=== PATIENT | female | born 1940 | race Caucasian/White ===

== ENCOUNTER → 2016-06-23 | Outpatient (CLI) | payer OTHER ==
[~2016-06-23] MED LIST: ADVIN25/60 INH; AGG PO; ASPI81TA28 PO; ATEN-173 PO; CHOL100010 PO; CMBIN INH; DILT240C74 PO; MULT-506 PO; POTA-327 PO; SIMV40TA2 PO; XNX25 PO
[2016-06-23 12:04] LABS: THYROID STIMULATING HORMONE 0.554 uIu/ml (0.300-4.500)
== END | disposition home or self-care (01) ==
LOC: C.LAB 10:05
PROVIDERS: ATTEND Internal Medicine Endocrinology, Diabetes & Metabolism
DX: E05.90 Thyrotoxicosis, unspecified without thyrotoxic crisis or storm (principal)

== ENCOUNTER → 2016-07-24 | Outpatient (CLI) | payer OTHER | END | disposition home or self-care (01) | LOC: C.LABBFT 15:47 | PROVIDERS: ATTEND Internal Medicine Endocrinology, Diabetes & Metabolism | DX: E05.90 Thyrotoxicosis, unspecified without thyrotoxic crisis or storm (principal) ==

== ENCOUNTER → 2016-08-27 | Outpatient (CLI) | payer OTHER ==
[2016-08-27 12:59] LABS: THYROID STIMULATING HORMONE 3.68 uIu/ml (0.300-4.500)
== END | disposition home or self-care (01) ==
LOC: C.LABBFT 10:58
PROVIDERS: ATTEND Internal Medicine Endocrinology, Diabetes & Metabolism
DX: E05.90 Thyrotoxicosis, unspecified without thyrotoxic crisis or storm (principal)

== ENCOUNTER → 2017-05-01 | Outpatient (CLI) | payer OTHER ==
--- NOTE | 2017-05-01 14:36 | DIAGNOSTIC IMAGING REPORT ---
L-SPINE MIN 4 VIEWS ROUTINE HISTORY: Pain M54.5 Low back [id number] COMPARISON: 02/08/2010 FINDINGS: There is no fracture. Significant degenerative disc change throughout. No evidence for compression deformity. No evidence for subluxation. Atherosclerotic and postoperative change to the thoracic and abdominal aorta. IMPRESSION: No fracture or subluxation within the lumbar spine. Considerable degenerative change. The above report was generated using voice recognition software. It may contain grammatical, syntax or spelling errors. Electronically signed by: Bret De Leon M.D. 05/01/2017 2:35 PM Dictated Date/Time: 05/01/2017 2:34 PM
--- NOTE | 2017-05-01 14:36 | DIAGNOSTIC IMAGING REPORT ---
CHEST 2 VIEWS ROUTINE HISTORY: 76 years-old Female J44.9 Chronic obstructive pulmonary [id number] COMPARISON: Chest radiograph 10/05/2015, chest CT 01/23/2016 TECHNIQUE: PA and lateral views of the chest FINDINGS: Cardiac silhouette is mildly enlarged, unchanged. Stent graft of the thoracic aortic aneurysm redemonstrated. No pneumothorax, pleural effusion, focal airspace consolidation or overt pulmonary edema. Upper lobe predominant emphysematous changes redemonstrated. Mild biapical pleural-parenchymal scarring. The bones are grossly intact. There are surgical clips of the upper abdomen. IMPRESSION: Emphysema without acute cardiopulmonary process. The above report was generated using voice recognition software. It may contain grammatical, syntax or spelling errors. Electronically signed by: Joseph Hanson M.D. 05/01/2017 2:34 PM Dictated Date/Time: 05/01/2017 2:33 PM
[2017-05-01 17:16] LABS: ALKALINE PHOSPHATASE 159 U/L (45-117); ALT/SGPT 15 U/L (12-78); AST/SGOT 10 U/L (15-37); BLOOD UREA NITROGEN 24 mg/dl (7-18); BUN/CREATININE RATIO 26.8 (10-20); CALCIUM 9.4 mg/dl (8.5-10.1); CARBON DIOXIDE 27 mmol/L (21-32); CHLORIDE 104 mmol/L (98-107); CREATININE 0.89 mg/dl (0.60-1.20); GLUCOSE 99 mg/dl (70-99); HDL CHOLESTEROL 67 mg/dl; POTASSIUM 3.6 mmol/L (3.5-5.1); SODIUM 138 mmol/L (136-145)
[2017-05-01 17:21] LABS: ALB/GLOB RATIO 0.7 (0.9-2); CHOLESTEROL 200 mg/dl (0-200); LDL CHOLESTEROL CALCULATED 106 mg/dl; THYROID STIMULATING HORMONE < 0.005 uIu/ml (0.300-4.500); TRIGLYCERIDES 135 mg/dl (0-150); VERY LOW DENSITY LIPOPROT CALC 27 mg/dl
[2017-05-02 06:53] LABS: ESTIMATED AVERAGE GLUCOSE 108 mg/dl; HA1C FLAG Normal (Normal)
== END | disposition home or self-care (01) ==
LOC: C.RADBC 13:56
PROVIDERS: ATTEND Physician Assistant Medical
DX: E05.90 Thyrotoxicosis, unspecified without thyrotoxic crisis or storm (principal); I10 Essential (primary) hypertension; E78.5 Hyperlipidemia, unspecified; R73.09 Other abnormal glucose; M54.5 Low back pain; J44.9 Chronic obstructive pulmonary disease, unspecified; R06.00 Dyspnea, unspecified

== ENCOUNTER → 2017-06-19 | Outpatient (CLI) | payer OTHER | END | disposition home or self-care (01) | LOC: C.LABBFT 09:21 | PROVIDERS: ATTEND Internal Medicine Endocrinology, Diabetes & Metabolism | DX: E88.09 Other disorders of plasma-protein metabolism, not elsewhere classified (principal); R74.8 Abnormal levels of other serum enzymes; E05.90 Thyrotoxicosis, unspecified without thyrotoxic crisis or storm ==

== ENCOUNTER 2017-08-26 18:19 | Inpatient (IN) | payer OTHER ==
[~2017-08-26] VITALS: Ht 167.6 cm; Wt 71.0 kg
[2017-08-26] MEDS ORDERED: SODIUM CHLORIDE 0.9% 500ML 500 ML IV STA (18:35)
[2017-08-26] MEDS: MoRPHine SULFATE 2 MG/ML CARP IV PRN ×2 (19:08→22:57)
--- NOTE | 2017-08-26 19:10 | DIAGNOSTIC IMAGING REPORT ---
L PELVIS/UNILATERAL HIP 2-3VIEWS CLINICAL HISTORY: Evaluate for fracture. COMPARISON: CT of the abdomen and pelvis January 07, 2014. FINDINGS: Note is made of acute intertrochanteric fracture of the left femur. Lesser trochanter is moderately displaced. There is mild angulation at the level the fracture. A previous right hip arthroplasty is noted. Sacroiliac joints and symphysis pubis appear intact. IMPRESSION: Acute intertrochanteric fracture of the left femur. Lesser trochanter displaced medially. Electronically signed by: Mehdi Price M.D. 08/26/2017 7:08 PM Dictated Date/Time: 08/26/2017 7:05 PM
--- NOTE | 2017-08-26 19:12 | DIAGNOSTIC IMAGING REPORT ---
CHEST ONE VIEW PORTABLE CLINICAL HISTORY: Hip fracture. COMPARISON STUDY: Chest radiograph May 01, [address] January 23, 2016. FINDINGS: Mild elevation of the left hemidiaphragm is unchanged. There is no pneumothorax or pleural effusion. Pulmonary vascularity is normal. A thoracic aortic stent graft is noted. The appearance of the thoracic aorta is unchanged by radiography. Cardiomediastinal silhouette is stable. IMPRESSION: 1. No acute cardiopulmonary findings. 2. Stable radiographic appearance of the thoracic aorta status post endovascular stent placement. Electronically signed by: Mehdi Price M.D. 08/26/2017 7:11 PM Dictated Date/Time: 08/26/2017 7:10 PM
[2017-08-26 19:52] LABS: HEMOGLOBIN 10.2 g/dL (12.0-16.0); MEAN CELL VOLUME 79.6 fL (80-100); MEAN CORPUSCULAR HEMOGLOBIN 27.1 pg (25-34); MEAN PLATELET VOLUME 8.4 fL (7.4-10.4); PLATELET COUNT 272 K/uL (130-400); RED CELL DISTRIBUTION WIDTH CV 14.2 % (11.5-14.5); RED CELL DISTRIBUTION WIDTH SD 41.1 fL (36.4-46.3); WHITE BLOOD COUNT 9.33 K/uL (4.8-10.8)
[2017-08-26 20:07] LABS: PTT PATIENT 25.4 SECONDS (21.0-31.0)
[2017-08-26 20:17] LABS: CALCIUM 8.8 mg/dl (8.5-10.1); CREATININE 0.93 mg/dl (0.60-1.20); POTASSIUM 3.7 mmol/L (3.5-5.1)
[2017-08-26 20:18] LABS: BASO % 0.1 %; BASO ABS # 0.01 K/uL (0-0.2); EOS % 0.1 %; EOS ABS # 0.01 K/uL (0-0.5); IG# 0.06 K/uL (0.00-0.02); LYMPH % 8.3 %; LYMPH ABS # 0.77 K/uL (1.2-3.4); MONO % 5.1 %; MONO ABS # 0.48 K/uL (0.11-0.59); NEUT % 85.8 %
--- NOTE | 2017-08-26 20:22 | DIAGNOSTIC IMAGING REPORT ---
CT OF THE HEAD WITHOUT CONTRAST CLINICAL HISTORY: Fall. COMPARISON STUDY: Head CT January 07, 2014. CT DOSE: 712.55 mGy.cm TECHNIQUE: Helical axial images of the head were obtained without IV contrast. Automated exposure control was utilized for the study. A dose lowering technique was utilized adhering to the principles of ALARA. FINDINGS: No acute intracranial hemorrhage, midline shift or mass effect is present. Ventricular system is normal. Basilar cisterns are patent. There are no extra axial collections. 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 White matter hypodensities suggest moderate small vessel disease. There is no calvarial fracture. IMPRESSION: 1. No acute intracranial findings. 2. No calvarial fracture. 3. 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 Electronically signed by: Mehdi Price M.D. 08/26/2017 8:20 PM Dictated Date/Time: 08/26/2017 8:18 PM
[2017-08-26] MEDS ORDERED: ALPR0.25 PO (20:35)
--- NOTE | 2017-08-26 20:35 | EMERGENCY ROOM VISIT NOTE ---
History Report prepared by Jen: Pranay Roque Under the Supervision of: Dr. Silverio Esparza M.D. First contact with patient: 18:21 Chief Complaint: FALL Stated Complaint: FALL, L HIP & LEG PAIN History of Present Illness The patient is a 76 year old female who presents to the Emergency Room by EMS with complaints of constant left hip pain s/p fall occurring 6.5 hours ago. She was given 6 mg of Morphine en route which improved her pain. The patient states that she was on the ground for several hours after the fall until her son came home. She describes her current pain as "sharp". Her pain is worsened with movement. The patient states that she tripped over a shoe and landed on her left side. She is unsure if she hit her head, but is sure she did not lose consciousness. She denies headache or neck pain. The patient denies numbness to her toes, vomiting, fevers, chest pain, SOB, or rib pain. She is on Aggrenox. Source of History: patient Onset: 6.5 hours ago Position: pelvis (left hip) Quality: sharp Timing: constant Modifying Factors (Worsening): movement Modifying Factors (Relieving): other (Morphine) Associated Symptoms: No LOC, No fevers, No headache, No neck pain, No chest pain, No SOB, No vomiting, No numbness (to toes) Note: Negative: rib pain. Review of Systems See HPI for pertinent positives & negatives. A total of 10 systems reviewed and were otherwise negative. Past Medical & Surgical Medical Problems: (1) ARF (acute renal failure) (2) COPD (chronic obstructive pulmonary disease) (3) HTN (hypertension) (4) Hyperlipidemia (5) Non-insulin dependent type 2 diabetes mellitus Surgical Problems: (1) H/O heart artery stent Family History Cancer Diabetes mellitus Heart disease Hypertension Lung disease Social History Smoking Status: Former Smoker Alcohol Use: none Drug Use: none Housing Status: lives with family Occupation Status: retired Current/Historical Medications Scheduled Alprazolam (Xanax *), 0.25 MG PO BID Aspirin (Aspirin Ec), 81 MG PO DAILY Aspirin-Dipyridamole 25MG/200MG (Aggrenox 200MG/25MG), 1 CAP PO BID Atenolol (Tenormin), 25 MG PO DAILY Cholecalciferol (Vitamin D), 2,000 INTER.UNIT PO DAILY Diltiazem Hcl Extended Release (Diltiazem Hcl Er), 240 MG PO DAILY Fluticasone Prop/Salmeterol (Advair Diskus 250/50 60 Dose), 1 PUFF INH BID Ipratropium/Albuterol (Combivent *), 2 PUFFS INH QID Multivitamin (Multivitamin), 1 TAB PO DAILY Potassium Ext Rel (Klor-Con), 20 MEQ PO BID Simvastatin (Zocor), 40 MG PO HS Allergies Coded Allergies: No Known Allergies (Verified , 01/10/03) Physical Exam Vital Signs Date Time Temp Pulse Resp B/P (MAP) Pulse Ox O2 Delivery O2 Flow Rate FiO2 08/26/17 19:09 71 20 169/89 97 Nasal Cannula 08/26/17 18:34 36.4 79 19 148/38 83 Room Air Physical Exam Constitutional: Vital signs reviewed. Eyes: Pupils are equal round reactive to light. Conjunctiva are noninjected. ENT: Pharynx is clear without erythema or exudate. Mucous membranes are dry. Neck supple without meningeal signs. No midline tenderness to the cervical spine. Respiratory: Clear to auscultation bilaterally. Breath sounds are equal bilaterally. Cardiovascular: Regular rate and rhythm. No rubs or gallops. GI: Soft, nondistended and nontender. Bowel sounds are present. Musculoskeletal: Normal distal pulses in the left foot. No tenderness to the left leg distal to the left hip. No pelvic instability. Integumentary: No cyanosis. Neurological: The patient is awake and alert. No focal deficits. Psychiatric: Normal affect. Medical Decision & Procedures ER Provider Diagnostic Interpretation: Radiology results as stated below per my review and the radiologist's interpretation: L PELVIS/UNILATERAL HIP 2-3VIEWS FINDINGS: Note is made of acute intertrochanteric fracture of the left femur. Lesser trochanter is moderately displaced. There is mild angulation at the level the fracture. A previous right hip arthroplasty is noted. Sacroiliac joints and symphysis pubis appear intact. IMPRESSION: Acute intertrochanteric fracture of the left femur. Lesser trochanter displaced medially. Electronically signed by: Mehdi Price M.D. 08/26/2017 7:08 PM CHEST ONE VIEW PORTABLE FINDINGS: Mild elevation of the left hemidiaphragm is unchanged. There is no pneumothorax or pleural effusion. Pulmonary vascularity is normal. A thoracic aortic stent graft is noted. The appearance of the thoracic aorta is unchanged by radiography. Cardiomediastinal silhouette is stable. IMPRESSION: 1. No acute cardiopulmonary findings. 2. Stable radiographic appearance of the thoracic aorta status post endovascular stent placement. Electronically signed by: Mehdi Price M.D. 08/26/2017 7:11 PM Laboratory Results 08/26/17 19:13 Red Blood Count 3.77, Mean Corpuscular Volume 79.6, Mean Corpuscular Hemoglobin 27.1, Mean Corpuscular Hemoglobin Concent 34.0, Mean Platelet Volume 8.4, Neutrophils (%) (Auto) 85.8, Lymphocytes (%) (Auto) 8.3, Monocytes (%) (Auto) 5.1, Eosinophils (%) (Auto) 0.1, Basophils (%) (Auto) 0.1, Neutrophils # (Auto) 8.00, Lymphocytes # (Auto) 0.77, Monocytes # (Auto) 0.48, Eosinophils # (Auto) 0.01, Basophils # (Auto) 0.01 08/26/17 19:13 Test 08/26/17 19:13 08/26/17 19:38 White Blood Count 9.33 K/uL (4.8-10.8) Red Blood Count 3.77 M/uL (4.2-5.4) Hemoglobin 10.2 g/dL (12.0-16.0) Hematocrit 30.0 % (37-47) Mean Corpuscular Volume 79.6 fL (80-100) Mean Corpuscular Hemoglobin 27.1 pg (25-34) Mean Corpuscular Hemoglobin Concent 34.0 g/dl (32-36) Platelet Count 272 K/uL (130-400) Mean Platelet Volume 8.4 fL (7.4-10.4) Neutrophils (%) (Auto) 85.8 % Lymphocytes (%) (Auto) 8.3 % Monocytes (%) (Auto) 5.1 % Eosinophils (%) (Auto) 0.1 % Basophils (%) (Auto) 0.1 % Neutrophils # (Auto) 8.00 K/uL (1.4-6.5) Lymphocytes # (Auto) 0.77 K/uL (1.2-3.4) Monocytes # (Auto) 0.48 K/uL (0.11-0.59) Eosinophils # (Auto) 0.01 K/uL (0-0.5) Basophils # (Auto) 0.01 K/uL (0-0.2) RDW Standard Deviation 41.1 fL (36.4-46.3) RDW Coefficient of Variation 14.2 % (11.5-14.5) Immature Granulocyte % (Auto) 0.6 % Immature Granulocyte # (Auto) 0.06 K/uL (0.00-0.02) Microcytosis PRESENT Prothrombin Time 10.8 SECONDS (9.0-12.0) Prothromb Time International Ratio 1.0 (0.9-1.1) Activated Partial Thromboplast Time 25.4 SECONDS (21.0-31.0) Partial Thromboplastin Ratio 1.0 Anion Gap 8.0 mmol/L (3-11) Est Creatinine Clear Calc Drug Dose 48.9 ml/min Estimated GFR () 69.7 Estimated GFR (Non- 60.1 BUN/Creatinine Ratio 25.5 (10-20) Calcium Level 8.8 mg/dl (8.5-10.1) Total Creatine Kinase 58 U/L (26-192) Urine Color YELLOW Urine Appearance CLEAR (CLEAR) Urine pH 5.5 (4.5-7.5) Urine Specific Stanton 1.011 (1.000-1.030) Urine Protein NEG (NEG) Urine Glucose (UA) 1+ (NEG) Urine Ketones NEG (NEG) Urine Occult Blood TRACE (NEG) Urine Nitrite NEG (NEG) Urine Bilirubin NEG (NEG) Urine Urobilinogen NEG (NEG) Urine Leukocyte Esterase NEG (NEG) Urine WBC (Auto) 0 /hpf (0-5) Urine RBC (Auto) 5-10 /hpf (0-4) Urine Hyaline Casts (Auto) 1-5 /lpf (0-5) Urine Epithelial Cells (Auto) 0-5 /lpf (0-5) Urine Bacteria (Auto) NEG (NEG) Laboratory results as reviewed by me. Medications Administered Medications (Trade) Dose Ordered Sig/Gena Route Start Time Stop Time Status Last Admin Dose Admin Morphine Sulfate (MoRPHine SULFATE INJ) 2 mg Q60M PRN IV 08/26/17 18:30 09/09/17 18:29 08/26/17 19:08 2 MG Sodium Chloride 500 ml @ 999 mls/hr Q31M STAT IV 08/26/17 18:35 08/26/17 19:05 DC 08/26/17 18:48 999 MLS/HR ECG Per My Interpretation Indication: other (fall) Rate (beats per minute): 73 Rhythm: normal sinus Findings: other (No ST elevations. No PVCs. ) ED Course 1821: The patient was evaluated in room B4B. A complete history and physical exam was performed. 1829: Ordered Morphine Sulfate 2 mg IV. 1834: Ordered Sodium Chloride 500 ml @ 999 mls/hr IV. 1934: Upon reevaluation, the patient is resting comfortably. I discussed tonight 's findings with her including her X-ray results. She verbalized agreement of the treatment plan. The patient will be evaluated for further management. Medical Decision This is a 76-year-old female presents with left hip pain after fall. Differential diagnosis includes contusion, hip fracture, pelvic fracture, acute head injury, rhabdomyolysis. I did perform a limited focused review of portions of the patient's old chart on the electronic medical record. The patient has had no recent pertinent visits to this hospital. I did evaluate the patient as noted above. Patient was given IV morphine for pain control here. I did order and personally review the patient's 12-lead EKG and chest/pelvic/hip x-ray as described above. She does have an intertrochanteric hip fracture. I did order and review the patient's blood work as noted in the electronic medical record. CPK is not elevated. I did order a CT of the head. I did review the images myself as well as the radiology report as described above. There is no evidence of intracranial hemorrhage. I did discuss case with Dr. Hadley and the renal case manager. I did discuss the test results with the patient and her family. Head Trauma GCS Score: 15 Medication Reconcilliation Current Medication List: was personally reviewed by me Blood Pressure Screening Patient's blood pressure: Elevated blood pressure Blood pressure disposition: Referred to PCP Consults Time Called: 1929 Consulting Physician: Dr. Cortés - [facility] Returned Call: 1944 Dr. Cortés was made aware of the patient's case. The patient will be evaluated for further management. Impression Primary Impression: Intertrochanteric fracture of left hip Additional Impressions: Anemia Fall Scribe Attestation The scribe's documentation has been prepared under my direct and personally reviewed by me in its entirety. I confirm that the note above accurately reflects all work, treatment, procedures, and medical decision making performed by me. Departure Information Dispostion Being Evaluated By Hospitalist Referrals No Doctor, Assigned (PCP) Patient Instructions [facility] Problem Qualifiers Primary Impression: Intertrochanteric fracture of left hip Encounter type: initial encounter Fracture type: closed Fracture alignment : nondisplaced Qualified Codes: S72.145A - Nondisplaced intertrochanteric fracture of left femur, initial encounter for closed fracture Additional Impressions: Anemia Anemia type: unspecified type Qualified Codes: D64.9 - Anemia, unspecified Fall Encounter type: initial encounter Qualified Codes: W19.XXXA - Unspecified fall, initial encounter
[2017-08-26] MEDS ORDERED: LOSA1TAB38 PO (20:37)
[2017-08-26] MEDS ORDERED: METH10TA6 PO (20:38)
[2017-08-26] MEDS ORDERED: TIOT1SPR INH (20:40)
[2017-08-26] MEDS ORDERED: IPRA1AER2 INH (20:41)
[2017-08-26] MEDS ORDERED: FURO-85 PO (20:44)
--- NOTE | 2017-08-26 21:11 | History and Physical ---
History & Physical Date & Time of Service: Aug 26, 2017 at 21:11 Chief Complaint: Fall, L Hip & Leg Pain Primary Care Physician: No Doctor, Assigned History of Present Illness Source: patient, family, hospital records The patient is 76-year-old female who presents to the emergency department after tripping over her grandson tissue and sustaining immediate left hip pain about 6-1/2 hours prior to arrival. Patient reports that she was on the ground for several hours until her son came home and found her. She is unable to bear weight, and describes the pain as sharp and severe. She does not think she had any other body parts, and has no other complaints. Past Medical/Surgical History Medical Problems: (1) Abnormal EKG (2) Acute kidney injury (3) Acute kidney injury (4) Acute renal failure (5) ARF (acute renal failure) (6) COPD (chronic obstructive pulmonary disease) (7) Dehydration (8) Dehydration (9) Fever (10) Fracture of humeral head, right, closed (11) Hip fracture (12) HTN (hypertension) (13) Hyperlipidemia (14) Hypoglycemia (15) Hypotension (16) Non-insulin dependent type 2 diabetes mellitus (17) Urinary tract infection Surgical Problems: (1) H/O heart artery stent Family History Cancer Diabetes mellitus Heart disease Hypertension Lung disease Social History Smoking Status: Former Smoker Drug Use: none Housing status: lives alone Occupational Status: retired Immunizations History of Influenza Vaccine: Yes Influenza Vaccine Date: Feb 10, 2011 History of Tetanus Vaccine?: No History of Pneumococcal: Unknown History of Hepatitis B Vaccine: No Allergies Coded Allergies: No Known Allergies (Verified , 01/10/03) Home Medications Scheduled Aspirin (Aspirin Ec), 81 MG PO DAILY Aspirin-Dipyridamole 25MG/200MG (Aggrenox 200MG/25MG), 1 CAP PO BID Cholecalciferol (Vitamin D), 2,000 INTER.UNIT PO DAILY Diltiazem Hcl Extended Release (Diltiazem Hcl Er), 240 MG PO DAILY Fluticasone Prop/Salmeterol (Advair Diskus 250/50 60 Dose), 1 PUFF INH BID Losartan Potassium (Cozaar), 100 MG PO DAILY Methimazole (Methimazole), 10 MG PO BID Multivitamin (Multivitamin), 1 TAB PO DAILY Potassium Ext Rel (Klor-Con), 20 MEQ PO BID Simvastatin (Zocor), 40 MG PO HS Tiotropium [place] (Spiriva Respimat), 2 PUFF INH DAILY Scheduled PRN Alprazolam (Xanax), 0.25 MG PO BID PRN for Anxiety Furosemide (Lasix), 20 MG PO DAILY PRN for UNDECIDED Ipratropium-Albuterol (Combivent Respimat), 1 PUFFS INH QID PRN for SOB/Wheezing Review of Systems The patient denies chest pain, palpitations, shortness of breath, dyspnea on exertion, cough, lower extremity swelling, sore throat, fevers, chills, sweats, weight change, fatigue, nausea, vomiting, diarrhea , constipation, abdominal pain, pelvic pain, blood in urine or stool, dysuria, urinary frequency or urgency, lightheadedness , dizziness, headache, memory loss, loss of consciousness, rash, abnormal bruising or bleeding, generalized weakness, numbness or tingling in arms, generalized arthralgias or myalgias, back or neck pain, or night sweats. The review of systems is otherwise negative other than for that already noted above, and at least 10 systems have been reviewed. Physical Exam Vital Signs Date Time Temp Pulse Resp B/P (MAP) Pulse Ox O2 Delivery O2 Flow Rate FiO2 08/26/17 19:09 71 20 169/89 97 Nasal Cannula 08/26/17 18:34 36.4 79 19 148/38 83 Room Air The patient is awake, alert and oriented 3, well developed and well nourished, normocephalic and atraumatic, lying in bed and in no acute distress. HEENT--PERRL, EOMI, mucous membranes and oropharynx dry. Neck--supple. No JVD. No bruits. Thyroid normal, trachea midline, no adenopathy. Heart--normal S1 and S2. No murmurs, rubs or gallops. Lungs--clear bilaterally, no respiratory distress, no accessory muscle use. Abdomen--normal bowel sounds and soft. Nontender. Nondistended, no hernias or masses, no organomegaly. Extremities--no cyanosis or clubbing. No edema. There are good distal pulses b/ l. Dermatologic--normal skin turgor, normal color, no abnormal lymph nodes, no rash. Neurologic--cranial nerves II through XII grossly intact. Rheumatologic--reproducible pain over left hip. Psychiatric--normal affect. Diagnostics Laboratory Results Results Past 24 Hours Test 08/26/17 19:13 08/26/17 19:38 Range/Units White Blood Count 9.33 4.8-10.8 K/uL Red Blood Count 3.77 4.2-5.4 M/uL Hemoglobin 10.2 12.0-16.0 g/dL Hematocrit 30.0 37-47 % Mean Corpuscular Volume 79.6 80-100 fL Mean Corpuscular Hemoglobin 27.1 25-34 pg Mean Corpuscular Hemoglobin Concent 34.0 32-36 g/dl Platelet Count 272 130-400 K/uL Mean Platelet Volume 8.4 7.4-10.4 fL Neutrophils (%) (Auto) 85.8 % Lymphocytes (%) (Auto) 8.3 % Monocytes (%) (Auto) 5.1 % Eosinophils (%) (Auto) 0.1 % Basophils (%) (Auto) 0.1 % Neutrophils # (Auto) 8.00 1.4-6.5 K/uL Lymphocytes # (Auto) 0.77 1.2-3.4 K/uL Monocytes # (Auto) 0.48 0.11-0.59 K/uL Eosinophils # (Auto) 0.01 0-0.5 K/uL Basophils # (Auto) 0.01 0-0.2 K/uL RDW Standard Deviation 41.1 36.4-46.3 fL RDW Coefficient of Variation 14.2 11.5-14.5 % Immature Granulocyte % (Auto) 0.6 % Immature Granulocyte # (Auto) 0.06 0.00-0.02 K/uL Microcytosis PRESENT Prothrombin Time 10.8 9.0-12.0 SECONDS Prothromb Time International Ratio 1.0 0.9-1.1 Activated Partial Thromboplast Time 25.4 21.0-31.0 SECONDS Partial Thromboplastin Ratio 1.0 Sodium Level 136 136-145 mmol/L Potassium Level 3.7 3.5-5.1 mmol/L Chloride Level 103 98-107 mmol/L Carbon Dioxide Level 25 21-32 mmol/L Anion Gap 8.0 3-11 mmol/L Blood Urea Nitrogen 24 7-18 mg/dl Creatinine 0.93 0.60-1.20 mg/dl Est Creatinine Clear Calc Drug Dose 48.9 ml/min Estimated GFR () 69.7 Estimated GFR (Non- 60.1 BUN/Creatinine Ratio 25.5 10-20 Random Glucose 143 70-99 mg/dl Calcium Level 8.8 8.5-10.1 mg/dl Total Creatine Kinase 58 26-192 U/L Urine Color YELLOW Urine Appearance CLEAR CLEAR Urine pH 5.5 4.5-7.5 Urine Specific [place] 1.011 1.000-1.030 Urine Protein NEG NEG Urine Glucose (UA) 1+ NEG Urine Ketones NEG NEG Urine Occult Blood TRACE NEG Urine Nitrite NEG NEG Urine Bilirubin NEG NEG Urine Urobilinogen NEG NEG Urine Leukocyte Esterase NEG NEG Urine WBC (Auto) 0 0-5 /hpf Urine RBC (Auto) 5-10 0-4 /hpf Urine Hyaline Casts (Auto) 1-5 0-5 /lpf Urine Epithelial Cells (Auto) 0-5 0-5 /lpf Urine Bacteria (Auto) NEG NEG Diagnostic Radiology Patient Name: PRICILLA NICOLAS Unit Number: [id number] Dictated: 08/26/171904 Transcribed: 08/26/171904 HARRIET Printed Date/Time: [~ rep prt dt]/[~ rep prt tm] [~ rep ct labl] - [~ rep ct ivnm] [facility] Radiology Department [place], [place] [id number] Dictated: 08/26/171904 Transcribed: 08/26/171904 HARRIET Printed Date/Time: [~ rep prt dt]/[~ rep prt tm] [~ rep ct labl] - [~ rep ct ivnm] [~ rep ct add3]] L PELVIS/UNILATERAL HIP 2-3VIEWS CLINICAL HISTORY: Evaluate for fracture. COMPARISON: CT of the abdomen and pelvis January 07, 2014. FINDINGS: Note is made of acute intertrochanteric fracture of the left femur. Lesser trochanter is moderately displaced. There is mild angulation at the level the fracture. A previous right hip arthroplasty is noted. Sacroiliac joints and symphysis pubis appear intact. IMPRESSION: Acute intertrochanteric fracture of the left femur. Lesser trochanter displaced medially. Electronically signed by: Mehdi Price M.D. 08/26/2017 7:08 PM Dictated Date/Time: 08/26/2017 7:05 PM The status of this report is Signed. Draft = Not yet reviewed or approved by Radiologist. Signed = Reviewed and approved by Radiologist. <AttendingPhy></AttendingPhy> <FamilyPhy>No Doctor, Assigned</FamilyPhy> < PrimaryPhy>No Doctor, Assigned</PrimaryPhy> <UnitNumber>[id number]</UnitNumber> <VisitNumber>[id number]</VisitNumber> <PatientName>PRICILLA NICOLAS</ PatientName> <DateOfBirth>1940</DateOfBirth> <Location>[facility]</Location> < ServiceDate>08/26/17</ServiceDate> <MNE>ESINDI</MNE> <OrderingPhy>Silverio Esparza MD</OrderingPhy> <OrderingPhyMNE>f rep ord dr bales</OrderingPhyMNE> < DictatingPhyMNE>f rep dict dr bales</DictatingPhyMNE> <CCListMNE>f rep ct ruslane</ CCListMNE> <AdmittingPhyMNE>f pt admit dr bales</AdmittingPhyMNE> <AttendingPhyMNE >f pt attend dr bales</AttendingPhyMNE> <ConsultingPhyMNE>f pt consult dr bales</ConsultingPhyMNE> <FamilyPhyMNE>f pt fam dr bales</FamilyPhyMNE> <OtherPhyMNE>f pt other dr bales</OtherPhyMNE> < PrimaryPhyMNE>f pt prim care dr bales</PrimaryPhyMNE> <ReferringPhyMNE>f pt referring dr bales</ReferringPhyMNE> CT OF THE HEAD WITHOUT CONTRAST CLINICAL HISTORY: Fall. COMPARISON STUDY: Head CT January 07, 2014. CT DOSE: 712.55 mGy.cm TECHNIQUE: Helical axial images of the head were obtained without IV contrast. Automated exposure control was utilized for the study. A dose lowering technique was utilized adhering to the principles of ALARA. FINDINGS: No acute intracranial hemorrhage, midline shift or mass effect is present. Ventricular system is normal. Basilar cisterns are patent. There are no extra axial collections. 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 White matter hypodensities suggest moderate small vessel disease. There is no calvarial fracture. IMPRESSION: 1. No acute intracranial findings. 2. No calvarial fracture. 3. 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 Electronically signed by: Mehdi Price M.D. 08/26/2017 8:20 PM Dictated Date/Time: 08/26/2017 8:18 PM The status of this report is Signed. Draft = Not yet reviewed or approved by Radiologist. Signed = Reviewed and approved by Radiologist. <AttendingPhy></AttendingPhy> <FamilyPhy>No Doctor, Assigned</FamilyPhy> < PrimaryPhy>No Doctor, Assigned</PrimaryPhy> <UnitNumber>[id number]</UnitNumber> <VisitNumber>[id number]</VisitNumber> <PatientName>PRICILLA NICOLAS Benson</ PatientName> <DateOfBirth>1940</DateOfBirth> <Location>C.ED[facility]</Location> < ServiceDate> [~ rep ct add3]] CHEST ONE VIEW PORTABLE CLINICAL HISTORY: Hip fracture. COMPARISON STUDY: Chest radiograph May 01, [address] January 23, 2016. FINDINGS: Mild elevation of the left hemidiaphragm is unchanged. There is no pneumothorax or pleural effusion. Pulmonary vascularity is normal. A thoracic aortic stent graft is noted. The appearance of the thoracic aorta is unchanged by radiography. Cardiomediastinal silhouette is stable. IMPRESSION: 1. No acute cardiopulmonary findings. 2. Stable radiographic appearance of the thoracic aorta status post endovascular stent placement. Electronically signed by: Mehdi Price M.D. 08/26/2017 7:11 PM Dictated Date/Time: 08/26/2017 7:10 PM The s EKG EKG shows normal sinus rhythm, nonspecific ST-T changes laterally. Impression Assessment and Plan Abnormal EKG/CAD/history of coronary artery stent/status post endovascular stent -- The patient will be admitted to telemetry for serial cardiac enzymes, serial EKG's, cardiac rhythm monitoring and a 2-D echocardiogram with Dopplers. Consult cardiology. Hold atenolol and diltiazem extended release. Lopressor 5 mg IV every 4 hours with hold parameters. Left hip fracture-- Tylenol for mild pain, morphine sulfate 2-4 mg IV every 2 hours as needed for moderate to severe pain. Consult Dr. Sorto, who fixed her right hip a few years ago. Hold aspirin and Aggrenox. Severe COPD/history of tobacco abuse-- Xopenex/Atrovent nebulizer every 6 hours while awake and every 2 hours as needed. Nasal cannula 2 L oxygen, titrate to keep pulse ox greater than or equal to 92%. Cerebrovascular disease-- CT reveals old left frontal and parietal infarcts, with moderate small vessel disease, no acute findings. Hold aspirin and Aggrenox Hyperlipidemia-- Simvastatin 40 mg p.o. at bedtime. Anxiety-- Hold Xanax p.o., and place on Lorazepam 0.5 mg IV every 6 hours as needed. Hyperthyroidism-- Continue methimazole 10 mg p.o. twice daily. Advanced Directives Existing Advance Directive: No Existing Living Will: No Existing Power of Rn Clinical Coordinator: No Resuscitation Status VTE Prophylaxis Will order VTE Prophylaxis: Yes
[2017-08-26] MEDS ORDERED: ACETAMINOPHEN 325 MG TAB PO PRN (21:15)
[2017-08-26] MEDS ORDERED: MoRPHine SULFATE 2 MG/ML CARP IV PRN (21:30)
[2017-08-26] MEDS ORDERED: MoRPHine SULFATE 4 MG/ML 1 ML CARP\\VIAL IV PRN (21:30)
[2017-08-26] MEDS ORDERED: LORAZEPAM 2 MG/ML 1 ML VIAL IV PRN (21:30)
[2017-08-26] MEDS ORDERED: ONDANSETRON 4MG OD TAB ONE (21:51)
[2017-08-26 22:05] LABS: ALBUMIN 3.8 gm/dl (3.4-5.0); TOTAL PROTEIN 7.7 gm/dl (6.4-8.2)
[2017-08-26] MEDS ORDERED: IPRATROPIUM BROMIDE NEB SOLN 0.02% 2.5 ML VIAL INH PRN (22:15)
[2017-08-26] MEDS ORDERED: LEVALBUTEROL 1.25MG/0.5ML NEB INH PRN (22:15)
[2017-08-26 22:45] VITALS: BP 180/93; PULSE 77; TEMP 36.4; O2SAT 97
[2017-08-26] MEDS: METOPROLOL TARTRATE 1 MG/ML VIAL IV. SCH (23:46)
[2017-08-26] MEDS: NSS + 20MEQ KCL 1000ML 1,000 ML IV SCH (23:46)
[2017-08-27] VITALS (11 sets, daily range): BP systolic 104–183; BP diastolic 61–94; PULSE 59–92; TEMP 36.4–36.7; O2SAT 90–100; Ht 167.6 cm; Wt 71.0 kg
[2017-08-27] MEDS: IPRATROPIUM BROMIDE NEB SOLN 0.02% 2.5 ML VIAL INH SCH ×4 (03:00→19:19)
[2017-08-27] MEDS ORDERED: LEVALBUTEROL/IPRATROPIUM NEB INH SCH (03:00)
[2017-08-27] MEDS: LEVALBUTEROL 1.25MG/0.5ML NEB INH SCH ×4 (03:00→19:19)
[2017-08-27] MEDS: METOPROLOL TARTRATE 1 MG/ML VIAL IV. SCH ×5 (03:55→20:57)
[2017-08-27 05:25] LABS: BASO % 0.5 %; BASO ABS # 0.03 K/uL (0-0.2); EOS % 0.5 %; EOS ABS # 0.03 K/uL (0-0.5); HEMATOCRIT 28.5 % (37-47); HEMOGLOBIN 9.2 g/dL (12.0-16.0); IG# 0.02 K/uL (0.00-0.02); LYMPH % 12.8 %; LYMPH ABS # 0.79 K/uL (1.2-3.4); MEAN CELL VOLUME 81.7 fL (80-100); MEAN CORPUSCULAR HEMOGLOBIN 26.4 pg (25-34); MEAN CORPUSCULAR HGB CONC 32.3 g/dl (32-36); MEAN PLATELET VOLUME 8.2 fL (7.4-10.4); MONO % 7.1 %; MONO ABS # 0.44 K/uL (0.11-0.59); NEUT % 78.8 %; NEUT ABS # 4.88 K/uL (1.4-6.5); PLATELET COUNT 239 K/uL (130-400); RED CELL DISTRIBUTION WIDTH CV 14.5 % (11.5-14.5); RED CELL DISTRIBUTION WIDTH SD 43.3 fL (36.4-46.3); WHITE BLOOD COUNT 6.19 K/uL (4.8-10.8)
[2017-08-27 05:34] LABS: INR 1.1 (0.9-1.1); PTT PATIENT 27.3 SECONDS (21.0-31.0)
[2017-08-27 05:41] LABS: BLOOD UREA NITROGEN 24 mg/dl (7-18); CALCIUM 8.6 mg/dl (8.5-10.1); CARBON DIOXIDE 24 mmol/L (21-32); CREATININE 1.05 mg/dl (0.60-1.20); GLUCOSE 126 mg/dl (70-99); POTASSIUM 4.2 mmol/L (3.5-5.1); SODIUM 138 mmol/L (136-145)
[2017-08-27 05:47] LABS: CHOLESTEROL 186 mg/dl (0-200); CKMB 1.8 ng/ml (0.5-3.6); LDL CHOLESTEROL CALCULATED 109 mg/dl
[2017-08-27 07:10] LABS: HEMOGLOBIN A1C 5.6 % (4.5-5.6)
--- NOTE | 2017-08-27 07:16 | DIAGNOSTIC IMAGING REPORT ---
LEFT FEMUR 2 VIEWS CLINICAL HISTORY: Fracture. FINDINGS: AP and crosstable lateral portable views of the left femur are correlated with left hip radiographs dated 08/26/2017. The skeletal structures are osteopenic. There is a minimally distracted intertrochanteric fracture of the left femur with medial distraction of the lesser trochanter. The distal femur is intact. The visualized left hemipelvis is maintained. Mild arthritic change and joint space narrowing are seen in the left hip. The left knee joint is grossly preserved. A right hip arthroplasty is partially imaged on the crosstable lateral view. Mild soft tissue edema is noted in the upper thigh. There is atherosclerotic calcification of the femoral artery. IMPRESSION: Unchanged appearance of an intertrochanteric left femoral fracture as compared to yesterday. Electronically signed by: John Romero M.D. 08/27/2017 7:15 AM Dictated Date/Time: 08/27/2017 7:13 AM
[2017-08-27] MEDS: METHIMAZOLE 5 MG TAB PO SCH ×2 (07:41→21:07)
[2017-08-27] MEDS: HEPARIN SOD 5000 UNIT/0.5 ML CARP SQ SCH ×2 (07:47→21:08)
--- NOTE | 2017-08-27 09:06 | CONSULTATION REPORT ---
DATE OF CONSULTATION: 08/27/2017 REASON FOR CONSULT: Left hip fracture. HISTORY OF PRESENT ILLNESS: The patient is a 76-year-old white female who states that while she was walking down her hallway she ended up stumbling over something and fell to the ground. She denies any dizziness, lightheadedness, shortness of breath, chest pain prior to or after the fall. She states she did not lose consciousness but possibly may have hit her head when she hit the floor. She had immediate pain in her left hip and groin and was unable to ambulate and was brought to [facility] ED. She was seen by the staff. X-rays were taken and it was found that she had an intertrochanteric fracture of the left hip. She was admitted by the medical service and we have been asked to see her for her hip fracture. PAST MEDICAL HISTORY: Acute kidney injury, acute renal failure, COPD, hypertension, hyperlipidemia, diabetes mellitus type 2, left-sided CVA with left MCA in 2013, history of falls, carotid disease. PAST SURGICAL HISTORY: She has had a right bipolar hemiarthroplasty in 2012, carotid endarterectomy in 2004, cholecystectomy, hysterectomy, history of cardiac stent placement. FAMILY HISTORY: Cancer, diabetes mellitus, heart disease, hypertension, lung disease. SOCIAL HISTORY: The patient is a former smoker, about 54-[id number] history of smoking at least. She is retired. No alcohol use. MEDICATIONS: Aspirin 81 mg p.o. daily, Aggrenox 1 cap p.o. b.i.d., vitamin D 2000 international units p.o. daily, diltiazem 240 mg p.o. daily, Advair Diskus 250/50 one puff inhaled b.i.d., losartan, potassium 100 mg p.o. daily, methimazole 10 mg p.o. b.i.d., multivitamin 1 tab p.o. daily, potassium extended release 20 mEq p.o. b.i.d., simvastatin 40 mg p.o. at bedtime, Spiriva 2 puffs inhaled daily, alprazolam 0.25 mg p.o. b.i.d. p.r.n., Lasix 20 mg p.o. daily p.r.n. and Combivent Respimat 1 puff inhaled q.i.d. p.r.n. ALLERGIES: NKDA. REVIEW OF SYSTEMS: As per admitting history and physical. PHYSICAL EXAMINATION: GENERAL: The patient is a well-developed, well-nourished white female who is alert and oriented x3 and in no acute distress, pleasant and cooperative. She states her pain is controlled quite well at this time and she has not been having any muscle spasms in the left lower extremity and around the hip. SKIN: Warm and dry. EXTREMITIES: Focusing on her left lower extremity, it is shortened and slightly externally rotated compared to the right. No attempts were made to move the left hip due to fracture. She is nontender at the left knee and has good range of motion at the left ankle and toes. Sensation is intact. Distal pulses are equal bilaterally. Right lower extremity is essentially within normal limits. She has a scar from her previous right hemiarthroplasty and is nontender at the hip, knee and ankle and range of motion is within normal limits. She denies pain in the upper extremities bilaterally at the shoulders, elbows and wrist and has good range of motion. She denies neck pain at this time. She does complain of some low back pain of which she states is a chronic issue and has not worsened since the fall. There is no gross motor or sensory deficits seen at this time other than due to hip fracture. ASSESSMENT: Left intertrochanteric hip fracture. PLAN: Currently cardiology has been consulted to see the patient and with her other comorbidities, we will await medical clearance from the hospitalist service as well as cardiology before taking this patient to the operating room. Discussed the case with the patient and with her daughter, of which they are in agreement to go ahead with surgery whenever cleared by cardiology and the hospital staff.
--- NOTE | 2017-08-27 09:43 | Family Medicine Progress Note ---
Progress Note Date of Service Aug 27, 2017. Subjective Pt evaluation today including: conversation w/ patient, physical exam, chart review, lab review, review of studies, review of inpatient medication list Pain: no pain at rest, 10/10 with movement PO Intake: npo Voiding: alvarez catheter in place Pain controlled if at rest. She denies Chest pain, sob, palpitation, calf pain, swelling, Constitutional: No fever, No chills, No weakness Respiratory: No cough, No wheezing, No shortness of breath Cardiovascular: No chest pain, No edema Abdomen: No pain, No nausea, No vomiting Female : No urinary frequency Neurologic: No numbness/tingling Skin: No rash, No itch Medications Current Inpatient Medications Medications (Trade) Dose Ordered Sig/Gena Route Start Time Stop Time Status Last Admin Dose Admin Heparin Sodium (Porcine) (Heparin Sq 5000 Unit/0.5ml) 5,000 unit Q12 SQ 08/27/17 09:00 09/26/17 08:59 08/27/17 21:08 5,000 UNIT Acetaminophen (Tylenol Tab) 650 mg Q4H PRN PO 08/26/17 21:15 09/25/17 21:14 Methimazole (Methimazole Tab) 10 mg BID PO 08/27/17 09:00 09/26/17 08:59 08/27/17 21:07 10 MG Ondansetron HCl (Zofran Odt) 8 mg Q6H PRN PO 08/26/17 21:30 09/25/17 21:29 Pantoprazole Sodium 40 mg/ Syringe 10 ml @ 5 mls/min DAILY@11 IV 08/27/17 11:00 08/30/17 11:01 08/27/17 11:48 5 MLS/MIN Metoprolol Tartrate (Lopressor Iv) 5 mg Q4 IV. 08/27/17 00:00 09/26/17 00:00 08/28/17 00:33 5 MG Lorazepam (Ativan Inj) 0.5 mg Q6H PRN IV 08/26/17 21:30 09/25/17 21:29 Ipratropium Ewing (Atrovent 0.02% 0.5MG/2.5ML Neb) 0.5 mg Q6R INH 08/27/17 03:00 5/3/18 02:59 08/28/17 01:50 0.5 MG Levalbuterol (Xopenex 1.25MG/ 0.5ML Neb) 1.25 mg Q6R INH 08/27/17 03:00 09/26/17 02:59 08/28/17 01:50 1.25 MG Ipratropium Ewing (Atrovent 0.02% 0.5MG/2.5ML Neb) 0.5 mg Q2H PRN INH 08/26/17 22:15 09/25/17 22:14 Levalbuterol (Xopenex 1.25MG/ 0.5ML Neb) 1.25 mg Q2H PRN INH 08/26/17 22:15 09/25/17 22:14 Sodium Chloride 1,000 ml @ 100 mls/hr Q10H IV 08/27/17 17:45 09/26/17 17:44 08/28/17 03:55 100 MLS/HR Cefazolin Sodium 1000 mg/Syringe 7.5 ml @ 3.75 mls/ min Q8H IV 08/28/17 00:00 08/28/17 08:01 08/28/17 00:32 3.75 MLS/MIN Ondansetron HCl (Zofran Inj) 4 mg Q6H PRN IV 08/27/17 17:15 09/26/17 17:14 Oxycodone HCl (Roxicodone Immediate Rel Tab) 5 mg Q4H PRN PO 08/27/17 17:15 09/10/17 17:14 08/27/17 21:07 5 MG Aspirin/Aluminum/ Magnesium/Ca Carb (Ascriptin Tab) 325 mg BID PO 08/27/17 21:00 09/26/17 20:59 Morphine Sulfate (MoRPHine SULFATE INJ) 4 mg Q4H PRN IV 08/27/17 17:15 09/10/17 17:14 Naloxone HCl (Narcan Inj) 0.4 mg Q1M PRN IV 08/27/17 17:15 09/26/17 17:14 Menthol (Nice Jenna) 1 jenna Q2H PRN PO 08/27/17 17:15 09/26/17 17:14 Senna/Docusate Sodium (Senokot S Tab) 2 tab HS PO 4/3/18 21:00 09/26/17 20:59 Objective Vital Signs Date Time Temp Pulse Resp B/P (MAP) Pulse Ox O2 Delivery O2 Flow Rate FiO2 08/28/17 04:00 Nasal Cannula 4.0 08/28/17 04:00 36.9 92 20 118/69 (85) 95 Nasal Cannula 3.0 08/28/17 01:51 78 18 99 Nasal Cannula 3.0 08/28/17 00:33 109 132/72 08/28/17 00:06 36.7 109 22 132/72 (92) 95 Nasal Cannula 4.0 08/28/17 00:00 Nasal Cannula 4.0 08/27/17 20:00 Nasal Cannula 4.0 08/27/17 19:42 86 107/75 (86) 90 Nasal Cannula 3.0 08/27/17 19:19 88 18 97 Mask 4.0 08/27/17 19:18 36.7 92 18 121/83 (96) 98 Oxymask 4.0 08/27/17 18:48 36.7 75 18 104/61 (75) 100 Oxymask 4.0 08/27/17 18:36 103 109/72 08/27/17 18:33 84 109/72 (84) 100 Oxymask 4.0 08/27/17 18:15 85 12 121/81 95 Oxymask 3 08/27/17 18:00 36.6 82 12 121/82 93 Oxymask 3 08/27/17 17:50 95 12 127/81 87 Nasal Cannula 4 08/27/17 17:40 102 21 148/111 98 Oxymask 5 08/27/17 17:30 95 12 143/94 100 Oxymask 6 08/27/17 17:21 36.7 112 21 156/106 100 Oxymask 10 08/27/17 15:01 Nasal Cannula 3.0 08/27/17 14:17 78 18 92 Nasal Cannula 1.5 08/27/17 11:48 74 176/72 08/27/17 11:36 Nasal Cannula 3.0 08/27/17 11:20 36.7 77 20 146/74 (98) 91 2.0 08/27/17 08:00 Nasal Cannula 3.0 08/27/17 07:40 72 172/83 08/27/17 07:22 36.6 67 20 176/92 (120) 96 Nasal Cannula 2.0 08/27/17 07:18 59 18 96 Nasal Cannula 3.0 Physical Exam General Appearance: WD/WN, no apparent distress Eyes: normal inspection, PERRL Neck: supple, trachea midline Respiratory/Chest: lungs clear, normal breath sounds, no respiratory distress Cardiovascular: regular rate, rhythm, no murmur Abdomen: normal bowel sounds, non tender, soft Extremities: no pedal edema, no calf tenderness, + pertinent finding (LEft HIp s/p fracture ) Neurologic/Psychiatric: alert, normal mood/affect, oriented x 3 Skin: normal color, warm/dry Laboratory Results Results Past 24 Hours Test 08/27/17 13:08 08/27/17 17:26 08/28/17 06:00 Range/Units Total Creatine Kinase 55 26-192 U/L Creatine Kinase MB 1.3 0.5-3.6 ng/ml Creatine Kinase MB Ratio 2.4 0-3.0 Troponin I < 0.015 0-0.045 ng/ml Bedside Glucose 129 70-90 mg/dl White Blood Count 6.77 4.8-10.8 K/uL Red Blood Count 2.79 4.2-5.4 M/uL Hemoglobin 7.6 12.0-16.0 g/dL Hematocrit 22.8 37-47 % Mean Corpuscular Volume 81.7 80-100 fL Mean Corpuscular Hemoglobin 27.2 25-34 pg Mean Corpuscular Hemoglobin Concent 33.3 32-36 g/dl Platelet Count 229 130-400 K/uL Mean Platelet Volume 8.5 7.4-10.4 fL Neutrophils (%) (Auto) 88.1 % Lymphocytes (%) (Auto) 4.3 % Monocytes (%) (Auto) 7.2 % Eosinophils (%) (Auto) 0.1 % Basophils (%) (Auto) 0.0 % Neutrophils # (Auto) 5.96 1.4-6.5 K/uL Lymphocytes # (Auto) 0.29 1.2-3.4 K/uL Monocytes # (Auto) 0.49 0.11-0.59 K/uL Eosinophils # (Auto) 0.01 0-0.5 K/uL Basophils # (Auto) 0.00 0-0.2 K/uL RDW Standard Deviation 43.9 36.4-46.3 fL RDW Coefficient of Variation 14.6 11.5-14.5 % Immature Granulocyte % (Auto) 0.3 % Immature Granulocyte # (Auto) 0.02 0.00-0.02 K/uL Prothrombin Time 10.7 9.0-12.0 SECONDS Prothromb Time International Ratio 1.0 0.9-1.1 Activated Partial Thromboplast Time 26.4 21.0-31.0 SECONDS Partial Thromboplastin Ratio 1.0 Assessment and Plan 77 yo F with H/o mechanical fall found to have acute intertrochanteric fracture of the Left femur Abnormal EKG/CAD/history of coronary artery stent/status post endovascular stent negative troponin Per cardiology., unlikely to be due to acute cardiac event cleared for orthopedic surgery Held atenolol and diltiazem extended release. Lopressor 5 mg IV every 4 hours with hold parameters. Intertrochanteric fx of Left femur Seen by Orthopedic Surgery (Dr. Sorto consulted) surgical repair pending cardiac clearance by cardiology Held aspirin and Aggrenox. Severe COPD/history of tobacco abuse-- c/w Xopenex/Atrovent nebulizer every 6 hours while awake and every 2 hours as needed. Cerebrovascular disease-- CT Head: old left frontal and parietal infarcts, with moderate small vessel disease, no acute findings. Held aspirin and Aggrenox Hyperlipidemia-- Simvastatin 40 mg p.o. at bedtime. Anxiety-- Hold Xanax p.o., and place on Lorazepam 0.5 mg IV every 6 hours as needed. Hyperthyroidism-- Continue methimazole 10 mg p.o. twice daily. Resident Physician Supervision Note: I interviewed and examined the patient. Discussed with Dr. Mukherjee and agree with findings and plan as documented in the note. Any exceptions or clarifications are listed here: None Documented By: Félix Sabillon sleeping comfortably appreciate strategy consultant input vitals noted nad breathing unlabored no pallor or icterus hip fx - for OR. medically acceptable risk, certainly w hip fx benefits far outweigh risks in terms of her lnog term recovery. outpt osteoporosis w/u. anemia - anticipate acute blood loss related to hip fx, but thus far hemodynamically stable dvt proph - heparin SQ Continued [facility] stay due to: multiple IV medications needed Discharge planning: rehab hospital Resident Tracking Resident Involvement: Resident Care Provided Care Provided: Adult Hospital Medicine
--- NOTE | 2017-08-27 10:37 | Cardiology Consultation ---
Cardiology Consultation Date of Consultation: Aug 27, 2017. Requesting Physician: Dr. Cortés Attending Physician: Dr. Samuels Reason for Consultation: Abnormal ECG Pt evaluation today including: conversation w/ patient, conversation w/ family , physical exam, chart review, lab review, review of studies, review of inpatient medication list, conversation w/ attending History of Present Illness Mrs. Fish is a 76 year old female with a medical history significant for hypertension, dyslipidemia, COPD, depression/anxiety, history of CVA, history of thoracic aortic aneurysm s/p endovascular repair with stent, carotid artery stenosis s/p left CEA (2004), GERD and tobacco use. She was admitted to [facility] on 08/26/17 after a fall at home. She reports she tripped over a shoe and fell. She was home alone and laid on the floor for about 3 hours until her grandson came home. Her family was unable to get her up and called 911. She was found to have an acute fracture of her left femur. She denies having any prior cardiac history. She was found to have an abnormal ECG upon admission demonstrating ST abnormality and U waves. Her cardiac enzymes have been normal. She denies experiencing any chest pain yesterday or since admission. She has experienced intermittent chest discomfort for at least the past several months. She reports her chest discomfort can occur at rest or with exertion but is often associated with feeling short of breath. She describes the pain as a "pressure." It typically occurs 1-2 days per week and lasts a few minutes at most before resolving spontaneously. She has chronic exertional dyspnea which she attributes to her COPD. Her activity level is limited but she cooks, does laundry and light housework at home. She denies orthopnea, PND or peripheral edema. She also notices that her heart feels like it is racing when she is short of breath. She denies any history of arrhythmia. She denies lightheadedness, presyncope or syncope. She uses supplemental oxygen at night. She denies symptoms of TIA or CVA. No urinary or gastrointestinal symptoms. No abnormal bleeding including melena or hematochezia. The remainder of her review of systems is unremarkable. Family History Cancer Diabetes mellitus Heart disease Hypertension Lung disease Social History Smoking Status: Current Some Day Smoker History of Alcohol Use: No History of tobacco use, currently smokes occasional cigarette. Previously smoked 2 packs per day. No alcohol use. . Lives with her son and his family. Allergies Coded Allergies: No Known Allergies (Verified , 01/10/03) Medications Current Inpatient Medications Medications (Trade) Dose Ordered Sig/Gena Route Start Time Stop Time Status Last Admin Dose Admin Heparin Sodium (Porcine) (Heparin Sq 5000 Unit/0.5ml) 5,000 unit Q12 SQ 08/27/17 09:00 09/26/17 08:59 08/27/17 07:47 5,000 UNIT Potassium Chloride/Sodium Chloride 1,000 ml @ 80 mls/hr [id number] IV 08/26/17 23:15 09/25/17 23:14 08/26/17 23:46 80 MLS/HR Acetaminophen (Tylenol Tab) 650 mg Q4H PRN PO 08/26/17 21:15 09/25/17 21:14 Methimazole (Methimazole Tab) 10 mg BID PO 08/27/17 09:00 09/26/17 08:59 08/27/17 07:41 10 MG Ondansetron HCl (Zofran Odt) 8 mg Q6H PRN PO 08/26/17 21:30 09/25/17 21:29 Morphine Sulfate (MoRPHine SULFATE INJ) 2 mg Q2H PRN IV 08/26/17 21:30 09/09/17 21:29 Morphine Sulfate (MoRPHine SULFATE INJ) 4 mg Q2H PRN IV 08/26/17 21:30 09/09/17 21:29 Pantoprazole Sodium 40 mg/ Syringe 10 ml @ 5 mls/min DAILY@11 IV 08/27/17 11:00 08/30/17 11:01 Metoprolol Tartrate (Lopressor Iv) 5 mg Q4 IV. 08/27/17 00:00 09/26/17 00:00 08/27/17 07:40 5 MG Lorazepam (Ativan Inj) 0.5 mg Q6H PRN IV 08/26/17 21:30 09/25/17 21:29 Ipratropium Avinger (Atrovent 0.02% 0.5MG/2.5ML Neb) 0.5 mg Q6R INH 08/27/17 03:00 09/26/17 02:59 08/27/17 07:17 0.5 MG Levalbuterol (Xopenex 1.25MG/ 0.5ML Neb) 1.25 mg Q6R INH 08/27/17 03:00 09/26/17 02:59 08/27/17 07:17 1.25 MG Ipratropium Avinger (Atrovent 0.02% 0.5MG/2.5ML Neb) 0.5 mg Q2H PRN INH 08/26/17 22:15 09/25/17 22:14 Levalbuterol (Xopenex 1.25MG/ 0.5ML Neb) 1.25 mg Q2H PRN INH 08/26/17 22:15 09/25/17 22:14 Physical Exam Vital Signs Past 12 Hours Date Time Temp Pulse Resp B/P (MAP) Pulse Ox O2 Delivery O2 Flow Rate FiO2 08/27/17 08:00 Nasal Cannula 3.0 08/27/17 07:40 72 172/83 08/27/17 07:22 36.6 67 20 176/92 (120) 96 Nasal Cannula 2.0 08/27/17 07:18 59 18 96 Nasal Cannula 3.0 08/27/17 04:34 Nasal Cannula 3.0 08/27/17 04:14 36.5 63 21 182/93 (122) 93 Nasal Cannula 3.0 08/27/17 03:55 57 08/27/17 00:52 36.4 78 16 183/94 Nasal Cannula 3.0 08/26/17 23:46 77 180/93 08/26/17 22:45 36.4 77 16 180/93 (122) 97 Nasal Cannula 08/26/17 22:45 97 Nasal Cannula 3.0 08/26/17 22:20 36.4 71 20 169/89 97 General: No acute distress. Alert and oriented. O2 via nasal cannula. HEENT: Head is normal. PERRLA. EOMI. Sclera anicteric. Ears, nose and throat unremarkable. Poor dentition. Mucous membranes moist. Neck: Supple without JVD, carotid bruit or thyromegaly. Lungs: Decreased breath sounds throughout but clear to auscultation bilaterally without rales, rhonchi or wheezes. Cardiac: Regular rate and rhythm. S1-S2 normal. No appreciable murmur, gallop or rub. Abdomen: Soft and nontender. Bowel sounds normal. No mass or organomegaly. No abdominal bruit. Extremities: Without cyanosis, clubbing or peripheral edema. Peripheral pulses intact Skin: No rash or abnormal lesions. Normal turgor. Neurologic: No lateralizing changes or focal deficits. Psychiatric: Affect appropriate. Data Laboratory Results: Last 24 Hours Test 08/26/17 19:13 08/26/17 19:38 08/27/17 05:15 White Blood Count 9.33 K/uL 6.19 K/uL Red Blood Count 3.77 M/uL 3.49 M/uL Hemoglobin 10.2 g/dL 9.2 g/dL Hematocrit 30.0 % 28.5 % Mean Corpuscular Volume 79.6 fL 81.7 fL Mean Corpuscular Hemoglobin 27.1 pg 26.4 pg Mean Corpuscular Hemoglobin Concent 34.0 g/dl 32.3 g/dl Platelet Count 272 K/uL 239 K/uL Mean Platelet Volume 8.4 fL 8.2 fL Neutrophils (%) (Auto) 85.8 % 78.8 % Lymphocytes (%) (Auto) 8.3 % 12.8 % Monocytes (%) (Auto) 5.1 % 7.1 % Eosinophils (%) (Auto) 0.1 % 0.5 % Basophils (%) (Auto) 0.1 % 0.5 % Neutrophils # (Auto) 8.00 K/uL 4.88 K/uL Lymphocytes # (Auto) 0.77 K/uL 0.79 K/uL Monocytes # (Auto) 0.48 K/uL 0.44 K/uL Eosinophils # (Auto) 0.01 K/uL 0.03 K/uL Basophils # (Auto) 0.01 K/uL 0.03 K/uL RDW Standard Deviation 41.1 fL 43.3 fL RDW Coefficient of Variation 14.2 % 14.5 % Immature Granulocyte % (Auto) 0.6 % 0.3 % Immature Granulocyte # (Auto) 0.06 K/uL 0.02 K/uL Microcytosis PRESENT Prothrombin Time 10.8 SECONDS 11.1 SECONDS Prothromb Time International Ratio 1.0 1.1 Activated Partial Thromboplast Time 25.4 SECONDS 27.3 SECONDS Partial Thromboplastin Ratio 1.0 1.1 Sodium Level 136 mmol/L 138 mmol/L Potassium Level 3.7 mmol/L 4.2 mmol/L Chloride Level 103 mmol/L 106 mmol/L Carbon Dioxide Level 25 mmol/L 24 mmol/L Anion Gap 8.0 mmol/L 8.0 mmol/L Blood Urea Nitrogen 24 mg/dl 24 mg/dl Creatinine 0.93 mg/dl 1.05 mg/dl Est Creatinine Clear Calc Drug Dose 48.9 ml/min 43.3 ml/min Estimated GFR () 69.7 60.2 Estimated GFR (Non- 60.1 51.9 BUN/Creatinine Ratio 25.5 22.8 Random Glucose 143 mg/dl 126 mg/dl Estimated Average Glucose 114 mg/dl Hemoglobin A1c 5.6 % Calcium Level 8.8 mg/dl 8.6 mg/dl Magnesium Level 2.0 mg/dl 2.1 mg/dl Total Bilirubin 0.6 mg/dl Direct Bilirubin 0.1 mg/dl Aspartate Amino Transf (AST/SGOT) 20 U/L Alanine Aminotransferase (ALT/SGPT) 20 U/L Alkaline Phosphatase 143 U/L Total Creatine Kinase 58 U/L 46 U/L Total Protein 7.7 gm/dl Albumin 3.8 gm/dl Urine Color YELLOW Urine Appearance CLEAR Urine pH 5.5 Urine Specific [place] 1.011 Urine Protein NEG Urine Glucose (UA) 1+ Urine Ketones NEG Urine Occult Blood TRACE Urine Nitrite NEG Urine Bilirubin NEG Urine Urobilinogen NEG Urine Leukocyte Esterase NEG Urine WBC (Auto) 0 /hpf Urine RBC (Auto) 5-10 /hpf Urine Hyaline Casts (Auto) 1-5 /lpf Urine Epithelial Cells (Auto) 0-5 /lpf Urine Bacteria (Auto) NEG Creatine Kinase MB 1.8 ng/ml Creatine Kinase MB Ratio 3.9 Troponin I < 0.015 ng/ml Triglycerides Level 67 mg/dl Cholesterol Level 186 mg/dl HDL Cholesterol 64 mg/dl LDL Cholesterol, Calculated 109 mg/dl VLDL Cholesterol, Calculated 13 mg/dl Cholesterol/HDL Ratio 2.9 Imaging: Chest xray without acute process. Hip xray with acute left hip fracture. Head CT with evidence of old infarct. ECG 08/27/17 sinus rhythm at [address] elevation and U waves anterior leads. Similar to prior ECGs Telemetry reviewed: Sinus rhythm this morning. Episodes of atrial fibrillation with ventricular rates up to 150s overnight. Echocardiogram preliminary results: LVH. Hyperdynamic LV systolic function. Diastolic dysfunction. No wall motion abnormalities. No significant valvular disease. Assessment & Plan Patient was discussed with Dr. Samuels. 1. Preoperative cardiac evaluation: Patient was admitted on 08/26/17 after a fall resulting in an acute left hip fracture. Her electrocardiogram demonstrates baseline ST segment elevation and U waves which is unchanged from prior ECGs dating back to 2007. Her cardiac enzymes are negative and echocardiogram demonstrates normal LV function without wall motion abnormalities. Therefore there does not appear to be any acute cardiac event. Her intermittent chest discomfort is atypical in nature. Given the above information she is felt to an acceptable risk to proceed with surgery without any further cardiac testing/intervention. Recommend restarting her diltiazem prior to surgery. 2. New onset paroxysmal atrial fibrillation: Patient has no prior history of atrial fibrillation. Review of her telemetry demonstrates paroxysms of atrial fibrillation with rapid ventricular response. She does have a history of prior CVA and is on Aggrenox and aspirin which are being held given her upcoming surgery and anemia. Her CHADS-VASc score is elevated and she will likely need to be initiated on shelter anticoagulation for stroke risk reduction. We will hold off on this for now since she will require surgery to fix her hip fracture and is currently anemic. This can be addressed by Dr. Manzano further at her upcoming appointment. Recommend restarting her diltiazem for rate control. 3. Hypertension: As above recommend restarting diltiazem. Thank you for the consultation.
[2017-08-27] MEDS: PANTOprazole INJ 40 MG in SYRINGE 0 ML IV SCH (11:48)
[2017-08-27] MEDS: NSS + 20MEQ KCL 1000ML 1,000 ML IV SCH (11:53)
[2017-08-27 13:54] LABS: CKMB 1.3 ng/ml (0.5-3.6)
--- NOTE | 2017-08-27 14:11 | ECHOCARDIOGRAM REPORT ---
*NOTICE TO RECEIVING CONSTITUTION PARTY AGENCY This information is strictly Confidential and protected under [place] law. [place] law prohibits you from making any further disclosure of this information unless further disclosure is expressly permitted by the written consent of the person to whom it pertains or is authorized by law. A general authorization for the release of medical or other information is not sufficient for this purpose. Hospital accepts no responsibility if the information is made available to any other person, INCLUDING THE PATIENT. Interpretation Summary * Name: PRICILLA NICOLAS Study Date: 08/27/2017 08:49 AM BP: 182/93 mmHg * Patient Location: C.2T\S\S239\S\2 HR: 63 * : 1940 (M/d/yyyy) Gender: Female Height: 66 in * Age: 76 yrs Ethnicity: [place] Weight: 144 lb * Ordering Physician: Jaren Cortés * Referring Physician: Albert Chaparro * Performed By: Kylie White RCS * * Reason For Study: Abnormal EKG, Left Hip Fx * BSA: 1.7 m2 * -- Conclusions -- * The left ventricle is hyperdynamic. * No regional wall motion abnormalities noted. * Ejection Fraction = >70 %. * There is moderate concentric left ventricular hypertrophy. * Grade I diastolic dysfunction, (abnormal relaxation pattern). * No obvious valvular pathology. Procedure Details * A complete two-dimensional transthoracic echocardiogram was performed (2D, M-mode, Doppler and color flow Doppler). * There were technical limitations due to patient'spoor positioning * Patient Supine for imaging Left Ventricle * The left ventricular cavity is small. * There is moderate concentric left ventricular hypertrophy. * Ejection Fraction = >70 %. * The left ventricle is hyperdynamic. * No regional wall motion abnormalities noted. Right Ventricle * The right ventricle is not well visualized. * The right ventricular systolic function is normal as assessed by tricuspid annular plane systolic excursion (TAPSE) (normal >1.5 cm). Atria * Borderline left atrial enlargement. * Right atrium not well visualized. * There is no evidence of atrial septal defect, but resolution does not allow assessment for a patent foramen ovale. Mitral Valve * The mitral valve is grossly normal. * There is mild to moderate mitral annular calcification. * There is no mitral valve stenosis. * Significant mitral regurgitation is absent. Tricuspid Valve * The tricuspid valve is not well visualized, but is grossly normal. * There is no tricuspid stenosis. * Significant tricuspid regurgitation is absent. Aortic Valve * The aortic valve is trileaflet. * The aortic valve opens well. * No hemodynamically significant valvular aortic stenosis. * No aortic regurgitation is present. Pulmonic Valve * The pulmonary valve is not well seen, but the Doppler examination is normal without significant regurgitation or stenosis. Great Vessels * The aortic root is normal size. * The pulmonary is not well visualized. Pericardium/Pleural * There is no pericardial effusion. Great Vessels * Normal inferior vena cava size and collapsability with sniff indicates a normal right atrial pressure of 3 mmHg Left Ventricular Diastolic Function * Grade I diastolic dysfunction, (abnormal relaxation pattern). MMode 2D Measurements and Calculations IVSd 1.0 cm IVSs 1.2 cm LVIDd 4.3 cm LVIDs 2.6 cm LVPWd 1.0 cm LVPWs 1.3 cm IVS/LVPW 1.0 FS 38.4 % EDV(Teich) 82.6 ml ESV(Teich) 25.6 ml EF(Teich) 69.0 % EDV(cubed) 79.0 ml ESV(cubed) 18.5 ml EF(cubed) 76.6 % % IVS thick 13.0 % % LVPW thick 26.6 % LV mass(C)d 146.9 grams LV mass(C)dI 84.4 grams/m\S\2 LV mass(C)s 95.4 grams LV mass(C)sI 54.8 grams/m\S\2 SV(Teich) 57.0 ml SI(Teich) 32.8 ml/m\S\2 SV(cubed) 60.5 ml SI(cubed) 34.8 ml/m\S\2 Ao root diam 3.1 cm Ao root area 7.4 cm\S\2 ACS 1.4 cm LA dimension 3.3 cm asc Aorta Diam 3.2 cm LA/Ao 1.1 EDV(MOD-sp4) 92.4 ml ESV(MOD-sp4) 25.3 ml EF(MOD-sp4) 72.6 % EDV(MOD-sp2) 85.4 ml ESV(MOD-sp2) 25.2 ml EF(MOD-sp2) 70.5 % SV(MOD-sp4) 67.1 ml SI(MOD-sp4) 38.6 ml/m\S\2 SV(MOD-sp2) 60.2 ml SI(MOD-sp2) 34.6 ml/m\S\2 Doppler Measurements and Calculations MV E max piotr 103.6 cm/sec MV A max piotr 176.5 cm/sec MV E/A 0.59 MV P1/2t max piotr 110.4 cm/sec MV P1/2t 88.1 msec MVA(P1/2t) 2.5 cm\S\2 MV dec slope 367.0 cm/sec\S\2 MV dec time 0.31 sec Ao V2 max 144.7 cm/sec Ao max PG 8.4 mmHg Ao max PG (full) 3.8 mmHg LV V1 max PG 4.6 mmHg LV V1 max 107.4 cm/sec PA V2 max 87.7 cm/sec PA max PG 3.1 mmHg PI max piotr 192.6 cm/sec PI max PG 14.8 mmHg PI dec slope 171.4 cm/sec\S\2 PI P1/2t 329.2 msec TR max piotr 251.1 cm/sec
[2017-08-27] MEDS ORDERED: MIDAZOLAM HCL 1 MG/ML 2ML VIAL ONE (14:31)
[2017-08-27] MEDS ORDERED: BUPIVACAINE/EPINEPHRINE 0.5% MPF 1:200,000 30 ML VIAL ONE (14:55)
[2017-08-27] MEDS ORDERED: FENTANYL CITRATE INJ 50 MCG/1 ML 2 ML VIAL ONE ×2 (15:02→16:41)
[2017-08-27] MEDS ORDERED: LIDOCAINE HCL 2% 2 ML VIAL (20MG/ML) ONE (15:02)
[2017-08-27] MEDS ORDERED: PROPOFOL IV EMULSION 10 MG/ML 20 ML VIAL IV ONE (15:02)
[2017-08-27] MEDS ORDERED: ROCURONIUM BROMIDE 10 MG/ML 5 ML VIAL IV ONE (15:20)
[2017-08-27] MEDS ORDERED: ONDANSETRON INJ 2 MG/ML 2 ML VIAL ONE (15:21)
[2017-08-27] MEDS ORDERED: PHENYLEPHRINE 100MCG/ML 5ML SYR ONE (15:21)
[2017-08-27] MEDS ORDERED: NEOSTIGMINE METHYLSULFATE 5 MG/5 ML SYR ONE (15:21)
[2017-08-27] MEDS ORDERED: DEXAMETHASONE SOD INJ 4 MG/ML VIAL ONE (15:21)
[2017-08-27] MEDS ORDERED: GLYCOPYRROLATE INJ 0.2 MG/ML VIAL ONE (15:21)
[2017-08-27] MEDS ORDERED: HYDROmorphone INJ 1 MG/ML SYR IV PRN (15:30)
[2017-08-27] MEDS ORDERED: ATROPINE SULFATE 0.1 MG/ML 5ML SYR IV PRN (15:30)
[2017-08-27] MEDS ORDERED: PHENYLEPHRINE 100MCG/ML 5ML SYR IV PRN (15:30)
[2017-08-27] MEDS ORDERED: EpHEDrine SULFATE INJ 50 MG/ML AMP IV PRN (15:30)
[2017-08-27] MEDS ORDERED: LABETALOL HCL IV 5 MG/ML 20ML IV PRN (15:30)
[2017-08-27] MEDS ORDERED: ONDANSETRON INJ 2 MG/ML 2 ML VIAL IV PRN ×2 (15:30→17:15)
[2017-08-27] MEDS ORDERED: FENTANYL CITRATE INJ 50 MCG/1 ML 2 ML VIAL IV PRN (15:30)
[2017-08-27] MEDS ORDERED: CEFAZOLIN SOD 2000MG/15 ML IV PUSH IV ONE (15:31)
--- NOTE | 2017-08-27 15:35 | Orthopedic Progress Note ---
Orthopedic Progress Note Date of Service Aug 27, 2017. Subjective Additional Notes: Patient seen in preoperative holding area, comfortable, pain controlled at this time, no acute issues. Objective Alert and oriented 3, no apparent distress. Left lower extremity: Neurovascular sensory intact, positive EHL/FHL/TA/GS. Sensory intact light touch grossly, +2 dorsalis pedis pulse, compartments soft nontender, skin intact. Date Time Temp Pulse Resp B/P (MAP) Pulse Ox O2 Delivery O2 Flow Rate FiO2 08/27/17 15:01 Nasal Cannula 3.0 08/27/17 14:17 78 18 92 Nasal Cannula 1.5 08/27/17 11:48 74 176/72 08/27/17 11:36 Nasal Cannula 3.0 08/27/17 11:20 36.7 77 20 146/74 (98) 91 2.0 08/27/17 08:00 Nasal Cannula 3.0 08/27/17 07:40 72 172/83 08/27/17 07:22 36.6 67 20 176/92 (120) 96 Nasal Cannula 2.0 08/27/17 07:18 59 18 96 Nasal Cannula 3.0 08/27/17 04:34 Nasal Cannula 3.0 08/27/17 04:14 36.5 63 21 182/93 (122) 93 Nasal Cannula 3.0 08/27/17 03:55 57 08/27/17 00:52 36.4 78 16 183/94 Nasal Cannula 3.0 08/26/17 23:46 77 180/93 08/26/17 22:45 36.4 77 16 180/93 (122) 97 Nasal Cannula 08/26/17 22:45 97 Nasal Cannula 3.0 08/26/17 22:20 36.4 71 20 169/89 97 08/26/17 19:09 71 20 169/89 97 Nasal Cannula 08/26/17 18:34 36.4 79 19 148/38 83 Room Air Laboratory Results 24 Hours: Test 08/26/17 19:13 08/27/17 05:15 White Blood Count 9.33 K/uL 6.19 K/uL Red Blood Count 3.77 M/uL 3.49 M/uL Hemoglobin 10.2 g/dL 9.2 g/dL Hematocrit 30.0 % 28.5 % Mean Corpuscular Volume 79.6 fL 81.7 fL Mean Corpuscular Hemoglobin 27.1 pg 26.4 pg Mean Corpuscular Hemoglobin Concent 34.0 g/dl 32.3 g/dl Platelet Count 272 K/uL 239 K/uL Mean Platelet Volume 8.4 fL 8.2 fL Neutrophils (%) (Auto) 85.8 % 78.8 % Lymphocytes (%) (Auto) 8.3 % 12.8 % Monocytes (%) (Auto) 5.1 % 7.1 % Eosinophils (%) (Auto) 0.1 % 0.5 % Basophils (%) (Auto) 0.1 % 0.5 % Neutrophils # (Auto) 8.00 K/uL 4.88 K/uL Lymphocytes # (Auto) 0.77 K/uL 0.79 K/uL Monocytes # (Auto) 0.48 K/uL 0.44 K/uL Eosinophils # (Auto) 0.01 K/uL 0.03 K/uL Basophils # (Auto) 0.01 K/uL 0.03 K/uL Prothromb Time International Ratio 1.0 1.1 Prothrombin Time 10.8 SECONDS 11.1 SECONDS Assessment & Plan Assessment: Left intertrochanteric hip fracture Plan: 76yo Female with left intertrochanteric hip fracture sustained after a fall. The patient was medically stabilized on 08/27/2017. I indicated the patient for left hip cephalo-medullary nail. The patient was informed of the risks and benefits of surgery, which included but not limited to infection, bleeding, blood clots, damage to nerves, vessels, bone and soft tissue, dislocation, leg length discrepancy, malunion, nonunion, need for additional surgery and . The patient chose to move forward with surgical intervention and informed consent was obtained.
[2017-08-27] MEDS ORDERED: EpHEDrine SULFATE INJ 50 MG/ML AMP ONE (16:02)
[2017-08-27] MEDS ORDERED: EpHEDrine SULFATE 50MG/5ML SYR ONE (16:15)
[2017-08-27] MEDS ORDERED: ESMOLOL HCL 10 MG/ML 10 ML VIAL ONE (16:16)
[2017-08-27] MEDS ORDERED: LARYING-O-JET KIT (LTA) ONE (16:40)
--- NOTE | 2017-08-27 17:08 | DIAGNOSTIC IMAGING REPORT ---
L HIP OR FILMS CLINICAL HISTORY: LT TROCH NAIL COMPARISON STUDY: Left femur radiographs August 27, 2017. FLUOROSCOPY TIME: 1 minute and 12 seconds. FINDINGS: 4 fluoroscopic images demonstrate near anatomic alignment of the intertrochanteric fracture of the left femur status post placement of trochanteric. Hardware is intact. There are no unexpected radiopaque foreign bodies. Distal screw is noted. IMPRESSION: Expected findings following internal fixation of the intertrochanteric fracture of the left femur with trochanteric nail. Electronically signed by: Mehdi Price M.D. 08/27/2017 5:06 PM Dictated Date/Time: 08/27/2017 5:06 PM
--- NOTE | 2017-08-27 17:11 | [facility] Post Operative Brief Note ---
Immediate Operative Summary Operative Date Aug 27, 2017. 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
[2017-08-27] MEDS ORDERED: NALOXONE HCL 0.4 MG/1 ML VIAL/CARP IV PRN (17:15)
[2017-08-27] MEDS ORDERED: MoRPHine SULFATE 4 MG/ML 1 ML CARP\\VIAL IV PRN (17:15)
[2017-08-27] MEDS ORDERED: COUGH DROP (SUGAR FREE) LOZ 24 LOZ/1 BOX PO PRN (17:15)
--- NOTE | 2017-08-27 17:55 | DIAGNOSTIC IMAGING REPORT ---
L HIP UNILATERAL 2 VIEWS CLINICAL HISTORY: s/p left hip cephalomedullary nail COMPARISON STUDY: Left femur 08/27/2017. FINDINGS: Patient is status post internal fixation of a left intertrochanteric hip fracture with a proximal intramedullary femoral kenna and interlocking femoral neck pin. The hardware is intact. The alignment is near-anatomic. Skin jose are in place. No dislocation. IMPRESSION: Status post internal fixation of a left intertrochanteric hip fracture. The alignment is near-anatomic. Electronically signed by: David Monroy M.D. 08/27/2017 5:54 PM Dictated Date/Time: 08/27/2017 5:53 PM
--- NOTE | 2017-08-27 18:04 | Anesthesiology Progress Note ---
Anesthesia Post Op Note Date & Time Aug 27, 2017 at 18:03 Vital Signs Pain Intensity: 0 Vital Signs Past 12 Hours Date Time Temp Pulse Resp B/P (MAP) Pulse Ox O2 Delivery O2 Flow Rate FiO2 08/27/17 17:30 95 12 143/94 100 Oxymask 6 08/27/17 17:21 36.7 112 21 156/106 100 Oxymask 10 08/27/17 15:01 Nasal Cannula 3.0 08/27/17 14:17 78 18 92 Nasal Cannula 1.5 08/27/17 11:48 74 176/72 08/27/17 11:36 Nasal Cannula 3.0 08/27/17 11:20 36.7 77 20 146/74 (98) 91 2.0 08/27/17 08:00 Nasal Cannula 3.0 08/27/17 07:40 72 172/83 08/27/17 07:22 36.6 67 20 176/92 (120) 96 Nasal Cannula 2.0 08/27/17 07:18 59 18 96 Nasal Cannula 3.0 Notes Mental Status: alert / awake / arousable, participated in evaluation Pt Amnestic to Procedure: Yes Nausea / Vomiting: adequately controlled Pain: adequately controlled Airway Patency, RR, SpO2: stable & adequate BP & HR: stable & adequate Hydration State: stable & adequate Anesthetic Complications: no major complications apparent Doing well, no complaints. Still requiring 3L O2 via oxymask. Normally on 2L of O2 at home. Will keep pt on supplemental O2 and continuous pulse ox on the floor.
[2017-08-27] MEDS: SODIUM CHLORIDE 0.9% 1000ML 1,000 ML IV SCH (18:36)
--- NOTE | 2017-08-27 19:12 | Orthopedic Progress Note ---
Orthopedic Progress Note Date of Service Aug 27, 2017. Subjective Reports: feeling well, pain controlled w PO medications, Denies: complaints, chest pain, SOB, nausea / vomiting, light headedness, calf pain Additional Notes: Patient seen in PACU, comfortable, pain well controlled, no acute issues. Objective NAD, AOx3 LLE NVSI +EHL/FHL/TA/GS SILT grossly, CR< 2 seconds, +2 DP pulse, compartments soft NT, dressing CDI Date Time Temp Pulse Resp B/P (MAP) Pulse Ox O2 Delivery O2 Flow Rate FiO2 08/27/17 18:36 103 109/72 08/27/17 18:15 85 12 121/81 95 Oxymask 3 08/27/17 18:00 36.6 82 12 121/82 93 Oxymask 3 08/27/17 17:50 95 12 127/81 87 Nasal Cannula 4 08/27/17 17:40 102 21 148/111 98 Oxymask 5 08/27/17 17:30 95 12 143/94 100 Oxymask 6 08/27/17 17:21 36.7 112 21 156/106 100 Oxymask 10 08/27/17 15:01 Nasal Cannula 3.0 08/27/17 14:17 78 18 92 Nasal Cannula 1.5 08/27/17 11:48 74 176/72 08/27/17 11:36 Nasal Cannula 3.0 08/27/17 11:20 36.7 77 20 146/74 (98) 91 2.0 08/27/17 08:00 Nasal Cannula 3.0 08/27/17 07:40 72 172/83 08/27/17 07:22 36.6 67 20 176/92 (120) 96 Nasal Cannula 2.0 08/27/17 07:18 59 18 96 Nasal Cannula 3.0 08/27/17 04:34 Nasal Cannula 3.0 08/27/17 04:14 36.5 63 21 182/93 (122) 93 Nasal Cannula 3.0 08/27/17 03:55 57 08/27/17 00:52 36.4 78 16 183/94 Nasal Cannula 3.0 08/26/17 23:46 77 180/93 08/26/17 22:45 36.4 77 16 180/93 (122) 97 Nasal Cannula 08/26/17 22:45 97 Nasal Cannula 3.0 08/26/17 22:20 36.4 71 20 169/89 97 Laboratory Results 24 Hours: Test 08/26/17 19:13 08/27/17 05:15 White Blood Count 9.33 K/uL 6.19 K/uL Red Blood Count 3.77 M/uL 3.49 M/uL Hemoglobin 10.2 g/dL 9.2 g/dL Hematocrit 30.0 % 28.5 % Mean Corpuscular Volume 79.6 fL 81.7 fL Mean Corpuscular Hemoglobin 27.1 pg 26.4 pg Mean Corpuscular Hemoglobin Concent 34.0 g/dl 32.3 g/dl Platelet Count 272 K/uL 239 K/uL Mean Platelet Volume 8.4 fL 8.2 fL Neutrophils (%) (Auto) 85.8 % 78.8 % Lymphocytes (%) (Auto) 8.3 % 12.8 % Monocytes (%) (Auto) 5.1 % 7.1 % Eosinophils (%) (Auto) 0.1 % 0.5 % Basophils (%) (Auto) 0.1 % 0.5 % Neutrophils # (Auto) 8.00 K/uL 4.88 K/uL Lymphocytes # (Auto) 0.77 K/uL 0.79 K/uL Monocytes # (Auto) 0.48 K/uL 0.44 K/uL Eosinophils # (Auto) 0.01 K/uL 0.03 K/uL Basophils # (Auto) 0.01 K/uL 0.03 K/uL Prothromb Time International Ratio 1.0 1.1 Prothrombin Time 10.8 SECONDS 11.1 SECONDS Assessment & Plan Assessment: Left intertrochanteric hip fracture Plan: -Ancef x 24 -DVT ppx - EC ASA BID -PWB LLE -PT/OT with assistance -PO XR: Well aligned, well fixed cephalomedullary nail, anatomic reduction of fracture, without evidence of new fracture or dislocation -am labs
[2017-08-27] MEDS: DOCUSATE SODIUM/SENNA 50/8.6MG TAB PO SCH (20:57)
[2017-08-27] MEDS: ASPIRIN/ALUM/MAGNES/CAL CARB 325 MG TAB PO SCH (21:00)
[2017-08-27] MEDS: OXYCODONE HCL IR 5 MG TAB (IMMEDIATE RELEASE) PO PRN (21:07)
[2017-08-28] VITALS (13 sets, daily range): BP systolic 118–173; BP diastolic 69–83; PULSE 76–109; TEMP 36.3–37.2; O2SAT 87–99
[2017-08-28] MEDS: CEFAZOLIN IV 1,000 MG in SYRINGE 0 ML IV SCH ×2 (00:32→08:17)
[2017-08-28] MEDS: METOPROLOL TARTRATE 1 MG/ML VIAL IV. SCH ×7 (00:33→23:40)
[2017-08-28] MEDS: IPRATROPIUM BROMIDE NEB SOLN 0.02% 2.5 ML VIAL INH SCH ×4 (01:50→19:50)
[2017-08-28] MEDS: LEVALBUTEROL 1.25MG/0.5ML NEB INH SCH ×4 (01:50→19:50)
[2017-08-28] MEDS: SODIUM CHLORIDE 0.9% 1000ML 1,000 ML IV SCH ×3 (03:55→23:39)
[2017-08-28 06:46] LABS: EOS % 0.1 %; EOS ABS # 0.01 K/uL (0-0.5); HEMATOCRIT 22.8 % (37-47); HEMOGLOBIN 7.6 g/dL (12.0-16.0); IG# 0.02 K/uL (0.00-0.02); LYMPH % 4.3 %; LYMPH ABS # 0.29 K/uL (1.2-3.4); MEAN CELL VOLUME 81.7 fL (80-100); MEAN CORPUSCULAR HEMOGLOBIN 27.2 pg (25-34); MEAN CORPUSCULAR HGB CONC 33.3 g/dl (32-36); MEAN PLATELET VOLUME 8.5 fL (7.4-10.4); MONO % 7.2 %; MONO ABS # 0.49 K/uL (0.11-0.59); NEUT % 88.1 %; NEUT ABS # 5.96 K/uL (1.4-6.5); PLATELET COUNT 229 K/uL (130-400); RED CELL DISTRIBUTION WIDTH CV 14.6 % (11.5-14.5); RED CELL DISTRIBUTION WIDTH SD 43.9 fL (36.4-46.3); WHITE BLOOD COUNT 6.77 K/uL (4.8-10.8)
[2017-08-28 06:55] LABS: PTT PATIENT 26.4 SECONDS (21.0-31.0)
[2017-08-28 07:23] LABS: CALCIUM 8.4 mg/dl (8.5-10.1); CREATININE 1.02 mg/dl (0.60-1.20)
[2017-08-28] MEDS: ONDANSETRON 8MG OD TAB PO PRN (08:11)
[2017-08-28] MEDS: ASPIRIN/ALUM/MAGNES/CAL CARB 325 MG TAB PO SCH ×2 (08:12→20:15)
[2017-08-28] MEDS: METHIMAZOLE 5 MG TAB PO SCH ×2 (08:13→20:16)
[2017-08-28] MEDS: HEPARIN SOD 5000 UNIT/0.5 ML CARP SQ SCH ×3 (08:14→20:17)
[2017-08-28] MEDS: OXYCODONE HCL IR 5 MG TAB (IMMEDIATE RELEASE) PO PRN ×2 (09:42→20:19)
--- NOTE | 2017-08-28 10:24 | Clinical Documentation Query ---
CLINICAL DOCUMENTATION QUERY Patient is s/p left hip cephalomedullary nailing. Hgb initially 10.2 and trended down to 7.6. In your clinical opinion is this patient being managed for: (x ) Expected acute blood-loss anemia s/p surgical intervention ( ) Not Agree ( ) Other explanation of clinical findings (Please Explain) ( ) Unable to determine (Please Define) ( ) Need to Discuss The medical record reflects the following clinical findings, treatment, and risk factors. Clinical Indicators: As above Treatment: Type/cross 2 units PRBCs, serial CBCs Risk Factors: Age, surgical intervention, anemia Please clarify and document your clinical opinion in the progress notes and discharge summary. Terms such as "probable", "suspected", "likely", "questionable", "possible", or "still to be ruled out" are acceptable. IF IN AGREEMENT, YOU MUST DOCUMENT ABOVE DIAGNOSTIC STATEMENT IN DAILY PROGRESS NOTES AND DISCHARGE SUMMARY. This document is not part of the patient's record. Thank You, Dora Meyer RN [phone]
--- NOTE | 2017-08-28 10:37 | Anesthesiology Progress Note ---
Anesthesia Post Op Note Date & Time Aug 28, 2017 at 10:36 Vital Signs Vital Signs Past 12 Hours Date Time Temp Pulse Resp B/P (MAP) Pulse Ox O2 Delivery O2 Flow Rate FiO2 08/28/17 08:12 107 153/83 08/28/17 07:36 37.2 107 20 153/83 (106) 87 Nasal Cannula 2.0 08/28/17 07:05 83 16 95 Nasal Cannula 3.0 08/28/17 04:00 Nasal Cannula 4.0 08/28/17 04:00 36.9 92 20 118/69 (85) 95 Nasal Cannula 3.0 08/28/17 01:51 78 18 99 Nasal Cannula 3.0 08/28/17 00:33 109 132/72 08/28/17 00:06 36.7 109 22 132/72 (92) 95 Nasal Cannula 4.0 08/28/17 00:00 Nasal Cannula 4.0 Notes Mental Status: alert / awake / arousable, participated in evaluation Pt Amnestic to Procedure: Yes Nausea / Vomiting: adequately controlled Pain: adequately controlled Airway Patency, RR, SpO2: stable & adequate BP & HR: stable & adequate Hydration State: stable & adequate Anesthetic Complications: no major complications apparent
--- NOTE | 2017-08-28 10:59 | Orthopedic Progress Note ---
Orthopedic Progress Note Date of Service Aug 28, 2017. Subjective Post OP Day: 1 Reports: feeling well, Denies: chest pain, SOB, nausea / vomiting, light headedness, calf pain Additional Notes: Pain is main issue. Objective calves soft nontender, N/V intact, capillary refill less than 2 sec., dressing C /D/I, A&O x3, toes mobile Date Time Temp Pulse Resp B/P (MAP) Pulse Ox O2 Delivery O2 Flow Rate FiO2 08/28/17 08:12 107 153/83 08/28/17 07:36 37.2 107 20 153/83 (106) 87 Nasal Cannula 2.0 08/28/17 07:05 83 16 95 Nasal Cannula 3.0 08/28/17 04:00 Nasal Cannula 4.0 08/28/17 04:00 36.9 92 20 118/69 (85) 95 Nasal Cannula 3.0 08/28/17 01:51 78 18 99 Nasal Cannula 3.0 08/28/17 00:33 109 132/72 08/28/17 00:06 36.7 109 22 132/72 (92) 95 Nasal Cannula 4.0 08/28/17 00:00 Nasal Cannula 4.0 08/27/17 20:00 Nasal Cannula 4.0 08/27/17 19:42 86 107/75 (86) 90 Nasal Cannula 3.0 08/27/17 19:19 88 18 97 Mask 4.0 08/27/17 19:18 36.7 92 18 121/83 (96) 98 Oxymask 4.0 08/27/17 18:48 36.7 75 18 104/61 (75) 100 Oxymask 4.0 08/27/17 18:36 103 109/72 08/27/17 18:33 84 109/72 (84) 100 Oxymask 4.0 08/27/17 18:15 85 12 121/81 95 Oxymask 3 08/27/17 18:00 36.6 82 12 121/82 93 Oxymask 3 08/27/17 17:50 95 12 127/81 87 Nasal Cannula 4 08/27/17 17:40 102 21 148/111 98 Oxymask 5 08/27/17 17:30 95 12 143/94 100 Oxymask 6 08/27/17 17:21 36.7 112 21 156/106 100 Oxymask 10 08/27/17 15:01 Nasal Cannula 3.0 08/27/17 14:17 78 18 92 Nasal Cannula 1.5 08/27/17 11:48 74 176/72 08/27/17 11:36 Nasal Cannula 3.0 08/27/17 11:20 36.7 77 20 146/74 (98) 91 2.0 Laboratory Results 24 Hours: Test 08/28/17 06:00 White Blood Count 6.77 K/uL Red Blood Count 2.79 M/uL Hemoglobin 7.6 g/dL Hematocrit 22.8 % Mean Corpuscular Volume 81.7 fL Mean Corpuscular Hemoglobin 27.2 pg Mean Corpuscular Hemoglobin Concent 33.3 g/dl Platelet Count 229 K/uL Mean Platelet Volume 8.5 fL Neutrophils (%) (Auto) 88.1 % Lymphocytes (%) (Auto) 4.3 % Monocytes (%) (Auto) 7.2 % Eosinophils (%) (Auto) 0.1 % Basophils (%) (Auto) 0.0 % Neutrophils # (Auto) 5.96 K/uL Lymphocytes # (Auto) 0.29 K/uL Monocytes # (Auto) 0.49 K/uL Eosinophils # (Auto) 0.01 K/uL Basophils # (Auto) 0.00 K/uL Prothromb Time International Ratio 1.0 Prothrombin Time 10.7 SECONDS Assessment & Plan Assessment: POD 1, Left Hip ORIF troch nail Acute blood loss anemia, Hgb 7.6 Plan: -DVT ppx - EC ASA BID -PWB LLE -PT/OT with assistance -PO XR: Well aligned, well fixed cephalomedullary nail, anatomic reduction of fracture, without evidence of new fracture or dislocation -Hgb 7.6 As per primary service, likely transfuse today.
[2017-08-28] MEDS: PANTOprazole INJ 40 MG in SYRINGE 0 ML IV SCH (12:07)
--- NOTE | 2017-08-28 13:20 | Family Medicine Progress Note ---
Progress Note Date of Service Aug 28, 2017. Subjective Pt evaluation today including: conversation w/ patient, physical exam, chart review, lab review, review of studies, review of inpatient medication list Pain: pain at incision PO Intake: adequate Voiding: alvarez catheter in place Patient is s/p repair of Left Hip fracture. tolerated procedure, stable, reports pain at incision but tolerable. She denies Chest pain, sob, palpitation Constitutional: No fever, No chills, No weakness Respiratory: No cough, No shortness of breath Cardiovascular: No chest pain, No edema, No palpitations Abdomen: No pain, No nausea Musculoskeletal: + problem reported (s/p Left hip fx repair) Female : No dysuria, No urinary frequency Skin: No rash, No itch Medications Current Inpatient Medications Medications (Trade) Dose Ordered Sig/Gena Route Start Time Stop Time Status Last Admin Dose Admin Heparin Sodium (Porcine) (Heparin Sq 5000 Unit/0.5ml) 5,000 unit Q12 SQ 08/27/17 09:00 09/26/17 08:59 08/27/17 21:08 5,000 UNIT Acetaminophen (Tylenol Tab) 650 mg Q4H PRN PO 08/26/17 21:15 09/25/17 21:14 Methimazole (Methimazole Tab) 10 mg BID PO 08/27/17 09:00 09/26/17 08:59 08/28/17 08:13 10 MG Ondansetron HCl (Zofran Odt) 8 mg Q6H PRN PO 08/26/17 21:30 09/25/17 21:29 08/28/17 08:11 8 MG Pantoprazole Sodium 40 mg/ Syringe 10 ml @ 5 mls/min DAILY@11 IV 08/27/17 11:00 08/30/17 11:01 08/28/17 12:07 5 MLS/MIN Metoprolol Tartrate (Lopressor Iv) 5 mg Q4 IV. 08/27/17 00:00 09/26/17 00:00 08/28/17 12:07 5 MG Lorazepam (Ativan Inj) 0.5 mg Q6H PRN IV 08/26/17 21:30 09/25/17 21:29 Ipratropium [place] (Atrovent 0.02% 0.5MG/2.5ML Neb) 0.5 mg Q6R INH 08/27/17 03:00 09/26/17 02:59 08/28/17 07:05 0.5 MG Levalbuterol (Xopenex 1.25MG/ 0.5ML Neb) 1.25 mg Q6R INH 08/27/17 03:00 09/26/17 02:59 08/28/17 07:05 1.25 MG Ipratropium [place] (Atrovent 0.02% 0.5MG/2.5ML Neb) 0.5 mg Q2H PRN INH 08/26/17 22:15 09/25/17 22:14 Levalbuterol (Xopenex 1.25MG/ 0.5ML Neb) 1.25 mg Q2H PRN INH 08/26/17 22:15 09/25/17 22:14 Sodium Chloride 1,000 ml @ 100 mls/hr Q10H IV 08/27/17 17:45 09/26/17 17:44 08/28/17 03:55 100 MLS/HR Ondansetron HCl (Zofran Inj) 4 mg Q6H PRN IV 08/27/17 17:15 09/26/17 17:14 Oxycodone HCl (Roxicodone Immediate Rel Tab) 5 mg Q4H PRN PO 08/27/17 17:15 09/10/17 17:14 08/28/17 09:42 5 MG Aspirin/Aluminum/ Magnesium/Ca Carb (Ascriptin Tab) 325 mg BID PO 08/27/17 21:00 09/26/17 20:59 08/28/17 08:12 325 MG Morphine Sulfate (MoRPHine SULFATE INJ) 4 mg Q4H PRN IV 08/27/17 17:15 09/10/17 17:14 Naloxone HCl (Narcan Inj) 0.4 mg Q1M PRN IV 08/27/17 17:15 09/26/17 17:14 Menthol (Nice Jenna) 1 jenna Q2H PRN PO 08/27/17 17:15 09/26/17 17:14 Senna/Docusate Sodium (Senokot S Tab) 2 tab HS PO 08/27/17 21:00 09/26/17 20:59 Objective Vital Signs Date Time Temp Pulse Resp B/P (MAP) Pulse Ox O2 Delivery O2 Flow Rate FiO2 08/28/17 12:07 107 153/83 08/28/17 12:00 Nasal Cannula 3.0 08/28/17 11:34 93 08/28/17 10:56 36.8 93 20 156/78 (104) 94 Nasal Cannula 3.0 08/28/17 08:12 107 153/83 08/28/17 08:00 Nasal Cannula 3.0 08/28/17 07:36 37.2 107 20 153/83 (106) 87 Nasal Cannula 2.0 08/28/17 07:05 83 16 95 Nasal Cannula 3.0 08/28/17 04:00 Nasal Cannula 4.0 08/28/17 04:00 36.9 92 20 118/69 (85) 95 Nasal Cannula 3.0 08/28/17 01:51 78 18 99 Nasal Cannula 3.0 08/28/17 00:33 109 132/72 08/28/17 00:06 36.7 109 22 132/72 (92) 95 Nasal Cannula 4.0 08/28/17 00:00 Nasal Cannula 4.0 08/27/17 20:00 Nasal Cannula 4.0 08/27/17 19:42 86 107/75 (86) 90 Nasal Cannula 3.0 08/27/17 19:19 88 18 97 Mask 4.0 08/27/17 19:18 36.7 92 18 121/83 (96) 98 Oxymask 4.0 08/27/17 18:48 36.7 75 18 104/61 (75) 100 Oxymask 4.0 08/27/17 18:36 103 109/72 08/27/17 18:33 84 109/72 (84) 100 Oxymask 4.0 08/27/17 18:15 85 12 121/81 95 Oxymask 3 08/27/17 18:00 36.6 82 12 121/82 93 Oxymask 3 08/27/17 17:50 95 12 127/81 87 Nasal Cannula 4 08/27/17 17:40 102 21 148/111 98 Oxymask 5 08/27/17 17:30 95 12 143/94 100 Oxymask 6 08/27/17 17:21 36.7 112 21 156/106 100 Oxymask 10 08/27/17 15:01 Nasal Cannula 3.0 08/27/17 14:17 78 18 92 Nasal Cannula 1.5 Physical Exam General Appearance: WD/WN, no apparent distress Eyes: PERRL, EOMI Neck: supple, trachea midline Respiratory/Chest: lungs clear, normal breath sounds, no respiratory distress, no accessory muscle use Cardiovascular: regular rate, rhythm, no edema, no murmur Abdomen: normal bowel sounds, non tender, soft Extremities: no pedal edema, no calf tenderness, + pertinent finding (Left Femur fx , s/p repair ) Neurologic/Psychiatric: alert, normal mood/affect, oriented x 3 Skin: warm/dry, no rash Laboratory Results Results Past 24 Hours Test 08/27/17 13:08 08/27/17 17:26 08/28/17 06:00 Range/Units Total Creatine Kinase 55 26-192 U/L Creatine Kinase MB 1.3 0.5-3.6 ng/ml Creatine Kinase MB Ratio 2.4 0-3.0 Troponin I < 0.015 0-0.045 ng/ml Bedside Glucose 129 70-90 mg/dl White Blood Count 6.77 4.8-10.8 K/uL Red Blood Count 2.79 4.2-5.4 M/uL Hemoglobin 7.6 12.0-16.0 g/dL Hematocrit 22.8 37-47 % Mean Corpuscular Volume 81.7 80-100 fL Mean Corpuscular Hemoglobin 27.2 25-34 pg Mean Corpuscular Hemoglobin Concent 33.3 32-36 g/dl Platelet Count 229 130-400 K/uL Mean Platelet Volume 8.5 7.4-10.4 fL Neutrophils (%) (Auto) 88.1 % Lymphocytes (%) (Auto) 4.3 % Monocytes (%) (Auto) 7.2 % Eosinophils (%) (Auto) 0.1 % Basophils (%) (Auto) 0.0 % Neutrophils # (Auto) 5.96 1.4-6.5 K/uL Lymphocytes # (Auto) 0.29 1.2-3.4 K/uL Monocytes # (Auto) 0.49 0.11-0.59 K/uL Eosinophils # (Auto) 0.01 0-0.5 K/uL Basophils # (Auto) 0.00 0-0.2 K/uL RDW Standard Deviation 43.9 36.4-46.3 fL RDW Coefficient of Variation 14.6 11.5-14.5 % Immature Granulocyte % (Auto) 0.3 % Immature Granulocyte # (Auto) 0.02 0.00-0.02 K/uL Large Platelets 1+ Prothrombin Time 10.7 9.0-12.0 SECONDS Prothromb Time International Ratio 1.0 0.9-1.1 Activated Partial Thromboplast Time 26.4 21.0-31.0 SECONDS Partial Thromboplastin Ratio 1.0 Sodium Level 139 136-145 mmol/L Potassium Level 4.0 3.5-5.1 mmol/L Chloride Level 108 98-107 mmol/L Carbon Dioxide Level 23 21-32 mmol/L Anion Gap 8.0 3-11 mmol/L Blood Urea Nitrogen 20 7-18 mg/dl Creatinine 1.02 0.60-1.20 mg/dl Est Creatinine Clear Calc Drug Dose 44.6 ml/min Estimated GFR () 62.3 Estimated GFR (Non- 53.8 BUN/Creatinine Ratio 19.5 10-20 Random Glucose 140 70-99 mg/dl Calcium Level 8.4 8.5-10.1 mg/dl Magnesium Level 2.1 1.8-2.4 mg/dl Assessment and Plan 77 yo F with H/o mechanical fall found to have acute intertrochanteric fracture of the Left femur Anemia: likely secondary to Post-operative blood loss - expected in context of hip fracture and necessary surgical intervention Hb 7.6 2 units on hold Consider transfusion for Hb < 7 or if symptomatic Intertrochanteric fx of Left femur Seen by Orthopedic Surgery (Dr. Sorto consulted) surgical repair pending cardiac clearance by cardiology aspirin, held Aggrenox. Abnormal EKG/CAD/history of coronary artery stent/status post endovascular stent negative troponin Per cardiology., unlikely to be due to acute cardiac event cleared for orthopedic surgery Held atenolol and diltiazem extended release. Lopressor 5 mg IV every 4 hours with hold parameters. Severe COPD/history of tobacco abuse-- c/w Xopenex/Atrovent nebulizer every 6 hours while awake and every 2 hours as needed. Cerebrovascular disease-- CT Head: old left frontal and parietal infarcts, with moderate small vessel disease, no acute findings. ASA , held Aggrenox Hyperlipidemia-- Simvastatin 40 mg p.o. at bedtime. Anxiety-- Hold Xanax p.o., and place on Lorazepam 0.5 mg IV every 6 hours as needed. Hyperthyroidism-- Continue methimazole 10 mg p.o. twice daily. Resident Physician Supervision Note: I interviewed and examined the patient. Discussed with Dr. Mukherjee and agree with findings and plan as documented in the note. Any exceptions or clarifications are listed here: None Documented By: Félix Sabillon sleeping comfortably appreciate banking consultant input vitals noted nad breathing unlabored no pallor or icterus hip fx - stable s/p OR - PT/OT. outpt osteoporosis w/u. anemia - acute blood loss as expected for hip fx PAF - now sinus (and therefore rate controlled) - will need anticoagulation - if Hgb stable tomorrow will be safe to initiate then dvt proph - heparin SQ for now see above stable for med/surg Continued [facility] stay due to: multiple IV medications needed Discharge planning: rehab hospital Resident Tracking Resident Involvement: Resident Care Provided Care Provided: Adult Hospital Medicine
--- NOTE | 2017-08-28 14:19 | CARDIOLOGY PROGRESS NOTE ---
DATE: 08/28/2017 SUBJECTIVE: Mrs. Fish is resting comfortably in the bedside chair without complaints of chest pain or dyspnea. Postoperative pain adequately controlled. OBJECTIVE: VITAL SIGNS: Blood pressure is 153/83 with a regular pulse of 90-100. Respiratory rate is 18 and the patient is afebrile at 36.8 degrees Celsius. Saturations 93% on 3 liters nasal cannula. NECK: Supple with full carotid upstrokes. No obvious bruits. Jugular venous pressure is flat at 90 degrees. No thyromegaly. CARDIOVASCULAR: Reveals a regular rhythm with normal S1, S2. No S3, S4, or murmurs are noted. LUNGS: Note decreased breath sounds at the bases but no rales, rhonchi, or wheeze. ABDOMEN: Soft without bruits. EXTREMITIES: Reveal intact radial artery pulses bilaterally. Dressings across the left hip are intact. LABORATORY AND IMAGING DATA: CBC notes hemoglobin of 7.6, hematocrit 22.8, white count 6.7, and platelet count of 229,000. Electrolytes note a sodium of 139, potassium 4.0, chloride 108, bicarb 23, BUN 20, creatinine 1.02, and glucose 140. LDL cholesterol is 109 with an HDL of 64. school lunch monitor notes occasional paroxysms of atrial fibrillation. IMPRESSION AND PLAN: 1. Open reduction external fixation of left femur fracture -- per orthopedics. 2. Paroxysmal atrial fibrillation -- several episodes overnight have been self limited. Would restart her usual dose of diltiazem when able. 3. Abnormal echocardiogram -- U wave present. Has been seen on prior tracings. 4. Hypertension -- with mild left ventricular hypertrophy. 5. Hypercholesterolemia. 6. History of cerebrovascular accident. 7. Status post repair of a thoracic aortic aneurysm. [facility]
[2017-08-28] MEDS: DOCUSATE SODIUM/SENNA 50/8.6MG TAB PO SCH (20:16)
[2017-08-29] VITALS (25 sets, daily range): BP systolic 110–212; BP diastolic 71–120; PULSE 72–109; TEMP 31.1–37.2; O2SAT 0–96
[2017-08-29] MEDS: LEVALBUTEROL 1.25MG/0.5ML NEB INH SCH ×4 (02:05→18:46)
[2017-08-29] MEDS: IPRATROPIUM BROMIDE NEB SOLN 0.02% 2.5 ML VIAL INH SCH ×4 (02:05→18:46)
[2017-08-29] MEDS: METOPROLOL TARTRATE 1 MG/ML VIAL IV. SCH ×5 (04:26→20:24)
[2017-08-29 07:32] LABS: HEMATOCRIT 20.4 % (37-47); HEMOGLOBIN 6.7 g/dL (12.0-16.0); MEAN CELL VOLUME 82.6 fL (80-100); MEAN CORPUSCULAR HEMOGLOBIN 27.1 pg (25-34); MEAN CORPUSCULAR HGB CONC 32.8 g/dl (32-36); MEAN PLATELET VOLUME 8.4 fL (7.4-10.4); PLATELET COUNT 198 K/uL (130-400); RED CELL DISTRIBUTION WIDTH CV 14.9 % (11.5-14.5); WHITE BLOOD COUNT 5.25 K/uL (4.8-10.8)
[2017-08-29 07:33] LABS: BASO % 0.4 %; BASO ABS # 0.02 K/uL (0-0.2); EOS % 3.6 %; EOS ABS # 0.19 K/uL (0-0.5); IG# 0.03 K/uL (0.00-0.02); LYMPH % 13.5 %; LYMPH ABS # 0.71 K/uL (1.2-3.4); MONO % 8.2 %; MONO ABS # 0.43 K/uL (0.11-0.59); NEUT % 73.7 %; NEUT ABS # 3.87 K/uL (1.4-6.5)
[2017-08-29 07:39] LABS: CALCIUM 8.1 mg/dl (8.5-10.1); CREATININE 1.06 mg/dl (0.60-1.20); POTASSIUM 4.1 mmol/L (3.5-5.1)
[2017-08-29] MEDS: HEPARIN SOD 5000 UNIT/0.5 ML CARP SQ SCH ×2 (07:58→20:32)
[2017-08-29] MEDS: ASPIRIN/ALUM/MAGNES/CAL CARB 325 MG TAB PO SCH ×2 (08:02→20:34)
[2017-08-29] MEDS: METHIMAZOLE 5 MG TAB PO SCH ×2 (08:03→20:34)
--- NOTE | 2017-08-29 08:03 | Orthopedic Progress Note ---
Orthopedic Progress Note Date of Service Aug 29, 2017. Subjective Additional Notes: Patient seen laying in bed, eating breakfast, no acute issues overnight, denies pain currently, denies CP/SOB/N/V. Objective NAD, AOx3 LLE NVSI +EHL/FHL/TA/GS SILT grossly, CR< 2 seconds, compartments soft NT, dressing cdi Date Time Temp Pulse Resp B/P (MAP) Pulse Ox O2 Delivery O2 Flow Rate FiO2 08/29/17 04:26 92 166/95 08/29/17 04:06 36.7 92 22 166/95 (118) 94 Nasal Cannula 3.0 08/29/17 04:00 Nasal Cannula 3.0 08/29/17 02:05 72 16 94 Nasal Cannula 3.0 08/29/17 00:20 36.9 75 20 147/80 (102) 95 Nasal Cannula 3.0 08/29/17 00:00 Nasal Cannula 3.0 08/28/17 23:40 90 150/81 08/28/17 20:20 36.6 90 19 150/81 (104) 95 Nasal Cannula 3.0 08/28/17 20:17 90 150/81 08/28/17 20:00 96 Nasal Cannula 3.0 08/28/17 19:50 84 18 96 Nasal Cannula 3.0 08/28/17 16:11 83 173/76 08/28/17 16:00 95 Nasal Cannula 3.0 08/28/17 16:00 Nasal Cannula 3.0 08/28/17 15:42 36.3 87 20 173/76 (108) 95 Nasal Cannula 3.0 08/28/17 14:34 76 16 96 Nasal Cannula 3.0 08/28/17 12:07 107 153/83 08/28/17 12:00 Nasal Cannula 3.0 08/28/17 11:34 93 08/28/17 10:56 36.8 93 20 156/78 (104) 94 Nasal Cannula 3.0 08/28/17 08:12 107 153/83 08/28/17 08:00 Nasal Cannula 3.0 Laboratory Results 24 Hours: Test 08/29/17 06:23 White Blood Count 5.25 K/uL Red Blood Count 2.47 M/uL Hemoglobin 6.7 g/dL Hematocrit 20.4 % Mean Corpuscular Volume 82.6 fL Mean Corpuscular Hemoglobin 27.1 pg Mean Corpuscular Hemoglobin Concent 32.8 g/dl Platelet Count 198 K/uL Mean Platelet Volume 8.4 fL Neutrophils (%) (Auto) 73.7 % Lymphocytes (%) (Auto) 13.5 % Monocytes (%) (Auto) 8.2 % Eosinophils (%) (Auto) 3.6 % Basophils (%) (Auto) 0.4 % Neutrophils # (Auto) 3.87 K/uL Lymphocytes # (Auto) 0.71 K/uL Monocytes # (Auto) 0.43 K/uL Eosinophils # (Auto) 0.19 K/uL Basophils # (Auto) 0.02 K/uL Prothromb Time International Ratio 1.0 Prothrombin Time 10.6 SECONDS Assessment & Plan Assessment: POD 2, Left Hip ORIF troch nail Plan: -DVT ppx - EC ASA BID -PWB LLE -PT/OT with assistance -PO XR: Well aligned, well fixed cephalomedullary nail, anatomic reduction of fracture, without evidence of new fracture or dislocation -Hgb 6.7, 2U PRBC ordered by primary team
[2017-08-29] MEDS: OXYCODONE HCL IR 5 MG TAB (IMMEDIATE RELEASE) PO PRN ×3 (08:36→21:16)
[2017-08-29] MEDS: SODIUM CHLORIDE 0.9% 1000ML 1,000 ML IV SCH (08:37)
--- NOTE | 2017-08-29 10:08 | CARDIOLOGY PROGRESS NOTE ---
DATE: 08/29/2017 SUBJECTIVE: Mrs. Fish is resting comfortably in bedside chair without complaints of chest pain, dyspnea, or palpitations. Postoperative pain adequately controlled. OBJECTIVE: VITAL SIGNS: Blood pressure 160/70 with a regular pulse of 100. Respiratory rate is 22. The patient is afebrile at 37.2 degree Celsius. Saturations 94% on 3 liters nasal cannula. NECK: Supple with full carotid upstrokes. There are no carotid bruits. Jugular venous pressure is flat at 90 degrees. There is no thyromegaly. CARDIOVASCULAR: Reveals a regular rhythm with normal S1, S2. No S3, S4, or murmurs are noted. LUNGS: Clear without rales, rhonchi or wheeze. ABDOMEN: Soft, nontender without bruits. EXTREMITIES: Reveal intact radial artery pulses bilaterally. Dressings intact across the left hip. LABORATORY DATA: CBC notes hemoglobin of 6.7, hematocrit 20.4, white count 5.2, platelet count 198,000. Electrolytes note a sodium of 141, potassium 4.1, chloride 111, bicarbonate 24, BUN 22, creatinine 1.06, glucose 89. Telemetry notes occasional paroxysms of atrial fibrillation. IMPRESSION AND PLAN: 1. Open reduction internal fixation of left femur -- per orthopedics. 2. Paroxysmal atrial fibrillation -- several episodes noted overnight. Would restart long acting diltiazem at 240 mg daily. No need to keep patient in telemetry. 3. Abnormal EKG --- U waves present. Noted previously. 4. Hypertension -- with mild left ventricular hypertrophy. 5. Hypercholesterolemia. 6. History of cerebrovascular accident. 7. Status post repair of thoracic aortic aneurysm. 8. Disposition -- stable for transfer to orthopedic floor.
[2017-08-29] MEDS: PANTOprazole INJ 40 MG in SYRINGE 0 ML IV SCH (11:06)
--- NOTE | 2017-08-29 12:06 | Family Medicine Progress Note ---
Progress Note Date of Service Aug 29, 2017. Subjective Pt evaluation today including: conversation w/ patient, physical exam, chart review, lab review, review of studies, review of inpatient medication list Pain: pain at surgical site Voiding: no voiding problems Patient reports some pain at surgical site. She denies Chest pain, SOB , palpitation, calf tenderness, fevers, chills Additional Comments: Constitutional: No fever, No chills, No weakness Respiratory: No cough, No shortness of breath Cardiovascular: No chest pain, No edema, No palpitations Abdomen: No pain, No nausea Musculoskeletal: pain at surgical site, + problem reported (s/p Left hip fx repair) Female : No dysuria, No urinary frequency Skin: No rash, No itch Medications Current Inpatient Medications Medications (Trade) Dose Ordered Sig/Gena Route Start Time Stop Time Status Last Admin Dose Admin Heparin Sodium (Porcine) (Heparin Sq 5000 Unit/0.5ml) 5,000 unit Q12 SQ 08/27/17 09:00 09/26/17 08:59 08/27/17 21:08 5,000 UNIT Acetaminophen (Tylenol Tab) 650 mg Q4H PRN PO 08/26/17 21:15 09/25/17 21:14 Methimazole (Methimazole Tab) 10 mg BID PO 08/27/17 09:00 09/26/17 08:59 08/29/17 08:03 10 MG Ondansetron HCl (Zofran Odt) 8 mg Q6H PRN PO 08/26/17 21:30 09/25/17 21:29 08/28/17 08:11 8 MG Pantoprazole Sodium 40 mg/ Syringe 10 ml @ 5 mls/min DAILY@11 IV 08/27/17 11:00 08/30/17 11:01 08/29/17 11:06 5 MLS/MIN Metoprolol Tartrate (Lopressor Iv) 5 mg Q4 IV. 08/27/17 00:00 09/26/17 00:00 08/29/17 11:52 5 MG Lorazepam (Ativan Inj) 0.5 mg Q6H PRN IV 08/26/17 21:30 09/25/17 21:29 Ipratropium [place] (Atrovent 0.02% 0.5MG/2.5ML Neb) 0.5 mg Q6R INH 08/27/17 03:00 09/26/17 02:59 08/29/17 14:10 0.5 MG Levalbuterol (Xopenex 1.25MG/ 0.5ML Neb) 1.25 mg Q6R INH 08/27/17 03:00 09/26/17 02:59 08/29/17 14:10 1.25 MG Ipratropium [place] (Atrovent 0.02% 0.5MG/2.5ML Neb) 0.5 mg Q2H PRN INH 08/26/17 22:15 09/25/17 22:14 Levalbuterol (Xopenex 1.25MG/ 0.5ML Neb) 1.25 mg Q2H PRN INH 08/26/17 22:15 09/25/17 22:14 Ondansetron HCl (Zofran Inj) 4 mg Q6H PRN IV 08/27/17 17:15 09/26/17 17:14 Oxycodone HCl (Roxicodone Immediate Rel Tab) 5 mg Q4H PRN PO 08/27/17 17:15 09/10/17 17:14 08/29/17 08:36 5 MG Aspirin/Aluminum/ Magnesium/Ca Carb (Ascriptin Tab) 325 mg BID PO 08/27/17 21:00 09/26/17 20:59 08/29/17 08:02 325 MG Morphine Sulfate (MoRPHine SULFATE INJ) 4 mg Q4H PRN IV 08/27/17 17:15 09/10/17 17:14 Naloxone HCl (Narcan Inj) 0.4 mg Q1M PRN IV 08/27/17 17:15 09/26/17 17:14 Menthol (Nice Jnena) 1 jenna Q2H PRN PO 08/27/17 17:15 09/26/17 17:14 Senna/Docusate Sodium (Senokot S Tab) 2 tab HS PO 08/27/17 21:00 09/26/17 20:59 08/28/17 20:16 2 TAB Objective Vital Signs Date Time Temp Pulse Resp B/P (MAP) Pulse Ox O2 Delivery O2 Flow Rate FiO2 08/30/17 03:50 87 145/90 08/30/17 01:45 86 16 96 Nasal Cannula 3.0 08/29/17 23:24 37.2 80 20 110/76 (87) 94 Nasal Cannula 4.0 08/29/17 21:02 Nasal Cannula 3.0 08/29/17 20:24 96 141/102 08/29/17 18:47 85 18 92 Nasal Cannula 3.0 08/29/17 18:43 36.7 87 18 110/71 92 3.0 08/29/17 17:52 147/98 (114) 08/29/17 17:52 147/98 08/29/17 17:50 199/102 08/29/17 17:45 36.8 86 20 165/120 90 3.0 08/29/17 16:45 36.8 84 144/95 92 3.0 08/29/17 16:21 90 137/87 08/29/17 16:15 36.5 88 18 137/87 92 3.0 08/29/17 15:45 36.8 93 18 122/81 93 3.0 08/29/17 15:30 36.9 88 18 113/78 91 3.0 08/29/17 14:58 31.1 92 18 123/85 94 2.0 08/29/17 14:45 Nasal Cannula Humidified Oxygen 08/29/17 14:38 36.8 96 18 176/96 (122) 93 Nasal Cannula 3.0 Humidified Oxygen 08/29/17 14:11 84 16 94 Nasal Cannula 3.0 08/29/17 13:18 36.7 85 20 94 3.0 08/29/17 12:58 85 20 174/95 94 3.0 08/29/17 12:00 Nasal Cannula 3.0 08/29/17 11:52 100 190/103 08/29/17 11:49 100 20 190/103 96 3.0 08/29/17 11:34 36.7 109 20 212/109 (143) 0 Room Air 08/29/17 10:49 37.1 85 20 175/82 94 3.0 08/29/17 10:15 37.0 95 20 159/79 93 3.0 08/29/17 09:58 36.6 87 20 172/93 95 3.0 08/29/17 08:02 100 161/71 08/29/17 08:01 37.2 100 22 161/71 (101) 94 Nasal Cannula 3.0 08/29/17 08:00 Nasal Cannula 3.0 08/29/17 07:40 37.2 101 20 149/74 (99) 95 Nasal Cannula 3.5 08/29/17 07:14 78 16 94 Nasal Cannula 3.0 Physical Exam Notes: General Appearance: WD/WN, no apparent distress Eyes: PERRL, EOMI Neck: supple, trachea midline Respiratory/Chest: lungs clear, normal breath sounds, no respiratory distress, no accessory muscle use Cardiovascular: regular rate, rhythm, no edema, no murmur Abdomen: normal bowel sounds, non tender, soft Extremities: no pedal edema, no calf tenderness, + pertinent finding (Left Femur fx , s/p repair ) Neurologic/Psychiatric: alert, normal mood/affect, oriented x 3 Skin: warm/dry, no rash Laboratory Results Results Past 24 Hours Test 08/29/17 06:23 08/30/17 05:15 Range/Units White Blood Count 5.25 4.8-10.8 K/uL Red Blood Count 2.47 4.2-5.4 M/uL Hemoglobin 6.7 12.0-16.0 g/dL Hematocrit 20.4 37-47 % Mean Corpuscular Volume 82.6 80-100 fL Mean Corpuscular Hemoglobin 27.1 25-34 pg Mean Corpuscular Hemoglobin Concent 32.8 32-36 g/dl Platelet Count 198 130-400 K/uL Mean Platelet Volume 8.4 7.4-10.4 fL Neutrophils (%) (Auto) 73.7 % Lymphocytes (%) (Auto) 13.5 % Monocytes (%) (Auto) 8.2 % Eosinophils (%) (Auto) 3.6 % Basophils (%) (Auto) 0.4 % Neutrophils # (Auto) 3.87 1.4-6.5 K/uL Lymphocytes # (Auto) 0.71 1.2-3.4 K/uL Monocytes # (Auto) 0.43 0.11-0.59 K/uL Eosinophils # (Auto) 0.19 0-0.5 K/uL Basophils # (Auto) 0.02 0-0.2 K/uL RDW Standard Deviation 45.0 36.4-46.3 fL RDW Coefficient of Variation 14.9 11.5-14.5 % Immature Granulocyte % (Auto) 0.6 % Immature Granulocyte # (Auto) 0.03 0.00-0.02 K/uL Red Blood Cell Morphology Unremarkable Prothrombin Time 10.6 9.0-12.0 SECONDS Prothromb Time International Ratio 1.0 0.9-1.1 Activated Partial Thromboplast Time 25.0 21.0-31.0 SECONDS Partial Thromboplastin Ratio 1.0 Sodium Level 141 136-145 mmol/L Potassium Level 4.1 3.5-5.1 mmol/L Chloride Level 111 98-107 mmol/L Carbon Dioxide Level 24 21-32 mmol/L Anion Gap 6.0 3-11 mmol/L Blood Urea Nitrogen 22 7-18 mg/dl Creatinine 1.06 0.60-1.20 mg/dl Est Creatinine Clear Calc Drug Dose 42.2 ml/min Estimated GFR () 59.1 Estimated GFR (Non- 51.0 BUN/Creatinine Ratio 21.0 10-20 Random Glucose 89 70-99 mg/dl Calcium Level 8.1 8.5-10.1 mg/dl Magnesium Level 2.0 1.8-2.4 mg/dl Assessment and Plan Anemia: likely secondary to Post-operative blood loss - expected in context of hip fracture and necessary surgical intervention Hb 7.6-->6.7, reports fatigue , VSS Transfuse 2 u prbc's F/u cbc in AM transfusion for Hb < 7 or if symptomatic Intertrochanteric fx of Left femur s/p repair POD2 aspirin, held Aggrenox. Abnormal EKG/CAD/history of coronary artery stent/status post endovascular stent negative troponin Per cardiology., unlikely to be due to acute cardiac event atenolol and diltiazem extended release remain held c/w Lopressor 5 mg IV every 4 hours with hold parameters. Severe COPD/history of tobacco abuse-- c/w Xopenex/Atrovent nebulizer every 6 hours while awake and every 2 hours as needed. Cerebrovascular disease-- CT Head: old left frontal and parietal infarcts, with moderate small vessel disease, no acute findings. ASA , held Aggrenox Hyperlipidemia-- c/w Simvastatin 40 mg p.o. at bedtime. Anxiety-- xanax remains held Lorazepam 0.5 mg IV every 6 hours as needed. Hyperthyroidism-- Continue methimazole 10 mg p.o. twice daily. Resident Physician Supervision Note: I interviewed and examined the patient. Discussed with Dr. Mukherjee and agree with findings and plan as documented in the note. Any exceptions or clarifications are listed here: None Documented By: Félix Silvaur feeling good overall does have hip pain when getting up was fatigued earlier w anemia vitals noted nad breathing unlabored no pallor or icterus hip fx - stable s/p OR - PT/OT. outpt osteoporosis w/u. anemia - acute blood loss as expected for hip fx but w Hgb <7 and fatigue transfusion warranted PAF - now sinus (and therefore rate controlled) - will need anticoagulation - but safer to wait until Hgb has stabilized dvt proph - heparin SQ for now see above stable for med/surg hopefully rehab tomorrow Continued [facility] stay due to: multiple IV medications needed Discharge planning: rehab hospital Resident Tracking Resident Involvement: Resident Care Provided Care Provided: Adult Hospital Medicine
--- NOTE | 2017-08-29 18:12 | [facility] Operative Report ---
Operative Report Operative Date Aug 27, 2017. Pre-Operative Diagnosis left intertrochanteric hip fracture Post-Operative Diagnosis left intertrochanteric hip fracture Procedure(s) Performed left hip Cephalomedullary Nail Surgeon Dr. Surjit Turner [employer] Sawyer Surgeon(s) none Estimated Blood Loss 35ml Findings see dictated op note Fluids 900 Specimens none per surgeon Drains None Anesthesia Type General Complication(s) none Disposition Recovery Room / PACU Indications The patient is a 77 yo female with displaced left intertrochanteric hip fracture sustained after a fall from standing height. The patient was medically stabilized on 08/27/17. I indicated the patient for left hip cephalomedullary nail. The patient was informed of the risks and benefits of surgery, which include but not limited to infection, bleeding, blood clots, damage to nerves, vessels, bone and soft tissue, dislocation, leg length discrepancy, malunion, nonunion, failure of the implants, need for additional surgery and . The patient chose to proceed with surgical intervention and informed consent was obtained. Description of Procedure Following induction of adequate general anesthesia, the patient was placed on the fracture table. The right leg was placed in the well leg guaman and the left leg in the traction leg guaman. All bony prominences were protected. Utilizing c-arm fluoroscopy closed reduction of the fracture was performed. Once satisfied with fracture reduction on c-arm fluoroscopy the left hip was prepped and draped in the usual sterile manner. A time out was performed and site verified. The incision was made from the tip of the greater trochanter proximally. Subcutaneous tissue was sharply dissected to the tip of the greater trochanter, electrocautery used for hemostasis. Under fluoroscopic guidance the drill tipped guidewire was inserted at the tip of the greater trochanter and advanced into the medullary canal. Utilizing the intramedullary drill the guidewire was overdrilled with tissue protector attached. A 11 mm short Synthes nail was inserted and impacted into position and confirmed by c- arm fluoroscopy. Next the aiming arm was attached to the insertion handle. Incision was made and carried down through subcutaneous tissues to bone. The blade guide sleeve was inserted and secured down to bone. The guide wire was passed across the fracture site to the tip of the femoral head, position was confirmed in the AP and lateral planes utilizing c-arm fluoroscopy. The guide pin was measured and the 11.0mm drill bit passed over the guide pin to open laterally followed by a 6.0mm/10.0mm cannulated reamer to a depth of 100mm. Next the helical blade was inserted and locked proximally. Traction was released and interfragmentary compression applied. Distally a stab incision was made in the skin and carried down to bone. The triple trocar assembly was inserted into the aiming guide to bone. Utilizing a 4.0mm drill, both cortices were drilled. The nail was locked distally using a single 4.9mm x 36 mm locking bolt. The aiming guide was removed at this time and final radiographs were obtained utilizing c-arm fluoroscopy to confirm overall position and fracture reduction. Incisions were irrigated with copious amounts of sterile saline solution. Subcutaneous tissue were injected utilizing .5% marcaine with epi. Deep closure was performed using #1 Vicryl followed by 2-0 Vicryl for subcutaneous tissues and jose in the skin. Sterile dressing, Xeroform gauze, 4x4s and tegaderm were applied. The patient tolerated the procedure well and was transported to the PACU in stable condition. I attest to the content of the Intraoperative Record and any orders documented therein. Any exceptions are noted below.
[2017-08-29] MEDS: DOCUSATE SODIUM/SENNA 50/8.6MG TAB PO SCH (20:33)
[2017-08-30] MEDS: LEVALBUTEROL 1.25MG/0.5ML NEB INH SCH ×2 (01:42→07:10)
[2017-08-30] MEDS: IPRATROPIUM BROMIDE NEB SOLN 0.02% 2.5 ML VIAL INH SCH ×2 (01:42→07:10)
[2017-08-30 01:45] VITALS: PULSE 86; O2SAT 96
[2017-08-30] MEDS: METOPROLOL TARTRATE 1 MG/ML VIAL IV. SCH ×2 (03:50)
[2017-08-30 05:55] LABS: BASO % 0.5 %; BASO ABS # 0.03 K/uL (0-0.2); EOS % 3.8 %; EOS ABS # 0.24 K/uL (0-0.5); HEMATOCRIT 26.5 % (37-47); HEMOGLOBIN 8.9 g/dL (12.0-16.0); IG# 0.03 K/uL (0.00-0.02); LYMPH % 14.6 %; LYMPH ABS # 0.92 K/uL (1.2-3.4); MEAN CELL VOLUME 83.1 fL (80-100); MEAN CORPUSCULAR HEMOGLOBIN 27.9 pg (25-34); MEAN CORPUSCULAR HGB CONC 33.6 g/dl (32-36); MEAN PLATELET VOLUME 8.3 fL (7.4-10.4); MONO ABS # 0.57 K/uL (0.11-0.59); NEUT % 71.6 %; NEUT ABS # 4.53 K/uL (1.4-6.5); PLATELET COUNT 206 K/uL (130-400); RED CELL DISTRIBUTION WIDTH SD 45.6 fL (36.4-46.3); WHITE BLOOD COUNT 6.32 K/uL (4.8-10.8)
[2017-08-30 06:13] LABS: CALCIUM 8.7 mg/dl (8.5-10.1); CREATININE 0.93 mg/dl (0.60-1.20); POTASSIUM 3.9 mmol/L (3.5-5.1)
[2017-08-30 07:11] VITALS: PULSE 86; O2SAT 96
[2017-08-30 07:27] VITALS: BP 135/97; PULSE 90; TEMP 37.5; O2SAT 93
[2017-08-30] MEDS: HEPARIN SOD 5000 UNIT/0.5 ML CARP SQ SCH (09:00)
[2017-08-30] MEDS: ASPIRIN/ALUM/MAGNES/CAL CARB 325 MG TAB PO SCH (09:09)
[2017-08-30] MEDS: METHIMAZOLE 5 MG TAB PO SCH (09:10)
[2017-08-30] MEDS ORDERED: METOPROLOL TARTRATE 1 MG/ML VIAL IV. SCH (10:00)
[2017-08-30] MEDS: ONDANSETRON 8MG OD TAB PO PRN (10:19)
[2017-08-30] MEDS: PANTOprazole INJ 40 MG in SYRINGE 0 ML IV SCH (11:00)
--- NOTE | 2017-08-30 11:38 | Orthopedic Progress Note ---
Orthopedic Progress Note Date of Service Aug 30, 2017. Subjective Post OP Day: 3 Reports: feeling well, SOB (Some SOB with moving around and getting out of bed but patient feels that is her baseline.), pain controlled w PO medications, Denies: complaints, chest pain, nausea / vomiting, light headedness, calf pain Objective calves soft nontender, N/V intact, capillary refill less than 2 sec., dressing C /D/I, A&O x3, toes mobile Date Time Temp Pulse Resp B/P (MAP) Pulse Ox O2 Delivery O2 Flow Rate FiO2 08/30/17 07:27 37.5 90 17 135/97 (110) 93 Nasal Cannula 2.0 08/30/17 07:11 86 16 96 Nasal Cannula 2.0 08/30/17 03:50 87 145/90 08/30/17 01:45 86 16 96 Nasal Cannula 3.0 08/29/17 23:24 37.2 80 20 110/76 (87) 94 Nasal Cannula 4.0 08/29/17 21:02 Nasal Cannula 3.0 08/29/17 20:24 96 141/102 08/29/17 18:47 85 18 92 Nasal Cannula 3.0 08/29/17 18:43 36.7 87 18 110/71 92 3.0 08/29/17 17:52 147/98 (114) 08/29/17 17:52 147/98 08/29/17 17:50 199/102 08/29/17 17:45 36.8 86 20 165/120 90 3.0 08/29/17 16:45 36.8 84 144/95 92 3.0 08/29/17 16:21 90 137/87 08/29/17 16:15 36.5 88 18 137/87 92 3.0 08/29/17 15:45 36.8 93 18 122/81 93 3.0 08/29/17 15:30 36.9 88 18 113/78 91 3.0 08/29/17 14:58 31.1 92 18 123/85 94 2.0 08/29/17 14:45 Nasal Cannula Humidified Oxygen 08/29/17 14:38 36.8 96 18 176/96 (122) 93 Nasal Cannula 3.0 Humidified Oxygen 08/29/17 14:11 84 16 94 Nasal Cannula 3.0 08/29/17 13:18 36.7 85 20 94 3.0 08/29/17 12:58 85 20 174/95 94 3.0 08/29/17 12:00 Nasal Cannula 3.0 08/29/17 11:52 100 190/103 08/29/17 11:49 100 20 190/103 96 3.0 Laboratory Results 24 Hours: Test 08/30/17 05:29 White Blood Count 6.32 K/uL Red Blood Count 3.19 M/uL Hemoglobin 8.9 g/dL Hematocrit 26.5 % Mean Corpuscular Volume 83.1 fL Mean Corpuscular Hemoglobin 27.9 pg Mean Corpuscular Hemoglobin Concent 33.6 g/dl Platelet Count 206 K/uL Mean Platelet Volume 8.3 fL Neutrophils (%) (Auto) 71.6 % Lymphocytes (%) (Auto) 14.6 % Monocytes (%) (Auto) 9.0 % Eosinophils (%) (Auto) 3.8 % Basophils (%) (Auto) 0.5 % Neutrophils # (Auto) 4.53 K/uL Lymphocytes # (Auto) 0.92 K/uL Monocytes # (Auto) 0.57 K/uL Eosinophils # (Auto) 0.24 K/uL Basophils # (Auto) 0.03 K/uL Assessment & Plan Assessment: POD 3, Left Hip ORIF troch nail Plan: -DVT ppx - EC ASA BID -PWB LLE -PT/OT with assistance -PO XR: Well aligned, well fixed cephalomedullary nail, anatomic reduction of fracture, without evidence of new fracture or dislocation -Ortho to sign off at this time. Plan for D/C to [facility] when a bed is available. Inhouse Planning DVT Prophylaxis: ASA (81 mg BID) Discharge Planning Discharge Planning: rehab hospital DVT Prophylaxis: TEDs, ASA
--- NOTE | 2017-08-30 11:41 | Consultant Recommendations ---
[employer] Equipment Repairer Recommendations Date of Service Aug 30, 2017. [employer] Equipment Repairer Recommendations U DISCHARGE INSTRUCTIONS: HIP FRACTURE SELF CARE INSTRUCTIONS: A. You are to ambulate with a walker or crutches for approximately 6 weeks. B. You are PARTIAL WEIGHT BEARING on your operative lower extremity for at least 6 weeks. C. Wear low heeled shoes with non-slip soles D. Be sure that your floors are free of things that could trip you throw rugs, electrical cords, and small objects. Avoid wet and waxed floors, especially with crutches/walker/cane. E. Try to walk several times a day with rest periods between. F. You may shower 48 hours after surgery and get the incision area wet, but DO NOT soak or submerge incision area in water. (No baths, swimming pools, hot tubs ) G. You may have a large, band-aid like dressing over your incision (Aquacel). This will remain on your incision for 7 days, and then can be removed. You CAN shower with this on. If incision is leaking through the dressing, please call the office . H. Do NOT apply soap or any ointment/lotions directly over incision. I. You may use ice as needed to operative site. SPECIAL CARE INSTRUCTIONS: VERY IMPORTANT TO READ AND REVIEW A. You may be at risk for phlebitis or blood clots. a. Wear surgical stockings (FANY hose) for 4 weeks after surgery to improve circulation and reduce swelling. b. Take ASPIRIN 81 mg twice daily for 4 weeks or as directed. This is your blood thinner. c. If you are on Coumadin- you will have daily/weekly blood work to monitor your levels. This will be done by either your family physician/ documentation engineer (if you are on Coumadin chronically) versus your orthopedic surgeon. Expect a phone call the day of or the day after your blood work is drawn to adjust your dose accordingly. B. There are a few signs you need to watch for after you are home. Call [facility] [place] at [phone] if you experience any of the following: a. If you have a temperature of 101 degrees or higher. b. Sudden increase in pain in your hip not relieved by rest or pain medication. c. Any fluid or drainage from the incision; redness of the incision. d. Shortness of breath or chest pain. B. Please call [facility] at [phone] if you have any questions or concerns about your operation or recovery. C. Call your physician if: a. Temperature is greater than 101 degrees (F). b. Pain is not relieved by prescribed pain medications. c. Increase drainage or redness from incision. d. Unanswered questions or concerns. D. Pain Medication: a. You will be prescribed pain medication upon discharge that should last till your first post-operative appointment. b. If you experience nausea and/or skin rash, discontinue this medication and contact our office for an alternative medication. c. Caution- narcotic pain medication can cause constipation. FOLLOW UP VISIT: Please call [facility] at [phone] to schedule a follow up appointment with Dr. Turner for 10-14 days from the date of your surgery date.
[2017-08-30] MEDS: OXYCODONE HCL IR 5 MG TAB (IMMEDIATE RELEASE) PO PRN (13:15)
--- NOTE | 2017-08-30 13:16 | CARDIOLOGY PROGRESS NOTE ---
DATE: 08/30/2017 SUBJECTIVE: Mrs. Fish is resting comfortably in bed without complaints of chest pain, dyspnea, or palpitations. OBJECTIVE: VITAL SIGNS: Blood pressure 135/97 with a regular pulse of 90. Respiratory rate is 17. The patient is afebrile at 37.5 degrees Celsius. Saturation is 93% on 2 liters nasal cannula. NECK: Supple with full carotid upstrokes. There are no carotid bruits. Jugular venous pressure is flat at 90 degrees. There is no thyromegaly. CARDIOVASCULAR: Reveals a regular rhythm. Normal S1 and S2. No S3, S4, or murmurs are noted. LUNGS: Clear without rales, rhonchi, or wheeze. ABDOMEN: Soft and nontender without bruits. EXTREMITIES: Reveal intact radial artery pulse bilaterally. Dressings intact across the left hip. LABORATORY DATA: CBC notes a hemoglobin of 8.9, hematocrit 26.5, white count 6.3, and platelet count 206,000. Electrolytes note a sodium of 130, potassium 3.9, chloride 106, bicarbonate 27, BUN 24, creatinine 0.93, and glucose 95. IMPRESSION AND PLAN: 1. Status post open reduction and internal fixation of left hip -- per orthopedics. 2. Paroxysmal atrial fibrillation -- was started on low dose metoprolol tartrate. However, has been stable as an outpatient on diltiazem 240 mg daily. 3. Abnormal EKG -- with U waves present. Stable compared to prior tracings. 4. Hypertension -- with mild left ventricular hypertrophy. Was also on losartan as an outpatient. 5. Hypercholesterolemia. 6. History of cerebrovascular accident. 7. Status post repair of thoracic aortic aneurysm. 8. Disposition -- stable for hospital discharge. I will be happy to see the patient in followup.
[2017-08-30] MEDS ORDERED: LPR25 PO (14:02)
--- NOTE | 2017-08-30 14:11 | Discharge Instructions ---
Discharge Instructions Date of Service Aug 30, 2017. Admission Reason for Admission: Abnormal Ekg Discharge Discharge Diagnosis / Problem: Left hip fracture s/p repair, Blood loss anemia , PAF Discharge Goals Goal(s): Decrease discomfort, Improve function, Increase independence, Improve disease control, Learn about illness, Diagnostic testing, Therapeutic intervention, Screening, Prevent Disease Progression Activity Recommendations Activity Level: Assistance Required Therapies: Physical Therapy, Occupational Therapy Lifting Limitations: gradually increase as tolerated Exercise/Sports Limitations: gradually increase as tolerated . Additional Information Patient informed of condition: Yes Advance Directives: No DNR: No Level of Care: Acute Rehab Communicable Disease: No Prognosis: Stable Hopkins Catheter: No Instructions / Follow-Up Instructions / Follow-Up Patient was admitted for left hip fracture, underwent repair that went well. She did have some post operative blood loss anemia and received 2 units of pRBC' s- Please recheck in 3-4 days. Patient also developed new onset P.Afib- has been switched from diltiazem to Metoprolol 25 mg BID (may titrate as needed for rate control) Start Anticoagulation if hgb remains stable (8.9 on discharge)- Pradaxa or eliquis. Continue Aggrenox Follow up with cardiology, PCP Current Hospital Diet Patient's current hospital diet: AHA Diet (Heart Healthy) Discharge Diet Recommended Diet: AHA Diet (Heart Healthy) Procedures Procedures Performed: left hip Cephalomedullary Nail Pending Studies Studies pending at discharge: no Laboratory Results Hemoglobin A1c Test 08/26/17 19:13 Range/Units Estimated Average Glucose 114 mg/dl Hemoglobin A1c 5.6 4.5-5.6 % Lipid Panel Test 08/27/17 05:15 Range/Units Triglycerides Level 67 0-150 mg/dl Cholesterol Level 186 0-200 mg/dl HDL Cholesterol 64 mg/dl Cholesterol/HDL Ratio 2.9 LDL Cholesterol, Calculated 109 mg/dl Medical Emergencies . Who to Call and When: Medical Emergencies: If at any time you feel your situation is an emergency, please call 911 immediately. . Non-Emergent Contact Non-Emergency issues call your: Primary Care Provider, [employer] [facility] . . "Provider Documentation" section prepared by Cheryl De La Cruz. . Order Booker Recommendations Order Booker Recommendations: [facility] DISCHARGE INSTRUCTIONS: HIP FRACTURE SELF CARE INSTRUCTIONS: A. You are to ambulate with a walker or crutches for approximately 6 weeks. B. You are PARTIAL WEIGHT BEARING on your operative lower extremity for at least 6 weeks. C. Wear low heeled shoes with non-slip soles D. Be sure that your floors are free of things that could trip you throw rugs, electrical cords, and small objects. Avoid wet and waxed floors, especially with crutches/walker/cane. E. Try to walk several times a day with rest periods between. F. You may shower 48 hours after surgery and get the incision area wet, but DO NOT soak or submerge incision area in water. (No baths, swimming pools, hot tubs ) G. You may have a large, band-aid like dressing over your incision (Aquacel). This will remain on your incision for 7 days, and then can be removed. You CAN shower with this on. If incision is leaking through the dressing, please call the office . H. Do NOT apply soap or any ointment/lotions directly over incision. I. You may use ice as needed to operative site. SPECIAL CARE INSTRUCTIONS: VERY IMPORTANT TO READ AND REVIEW A. You may be at risk for phlebitis or blood clots. a. Wear surgical stockings (FANY hose) for 4 weeks after surgery to improve circulation and reduce swelling. b. Take ASPIRIN 81 mg twice daily for 4 weeks or as directed. This is your blood thinner. c. If you are on Coumadin- you will have daily/weekly blood work to monitor your levels. This will be done by either your family physician/ phlebotomist prn (if you are on Coumadin chronically) versus your orthopedic surgeon. Expect a phone call the day of or the day after your blood work is drawn to adjust your dose accordingly. B. There are a few signs you need to watch for after you are home. Call [facility] at [phone] if you experience any of the following: a. If you have a temperature of 101 degrees or higher. b. Sudden increase in pain in your hip not relieved by rest or pain medication. c. Any fluid or drainage from the incision; redness of the incision. d. Shortness of breath or chest pain. B. Please call [facility] at [phone] if you have any questions or concerns about your operation or recovery. C. Call your physician if: a. Temperature is greater than 101 degrees (F). b. Pain is not relieved by prescribed pain medications. c. Increase drainage or redness from incision. d. Unanswered questions or concerns. D. Pain Medication: a. You will be prescribed pain medication upon discharge that should last till your first post-operative appointment. b. If you experience nausea and/or skin rash, discontinue this medication and contact our office for an alternative medication. c. Caution- narcotic pain medication can cause constipation. FOLLOW UP VISIT: Please call [facility] at [phone] to schedule a follow up appointment with Dr. Turner for 10-14 days from the date of your surgery date. Core Measure Problem Core Measures: None
[2017-08-30 15:08] VITALS: BP 136/88; PULSE 90; TEMP 36.6; O2SAT 93
[2017-08-30 15:24] VITALS: BP 136/88; PULSE 90; TEMP 36.6; O2SAT 93
--- NOTE | 2017-08-30 15:49 | Discharge Summary ---
Discharge Summary Date of Service Aug 30, 2017. Discharge Summary Admission Date: Aug 26, 2017 at 21:09 Discharge Date: Aug 30, 2017 Discharge Disposition: Rehab Principal Diagnosis: Left hip fracture Problems/Secondary Diagnoses: Acute blood loss anemia Abnormal EKG Paroxysmal AFIB Severe COPD Cerebrovascular disease Hyperlipidemia Anxiety Hyperthyroidism Immunizations: Have You Had Influenza Vaccine: Yes Influenza Vaccine Date: Feb 10, 2011 History of Tetanus Vaccine?: No History of Pneumococcal: Unknown History of Hepatitis B Vaccine: No Procedures: L PELVIS/UNILATERAL HIP 2-3VIEWS CLINICAL HISTORY: Evaluate for fracture. COMPARISON: CT of the abdomen and pelvis January 07, 2014. FINDINGS: Note is made of acute intertrochanteric fracture of the left femur. Lesser trochanter is moderately displaced. There is mild angulation at the level the fracture. A previous right hip arthroplasty is noted. Sacroiliac joints and symphysis pubis appear intact. IMPRESSION: Acute intertrochanteric fracture of the left femur. Lesser trochanter displaced medially. CT OF THE HEAD WITHOUT CONTRAST CLINICAL HISTORY: Fall. COMPARISON STUDY: Head CT January 07, 2014. CT DOSE: 712.55 mGy.cm TECHNIQUE: Helical axial images of the head were obtained without IV contrast. Automated exposure control was utilized for the study. A dose lowering technique was utilized adhering to the principles of ALARA. FINDINGS: No acute intracranial hemorrhage, midline shift or mass effect is present. Ventricular system is normal. Basilar cisterns are patent. There are no extra axial collections. 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 White matter hypodensities suggest moderate small vessel disease. There is no calvarial fracture. IMPRESSION: 1. No acute intracranial findings. 2. No calvarial fracture. 3. 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 \ L HIP OR FILMS CLINICAL HISTORY: LT TROCH NAIL COMPARISON STUDY: Left femur radiographs August 27, 2017. FLUOROSCOPY TIME: 1 minute and 12 seconds. FINDINGS: 4 fluoroscopic images demonstrate near anatomic alignment of the intertrochanteric fracture of the left femur status post placement of trochanteric. Hardware is intact. There are no unexpected radiopaque foreign bodies. Distal screw is noted. IMPRESSION: Expected findings following internal fixation of the intertrochanteric fracture of the left femur with trochanteric nail. Consultations: Cardiology Orthopedic surgery Medication Reconciliation New Medications: Metoprolol Tartrate (Lopressor) 25 Mg Tab 25 MG PO BID for 30 Days, #60 TAB Continued Medications: Alprazolam (Xanax) 0.25 Mg Tab 0.25 MG PO BID PRN for Anxiety, TAB Aspirin (Aspirin Ec) 81 Mg Tab 81 MG PO DAILY Aspirin-Dipyridamole 25MG/200MG (Aggrenox 200MG/25MG) 1 Cap Cap 1 CAP PO BID, CAP Cholecalciferol (Vitamin D) 1,000 Inter.unit Tab 2000 INTER.UNIT PO DAILY, TAB Fluticasone Prop/Salmeterol (Advair Diskus 250/50 60 Dose) 1 Ea Aerp 1 PUFF INH BID, INHALER Furosemide (Lasix) 20 Mg Tab 20 MG PO DAILY PRN for UNDECIDED, TAB Ipratropium-Albuterol (Combivent Respimat) 1 Aer Aer 1 PUFFS INH QID PRN for SOB/Wheezing, INH Losartan Potassium (Cozaar) 100 Mg Tab 100 MG PO DAILY, TAB Methimazole (Methimazole) 10 Mg Tab 10 MG PO BID Multivitamin (Multivitamin) Tab 1 TAB PO DAILY, 0 Refills Potassium Ext Rel (Klor-Con) 10 Meq Tabcr 20 MEQ PO BID Simvastatin (Zocor) 40 Mg Tab 40 MG PO HS Tiotropium [place] (Spiriva Respimat) 2.5 Mcg/Act Spr 2 PUFF INH DAILY, INHALER Discontinued Medications: Diltiazem Hcl Extended Release (Diltiazem Hcl Er) 240 Mg Cap 240 MG PO DAILY Discharge Exam This is a 76 y/o F who presented to the ED after tripping over her grandson's toy. She had a resultant left hip fracture and was admitted and underwent repair. On admission she was noted to have abnormal EKG. Cardiology was consulted and while there were no signs of acute ischemia, she did have new onset paroxysmal afib. This was managed with metoprolol in the interim. Postoperatively, she did have acute blood loss anemia where her hgb dropped to 6.7 with worsening fatigue and shortness of breath. She was transfused 2 units after which he hgb remained stable. She is a candidate for anticoagulation given her Chads-Vasc score. However, given her anemia, we recommend recheck of H/H while at rehab and then starting Pradaxa or other NOAC if stable. She is to continue Aggrenox. She was started on Metoprolol 25 mg BID for Rate control. (she was previously on diltiazem and atenolol for HTN; both of which were DC'd). The metoprolol may be titrated up for rate control. All other acute and chronic conditions were managed as appropriate Review of Systems: Constitutional: No fever, No chills Eyes: No worsening of vision ENT: No hearing loss, No unusual epistaxis Respiratory: + shortness of breath (baseline), + dyspnea on exertion, No cough, No sputum, No wheezing, No dyspnea at rest Cardiovascular: No chest pain Abdomen: No pain, No nausea, No vomiting, No diarrhea Musculoskeletal: + joint pain, + muscle pain, No calf pain Genitourinary - Female: No dysuria, No urinary frequency Physical Exam: General Appearance: no apparent distress Eyes: PERRL, EOMI ENT: hearing grossly normal Neck: supple Respiratory/Chest: lungs clear, normal breath sounds, no respiratory distress, no accessory muscle use Abdomen / GI: normal bowel sounds, non tender, soft Extremities: normal inspection, no calf tenderness, + pertinent finding ( left hip fx s/p repair, minimal tenderness) Neurologic/Psychiatric: alert, oriented x 3, + motor weakness Hospital Course Resident Physician Supervision Note: I interviewed and examined the patient. Discussed with Dr. Mukherjee and agree with findings and plan as documented in the note. Any exceptions or clarifications are listed here: None Documented By: Félix Sabillon feeling good overall does have hip pain when getting up was fatigued earlier w anemia vitals noted nad breathing unlabored no pallor or icterus hip fx - stable s/p OR - PT/OT. outpt osteoporosis w/u. anemia - acute blood loss as expected for hip fx but w Hgb <7 and fatigue transfusion warranted - was given 2 units and improved PAF - now sinus (and therefore rate controlled) - will need anticoagulation - see above, pradaxa once it's clear Hgb staying stable (follow CBC) dvt proph - heparin SQ utilized while here stable for rehab Total Time Spent: Greater than 30 minutes This includes examination of the patient, discharge planning, medication reconciliation, and communication with other providers. Discharge Instructions Please refer to the electronic Patient Visit Report (Discharge Instructions) for additional information. [facility]
[2017-08-30] MEDS ORDERED: METOPROLOL TARTRATE 25 MG TAB PO SCH (21:00)
== END 2017-08-30 16:10 | DRG 481 ==
LOC: EDBD 18:19 → C.EDB 18:20 → C.2T 21:09 → ENRESERV 21:22 → C.2T 08-27 12:32 → ENRESERV 08-29 11:34 → C.MSN 08-29 14:33
PROVIDERS: ADMIT Hospitalist; ATTEND Family Medicine
PROC: 0QS704Z Reposition Left Upper Femur with Internal Fixation Device, Open Approach (ICD-10-PCS; principal; 2017-08-27 08:30)
DX: S72.145A Nondisplaced intertrochanteric fracture of left femur, initial encounter for closed fracture (principal); D62 Acute posthemorrhagic anemia; J44.9 Chronic obstructive pulmonary disease, unspecified; I10 Essential (primary) hypertension; E78.5 Hyperlipidemia, unspecified; E11.9 Type 2 diabetes mellitus without complications; R94.31 Abnormal electrocardiogram [ECG] [EKG]; I48.0 Paroxysmal atrial fibrillation; I67.9 Cerebrovascular disease, unspecified; F41.9 Anxiety disorder, unspecified; E05.90 Thyrotoxicosis, unspecified without thyrotoxic crisis or storm; W19.XXXA Unspecified fall, initial encounter; Z90.49 Acquired absence of other specified parts of digestive tract; Z90.710 Acquired absence of both cervix and uterus; Z91.81 History of falling; Z86.73 Personal history of transient ischemic attack (TIA), and cerebral infarction without residual deficits; Z87.440 Personal history of urinary (tract) infections; Z87.891 Personal history of nicotine dependence; Z79.82 Long term (current) use of aspirin; Z83.3 Family history of diabetes mellitus; Z82.49 Family history of ischemic heart disease and other diseases of the circulatory system; Z80.9 Family history of malignant neoplasm, unspecified

== ENCOUNTER → 2017-10-07 | Outpatient (CLI) | payer OTHER ==
[~2017-10-07] MED LIST changes: +ALPR0.25 PO; -ATEN-173 PO; -CMBIN INH; -DILT240C74 PO; +FURO-85 PO; +IPRA1AER2 INH; +LOSA1TAB38 PO; +LPR25 PO; +METH10TA6 PO; +TIOT1SPR INH; -XNX25 PO
== END | disposition home or self-care (01) ==
LOC: C.LAB1850 11:54
PROVIDERS: ATTEND Internal Medicine Endocrinology, Diabetes & Metabolism
DX: E05.90 Thyrotoxicosis, unspecified without thyrotoxic crisis or storm (principal)

== ENCOUNTER → 2017-12-20 | Outpatient (CLI) | payer OTHER ==
--- NOTE | 2017-12-20 11:00 | DIAGNOSTIC IMAGING REPORT ---
SOFT TISS HEAD/NECK-THYROID HISTORY: Thyroid enlargement nodules COMPARISON: 11/16/2015 FINDINGS: Right lobe: Maximum dimension 4.3 cm. Multiple complex nodules the largest of which measures 1.6 cm. This is considered essentially unchanged from the prior study. Minimal scattered faint calcifications are unaltered. Left lobe: Maximum dimension 3.9 cm. Diffuse heterogeneity throughout. Several scattered calcifications. No significant nodularity. Complex nodules within the left thyroid are no longer present. Isthmus: No nodules. IMPRESSION: 1. Multinodular right thyroid unchanged from the prior exam. 2. Diffusely heterogeneous internal architecture left thyroid lobe with no significant nodularity currently. This is considered improved from the prior study. The above report was generated using voice recognition software. It may contain grammatical, syntax or spelling errors. Electronically signed by: Bret De Leon M.D. 12/20/2017 10:59 AM Dictated Date/Time: 12/20/2017 10:56 AM
[2017-12-20 11:23] LABS: ALBUMIN 3.6 gm/dl (3.4-5.0); CALCIUM 9.5 mg/dl (8.5-10.1)
== END | disposition home or self-care (01) ==
LOC: C.ULTR 09:11
PROVIDERS: ATTEND Internal Medicine Endocrinology, Diabetes & Metabolism
DX: E04.2 Nontoxic multinodular goiter (principal)

== ENCOUNTER → 2017-12-26 | Outpatient (CLI) | payer OTHER ==
[2017-12-26 12:36] LABS: ALBUMIN 3.7 gm/dl (3.4-5.0); CALCIUM 9.6 mg/dl (8.5-10.1); CREATININE 0.91 mg/dl (0.60-1.20)
== END | disposition home or self-care (01) ==
LOC: C.LABBFT 10:11
PROVIDERS: ATTEND Internal Medicine Endocrinology, Diabetes & Metabolism
DX: Z87.81 Personal history of (healed) traumatic fracture (principal)

== ENCOUNTER 2021-04-27 09:27 | Inpatient (IN) ==
--- NOTE | 2021-04-27 09:34 | Emergency Department Note ---
Impression & Plan Acute hypoxemic respiratory failure due to COVID-19, COPD (chronic obstructive pulmonary disease), Tachycardia, Hyponatremia ED Provider Note NAME: PRICILLA NICOLAS AGE: 80 SEX: F : 1940 ARRIVES VIA: Ambulance INFORMANT: patient, ED PROVIDER(S): Celso Paez MD Chief Complaint: Shortness of breath, cough, chills HPI: Patient does present with the above Complaints via EMS. The patient does have a history of COPD former smoker quit in August and unvaccinated for COVID-19 and recently tested positive for COVID-19 with a home test yesterday. Patient does state that the whole family has similar symptoms. The patient did receive IV fluids and DuoNeb in route patient had mild improvement in symptoms. Patient denies any fevers but has had chills. The patient has had cough. Patient denies any lower extremity swelling abdominal pain chest pain or nausea vomiting. The patient did take her morning medications and has a known history of A. fib. The patient does wear 2 L of oxygen at all time but did present on 4 L nasal cannula via EMS. ROS: See HPI for pertinent positives and negatives. A total of 10 systems were reviewed and otherwise negative. Past medical history: See below Surgical history: See below Social history: See below Physical Exam: GENERAL: Moderately ill in appearance, moderate distress, wearing a mask nasal cannula in place. EYE EXAM: Normal conjunctiva. PERRL, no anisocoria and EOM's grossly intact w/o pain. NECK: Supple, no nuchal rigidity, no adenopathy, non-tender. No signs of meningismus. LUNGS: Crackles and wheezes throughout. Tachypnea noted. HEART: Tachycardic irregularly irregular no MRG. ABDOMEN: Abdomen soft, non-tender, normo-active bowel sounds, no masses, no rebound or guarding. BACK: No CVA TTP. SKIN: No rashes and no bruising. UPPER EXTREMITIES: Upper extremities are grossly normal. LOWER EXTREMITIES: Grossly normal, no edema. Negative Homans' sign bilaterally. NEURO EXAM: A&O x3, cranial nerves II-XII grossly intact, normal speech, moves all 4 extremities on command w/o issue. Differential diagnoses: Reactive airway disease, pneumonia, pneumothorax, COPD, CHF, infections, cardiac ischemia, pulmonary embolism, musculoskeletal, gastrointestinal, as well as other pathologies. Course: Patient was seen and evaluated the bedside. Full history physical exam was performed. EKG interpreted by me SVT versus A. fib with rapid rates, rate of 178, normal QRS, normal axis, normal axis. Depressions in the lateral leads. Imaging Studies: See Below Cardiac monitoring: An order was placed for continuous cardiac monitoring. The monitor shows a rate of 142 with irregularly irregular rhythm. MDM: She was seen due to concern for respiratory difficulties likely recent Covid illness given that she tested positive at home. I did empirically asked the patient about her CODE STATUS and breathing the patient stated that she was DNR/DNI. The patient did have blood work completed. I did give the patient some Xopenex as I was concerned about the patient's heart rate as she was fairly tachycardic. The patient was given IV fluids that she has noted no prior history of CHF. Patient does not have signs or stigmata of volume overload in her lower extremities. The patient does have some crackles and wheezes present and was noted to be significantly tachypneic. The patient was placed on BiPAP. Patient does have leukopenia and anemia. The patient's platelet count is unremarkable. Kidney function unremarkable. The patient's troponin is detectable but not elevated. The patient BNP was not elevated. Patient's Covid positive flu and RSV negative. Chest x-ray showing emphysema. Patient was reassessed several times. Patient did have a significant improvement in her tachycardia and respiratory status. I did consider the possibility of PE but the patient improved quite well with the BiPAP and IV fluids along with some diltiazem. I did choose the diltiazem as I did not want to choose a beta-harsh given the concern for her lungs wanting improved bronchodilatation the diltiazem was given in an effort to help with cardiac output as the patient may have diastolic dysfunction given the significantly higher heart rate. His EKG was showing possible SVT but the patient's diltiazem did seem to improve this believe the patient does have an A. fib. Especially in light of the patient's rate improving with IV fluids and diltiazem. Patient's ST depressions certainly may be demand related given the patient's tachycardia and infectious symptoms. The patient does not have any evidence of right axis deviation or T wave inversion/depressions. Believe RH strain to be less liklely The patient has no signs or stigmata of DVT in her lower extremities. She had no calf pain no lower extremity edema and no asymmetry. I did perform a POC bedside ultrasound which showed no obvious RV dilatation or septal bowing. Patient is also anticoagulated on apixaban therapy. The patient had been adamant that she had taken her morning medications prior to arrival. She also states that she is compliant. I had spoken with the on-call hospitalist Dr. Morris and the patient was admitted to the medicine service. I was called to the room as the patient seemed to be in respiratory distress and worsening tachycardia. The patient was fairly anxious. I was concerned about her respiratory status. The patient's respiratory status was tried to be optimized by adjusting the BiPAP settings diltiazem. The patient was given a small out of Ativan to help with her anxiety. I had asked the patient several times including at the time that she was in respiratory distress about placing a breathing tube and putting her on a ventilator. The patient was fairly adamant about her DNI status. I did speak with the patient's daughter who wanted the patient to be intubated but I stated that we were going to respect her wishes as the patient is adamant about not receiving a breathing tube. I discussed with the patient at the bedside that a breathing tube likely would be required in order to avoid dying. The patient un derstood this and still did not want to be intubated. Family did come and see the patient in a further discussion with the family the patient was willing to be intubated. The patient was intubated with no complications and the patient was satting well. Patient did receive sedation and had a an episode of hypotension which improved with IV fluids and decreasing sedation diltiazem. I did speak with the on-call lead java j2ee developer Dr. Pinzon and the patient was to be admitted to the intensive care unit. I did update the hospitalist service about the patient's current intubation status. Post intubation chest x-ray shows good placement and no pneumothorax. I did call the patient's daughter Ms. Isidro and did update her on the patient's status that patient was still critical and guarded and that the patient would be admitted to the medicine and intensive care unit. Patient understood patient had no further questions. The patient is still DNR. Critical Care: I have personally spent 210 minutes of critical care time in direct management of this patient. This includes bedside care, interpretation of diagnostic studies, and testing, discussion with consultants, patient, and family members, and other require inpatient management activities. This 210 minutes is in excess of all separately billable procedures. Past Med/Surg History Medical History (Updated 04/27/21 @ 19:36 by Celso Paez MD) AF (paroxysmal atrial fibrillation) Anxiety Carotid artery stenosis Chronic low back pain COPD (chronic obstructive pulmonary disease) GERD without esophagitis Hip fracture (04/27/13) History of transient cerebral ischemia HTN (hypertension) Hyperlipidemia Hyperthyroidism Impaired fasting glucose Iron deficiency anemia Left ventricular hypertrophy Multiple thyroid nodules Osteoporosis Vitamin D deficiency Surgical History H/O carotid endarterectomy left H/O thoracic aortic aneurysm repair History of appendectomy History of hysterectomy History of laparoscopic cholecystectomy History of repair of hip fracture Family History Sister Cancer Asthma Ovarian cancer Mother Cardiac disorder Myocardial infarction Father Cardiac disorder Lung cancer Myocardial infarction Denies family history of Prostate cancer Breast cancer Colorectal cancer Social History Smoking Status: Former smoker Tobacco Type: Cigarettes Age Started Using Tobacco: 17; packs per day: 0.5; Second Hand Exposure: Yes; Hx Alcohol Use: No Hx Substance Use: No Preferred Language: Latvian Visual Impairment: No Limitations Hearing Ability: Hard of Hearing marital status: / Current Living Situation: Family Current Living Situation Comment: lives with her daughter current occupational status: retired 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 100 mcg-umeclid 1 inh INH QAM 12/03/20 04/27/21 62.5 mcg-vilant 25 mcg inhalat.powder (Trelegy Ellipta) Previous Rx's Medication Instructions Recorded albuterol sulfate 2.5 mg/0.5 mL 5 mg INHALATION Q6H PRN #60 ea 06/03/20 solution for nebulization simvastatin 40 mg tablet 40 mg PO HS #90 tab 06/13/20 apixaban 5 mg tablet 5 mg PO BID #180 tab 09/15/20 albuterol sulfate 90 mcg/actuation 2 puff INH Q6H PRN #18 gm 12/13/20 aerosol inhaler lorazepam 0.5 mg tablet 0.5 mg PO BID PRN #60 tab 12/13/20 losartan 100 mg tablet 100 mg PO DAILY #90 tab 03/06/21 metoprolol tartrate 25 mg tablet 25 mg PO BID #180 tab 03/06/21 omeprazole 20 mg capsule,delayed 20 mg PO DAILY #90 cap 03/06/21 release ipratropium 0.5 mg-albuterol 3 mg 3 ml INHALATION Q6H PRN #90 ml 03/13/21 (2.5 mg base)/3 mL nebulization soln ipratropium bromide 0.02 % 2.5 ml INHALATION QID PRN #75 ml 03/23/21 solution for inhalation prednisone 20 mg tablet See Rx Instructions PO QAM #18 tab 03/28/21 potassium chloride 20 mEq 20 meq PO BID #180 tab 03/30/21 tablet,extended release tramadol 50 mg tablet 50 mg PO TID PRN #90 tab 03/31/21 doxycycline hyclate 100 mg tablet 100 mg PO BID #20 tab 04/14/21 Results & Data (ED) Vital Signs Vital Signs - 24 hr 04/27/21 09:30 04/27/21 09:58 04/27/21 10:00 Temperature 37.2 C Temperature Source Oral Pulse Rate 158 H 149 H Pulse Rate [Right Apical] 149 H Respiratory Rate 33 H 40 H 40 H Respiratory Effort / Characteristics Short of Breath Spontaneous Spontaneous Respiratory Depth Shallow Respiratory Pattern Tachypnea Blood Pressure 148/78 H Blood Pressure [Right Arm] Blood Pressure Mean 101 Blood Pressure Mean [Right Arm] Pulse Oximetry 100 99 99 Oxygen Delivery Method BiPAP BiPAP Oxygen Flow Rate 3 Fraction of Inspired Oxygen 35 35 35 SaO2/FiO2 Ratio 285 Sepsis Recent Fever Within 48 Hours Yes Sepsis New/Unexplained Change in Mental Status N/A Sepsis Action Taken by Nursing Physician Notified 04/27/21 11:30 Temperature Temperature Source Pulse Rate Pulse Rate [Right Apical] 156 H Respiratory Rate 26 H Respiratory Effort / Characteristics Short of Breath Respiratory Depth Respiratory Pattern Blood Pressure Blood Pressure [Right Arm] 166/85 H Blood Pressure Mean Blood Pressure Mean [Right Arm] 112 Pulse Oximetry 99 Oxygen Delivery Method BiPAP Oxygen Flow Rate Fraction of Inspired Oxygen 35 SaO2/FiO2 Ratio 282 Sepsis Recent Fever Within 48 Hours Sepsis New/Unexplained Change in Mental Status Sepsis Action Taken by Prison Medications Current Medication List: was personally reviewed by me Laboratory Data Attestation: I reviewed the patient's lab results. Result diagrams: 04/27/21 09:45 04/27/21 09:45 Lab Results 04/27/21 04/27/21 04/27/21 Range/Units 09:45 09:45 09:45 WBC 3.60 L (4.8-10.8) K/uL RBC 4.09 L (4.2-5.4) M/uL Hgb 9.8 L (12.0-16.0) g/dL Hct 31.8 L (37-47) % MCV 77.8 L (80-100) fL MCH 24.0 L (25-34) pg MCHC 30.8 L (32-36) g/dL RDW Std Deviation 43.6 (36.4-46.3) fL RDW Coeff of Lawson 15.4 H (11.5-14.5) % Plt Count 242 (130-400) K/uL MPV 8.9 (7.4-10.4) fL Immature Gran % (Auto) 0.3 % Neut % (Auto) 73.1 % Lymph % (Auto) 18.3 % [place] % (Auto) 8.3 % Eos % (Auto) 0.0 % Baso % (Auto) 0.0 % Neut # (Auto) 2.63 (1.4-6.5) K/uL Lymph # (Auto) 0.66 L (1.2-3.4) K/uL [place] # (Auto) 0.30 (0.11-0.59) K/uL Eos # (Auto) 0.00 (0-0.5) K/uL Baso # (Auto) 0.00 (0-0.2) K/uL Immature Gran # (Auto) 0.01 (0.00-0.02) K/uL Sodium 134 L (136-145) mmol/L Potassium 3.7 (3.5-5.1) mmol/L Chloride 104 (98-107) mmol/L Carbon Dioxide 21 (21-32) mmol/L Anion Gap 9.0 (3-11) BUN 18 (7-18) mg/dl Creatinine 1.10 (0.6-1.2) mg/dl Est Cr Clr Drug Dosing Not Reportable Est GFR ( Amer) 55.3 ml/min Est GFR (Non-Af Amer) 47.7 ml/min BUN/Creatinine Ratio 16.5 (10-20) Glucose 146 H (70-99) mg/dl Calcium 8.5 (8.5-10.1) mg/dl Total Bilirubin 0.3 (0.2-1) mg/dl AST 20 (15-37) U/L ALT 15 (12-78) U/L Alkaline Phosphatase 108 (45-117) U/L Troponin I 0.033 (0-0.045) ng/ml C-Reactive Protein 2.20 H (0-0.29) mg/dl NT-Pro-B Natriuret Pep 1124 (0-1800) pg/ml Total Protein 6.8 (6.4-8.2) gm/dl Albumin 2.6 L (3.4-5.0) gm/dl Globulin 4.2 H (2.5-4.0) gm/dl Albumin/Globulin Ratio 0.6 L (0.9-2) SARS-CoV-2 (PCR) (Negative) Influenza Type A (PCR) (Neg) Influenza Type B (PCR) (Neg) RSV (RT-PCR) (Neg) 04/27/21 Range/Units 09:55 WBC (4.8-10.8) K/uL RBC (4.2-5.4) M/uL Hgb (12.0-16.0) g/dL Hct (37-47) % MCV (80-100) fL MCH (25-34) pg MCHC (32-36) g/dL RDW Std Deviation (36.4-46.3) fL RDW Coeff of Lawson (11.5-14.5) % Plt Count (130-400) K/uL MPV (7.4-10.4) fL Immature Gran % (Auto) % Neut % (Auto) % Lymph % (Auto) % [place] % (Auto) % Eos % (Auto) % Baso % (Auto) % Neut # (Auto) (1.4-6.5) K/uL Lymph # (Auto) (1.2-3.4) K/uL [place] # (Auto) (0.11-0.59) K/uL Eos # (Auto) (0-0.5) K/uL Baso # (Auto) (0-0.2) K/uL Immature Gran # (Auto) (0.00-0.02) K/uL Sodium (136-145) mmol/L Potassium (3.5-5.1) mmol/L Chloride (98-107) mmol/L Carbon Dioxide (21-32) mmol/L Anion Gap (3-11) BUN (7-18) mg/dl Creatinine (0.6-1.2) mg/dl Est Cr Clr Drug Dosing Est GFR ( Amer) ml/min Est GFR (Non-Af Amer) ml/min BUN/Creatinine Ratio (10-20) Glucose (70-99) mg/dl Calcium (8.5-10.1) mg/dl Total Bilirubin (0.2-1) mg/dl AST (15-37) U/L ALT (12-78) U/L Alkaline Phosphatase (45-117) U/L Troponin I (0-0.045) ng/ml C-Reactive Protein (0-0.29) mg/dl NT-Pro-B Natriuret Pep (0-1800) pg/ml Total Protein (6.4-8.2) gm/dl Albumin (3.4-5.0) gm/dl Globulin (2.5-4.0) gm/dl Albumin/Globulin Ratio (0.9-2) SARS-CoV-2 (PCR) POSITIVE A* (Negative) Influenza Type A (PCR) Negative (Neg) Influenza Type B (PCR) Negative (Neg) RSV (RT-PCR) Negative (Neg) Administered Medications Diltiazem HCl 125 mg/ Dextrose 125 mls @ 0 mls/hr IV .Q0M [facility]; Protocol Stop: 05/27/21 10:14 Last Titration: 04/27/21 18:34 Dose: 0 mg/hr, 0 mls/hr Documented by: [id number] Cosigned by: [id number] Titration: 04/27/21 15:44 Dose: 10 mg/hr, 10 mls/hr Documented by: [id number] Cosigned by: [id number] Titration: 04/27/21 12:54 Dose: 5 mg/hr, 5 mls/hr Documented by: [id number] Cosigned by: [id number] Titration: 04/27/21 12:12 Dose: 15 mg/hr, 15 mls/hr Documented by: [id number] Cosigned by: [id number] Titration: 04/27/21 11:02 Dose: 10 mg/hr, 10 mls/hr Documented by: [id number] Cosigned by: [id number] Admin: 04/27/21 10:40 Dose: 5 mg/hr, 5 mls/hr Documented by: [id number] Cosigned by: [id number] Midazolam HCl (Versed) 125 mg in 250 mls @ 2 mls/hr IV .Q96H [facility]; Protocol Stop: 05/01/21 18:24 Last Admin: 04/27/21 18:55 Dose: 1 mg/hr, 2 mls/hr Documented by: [id number] Cosigned by: [id number] Fentanyl Citrate (Fentanyl Drip) 1,250 mcg in 250 mls @ 5 mls/hr IV .Q50H [facility]; Protocol Stop: 05/11/21 18:29 Last Admin: 04/27/21 18:55 Dose: 25 mcg/hr, 5 mls/hr Documented by: [id number] Cosigned by: [id number] Sodium Chloride (Nss 1000ml) 1,000 mls @ 999 mls/hr IV .Q1H1M [facility] Stop: 04/27/21 20:00 Last Admin: 04/27/21 18:35 Dose: 999 mls/hr Documented by: [id number] Sodium Chloride (Sodium Chloride 0.9% 10ml Flush) 30 ml IV Q24H [facility] Stop: 05/01/21 14:16 Last Admin: 04/27/21 15:17 Dose: 30 ml Documented by: [id number] Discontinued Medications Dexamethasone Sodium Phosphate (DexamethasonePf 10 Mg/Ml Vial) 6 mg IV NOW ONE Stop: 04/27/21 09:39 Last Admin: 04/27/21 10:11 Dose: 6 mg Documented by: [id number] Diltiazem HCl (Diltiazem Hcl 5 Mg/Ml 5 Ml Vial) 5 mg IV TODAY@1024 ONE Stop: 04/27/21 10:25 Last Admin: 04/27/21 10:40 Dose: Not Given Documented by: [id number] Etomidate (Etomidate 2 Mg/Ml 20 Ml Vial) 20 mg IV NOW ONE Stop: 04/27/21 17:17 Last Admin: 04/27/21 18:22 Dose: 20 mg Documented by: [id number] Fentanyl Citrate (Fentanyl Citrate 100 Mcg/2 Ml Vial) 50 mcg IV NOW STA Stop: 04/27/21 18:28 Last Admin: 04/27/21 18:41 Dose: 50 mcg Documented by: [id number] Sodium Chloride (Nss 1000ml) 1,000 mls @ 999 mls/hr IV .Q1H1M [facility] Stop: 04/27/21 10:45 Last Infusion: 04/27/21 11:02 Dose: 0 mls/hr Documented by: [id number] Admin: 04/27/21 10:12 Dose: 999 mls/hr Documented by: [id number] Sodium Chloride (Nss) 500 mls @ 999 mls/hr IV .Q31M [facility]A Stop: 04/27/21 10:08 Last Infusion: 04/27/21 11:02 Dose: 0 mls/hr Documented by: [id number] Admin: 04/27/21 10:12 Dose: 999 mls/hr Documented by: [id number] Magnesium Sulfate/Dextrose (Magnesium Sulfate / D5w) 1 gm in 100 mls @ 100 mls/hr IV Q1H [facility] Stop: 04/27/21 11:44 Last Infusion: 04/27/21 12:12 Dose: 0 mls/hr Documented by: [id number] Admin: 04/27/21 11:16 Dose: 100 mls/hr Documented by: [id number] Infusion: 04/27/21 11:02 Dose: 0 mls/hr Documented by: [id number] Admin: 04/27/21 10:11 Dose: 100 mls/hr Documented by: [id number] Sodium Chloride (Nss 1000ml) 1,000 mls @ 500 mls/hr IV .Q2H [facility] Stop: 04/27/21 14:09 Last Infusion: 04/27/21 17:34 Dose: 0 mls/hr Documented by: [id number] Admin: 04/27/21 12:40 Dose: 500 mls/hr Documented by: [id number] Remdesivir 200 mg/ Sodium (Chloride) 250 mls @ 125 mls/hr IV ONE ST[facility]; Protocol Stop: 04/27/21 16:01 Last Infusion: 04/27/21 17:34 Dose: 0 mls/hr Documented by: [id number] Admin: 04/27/21 15:17 Dose: 125 mls/hr Documented by: [id number] Lorazepam (Ativan) 0.5 mg in 1 mls @ 1 mls/min IV NOW STA Stop: 04/27/21 17:23 Last Admin: 04/27/21 17:28 Dose: 1 mls/min Documented by: [id number] Levalbuterol HCl (Levalbuterol Hcl 1.25 Mg/3 Ml Neb) 6 mg NEB NOW STA Stop: 04/27/21 09:39 Last Admin: 04/27/21 09:57 Dose: 6 mg Documented by: [id number] Levalbuterol HCl (Levalbuterol Hcl 1.25 Mg/3 Ml Neb) 3 mg NEB NOW STA Stop: 04/27/21 16:25 Last Admin: 04/27/21 16:39 Dose: 3 mg Documented by: [id number] Metoprolol Tartrate (Metoprolol Tartrate 1 Mg/Ml Vial) Confirm Administered Dose 5 mg IV .STK-MED ONE Stop: 04/27/21 10:07 Last Admin: 04/27/21 10:12 Dose: Not Given Documented by: [id number] Midazolam HCl (Midazolam Hcl 1 Mg/Ml 2ml Vial) 2 mg IV NOW STA Stop: 04/27/21 18:28 Last Admin: 04/27/21 18:55 Dose: Not Given Documented by: [id number] Miscellaneous (Rapid Sequence Induction Bag) Confirm Administered Dose 1 ea .ROUTE .STK-MED ONE Stop: 04/27/21 17:19 Last Admin: 04/27/21 18:25 Dose: Not Given Documented by: [id number] Miscellaneous (Rapid Sequence Induction Bag) Confirm Administered Dose 1 ea .ROUTE .STK-MED ONE Stop: 04/27/21 18:00 Last Admin: 04/27/21 18:20 Dose: 1 ea Documented by: [id number] Rocuronium [place] (Rocuronium [place] 10 Mg/Ml 5 Ml Vial) 75 mg IV NOW STA Stop: 04/27/21 17:17 Last Admin: 04/27/21 18:22 Dose: 75 mg Documented by: [id number] Cosigned by: [id number] Imaging Data Radiologist's Impression: Chest X-Ray 04/27/21 09:38 SINGLE VIEW CHEST CLINICAL HISTORY: Dyspnea. FINDINGS: An AP, portable, upright chest radiograph is compared to study dated 12/03/2020 and correlated with chest CT dated 01/23/2016. The examination is degraded by portable technique and patient rotation. A thoracic aortic aneurysm status post stent graft repair is again noted and similar to previous. The cardiomediastinal silhouette is unremarkable. Emphysema and chronic interstitial thickening are unchanged. There is mild bibasilar scarring/atelectasis. No airspace consolidation or large pleural effusion is identified. No pneumothorax is seen. The skeletal structures are osteopenic. The bony thorax is grossly intact. IMPRESSION: 1. Emphysema with no acute cardiopulmonary abnormality. 2. A thoracic aortic aneurysm status post stent graft repair appears similar to previous. ACT 112: Negative or not required by law. Electronically signed by: John Romero M.D. 04/27/2021 10:07 AM Discharge Plan Visit Data Chief Complaint: Illness Stated Complaint: SOB, COVID + Discharge Problem: Acute hypoxemic respiratory failure due to COVID-19, COPD (chronic obstructive pulmonary disease), Tachycardia, Hyponatremia
[2021-04-27] MEDS ORDERED: LEVALBUTEROL HCL 1.25 MG/3 ML NEB NEB STA ×2 (09:38→16:24)
[2021-04-27] MEDS ORDERED: SODIUM CHLORIDE 0.9% 500 ML IV STA (09:38)
[2021-04-27] MEDS ORDERED: dexAMETHasone**PF** 10 MG/ML VIAL IV ONE (09:38)
[2021-04-27] MEDS ORDERED: SODIUM CHLORIDE 0.9% 1000ML 1,000 ML IV SCH ×3 (09:45→19:00)
[2021-04-27 10:05] LABS: Hematocrit (blood only) 31.8 % (37-47); Hemoglobin 9.8 g/dL (12.0-16.0); Immature Granulocytes # (auto) 0.01 K/uL (0.00-0.02); Immature Granulocytes % (auto) 0.3 %; Lymphocytes # (auto) 0.66 K/uL (1.2-3.4); Lymphocytes % (auto) 18.3 %; Mean Corpuscular Hgb Conc 30.8 g/dL (32-36); Mean Corpuscular Volume 77.8 fL (80-100); Mean Platelet Volume 8.9 fL (7.4-10.4); Monocytes % (auto) 8.3 %; Neutrophils # (auto) 2.63 K/uL (1.4-6.5); Neutrophils % (auto) 73.1 %; Platelet Count 242 K/uL (130-400); RDW Coefficient of Variation 15.4 % (11.5-14.5); RDW Standard Deviation 43.6 fL (36.4-46.3); Red Blood Count 4.09 M/uL (4.2-5.4)
[2021-04-27] MEDS ORDERED: METOPROLOL TARTRATE 1 MG/ML VIAL IV ONE (10:06)
--- NOTE | 2021-04-27 10:08 | XRay Report ---
SINGLE VIEW CHEST CLINICAL HISTORY: Dyspnea. FINDINGS: An AP, portable, upright chest radiograph is compared to study dated 12/03/2020 and correlat ed with chest CT dated 01/23/2016. The examination is degraded by portable technique and patient rotat ion. A thoracic aortic aneurysm status post stent graft repair is again noted and similar to previou s. The cardiomediastinal silhouette is unremarkable. Emphysema and chronic interstitial thickening ar e unchanged. There is mild bibasilar scarring/atelectasis. No airspace consolidation or large pleural effusion is identified. No pneumothorax is seen. The skeletal structures are osteopenic. The bony th orax is grossly intact. IMPRESSION: 1. Emphysema with no acute cardiopulmonary abnormality. 2. A thoracic aortic aneurysm status post stent graft repair appears similar to previous. ACT 112: Negative or not required by law. Electronically signed by: John Romero M.D. 04/27/2021 10:07 AM
[2021-04-27] MEDS: MAGNESIUM SULFATE / D5W 1 GM/100 ML BAG IV SCH ×2 (10:11→11:16)
[2021-04-27] MEDS ORDERED: dilTIAZem HCL 125 MG in DEXTROSE 5% 100 ML IV SCH (10:15)
[2021-04-27 10:23] LABS: Alanine Aminotransferase 15 U/L (12-78); Albumin Level 2.6 gm/dl (3.4-5.0); Aspartate Aminotransferase 20 U/L (15-37); BUN Creatinine Ratio 16.5 (10-20); Blood Urea Nitrogen 18 mg/dl (7-18); Calcium 8.5 mg/dl (8.5-10.1); Carbon Dioxide 21 mmol/L (21-32); Chloride 104 mmol/L (98-107); Est GFR (African American) 55.3 ml/min; Est GFR (Non-African American) 47.7 ml/min; Glucose 146 mg/dl (70-99); Potassium 3.7 mmol/L (3.5-5.1); Sodium 134 mmol/L (136-145)
[2021-04-27] MEDS ORDERED: dilTIAZem HCl 5 MG/ML 5 ML VIAL IV ONE (10:24)
[2021-04-27 10:28] LABS: Albumin Globulin Ratio 0.6 (0.9-2); Alkaline Phosphatase 108 U/L (45-117); Bilirubin,Total 0.3 mg/dl (0.2-1); Globulin 4.2 gm/dl (2.5-4.0); NT Pro B Type Natriuretic Pept 1124 pg/ml (0-1800); Total Protein 6.8 gm/dl (6.4-8.2); Troponin I 0.033 ng/ml (0-0.045)
[2021-04-27 13:13] LABS: Influenza A virus by PCR Negative (Neg); Influenza B virus by PCR Negative (Neg); RSV by PCR Negative (Neg)
[2021-04-27 13:22] LABS: SARS CoV2 RNA(COVID-19) InHosp POSITIVE (Negative)
--- NOTE | 2021-04-27 13:59 | History & Physical Report ---
Date of Service April 27, 2021 Assessment & Plan (1) Acute hypoxemic respiratory failure due to COVID-19: Plan: Unvaccinated COVID 19 patient. Patient will be admitted. Poor prognosis. Patient reports she does not want to be intubated. This was discussed thoroughly with the patient, exlaining that giving how sick she is, she may succumb to this illness if she is not on a ventilator. She reports that she did not want to be on it. She reports she did not want to have CPR. Will place on DEXA, REMDESEVIR (2) COPD (chronic obstructive pulmonary disease): Plan: COPD exacerbation as staed above (3) Hyperlipidemia: Plan: HOLD HOME MEDS SHE IS ON BIPAP (4) HTN (hypertension): Plan: HOLD MEDS (5) Anxiety: Plan: HOLD MEDS History of Present Illness Chief Complaint: SOB Primary Care Provider: Grace Price MD 71-year-old female with history of COPD, and is a recent quiter of tobacco (August of this year) comes with shortness of breath and general malaise for the past 3 days. Patient was on 2 L nasal cannula but yesterday was noted be hypoxic at home. Patient had a positive test. Patient appears to have a sick contact at home. Her daughter was sick 2 days before , this was followed by her son in law this weekend and now the patient. The patient is unvaccinated. The patient did take her morning medications and has a known history of A. fib. Though she wears 2 L of oxygen at all time but did present on 4 L nasal cannula via EMS. Allergies Allergy/AdvReac Type Severity Reaction Status Date / Time No Known Allergies Allergy Unknown Verified 12/03/20 13:15 Home Medications Medication Instructions Recorded Confirmed Type albuterol sulfate 2.5 mg/0.5 mL 5 mg INHALATION Q6H PRN #60 ea 06/03/20 04/27/21 Rx solution for nebulization simvastatin 40 mg tablet 40 mg PO HS #90 tab 06/13/20 04/27/21 Rx apixaban 5 mg tablet 5 mg PO BID #180 tab 09/15/20 04/27/21 Rx diltiazem HCl 240 mg capsule,24 240 mg PO QAM 12/03/20 04/27/21 History hr,extended release fluticasone fur. 100 mcg-umeclid 1 inh INH QAM 12/03/20 04/27/21 History 62.5 mcg-vilant 25 mcg inhalat.powder (Trelegy Ellipta) albuterol sulfate 90 mcg/actuation 2 puff INH Q6H PRN #18 gm 12/13/20 04/27/21 Rx aerosol inhaler lorazepam 0.5 mg tablet 0.5 mg PO BID PRN #60 tab 12/13/20 04/27/21 Rx losartan 100 mg tablet 100 mg PO DAILY #90 tab 03/06/21 04/27/21 Rx metoprolol tartrate 25 mg tablet 25 mg PO BID #180 tab 03/06/21 04/27/21 Rx omeprazole 20 mg capsule,delayed 20 mg PO DAILY #90 cap 03/06/21 04/27/21 Rx release ipratropium 0.5 mg-albuterol 3 mg 3 ml INHALATION Q6H PRN #90 ml 03/13/21 04/27/21 Rx (2.5 mg base)/3 mL nebulization soln ipratropium bromide 0.02 % 2.5 ml INHALATION QID PRN #75 ml 03/23/21 04/27/21 Rx solution for inhalation prednisone 20 mg tablet See Rx Instructions PO QAM #18 tab 03/28/21 04/27/21 Rx potassium chloride 20 mEq 20 meq PO BID #180 tab 03/30/21 04/27/21 Rx tablet,extended release tramadol 50 mg tablet 50 mg PO TID PRN #90 tab 03/31/21 04/27/21 Rx doxycycline hyclate 100 mg tablet 100 mg PO BID #20 tab 04/14/21 04/27/21 Rx Past Med/Surg History Medical History AF (paroxysmal atrial fibrillation) Anxiety Carotid artery stenosis Chronic low back pain COPD (chronic obstructive pulmonary disease) GERD without esophagitis Hip fracture (04/27/13) History of transient cerebral ischemia HTN (hypertension) Hyperlipidemia Hyperthyroidism Impaired fasting glucose Iron deficiency anemia Left ventricular hypertrophy Multiple thyroid nodules Osteoporosis Vitamin D deficiency Surgical History H/O carotid endarterectomy left H/O thoracic aortic aneurysm repair History of appendectomy History of hysterectomy History of laparoscopic cholecystectomy History of repair of hip fracture Family History Sister Cancer Asthma Ovarian cancer Mother Cardiac disorder Myocardial infarction Father Cardiac disorder Lung cancer Myocardial infarction Denies family history of Prostate cancer Breast cancer Colorectal cancer Social History Smoking Status: Former smoker Tobacco Type: Cigarettes Age Started Using Tobacco: 17; packs per day: 0.5; Second Hand Exposure: Yes; Hx Alcohol Use: No Hx Substance Use: No Preferred Language: Estonian Visual Impairment: No Limitations Hearing Ability: Hard of Hearing marital status: / Current Living Situation: Family Current Living Situation Comment: lives with her daughter current occupational status: retired 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 Feels Safe at Home: Yes Childhood Exposure to Second-Hand Smoke: Yes Dental Care, Regularly: No Physical Activity Frequency: Does not Exercise Seatbelt Use: always Sunscreen Use: No Review of Systems Constitutional: + fever, + sweats and + malaise Eyes: no diplopia Ear, Nose, Mouth, Throat: no ear pain and no ear trauma Respiratory: + cough and + dyspnea Cardiovascular: no chest pain and no chest pain with activity Gastrointestinal: no abdominal pain, no bloating and no early satiety Genitourinary: no dysuria Musculoskeletal: no back pain and no radicular pain Integumentary: no acne and no rash Neurologic: no gait abnormality and no falls Psychiatric: no behavioral changes and no hopelessness Endocrine: no fatigue and no polydipsia Allergy / Immunological: no GI upset with certain foods and no lip swelling Physical Exam Constitutional: + acute distress Eyes: PERRL, conjunctivae normal, anicteric sclerae ENMT: external ear and nose normal, oropharynx normal Neck: trachea midline, no thyromegaly Respiratory: + uses accessory muscles Auscultation: + rhonchi Cardiovascular: Rate/Rhythm: + tachycardic Heart Sounds: normal S1 and normal S2 Gastrointestinal (Abdomen): normal bowel sounds, soft, nontender, no hepatosplenomegaly Musculoskeletal: no cyanosis or clubbing, extremities motor strength 5/5 Skin: no rashes, warm and dry Neurologic: PERRL, EOMI, accommodation nl, no face palsy, no dysarthria Psychiatric: A+Ox3, euthymic affect Lymphatic: no cervical or axillary lymphadenopathy Results & Data Results & Data ([facility]) Vital Signs (Past 12 Hours) Vital Signs Temp Pulse Pulse Resp BP BP Pulse Ox 04/27/21 13:11 111 H 23 100/52 L 100 04/27/21 12:54 105 H 24 95/47 L 98 04/27/21 11:30 156 H 26 H 166/85 H 99 04/27/21 10:00 149 H 40 H 99 04/27/21 09:58 149 H 40 H 99 04/27/21 09:30 37.2 C 158 H 33 H 148/78 H 100 Critical Care Time Critical Care Time: Yes Total Critical Care Time: 35 PG Care Time/CCT Total # of Minutes Spent Total Time Spent with Patient: Total time spent is greater than 50% in coordination of care (as documented) at patient's floor/unit and/or counseling patient: Critical Care Time: Yes Total Critical Care Time: 35 Coding Level of Care Code 64693 Initial Inpt Care Lvl 3 Diagnoses Acute hypoxemic respiratory failure due to COVID-19 U07.1; J96.01 COPD (chronic obstructive pulmonary disease) J44.1 COPD type: COPD with acute exacerbation Hyperlipidemia E78.5 HTN (hypertension) I10 Anxiety F41.9 Additional Codes Critical Care Time - Critical Care Time: Yes ([id number]) (1) COPD (chronic obstructive pulmonary disease) COPD type: COPD with acute exacerbation Qualified Code(s): J44.1 - Chronic obstructive pulmonary disease with (acute) exacerbation
[2021-04-27] MEDS ORDERED: REMDESIVIR 200 MG in SODIUM CHLORIDE 0.9% 210 ML IV STA (14:02)
--- NOTE | 2021-04-27 14:29 | Electrocardiogram Report ---
Test Reason : Blood Pressure : / mmHG Vent. Rate : 178 BPM Atrial Rate : 178 BPM P-R Int : 000 ms QRS Dur : 066 ms QT Int : 262 ms P-R-T Axes : 000 053 027 degrees QTc Int : [address] depression, consider subendocardial injury Abnormal ECG When compared with ECG of 03-DEC-2020 11:22, Premature atrial complexes are no longer Present Vent. rate has increased BY [address] no longer elevated in Inferior leads ST now depressed in Anterolateral leads Confirmed by Derick Manzano ([id number]) on 04/27/2021 2:28:59 PM Referred By: REFERRED SELF Confirmed By:Navid Manzano
[2021-04-27] MEDS: SODIUM CHLORIDE 0.9% 10ML FLUSH IV SCH (15:17)
[2021-04-27] MEDS ORDERED: ETOMIDATE 2 MG/ML 20 ML VIAL IV ONE ×2 (15:35→17:16)
[2021-04-27] MEDS ORDERED: fentaNYL citrate 100 MCG/2 ML VIAL IV ONE (15:35)
[2021-04-27] MEDS ORDERED: ROCURONIUM BROMIDE 10 MG/ML 5 ML VIAL IV ONE (15:35)
[2021-04-27] MEDS ORDERED: ROCURONIUM BROMIDE 10 MG/ML 5 ML VIAL IV STA (17:16)
[2021-04-27] MEDS ORDERED: RAPID SEQUENCE INDUCTION BAG ONE ×2 (17:18→17:59)
[2021-04-27] MEDS ORDERED: LORazepam 0.5 MG/1 ML VIAL IV STA (17:22)
[2021-04-27] MEDS ORDERED: MIDAZOLAM HCL 125 MG/250 ML BAG IV STA (18:25)
[2021-04-27] MEDS ORDERED: STAT IV Infusion **Titration per Protocol STA ×2 (18:25→22:43)
[2021-04-27] MEDS ORDERED: fentaNYL citrate 100 MCG/2 ML VIAL IV STA (18:27)
[2021-04-27] MEDS ORDERED: MIDAZOLAM HCL 1 MG/ML 2ML VIAL IV STA (18:27)
[2021-04-27] MEDS: fentaNYL DRIP 1,250 MCG/250 ML BAG IV SCH (18:55)
--- NOTE | 2021-04-27 19:05 | XRay Report ---
XR chest 1V portable CLINICAL HISTORY: post intubation COMPARISON STUDY: Chest radiograph April 27, 2021 at 9:[address] January 23, 2016. FINDINGS: Tip of endotracheal tube is 1.8 cm above the hernan. Thoracic aortic stent is in place. Car diomegaly is again noted. Bibasilar opacities have developed. There are possible small bilateral pleu ral effusions. There is no pneumothorax. There is no radiographic evidence for pulmonary edema. IMPRESSION: 1. Tip of endotracheal tube 1.8 cm above the hernan. 2. Interval improvement of bibasilar opacities with possible small bilateral pleural effusions. 3. No pneumothorax. ACT 112: Negative or not required by law. Electronically signed by: Mehdi Price M.D. 04/27/2021 7:04 PM
[2021-04-27] MEDS ORDERED: ADENOSINE IV SOLN 3 MG/ML 2 ML VIAL IV STA (19:47)
[2021-04-27] MEDS ORDERED: METOPROLOL TARTRATE 1 MG/ML VIAL IV STA (19:54)
[2021-04-27] MEDS ORDERED: AMIODARONE / D5W 360 MG/200 ML BAG IV ONE (20:03)
--- NOTE | 2021-04-27 20:04 | Critical Care Consultation ---
Date of Consultation April 27, 2021 Assessment & Plan (1) Acute and chronic respiratory failure with hypoxia: Reason Critically Ill: 80-year-old female with history of proximal A. fib and COPD (on 2 L baseline) required intubation for acute on chronic hypoxic respiratory failure. Patient is positive for COVID-19 and was in A. fib RVR prior to decompensating. She is currently in the emergency department and awaiting transfer to ICU room which has been delayed due to high census. Neuro - Sedation: Fentanyl, Versed Cardiac - A. fib RVRpatient on Coumadin for known history of proximal A. fib -Patient with heart rate in 170s was unresponsive to IV adenosine -She was unable to tolerate diltiazem drip but did convert to sinus rhythm following 5 mg IV metoprolol. Amiodarone drip was initially ordered but held following conversion to sinus rhythm -Continue with scheduled IV metoprolol -We will transition to low-dose heparin as patient is currently intubated -Continuous monitor on telemetry HTNhold home dose antihypertensives for now, continue IV metoprolol scheduled every 6 hours Respiratory - Acute on chronic hypoxic respiratory failurelikely mixed etiology as patient has COVID-19 pneumonia, but likely represents cardiac component due to A. fib RVR -See treatment A. fib RVR above -We will reevaluate need for diuresis -History of COPD and on 2 L nasal cannula at baseline. Continue nebs as needed. -CTA chest negative for PE. Did show pulmonary emphysema. Bibasilar consolidation. Trace bilateral pleural effusions. -See treatment COVID-19 below -Continuous monitoring on pulse ox and end-tidal CO2 -Follow-up a.m. CXR and ABG, wean vent as tolerated GI - N.p.o. IV famotidine RENAL/LYTES - Creatinine within normal limits and no electrolyte abnormalities Monitor routine BMPs - Foleystrict I's and O's ENDO - ICU hyperglycemic protocol HEME - H&H stable, monitor routine CBC ID - No leukocytosis or fevers, pro Fermin pending. We will hold on antibiotics for now Positive COVID-19, patient is unvaccinated, continue IV dexamethasone and r emdesivir LINES/IV ACCESS - Peripheral IVs, ET tube, Hopkins, OG tube DVT PROPHYLAXIS - SCDs, heparin drip I have personally spent 50 minutes of critical care time in the direct management of this patient. This is a life/limb threatening event. This includes time spent evaluating patient, direct bedside care, chart review, placing orders, interpretation of diagnostic studies, discussion with consultants, patient, and family members, as well as other required patient management activities. This time is exclusive of all separately billable procedures, and teaching time and separate from and in addition to any other critical care service time. Thank you for allowing us to participate in the care of this patient. Please refer to my attending physician's documentation for any further recommendations. (2) COPD (chronic obstructive pulmonary disease): (3) Atrial fibrillation with RVR: (4) GERD without esophagitis: (5) Iron deficiency anemia: (6) Hyperlipidemia: (7) HTN (hypertension): (8) AF (paroxysmal atrial fibrillation): (9) Pneumonia due to COVID-19 virus: History of Present Illness Attending Physician: Kevin Morris History of Present Illness Patient is a 80-year-old female with past medical history of proximal A. fib (on apixaban), COPD (on 2 L nasal cannula), HTN, HLD, GERD, tobacco abuse (quit August of this year) presents to the emergency department with complaints of shortness of breath and generalized weakness ongoing for the past 3 days. Patient tested positive for COVID-19 at home yesterday, she is unvaccinated. She initially presented to the emergency department on 4 L nasal cannula via EMS. She did have a heart rate of 178 with EKG with SVT versus A. fib RVR. She was unresponsive to Diltiazem and metoprolol initially. Patient became increasingly hypoxic and required intubation in the emergency department. ICU was consulted following intubation and patient was evaluated in the ER. Heart rate was in the 170s when the patient was evaluated. She was given 6 mg adenosine but reentered tachycardia, which did appear irregular and suspect A. fib RVR. Patient was given 5 mg IV metoprolol and heart rate was reduced in the 130s. Amiodarone drip was ordered but patient converted to sinus rhythm prior to initiating. She did go for CTA chest which was negative for PE, did show bibasilar consolidation and trace bilateral pleural effusions. Patient was started on IV dexamethasone and remdesivir. Patient remains hypoxic on ventilator but is hemodynamically stable at this time. She currently remains in ER is hold over as there are no ICU Covid beds available. We will continue management with ICU care. Allergies Allergy/AdvReac Type Severity Reaction Status Date / Time No Known Allergies Allergy Unknown Verified 12/03/20 13:15 Home Medications Medication Instructions Recorded Confirmed Type albuterol sulfate 2.5 mg/0.5 mL 5 mg INHALATION Q6H PRN #60 ea 06/03/20 04/27/21 Rx solution for nebulization simvastatin 40 mg tablet 40 mg PO HS #90 tab 06/13/20 04/27/21 Rx apixaban 5 mg tablet 5 mg PO BID #180 tab 09/15/20 04/27/21 Rx diltiazem HCl 240 mg capsule,24 240 mg PO QAM 12/03/20 04/27/21 History hr,extended release fluticasone fur. 100 mcg-umeclid 1 inh INH QAM 12/03/20 04/27/21 History 62.5 mcg-vilant 25 mcg inhalat.powder (Trelegy Ellipta) albuterol sulfate 90 mcg/actuation 2 puff INH Q6H PRN #18 gm 12/13/20 04/27/21 Rx aerosol inhaler lorazepam 0.5 mg tablet 0.5 mg PO BID PRN #60 tab 12/13/20 04/27/21 Rx losartan 100 mg tablet 100 mg PO DAILY #90 tab 03/06/21 04/27/21 Rx metoprolol tartrate 25 mg tablet 25 mg PO BID #180 tab 03/06/21 04/27/21 Rx omeprazole 20 mg capsule,delayed 20 mg PO DAILY #90 cap 03/06/21 04/27/21 Rx release ipratropium 0.5 mg-albuterol 3 mg 3 ml INHALATION Q6H PRN #90 ml 03/13/21 04/27/21 Rx (2.5 mg base)/3 mL nebulization soln ipratropium bromide 0.02 % 2.5 ml INHALATION QID PRN #75 ml 03/23/21 04/27/21 Rx solution for inhalation prednisone 20 mg tablet See Rx Instructions PO QAM #18 tab 03/28/21 04/27/21 Rx potassium chloride 20 mEq 20 meq PO BID #180 tab 03/30/21 04/27/21 Rx tablet,extended release tramadol 50 mg tablet 50 mg PO TID PRN #90 tab 03/31/21 04/27/21 Rx doxycycline hyclate 100 mg tablet 100 mg PO BID #20 tab 04/14/21 04/27/21 Rx Patient History Medical History (Updated 04/27/21 @ 23:02 by JACKLYN Rodriguez) AF (paroxysmal atrial fibrillation) Anxiety Carotid artery stenosis Chronic low back pain COPD (chronic obstructive pulmonary disease) GERD without esophagitis Hip fracture (04/27/13) History of transient cerebral ischemia HTN (hypertension) Hyperlipidemia Hyperthyroidism Impaired fasting glucose Iron deficiency anemia Left ventricular hypertrophy Multiple thyroid nodules Osteoporosis Vitamin D deficiency Surgical History H/O carotid endarterectomy left H/O thoracic aortic aneurysm repair History of appendectomy History of hysterectomy History of laparoscopic cholecystectomy History of repair of hip fracture Family History Sister Cancer Asthma Ovarian cancer Mother Cardiac disorder Myocardial infarction Father Cardiac disorder Lung cancer Myocardial infarction Denies family history of Prostate cancer Breast cancer Colorectal cancer Social History Smoking Status: Former smoker Tobacco Type: Cigarettes Age Started Using Tobacco: 17; packs per day: 0.5; Second Hand Exposure: Yes; Hx Alcohol Use: No Hx Substance Use: No Preferred Language: Nigerien Visual Impairment: No Limitations Hearing Ability: Hard of Hearing marital status: / Current Living Situation: Family Current Living Situation Comment: lives with her daughter 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 occupational status: 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 Symmetrical chest wall movement. Cardiovascular: Vessels: no JVD Extremities: normal capillary refill; no edema Irregular tachycardia on monitor, Gastrointestinal (Abdomen): normal bowel sounds, soft, nontender, no hepatosplenomegaly Musculoskeletal: Unable to assess due to sedation Skin: no rashes, warm and dry Neurologic: Unable to assess due to sedation Psychiatric: Unable to assess due to sedation Genitourinary: Indwelling Hopkins catheter Results & Data Results & Data ([facility]) Vital Signs (Past 12 Hours) Vital Signs Temp Pulse Pulse Resp BP BP BP 04/27/21 20:00 37.2 C 164 H 23 139/111 H 04/27/21 19:58 37.2 C 157 H 22 04/27/21 19:56 37.1 C 163 H 22 131/90 04/27/21 19:50 37.1 C 167 H 23 134/112 H 04/27/21 19:40 37.0 C 173 H 23 150/113 H 04/27/21 19:30 37.0 C 188 H 22 167/97 H 04/27/21 19:25 37.1 C 163 H 22 04/27/21 19:20 37.1 C 175 H 22 133/81 04/27/21 19:15 37.2 C 171 H 23 149/102 H 04/27/21 19:10 37.3 C 174 H 22 134/87 04/27/21 19:05 37.3 C 173 H 22 142/89 H 04/27/21 19:00 37.3 C 177 H 22 140/105 H 04/27/21 18:55 166 H 23 149/78 H 04/27/21 18:50 154 H 23 128/80 04/27/21 18:46 170 H 22 80/66 L 04/27/21 18:42 108/60 04/27/21 18:40 161 H 23 132/86 04/27/21 18:38 170 H 12 67/47 L 04/27/21 18:35 168 H 22 67/47 L 04/27/21 18:33 166 H 31 H 87/64 L 83/62 L 04/27/21 18:30 151 H 20 04/27/21 18:25 166 H 15 104/85 04/27/21 18:23 153 H 22 04/27/21 18:18 154 H 44 H 137/54 L 04/27/21 17:00 189 H 40 H 201/146 H 04/27/21 16:41 132 H 40 H 04/27/21 16:40 110 H 40 H 04/27/21 16:00 103 H 24 122/66 04/27/21 15:30 99 H 26 H 114/61 04/27/21 15:00 106 H 21 96/52 L 04/27/21 14:23 120 H 26 H 04/27/21 14:02 107 H 22 123/65 04/27/21 13:11 111 H 23 100/52 L 04/27/21 12:54 105 H 24 95/47 L 04/27/21 11:30 156 H 26 H 166/85 H 04/27/21 10:00 149 H 40 H 04/27/21 09:58 149 H 40 H 04/27/21 09:30 37.2 C 158 H 33 H 148/78 H Pulse Ox 04/27/21 20:00 91 04/27/21 19:58 91 04/27/21 19:56 89 L 04/27/21 19:50 96 04/27/21 19:40 97 04/27/21 19:30 96 04/27/21 19:25 98 04/27/21 19:20 98 04/27/21 19:15 98 04/27/21 19:10 98 04/27/21 19:05 98 04/27/21 19:00 98 04/27/21 18:55 97 04/27/21 18:50 98 04/27/21 18:46 99 04/27/21 18:42 04/27/21 18:40 95 04/27/21 18:38 91 04/27/21 18:35 92 04/27/21 18:33 98 04/27/21 18:30 98 04/27/21 18:25 100 04/27/21 18:23 97 04/27/21 18:18 99 04/27/21 17:00 88 L 04/27/21 16:41 96 04/27/21 16:40 96 04/27/21 16:00 99 04/27/21 15:30 95 04/27/21 15:00 98 04/27/21 14:23 96 04/27/21 14:02 94 04/27/21 13:11 100 04/27/21 12:54 98 04/27/21 11:30 99 04/27/21 10:00 99 04/27/21 09:58 99 04/27/21 09:30 100 Coding Level of Care Code Critical Care 1st 30-74 mins Diagnoses Acute and chronic respiratory failure with hypoxia J96.21 COPD (chronic obstructive pulmonary disease) J44.1 COPD type: COPD with acute exacerbation Atrial fibrillation with RVR I48.91 GERD without esophagitis K21.9 Iron deficiency anemia D50.9 Hyperlipidemia E78.5 HTN (hypertension) I10 AF (paroxysmal atrial fibrillation) I48.0 Pneumonia due to COVID-19 virus U07.1; J12.82 (1) COPD (chronic obstructive pulmonary disease) COPD type: COPD with acute exacerbation Qualified Code(s): J44.1 - Chronic obstructive pulmonary disease with (acute) exacerbation
[2021-04-27 20:10] LABS: Base Excess ABG -11.1 mEq/L (-9-1.8); HCO3 ABG 18 mmol/L (19-24); PCO2 ABG 59 mmHg (35-46); PO2 ABG 111 mmHg (80-95)
[2021-04-27] MEDS ORDERED: AMIODARONE / D5W 150 MG/100 ML BAG IV STA (20:11)
[2021-04-27 20:13] LABS: Allen Test POS (Pos)
[2021-04-27] MEDS ORDERED: 0.2 MICRON FILTER SET 1 EA IV ONE (20:15)
[2021-04-27 20:17] LABS: pH ABG 7.11 (7.35-7.45)
[2021-04-27] MEDS: MIDAZOLAM BOLUS FROM BAG IV PRN ×3 (20:39→22:40)
[2021-04-27] MEDS ORDERED: OPTIRAY 320 125ml IV ONE (20:47)
[2021-04-27] MEDS ORDERED: APIXABAN 5 MG TABLET PO SCH (21:00)
[2021-04-27 21:58] LABS: Appearance Urine Clear (Clear); Bacteria Urine Automated Negative (Negative); Bilirubin Urine Negative (Negative); Blood Urine Negative (Negative); Color Urine Yellow; Glucose Urine UA 2+ (Negative); Ketones Urine Negative (Negative); Leukocyte Esterase Urine Negative (Negative); Nitrite Urine Negative (Negative); Protein Urine 1+ (Negative); RBC Urine Automated 0-4 /hpf (0-4); Specific Gravity Urine 1.011 (1.000-1.030); Urobilinogen Urine Negative (Negative)
[2021-04-27 22:16] LABS: Calcium 6.7 mg/dl (8.5-10.1); Creatinine Clr Calc Pharmacy 42.6 ml/min; Est GFR (African American) 65.2 ml/min; Est GFR (Non-African American) 56.2 ml/min; Potassium 3.9 mmol/L (3.5-5.1)
[2021-04-27 22:30] LABS: Beta-Hydroxybutyrate 10.35 mg/dl (0.2-2.81)
[2021-04-27] MEDS ORDERED: INSULIN PROTOCOL GOAL RANGE ONE (22:43)
[2021-04-27] MEDS ORDERED: PHARMACY GLYCEMIC MGMT CONSULT PRN (22:46)
[2021-04-27] MEDS ORDERED: GLUCOSE 40% GEL 15 GM TUBE PO PRN (23:00)
[2021-04-27] MEDS ORDERED: INSULIN REGULAR 250 UNITS in SODIUM CHLORIDE 0.9% 247.5 ML IV SCH (23:00)
[2021-04-27] MEDS ORDERED: GLUCAGON FOR INJ 1 MG VIAL IM PRN (23:00)
[2021-04-27] MEDS ORDERED: GLUCOSE 10 TABS/TUBE PO PRN (23:00)
[2021-04-27] MEDS ORDERED: CARBOHYDRATES FOR HYPOGLYCEMIA PO PRN (23:00)
[2021-04-27] MEDS ORDERED: DEXTROSE 50% 50 ML SYRINGE IV PRN (23:00)
[2021-04-27] MEDS ORDERED: NovoLIN-R BOLUS FROM BAG IV ONE (23:00)
[2021-04-27] MEDS ORDERED: ALBUT/IPRATROP 3MG/0.5MG NEB 3 ML VIAL NEB PRN (23:23)
[2021-04-27] MEDS ORDERED: Heparin IV Adult Wt-Based Low-Dose *NO* Bolus Protocol IV STA (23:24)
[2021-04-27] MEDS ORDERED: HEPARIN 25000 UNIT/500 ML D5W IV ONE (23:25)
[2021-04-27] MEDS ORDERED: HEPARIN SODIUM/DEXTROSE 25,000 UNITS/500 ML BAG IV SCH (23:30)
[2021-04-27] MEDS: METOPROLOL TARTRATE 1 MG/ML VIAL IV SCH (23:55)
[2021-04-28] MEDS ORDERED: ICU PROTOCOL FOR HYPERGLYCEMIA PRN (00:17)
[2021-04-28] MEDS ORDERED: NOREPINEPHRINE/D5W 8 MG/508 ML IV ONE (00:36)
[2021-04-28] MEDS ORDERED: STAT IV Infusion **Titration per Protocol STA (00:41)
[2021-04-28] MEDS ORDERED: PHENYLEPHRINE HCL 20 MG in DEXTROSE 5% 500 ML IV SCH (00:45)
[2021-04-28 01:13] LABS: Partial Thromboplastin Ratio 1.3; Partial Thromboplastin Time 33.8 Seconds (21.0-31.0); Prothrombin Time 10.5 Seconds (9.0-12.0)
[2021-04-28 01:20] LABS: BUN Creatinine Ratio 12.8 (10-20); Calcium 7.2 mg/dl (8.5-10.1); Creatinine Clr Calc Pharmacy 35.9 ml/min; Est GFR (Non-African American) 45.7 ml/min; Potassium 3.9 mmol/L (3.5-5.1)
[2021-04-28 01:21] LABS: Beta-Hydroxybutyrate 5.18 mg/dl (0.2-2.81)
--- NOTE | 2021-04-28 01:55 | Procedure Note ---
Procedure Note Date of Service April 28, 2021 Note INTERNAL JUGULAR CENTRAL LINE PROCEDURE NOTE: Procedure: Internal Jugular Central Line Placement Attending: Dr. Edmond Provider: JACKLYN Jane Indication: Central Drug Administration, Poor Venous Access, Multiple Lab Draws Necessary, etc. Anesthesia: Lidocaine 1% Line placed emergently in the setting of acute hypoxic respiratory failure and hypotension requiring vasopressor support. A time-out was completed verifying correct patient, procedure, site, positioning, and implants(s) or special equipment if applicable. Patients left neck was cleansed and draped in the typical sterile fashion using Chloraprep. The Internal Jugular Vein and Carotid Artery were identified using ultrasound. The superficial tissue was anesthetized using 3 mL of 1% lidocaine without epinephrine under direct visualization with the ultrasound. After adequate anesthetization was achieved, the Internal Jugular vein was cannulated under direct ultrasound guidance using an introducer needle on a syringe. Good venous blood return was maintained prior to removal of syringe from introducer needle. Using Seldinger Technique, a guide wire was advanced through the introducer needle without resistance. The introducer needle was removed and ultrasound images were obtained of the guide wire within the Internal Jugular Vein and saved to the patients medical record. A small incision was made in penetrating fashion at the guide wire insertion site utilizing an 11 blade scalpel. The dilator was advanced to the vessel without resistance. The dilator was exchanged for the triple lumen catheter which was advanced into the vessel without resista nce. The guide wire was removed intact from the catheter without issue. Claves were placed on each catheter tip with confirmation of good blood flow from each lumen. Each port was easily flushed with sterile saline. The catheter was placed at 18 [address] in place. BioPatch was applied to the catheter and a sterile Tegaderm dressing was applied over the catheter with careful attention to sterility. Patient tolerated procedure well. No immediate complications were met. Post procedure x-ray was completed, placement was appropriate and no pneumothorax was noted. Images obtained are saved for permanent record Procedural Ultrasound Guidance: Procedure Date: 04/28/2021 Indication: Central venous catheter insertion Attending: Dr. Edmond Provider: JACKLYN Jane Artery AND Vein visualized: Yes Compressible Vein: Yes Guidewire or Short Catheter seen in vein prior to dilation: Yes Line confirmed in Vein with ultrasound: Yes Images obtained are saved for permanent record. Coding CPT Codes Tubes, Drains, and Vasc Access - Tubes, Drains, and Vasc Access: [id number] Place catheter in vein superior or inferior vena cava ([id number]) Tubes, Drains, and Vasc Access - Tubes, Drains, and Vasc Access: [id number] Ultrasound Guidance For Vascular ([id number]) [facility] [place] (Charges) Tubes, Drains, and Vasc Access Procedure 1: Tubes, Drains, and Vasc Access: [id number] Place catheter in vein superior or inferior vena cava Procedure 2: Tubes, Drains, and Vasc Access: [id number] Ultrasound Guidance For Vascular
--- NOTE | 2021-04-28 01:56 | Procedure Note ---
Procedure Note Date of Service April 28, 2021 Note ARTERIAL LINE PROCEDURE NOTE: Procedure: Arterial Line Placement Attending: Dr. Edmond Provider: JACKLYN Jane Indication: Monitoring on Pressors Anesthesia: Lidocaine 1% Line placed emergently in the setting of hypotension requiring vasopressor support. A time-out was completed verifying correct patient, procedure, site, positioning, and implant(s) or special equipment if applicable. Allens test was performed to ensure adequate perfusion. Patients right wrist was prepped and draped in the usual sterile fashion. Ultrasound guidance was used to aid needle placement. A 20g Arrow arterial line was introduced into the right radial artery. Catheter was threaded, and the needle was removed with appropriate blood return. Good waveform was observed. The patient tolerated the procedure well. Confirmation of placement with ultrasound. Blood Loss: Minimal Complications: None Procedural Ultrasound Guidance: Procedure Date: 05/25/2021 Indication: Arterial line insertion Attending: Dr. Edmond Provider: JACKLYN Jane Artery Identified: YES Line confirmed in Artery with ultrasound: Yes Complications: NONE Patient tolerated procedure: WELL Coding CPT Codes Tubes, Drains, and Vasc Access - Tubes, Drains, and Vasc Access: [id number] Place Catheter In Artery ([id number]) Tubes, Drains, and Vasc Access - Tubes, Drains, and Vasc Access: [id number] Ultrasou nd Guidance For Vascular ([id number]) [facility] Procedure Codes (Charges) Tubes, Drains, and Vasc Access Procedure 3: Tubes, Drains, and Vasc Access: [id number] Place Catheter In Artery Procedure 4: Tubes, Drains, and Vasc Access: [id number] Ultrasound Guidance For Vascular
[2021-04-28] MEDS: PHENYLEPHRINE HCL 20 MG in SODIUM CHLORIDE 0.9% 500 ML IV SCH ×4 (02:49→15:09)
[2021-04-28 04:21] LABS: iSTAT Art Bld Gas pCO2 Correct 31 mmHg (35-46); iSTAT Art Bld Gas pH Corrected 7.319 (7.35-7.45); iSTAT Arterial Blood Gas HCO3 16 meg/L (19-24); iSTAT Arterial Blood Gas pCO2 31 mmHg (35-46); iSTAT Arterial Blood Gas pH 7.32 (7.35-7.45); iSTAT Arterial Blood Gas pO2 65 mmHg (80-95); iSTAT Arterial Blood Gas pO2 C 66; iSTAT Carbon Dioxide 17 mmol/L (24-31); iSTAT FiO2 50 %; iSTAT Hematocrit 26 % (37-47); iSTAT Hemoglobin 8.8 g/dl (12.0-16.0); iSTAT Potassium 3.1 mmol/L (3.3-5.0); iSTAT Site Art Line; iSTAT Sodium 140 mmol/L (135-144)
[2021-04-28] MEDS: AMIODARONE / D5W 360 MG/200 ML BAG IV SCH ×2 (05:41→07:55)
[2021-04-28] MEDS: METOPROLOL TARTRATE 1 MG/ML VIAL IV SCH ×3 (05:50→15:03)
--- NOTE | 2021-04-28 06:56 | CT Scan Report ---
CT angio chest PE protocol CLINICAL HISTORY: Positive Covid. Patient intubated. Evaluate for pulmonary embolus COMPARISON STUDY: Portable chest from 04/27/[address] chest from 01/23/2016 CT DOSE: 579.07 mGycm TECHNIQUE: CT Angio of the chest was performed.followed by image post processing with coronal, and s agittal MIP reformats. Contrast Volume: Optiray 320, 115 ml FINDINGS: Vasculature: Compared to previous examination, there is a stent graft present from the aortic arch th rough the descending thoracic aorta for a markedly ectatic and dilated aorta. There is no evidence fo r dissection or leakage. There is homogeneous perfusion of the pulmonary vasculature bilaterally. No intraluminal filling def ects or evidence for pulmonary embolus is seen. Airway: The airway is clear. No endobronchial lesion is identified. Endotracheal tube is in place. Lungs: Moderate centrilobular emphysematous changes are present particularly involving the upper lobe s bilaterally. There is a confluent alveolar opacity with air bronchograms present involving the righ t lower lobe with the differential being atelectasis/collapse versus early pneumonia. There is also l eft lower lobe atelectasis. Pleura: There is no evidence for pleural effusion. There is no evidence for pneumothorax. Mediastinum: There is no evidence for pathologic adenopathy. The heart is enlarged. There is extensiv e coronary artery calcification present. There is no evidence for pericardial effusion. Upper abdomen:The adrenal glands are normal bilaterally. There is a small to moderate size hiatal her kathya. Osseous structures: There is no acute osseous pathology. Impression: 1. No CTA evidence for pulmonary embolus. 2. 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 No dissection or leakage. 2. Moderate centrilobular emphysematous changes. 4. Confluent alveolar opacity with air bronchograms the right lung base representing either pneumonic infiltrate versus atelectasis/collapse. 5. There is also left basilar atelectasis. 6. Additional nonacute findings are delineated above. ACT 112: Negative or not required by law. Electronically signed by: Randal Chiu M.D. 04/28/2021 6:55 AM
[2021-04-28 07:24] LABS: Basophils # (auto) 0.01 K/uL (0-0.2); Basophils % (auto) 0.1 %; Hematocrit (blood only) 30.1 % (37-47); Hemoglobin 9.5 g/dL (12.0-16.0); Immature Granulocytes # (auto) 0.06 K/uL (0.00-0.02); Immature Granulocytes % (auto) 0.4 %; Lymphocytes % (auto) 5.8 %; Mean Corpuscular Hemoglobin 24.2 pg (25-34); Mean Corpuscular Hgb Conc 31.6 g/dL (32-36); Mean Corpuscular Volume 76.6 fL (80-100); Monocytes # (auto) 0.82 K/uL (0.11-0.59); Monocytes % (auto) 5.9 %; Neutrophils # (auto) 12.15 K/uL (1.4-6.5); Neutrophils % (auto) 87.8 %; Platelet Count 349 K/uL (130-400); RDW Coefficient of Variation 15.8 % (11.5-14.5); RDW Standard Deviation 44.5 fL (36.4-46.3); Red Blood Count 3.93 M/uL (4.2-5.4); White Blood Count 13.84 K/uL (4.8-10.8)
[2021-04-28] MEDS: fentaNYL DRIP 1,250 MCG/250 ML BAG IV SCH (07:39)
--- NOTE | 2021-04-28 07:40 | XRay Report ---
XR chest 1V portable HISTORY: Central line placement COMPARISON: Chest 04/27/2021. FINDINGS: The tip the endotracheal tube terminates 4.3 cm from the hernan. Left jugular central venou s catheter terminates at the distal left brachiocephalic vein. A thoracic aortic arch stent is unchan ged in position. Questionable left apical lucency is likely due to the overlapping ribs. There are maddox zy bibasilar airspace opacities/effusions which have slightly improved. The lungs appear hyperexpande d with apical predominant emphysematous changes. There is scoliosis within the thoracolumbar spine. N o evidence for pulmonary edema. IMPRESSION: 1. The left jugular central venous catheter terminates at the distal left brachiocephalic vein. 2. Questionable left apical lucency is likely due to the overlapping ribs. No definite pneumothorax. 3. Hazy bibasilar airspace opacities/effusions have slightly improved. ACT 112: Negative or not required by law. Electronically signed by: David Monroy M.D. 04/28/2021 7:39 AM
[2021-04-28] MEDS: FLUTICASONE FUROATE 100MCG 14 PUFFS/INHALER INH SCH (07:41)
[2021-04-28] MEDS: UMECLIDINIUM/VILANTEROL 62.5/25MCG 7 PUFFS/INHALER INH SCH (07:41)
[2021-04-28 07:46] LABS: Alanine Aminotransferase 16 U/L (12-78); Albumin Level 2.2 gm/dl (3.4-5.0); Aspartate Aminotransferase 21 U/L (15-37); BUN Creatinine Ratio 19.4 (10-20); Bilirubin Direct < 0.1 mg/dl (0-0.2); Blood Urea Nitrogen 18 mg/dl (7-18); Calcium 7.7 mg/dl (8.5-10.1); Carbon Dioxide 19 mmol/L (21-32); Chloride 112 mmol/L (98-107); Creatinine Clr Calc Pharmacy 44.5 ml/min; Est GFR (African American) 68.6 ml/min; Est GFR (Non-African American) 59.2 ml/min; Glucose 99 mg/dl (70-99); Magnesium 2.1 mg/dl (1.8-2.4); Potassium 3.5 mmol/L (3.5-5.1); Sodium 138 mmol/L (136-145)
[2021-04-28 07:49] LABS: Alkaline Phosphatase 92 U/L (45-117); Bilirubin,Total 0.2 mg/dl (0.2-1); Phosphorus 2.5 mg/dl (2.5-4.9); Total Protein 5.8 gm/dl (6.4-8.2)
[2021-04-28] MEDS ORDERED: NON-FORMULARY MEDICATION (Fluticasone-Umeclidin-Vilanter [Trelegy Ellipta] 100-62.5-25 mcg INH SCH (09:00)
[2021-04-28] MEDS ORDERED: FAMOTIDINE 20 MG in SYRINGE 3 ML IV SCH (09:00)
[2021-04-28] MEDS: dexAMETHasone 6 MG in SYRINGE 0 ML IV SCH (10:06)
[2021-04-28 10:10] LABS: Partial Thromboplastin Ratio 2.6
--- NOTE | 2021-04-28 10:31 | Electrocardiogram Report ---
Test Reason : Blood Pressure : / mmHG Vent. Rate : 091 BPM Atrial Rate : 091 BPM P-R Int : 136 ms QRS Dur : 080 ms QT Int : 396 ms P-R-T Axes : 065 040 055 degrees QTc Int : 487 ms Normal sinus rhythm with sinus arrhythmia Possible Left atrial enlargement Borderline ECG When compared with ECG of 27-APR-2021 10:01, Vent. rate has decreased BY [address] no longer depressed in Anterolateral leads Confirmed by Derick Manzano ([id number]) on 04/28/2021 10:30:28 AM Referred By: REFERRED SELF Confirmed By:Navid Manzano
[2021-04-28 11:00] LABS: Partial Thromboplastin Time 67.9 Seconds (21.0-31.0)
[2021-04-28] MEDS ORDERED: ACETAMINOPHEN SUSP 325 MG/10.15 ML UDC ONE (11:02)
[2021-04-28] MEDS: REMDESIVIR 100 MG in SODIUM CHLORIDE 0.9% 230 ML IV SCH (12:09)
[2021-04-28] MEDS: SODIUM CHLORIDE 0.9% 10ML FLUSH IV SCH (13:12)
--- NOTE | 2021-04-28 13:27 | Pharmacy Report ---
Pharmacy Glycemic Short Note 2 - Date of Service April 28, 2021 - Glycemic Short BSG Results (Last 24 hours): 04/27/21 04/27/21 04/28/21 21:32 23:06 00:41 Glucose 327 H* 259 H POC Glucose 320 H* POC Glucose (other) 04/28/21 04/28/21 04/28/21 03:10 04:13 06:05 Glucose POC Glucose POC Glucose (other) 195 H 145 H 107 H 04/28/21 04/28/21 04/28/21 06:26 08:29 10:13 Glucose 99 POC Glucose 100 H POC Glucose (other) 84 04/28/21 04/28/21 11:26 13:10 Glucose POC Glucose 170 H 147 H POC Glucose (other) OUTPATIENT ANTIDIABETIC REGIMEN: * n/a * A1c = ? ASSESSMENT: * Patient admitted to ICU for resp failure secondary to COVID19 viral pna, COPD exac, a fib RVR * Patient is currently intubated, sedated, requiring pressor support (phenyl ephrine @0.5mcg/kg/min) and receiving IV steroid therapy. She is also receiving multiple IV medications mixed in D5W. * She was severely hyperglycemic yesterday and was started on IV insulin infusion per protocol. BSGs have trended down nicely and are in goal at this time with relatively low infusion rate. Will order A1c to determine if pt has underlying insulin resistance or if hyperglycemia is purely stress induced. Will continue with IV insulin infusion for now given uncertain SQ absorption while on pressors and critically ill. PLAN FOR INPATIENT GLYCEMIC CONTROL: * Check A1c * Continue IV insulin infusion, goal range 110-180, adjust per rate adjustment calculator * Bolus insulin * Nutrition/Prandial insulin per rate adjustment calculator carb ratio calculation PLAN FOR DISCHARGE: * to be determined
[2021-04-28 14:57] LABS: Estimated Average Glucose 143 mg/dl; Hemoglobin A1C 6.6 % (4.5-5.6)
[2021-04-28] MEDS ORDERED: POTASSIUM CHLORIDE 20 MEQ/15 ML UDC PO STA (15:08)
[2021-04-28] MEDS ORDERED: AMIODARONE 200 MG TAB PO STA (15:26)
--- NOTE | 2021-04-28 15:44 | Cardiology Consultation ---
Date of Consultation April 28, 2021 Assessment & Plan (1) Atrial fibrillation with RVR: (2) Acute and chronic respiratory failure with hypoxia: (3) Peripheral vascular disease: 1. Atrial fibrillation: She has a history of paroxysmal atrial fibrillation. She presented with atrial fibrillation and high ventricular rates. How this contributed to her respiratory failure is unclear. Despite atrial fibrillation, tachypnea and hypoxia her BNP was actually quite low. I think this speaks against pulmonary edema as a contributor to her decompensation. She spontaneously converted to sinus rhythm. I think maintaining sinus rhythm has benefits to her during her acute illness. I think we should be aggressive with respect to maintaining sinus rhythm. She did receive an amiodarone infusion. I think we can transition her to oral amiodarone when she is extubated. Metoprolol and diltiazem were currently being held. While her hemodynamics have improved, I think these medicines can be withheld while we monitor her blood pressure and heart rate, especially with institution of amiodarone. As an outpatient she takes apixaban. This can be restarted when she is able to take pills again. 2. SVT: She did have a 5 minutes episode of an SVT this afternoon. This was not atrial fibrillation. It did not seem to cause hemodynamic embarrassment. Possibly related to her lung disease and acute illness. Hopefully amiodarone will prevent additional episodes of tachyarrhythmia. 3. Elevated troponin: She is a very mild elevation in her biomarkers. Undoubtedly related to her acute presentation and an element of hypoxia. She likely has underlying coronary disease given her history of peripheral vascular disease. Care at this point is supportive. Not an acute coronary syndrome. 4. Peripheral vascular disease: This is a coronary artery disease equivalent. When she is stable in taking oral medications apixaban and simvastatin can be reinstituted. History of Present Illness Reason for Consultation: Atrial fibrillation Requesting Physician: Mayito Attending Physician: Kevin Morris History of Present Illness The patient is a 80-year-old woman with a history of paroxysmal atrial fibrillation and peripheral vascular disease to include carotid artery disease status post left CEA and an endovascular repair for thoracic aortic aneurysm. She presents to the hospital with symptoms of worsening dyspnea. She had a home test that was positive for COVID-19. In the emergency room she was found to be hypoxic, tachypneic and tachycardic. Her rhythm on presentation was atrial fibrillation with rapid ventricular response. The patient was initially treated with diltiazem and metoprolol. However, her clinical condition deteriorated and she eventually required intubation and mechanical ventilation. She was hypotensive and pressor support was required transiently. The patient did convert to a normal sinus rhythm. Over the course of the evening her respiratory status has improved to the point where there is going to be a trial of extubation. At the time of this interview the patient was still intubated. She could not answer questions. Allergies Allergy/AdvReac Type Severity Reaction Status Date / Time No Known Allergies Allergy Unknown Verified 12/03/20 13:15 Home Medications Medication Instructions Recorded Confirmed Type albuterol sulfate 2.5 mg/0.5 mL 5 mg INHALATION Q6H PRN #60 ea 06/03/20 04/27/21 Rx solution for nebulization simvastatin 40 mg tablet 40 mg PO HS #90 tab 06/13/20 04/27/21 Rx apixaban 5 mg tablet 5 mg PO BID #180 tab 09/15/20 04/27/21 Rx diltiazem HCl 240 mg capsule,24 240 mg PO QAM 12/03/20 04/27/21 History hr,extended release fluticasone fur. 100 mcg-umeclid 1 inh INH QAM 12/03/20 04/27/21 History 62.5 mcg-vilant 25 mcg inhalat.powder (Trelegy Ellipta) albuterol sulfate 90 mcg/actuation 2 puff INH Q6H PRN #18 gm 12/13/20 04/27/21 Rx aerosol inhaler lorazepam 0.5 mg tablet 0.5 mg PO BID PRN #60 tab 12/13/20 04/27/21 Rx losartan 100 mg tablet 100 mg PO DAILY #90 tab 03/06/21 04/27/21 Rx metoprolol tartrate 25 mg tablet 25 mg PO BID #180 tab 03/06/21 04/27/21 Rx omeprazole 20 mg capsule,delayed 20 mg PO DAILY #90 cap 03/06/21 04/27/21 Rx release ipratropium 0.5 mg-albuterol 3 mg 3 ml INHALATION Q6H PRN #90 ml 03/13/21 04/27/21 Rx (2.5 mg base)/3 mL nebulization soln ipratropium bromide 0.02 % 2.5 ml INHALATION QID PRN #75 ml 03/23/21 04/27/21 Rx solution for inhalation prednisone 20 mg tablet See Rx Instructions PO QAM #18 tab 03/28/21 04/27/21 Rx potassium chloride 20 mEq 20 meq PO BID #180 tab 03/30/21 04/27/21 Rx tablet,extended release tramadol 50 mg tablet 50 mg PO TID PRN #90 tab 03/31/21 04/27/21 Rx doxycycline hyclate 100 mg tablet 100 mg PO BID #20 tab 04/14/21 04/27/21 Rx Patient History Medical History (Updated 04/28/21 @ 15:48 by Deuce Manzano MD) AF (paroxysmal atrial fibrillation) Anxiety Carotid artery stenosis Chronic low back pain COPD (chronic obstructive pulmonary disease) GERD without esophagitis Hip fracture (04/27/13) History of transient cerebral ischemia HTN (hypertension) Hyperlipidemia Hyperthyroidism Impaired fasting glucose Iron deficiency anemia Left ventricular hypertrophy Multiple thyroid nodules Osteoporosis Vitamin D deficiency Surgical History H/O carotid endarterectomy left H/O thoracic aortic aneurysm repair History of appendectomy History of hysterectomy History of laparoscopic cholecystectomy History of repair of hip fracture Family History Sister Cancer Asthma Ovarian cancer Mother Cardiac disorder Myocardial infarction Father Cardiac disorder Lung cancer Myocardial infarction Denies family history of Prostate cancer Breast cancer Colorectal cancer Social History Smoking Status: Former smoker Tobacco Type: Cigarettes Age Started Using Tobacco: 17; packs per day: 0.5; Second Hand Exposure: Yes; Hx Alcohol Use: No Hx Substance Use: No Preferred Language: Surinamese Communication Ability: Unable Visual Impairment: No Limitations Hearing Ability: Hard of Hearing [employer]en[employer] Required: No Beliefs That Will Affect Care: None marital status: / Current Living Situation: Alone Current Living Situation Comment: lives with her daughter current occupational status: retired 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 Still intubated. HEENT: Sclerae are anicteric. Pupils are equal and reactive to light and accommodation. Extraocular movements were intact. Neuro: Normal eye movements. Lungs: Distant breath sounds. Fine crackles in the bases bilaterally. No wheezing. Cardiac: The rhythm was regular, heart sounds were distant. S1 and S2 were normal. There are no murmurs on examination. The PMI was not markedly displaced on palpation. Abdomen: The abdomen was soft and nontender. Extremities: There is no evidence cyanosis or clubbing. There was no evidence of significant peripheral edema bilaterally. Skin: There are no rashes noted on examination today. Results & Data ([facility]) Vital Signs (Past 12 Hours) Vital Signs Temp Pulse Resp BP Pulse Ox 04/28/21 15:03 130 H 114/48 L 04/28/21 15:00 37.0 C 123 H 28 H 95 04/28/21 14:53 70 28 H 97 04/28/21 14:00 37.1 C 60 28 H 98 04/28/21 13:00 37.5 C 58 L 28 H 150/80 H 99 04/28/21 12:00 37.9 C H 68 28 H 97 04/28/21 11:24 75 130/60 04/28/21 11:00 37.9 C H 72 28 H 97 04/28/21 10:19 72 28 H 98 04/28/21 10:00 37.9 C H 72 28 H 130/78 98 04/28/21 09:00 37.8 C H 73 28 H 118/73 98 04/28/21 08:00 37.6 C H 75 28 H 96 04/28/21 07:22 28 H 04/28/21 07:00 37.5 C 73 28 H 94 04/28/21 05:50 76 116/50 L 04/28/21 05:47 76 28 H 96 04/28/21 04:30 75 28 H 95 04/28/21 04:20 75 28 H 95 04/28/21 04:10 37.2 C 75 28 H 95 04/28/21 04:00 76 28 H 94 04/28/21 03:50 74 28 H 94 04/28/21 03:40 74 28 H 94 Laboratory Results Abnormal Lab Results 04/27/21 04/27/21 04/27/21 09:45 19:55 21:16 WBC RBC Hgb POC Hgb Hct POC Hct MCV MCH MCHC RDW Std Deviation RDW Coeff of Lawson Plt Count MPV Immature Gran % (Auto) Neut % (Auto) Lymph % (Auto) [place] % (Auto) Eos % (Auto) Baso % (Auto) Neut # (Auto) Lymph # (Auto) [place] # (Auto) Eos # (Auto) Baso # (Auto) Immature Gran # (Auto) PT INR APTT PTT Ratio Sample Site POC pH POC pCO2 POC pO2 POC HCO3 POC Total CO2 POC Base Excess ABG pH 7.11 L* ABG pH (Temp Correct) ABG pCO2 59 H ABG pCO2 (Temp Corrct ABG pO2 111 H POC ABG pO2 at Pt Temp ABG HCO3 18 L POC ABG O2 Sat ABG O2 Saturation 97.0 H ABG Base Excess -11.1 L David Test POS Barometric Pressure 724.7 Oxygen Given 95% FiO2 O2 Delivery Device POC O2 Rate POC FiO2 Tidal Volume PEEP POC Sodium Sodium POC Potassium Potassium Chloride Carbon Dioxide Anion Gap BUN Creatinine Est Cr Clr Drug Dosing Est GFR ( Amer) Est GFR (Non-Af Amer) BUN/Creatinine Ratio Glucose POC Glucose POC Glucose (other) Estimat Average Glucose Hemoglobin A1c Lactate Calcium Phosphorus Magnesium Total Bilirubin Direct Bilirubin AST ALT Alkaline Phosphatase Troponin I Total Protein Albumin Beta-Hydroxybutyric Acd Procalcitonin < 0.05 Urine Color Yellow Urine Appearance Clear Urine pH 5.0 Ur Specific [place] 1.011 Urine Protein 1+ H Urine Glucose (UA) 2+ H Urine Ketones Negative Urine Blood Negative Urine Nitrite Negative Urine Bilirubin Negative Urine Urobilinogen Negative Ur Leukocyte Esterase Negative Urine WBC (Auto) 1-5 Urine RBC (Auto) 0-4 U Hyaline Cast (Auto) 1-5 U Epithel Cells (Auto) 10-20 H Urine Bacteria (Auto) Negative Nasal Screen MRSA (PCR) 04/27/21 04/27/21 04/27/21 21:32 21:32 23:06 WBC RBC Hgb POC Hgb Hct POC Hct MCV MCH MCHC RDW Std Deviation RDW Coeff of Lawson Plt Count MPV Immature Gran % (Auto) Neut % (Auto) Lymph % (Auto) [place] % (Auto) Eos % (Auto) Baso % (Auto) Neut # (Auto) Lymph # (Auto) [place] # (Auto) Eos # (Auto) Baso # (Auto) Immature Gran # (Auto) PT INR APTT PTT Ratio Sample Site POC pH POC pCO2 POC pO2 POC HCO3 POC Total CO2 POC Base Excess ABG pH ABG pH (Temp Correct) ABG pCO2 ABG pCO2 (Temp Corrct ABG pO2 POC ABG pO2 at Pt Temp ABG HCO3 POC ABG O2 Sat ABG O2 Saturation ABG Base Excess David Test Barometric Pressure Oxygen Given O2 Delivery Device POC O2 Rate POC FiO2 Tidal Volume PEEP POC Sodium Sodium 137 POC Potassium Potassium 3.9 Chloride 109 H Carbon Dioxide 17 L Anion Gap 11.0 BUN 13 Creatinine 0.96 Est Cr Clr Drug Dosing 42.6 Est GFR ( Amer) 65.2 Est GFR (Non-Af Amer) 56.2 BUN/Creatinine Ratio 14.0 Glucose 327 H* POC Glucose 320 H* POC Glucose (other) Estimat Average Glucose Hemoglobin A1c Lactate 1.5 Calcium 6.7 L D Phosphorus Magnesium Total Bilirubin Direct Bilirubin AST ALT Alkaline Phosphatase Troponin I Total Protein Albumin Beta-Hydroxybutyric Acd 10.35 H Procalcitonin Urine Color Urine Appearance Urine pH Ur Specific [place] Urine Protein Urine Glucose (UA) Urine Ketones Urine Blood Urine Nitrite Urine Bilirubin Urine Urobilinogen Ur Leukocyte Esterase Urine WBC (Auto) Urine RBC (Auto) U Hyaline Cast (Auto) U Epithel Cells (Auto) Urine Bacteria (Auto) Nasal Screen MRSA (PCR) 04/28/21 04/28/21 04/28/21 00:41 00:41 03:10 WBC RBC Hgb POC Hgb Hct POC Hct MCV MCH MCHC RDW Std Deviation RDW Coeff of Lawson Plt Count MPV Immature Gran % (Auto) Neut % (Auto) Lymph % (Auto) [place] % (Auto) Eos % (Auto) Baso % (Auto) Neut # (Auto) Lymph # (Auto) [place] # (Auto) Eos # (Auto) Baso # (Auto) Immature Gran # (Auto) PT 10.5 INR 1.0 APTT 33.8 H PTT Ratio 1.3 Sample Site POC pH POC pCO2 POC pO2 POC HCO3 POC Total CO2 POC Base Excess ABG pH ABG pH (Temp Correct) ABG pCO2 ABG pCO2 (Temp Corrct ABG pO2 POC ABG pO2 at Pt Temp ABG HCO3 POC ABG O2 Sat ABG O2 Saturation ABG Base Excess David Test Barometric Pressure Oxygen Given O2 Delivery Device POC O2 Rate POC FiO2 Tidal Volume PEEP POC Sodium Sodium 138 POC Potassium Potassium 3.9 Chloride 110 H Carbon Dioxide 21 Anion Gap 7.0 BUN 15 Creatinine 1.14 Est Cr Clr Drug Dosing 35.9 Est GFR ( Amer) 53.0 Est GFR (Non-Af Amer) 45.7 BUN/Creatinine Ratio 12.8 Glucose 259 H POC Glucose POC Glucose (other) 195 H Estimat Average Glucose Hemoglobin A1c Lactate Calcium 7.2 L Phosphorus Magnesium Total Bilirubin Direct Bilirubin AST ALT Alkaline Phosphatase Troponin I Total Protein Albumin Beta-Hydroxybutyric Acd 5.18 H Procalcitonin Urine Color Urine Appearance Urine pH Ur Specific [place] Urine Protein Urine Glucose (UA) Urine Ketones Urine Blood Urine Nitrite Urine Bilirubin Urine Urobilinogen Ur Leukocyte Esterase Urine WBC (Auto) Urine RBC (Auto) U Hyaline Cast (Auto) U Epithel Cells (Auto) Urine Bacteria (Auto) Nasal Screen MRSA (PCR) 04/28/21 04/28/21 04/28/21 04:07 04:13 06:05 WBC RBC Hgb POC Hgb 8.8 L Hct POC Hct 26 L MCV MCH MCHC RDW Std Deviation RDW Coeff of Lawson Plt Count MPV Immature Gran % (Auto) Neut % (Auto) Lymph % (Auto) [place] % (Auto) Eos % (Auto) Baso % (Auto) Neut # (Auto) Lymph # (Auto) [place] # (Auto) Eos # (Auto) Baso # (Auto) Immature Gran # (Auto) PT INR APTT PTT Ratio Sample Site Art Line POC pH 7.32 L POC pCO2 31 L POC pO2 65 L POC HCO3 16 L POC Total CO2 17 L POC Base Excess -10.0 L ABG pH ABG pH (Temp Correct) 7.319 L ABG pCO2 ABG pCO2 (Temp Corrct 31 L ABG pO2 POC ABG pO2 at Pt Temp 66 ABG HCO3 POC ABG O2 Sat 91.0 ABG O2 Saturation ABG Base Excess David Test NA Barometric Pressure Oxygen Given O2 Delivery Device Ventilator POC O2 Rate 28 POC FiO2 50 Tidal Volume 320 PEEP 10 POC Sodium 140 Sodium POC Potassium 3.1 L Potassium Chloride Carbon Dioxide Anion Gap BUN Creatinine Est Cr Clr Drug Dosing Est GFR ( Amer) Est GFR (Non-Af Amer) BUN/Creatinine Ratio Glucose POC Glucose POC Glucose (other) 145 H 107 H Estimat Average Glucose Hemoglobin A1c Lactate Calcium Phosphorus Magnesium Total Bilirubin Direct Bilirubin AST ALT Alkaline Phosphatase Troponin I Total Protein Albumin Beta-Hydroxybutyric Acd Procalcitonin Urine Color Urine Appearance Urine pH Ur Specific [place] Urine Protein Urine Glucose (UA) Urine Ketones Urine Blood Urine Nitrite Urine Bilirubin Urine Urobilinogen Ur Leukocyte Esterase Urine WBC (Auto) Urine RBC (Auto) U Hyaline Cast (Auto) U Epithel Cells (Auto) Urine Bacteria (Auto) Nasal Screen MRSA (PCR) 04/28/21 04/28/21 04/28/21 06:26 06:26 08:29 WBC 13.84 H D RBC 3.93 L Hgb 9.5 L POC Hgb Hct 30.1 L POC Hct MCV 76.6 L MCH 24.2 L MCHC 31.6 L RDW Std Deviation 44.5 RDW Coeff of Lawson 15.8 H Plt Count 349 MPV 9.0 Immature Gran % (Auto) 0.4 Neut % (Auto) 87.8 Lymph % (Auto) 5.8 [place] % (Auto) 5.9 Eos % (Auto) 0.0 Baso % (Auto) 0.1 Neut # (Auto) 12.15 H Lymph # (Auto) 0.80 L [place] # (Auto) 0.82 H Eos # (Auto) 0.00 Baso # (Auto) 0.01 Immature Gran # (Auto) 0.06 H PT INR APTT PTT Ratio Sample Site POC pH POC pCO2 POC pO2 POC HCO3 POC Total CO2 POC Base Excess ABG pH ABG pH (Temp Correct) ABG pCO2 ABG pCO2 (Temp Corrct ABG pO2 POC ABG pO2 at Pt Temp ABG HCO3 POC ABG O2 Sat ABG O2 Saturation ABG Base Excess David Test Barometric Pressure Oxygen Given O2 Delivery Device POC O2 Rate POC FiO2 Tidal Volume PEEP POC Sodium Sodium 138 POC Potassium Potassium 3.5 Chloride 112 H Carbon Dioxide 19 L Anion Gap 7.0 BUN 18 Creatinine 0.92 Est Cr Clr Drug Dosing 44.5 Est GFR ( Amer) 68.6 Est GFR (Non-Af Amer) 59.2 BUN/Creatinine Ratio 19.4 Glucose 99 POC Glucose 100 H POC Glucose (other) Estimat Average Glucose Hemoglobin A1c Lactate Calcium 7.7 L Phosphorus 2.5 Magnesium 2.1 Total Bilirubin 0.2 Direct Bilirubin < 0.1 AST 21 ALT 16 Alkaline Phosphatase 92 Troponin I Total Protein 5.8 L Albumin 2.2 L Beta-Hydroxybutyric Acd Procalcitonin Urine Color Urine Appearance Urine pH Ur Specific [place] Urine Protein Urine Glucose (UA) Urine Ketones Urine Blood Urine Nitrite Urine Bilirubin Urine Urobilinogen Ur Leukocyte Esterase Urine WBC (Auto) Urine RBC (Auto) U Hyaline Cast (Auto) U Epithel Cells (Auto) Urine Bacteria (Auto) Nasal Screen MRSA (PCR) 04/28/21 04/28/21 04/28/21 09:01 10:13 10:44 WBC RBC Hgb POC Hgb Hct POC Hct MCV MCH MCHC RDW Std Deviation RDW Coeff of Lawson Plt Count MPV Immature Gran % (Auto) Neut % (Auto) Lymph % (Auto) [place] % (Auto) Eos % (Auto) Baso % (Auto) Neut # (Auto) Lymph # (Auto) [place] # (Auto) Eos # (Auto) Baso # (Auto) Immature Gran # (Auto) PT INR APTT 67.9 H* PTT Ratio 2.6 Sample Site POC pH POC pCO2 POC pO2 POC HCO3 POC Total CO2 POC Base Excess ABG pH ABG pH (Temp Correct) ABG pCO2 ABG pCO2 (Temp Corrct ABG pO2 POC ABG pO2 at Pt Temp ABG HCO3 POC ABG O2 Sat ABG O2 Saturation ABG Base Excess David Test Barometric Pressure Oxygen Given O2 Delivery Device POC O2 Rate POC FiO2 Tidal Volume PEEP POC Sodium Sodium POC Potassium Potassium Chloride Carbon Dioxide Anion Gap BUN Creatinine Est Cr Clr Drug Dosing Est GFR ( Amer) Est GFR (Non-Af Amer) BUN/Creatinine Ratio Glucose POC Glucose POC Glucose (other) 84 86 Estimat Average Glucose Hemoglobin A1c Lactate Calcium Phosphorus Magnesium Total Bilirubin Direct Bilirubin AST ALT Alkaline Phosphatase Troponin I Total Protein Albumin Beta-Hydroxybutyric Acd Procalcitonin Urine Color Urine Appearance Urine pH Ur Specific [place] Urine Protein Urine Glucose (UA) Urine Ketones Urine Blood Urine Nitrite Urine Bilirubin Urine Urobilinogen Ur Leukocyte Esterase Urine WBC (Auto) Urine RBC (Auto) U Hyaline Cast (Auto) U Epithel Cells (Auto) Urine Bacteria (Auto) Nasal Screen MRSA (PCR) 04/28/21 04/28/21 04/28/21 11:00 11:26 13:10 WBC RBC Hgb POC Hgb Hct POC Hct MCV MCH MCHC RDW Std Deviation RDW Coeff of Lawson Plt Count MPV Immature Gran % (Auto) Neut % (Auto) Lymph % (Auto) [place] % (Auto) Eos % (Auto) Baso % (Auto) Neut # (Auto) Lymph # (Auto) [place] # (Auto) Eos # (Auto) Baso # (Auto) Immature Gran # (Auto) PT INR APTT PTT Ratio Sample Site POC pH POC pCO2 POC pO2 POC HCO3 POC Total CO2 POC Base Excess ABG pH ABG pH (Temp Correct) ABG pCO2 ABG pCO2 (Temp Corrct ABG pO2 POC ABG pO2 at Pt Temp ABG HCO3 POC ABG O2 Sat ABG O2 Saturation ABG Base Excess David Test Barometric Pressure Oxygen Given O2 Delivery Device POC O2 Rate POC FiO2 Tidal Volume PEEP POC Sodium Sodium POC Potassium Potassium Chloride Carbon Dioxide Anion Gap BUN Creatinine Est Cr Clr Drug Dosing Est GFR ( Amer) Est GFR (Non-Af Amer) BUN/Creatinine Ratio Glucose POC Glucose 170 H 147 H POC Glucose (other) Estimat Average Glucose Hemoglobin A1c Lactate Calcium Phosphorus Magnesium Total Bilirubin Direct Bilirubin AST ALT Alkaline Phosphatase Troponin I Total Protein Albumin Beta-Hydroxybutyric Acd Procalcitonin Urine Color Urine Appearance Urine pH Ur Specific [place] Urine Protein Urine Glucose (UA) Urine Ketones Urine Blood Urine Nitrite Urine Bilirubin Urine Urobilinogen Ur Leukocyte Esterase Urine WBC (Auto) Urine RBC (Auto) U Hyaline Cast (Auto) U Epithel Cells (Auto) Urine Bacteria (Auto) Nasal Screen MRSA (PCR) Negative 04/28/21 04/28/21 04/28/21 14:34 14:37 14:47 WBC RBC Hgb POC Hgb Hct POC Hct MCV MCH MCHC RDW Std Deviation RDW Coeff of Lawson Plt Count MPV Immature Gran % (Auto) Neut % (Auto) Lymph % (Auto) [place] % (Auto) Eos % (Auto) Baso % (Auto) Neut # (Auto) Lymph # (Auto) [place] # (Auto) Eos # (Auto) Baso # (Auto) Immature Gran # (Auto) PT INR APTT PTT Ratio Sample Site POC pH POC pCO2 POC pO2 POC HCO3 POC Total CO2 POC Base Excess ABG pH ABG pH (Temp Correct) ABG pCO2 ABG pCO2 (Temp Corrct ABG pO2 POC ABG pO2 at Pt Temp ABG HCO3 POC ABG O2 Sat ABG O2 Saturation ABG Base Excess David Test Barometric Pressure Oxygen Given O2 Delivery Device POC O2 Rate POC FiO2 Tidal Volume PEEP POC Sodium Sodium POC Potassium Potassium Chloride Carbon Dioxide Anion Gap BUN Creatinine Est Cr Clr Drug Dosing Est GFR ( Amer) Est GFR (Non-Af Amer) BUN/Creatinine Ratio Glucose POC Glucose POC Glucose (other) 135 H Estimat Average Glucose 143 Hemoglobin A1c 6.6 H Lactate Calcium Phosphorus Magnesium Total Bilirubin Direct Bilirubin AST ALT Alkaline Phosphatase Troponin I 0.074 H* Total Protein Albumin Beta-Hydroxybutyric Acd Procalcitonin Urine Color Urine Appearance Urine pH Ur Specific [place] Urine Protein Urine Glucose (UA) Urine Ketones Urine Blood Urine Nitrite Urine Bilirubin Urine Urobilinogen Ur Leukocyte Esterase Urine WBC (Auto) Urine RBC (Auto) U Hyaline Cast (Auto) U Epithel Cells (Auto) Urine Bacteria (Auto) Nasal Screen MRSA (PCR) Diagnostic Findings Admission revealed chronic emphysematous changes with evidence of an old aortic stent graft. CTA did not demonstrate any pulmonary embolus. Stable aortic graft. Moderate emphysematous changes. Some air bronchograms at the right lung base consistent with pneumonia versus atelectasis. Echocardiogram performed 08/27/2017: Normal LV systolic function with ejection fraction greater than 70%. Moderate LVH. Stage I diastolic dysfunction. No significant valvular heart disease. PG Care Time/CCT Total # of Minutes Spent Total Time Spent with Patient: Total time spent is greater than 50% in coordination of care (as documented) at patient's floor/unit and/or counseling patient: Coding Level of Care Code 43194 Initial Inpt Care Lvl 3 Diagnoses Atrial fibrillation with RVR I48.91 Acute and chronic respiratory failure with hypoxia J96.21 Peripheral vascular disease I73.9
--- NOTE | 2021-04-28 16:05 | Critical Care Progress Note ---
Date of Service April 28, 2021 Assessment & Plan (1) Pneumonia due to COVID-19 virus: (2) Atrial fibrillation with RVR: (3) Peripheral vascular disease: (4) COPD (chronic obstructive pulmonary disease): Plan: Acute and chronic respiratory failure with hypoxia: Reason Critically Ill: 80-year-old female with history of proximal A. fib and COPD (on 2 L baseline) required intubation for acute on chronic hypoxic respiratory failure. Patient is positive for COVID-19 and was in A. fib RVR prior to decompensating. Neuro - Responding appropriately off sedation. Cardiac - A. fib RVRcardiology consult placed. Will use as needed metoprolol if hemodynamics allow. We will continue p.o. amiodarone as per cardiology recommendations. In thickness that her decompensation was related to cardiac etiology and less COVID-19. Respiratory - COVID-19 viral pneumonia may be playing a role. She also has bibasilar atelectasis. Congestive heart failure playing a significant role as well. Reasonable to continue with Decadron. We will plan to extubate today. Flutter valve for pulm toilet. Continue ICS inhaler given likely COPD GI - Speech consult RENAL/LYTES - Replace potassium. - Foleystrict I's and O's ENDO - ICU hyperglycemic protocol HEME - H&H stable, monitor routine CBC ID - Found to have COVID-19 viral pneumonia. Continue remdesivir and Decadron. No signs of superinfection at this time. LINES/IV ACCESS - Peripheral IVs, ET tube, Hopkins, OG tube DVT PROPHYLAXIS - SCDs, heparin drip Possible downgrade from ICU status later today. CRITICAL CARE TIME - I have personally spent 49 minutes of critical care time in the direct manage ment of this patient. This is a life/limb threatening event. This includes time spent evaluating patient, direct bedside care, chart review, placing orders, interpretation of diagnostic studies, discussion with consultants, patient, and family members, as well as other required patient management activities. This time is exclusive of all separately billable procedures, and teaching time and separate from and in addition to any other critical care service time. Admission and Anticipated Discharge Date Admission Date: April 27, 2021 Subjective Spontaneous breathing trial performed this afternoon when sedation was stopped. Patient was responding very well to commands and is doing quite well on spontaneous breathing trial. We will aim to extubate her. She did have an episode of atrial fibrillation with rapid ventricular response when sedation is weaned which reverted to normal sinus rhythm after 5 mg of IV metoprolol. Review of Systems Review of Systems: Unobtainable due to endotracheal tube Physical Exam Physical Exam: She is alert and responded appropriately to commands. Still intubated. HEENT: Sclerae are anicteric. Pupils are equal and reactive to light and accommodation. Extraocular movements were intact. Endotracheal tube in place. Neuro: Normal eye movements. Lungs: Distant breath sounds. Fine crackles in the bases bilaterally. No wheezing. Cardiac: Regular rate, rhythm.. S1 and S2 were normal. There are no murmurs on examination. Abdomen: The abdomen was soft and nontender. Extremities: There is no evidence cyanosis or clubbing. There was no evidence of significant peripheral edema bilaterally. Skin: There are no rashes noted Neuro: No obvious focal deficits. Results & Data Results & Data ([facility]) Vital Signs (Past 12 Hours) Vital Signs Temp Pulse Resp BP Pulse Ox 04/28/21 15:03 130 H 114/48 L 04/28/21 15:00 37.0 C 123 H 28 H 95 04/28/21 14:53 70 28 H 97 04/28/21 14:00 37.1 C 60 28 H 98 04/28/21 13:00 37.5 C 58 L 28 H 150/80 H 99 04/28/21 12:00 37.9 C H 68 28 H 97 04/28/21 11:24 75 130/60 04/28/21 11:00 37.9 C H 72 28 H 97 04/28/21 10:19 72 28 H 98 04/28/21 10:00 37.9 C H 72 28 H 130/78 98 04/28/21 09:00 37.8 C H 73 28 H 118/73 98 04/28/21 08:00 37.6 C H 75 28 H 96 04/28/21 07:22 28 H 04/28/21 07:00 37.5 C 73 28 H 94 04/28/21 05:50 76 116/50 L 04/28/21 05:47 76 28 H 96 04/28/21 04:30 75 28 H 95 04/28/21 04:20 75 28 H 95 04/28/21 04:10 37.2 C 75 28 H 95 04/28/21 04:00 76 28 H 94 Coding Level of Care Code Critical Care 1st 30-74 mins Diagnoses Pneumonia due to COVID-19 virus U07.1; J12.82 Atrial fibrillation with RVR I48.91 Peripheral vascular disease I73.9 COPD (chronic obstructive pulmonary disease) J44.9 Time Spent (min) 49
[2021-04-28 18:23] LABS: Partial Thromboplastin Ratio 3.4
--- NOTE | 2021-04-28 18:35 | Hospitalist Progress Note ---
Date of Service April 28, 2021 Assessment & Plan (1) Acute hypoxemic respiratory failure due to COVID-19: Plan: Unvaccinated COVID 19 patient. Pt was intubated after decompensating due to afib RVR 04/27/21, subsequently extubated, did convert from afib with amiodarone gtt icu team asks to downgrade in evening of 04/28/21 as stable after extubation 2 L nc She reports she did not want to have CPR. Will place on DEXA, resume REMDESEVIR since extubation (2) Atrial fibrillation with RVR: Plan: Patient given amiodarone drip cardiology request transition oral medication post extubation. This was transitioned to 40 twice daily in the evening of 04/28/2021 were also continuing her metoprolol and anticoagulation (3) COPD (chronic obstructive pulmonary disease): Plan: COPD exacerbation as stated above (4) Hyperlipidemia: Plan: Able to resume home medications as patient is now on 2 L nasal cannula (5) HTN (hypertension): Plan: Post extubation blood pressure has been low but stable we will continue beta- harsh and watch blood pressures a day unfolds (6) Anxiety: Plan: Patient restarting her anxiety medications as she is now off sedation for ventilation Admission and Anticipated Discharge Date Admission Date: April 27, 2021 Subjective Spontaneous breathing trial performed this afternoon when sedation was stopped. Patient was responding very well to commands and is doing quite well on spo ntaneous breathing trial. We will aim to extubate her. She did have an episode of atrial fibrillation with rapid ventricular response when sedation is weaned which reverted to normal sinus rhythm after 5 mg of IV metoprolol. Review of Systems Review of Systems: Unobtainable due to cognitive status and Unobtainable due to endotracheal tube Physical Exam Physical Exam: The patient appeared sedate and ventilated, post extubation is with raspy voice and still some respiratory distress Vital signs as documented. Head exam is normocephalic atraumatic Neck is without JVD, no stridor Lungs are coarse bilatreally Cardiac exam, Rhythm is regular..converted from afib Abdominal exam reveals normal bowel sounds, soft Extremities are nonedematous and both pedal pulses are present Results & Data Results & Data ([facility]) Vital Signs (Past 12 Hours) Vital Signs Temp Pulse Resp BP Pulse Ox 04/28/21 18:00 98.2 F 76 19 97 04/28/21 17:00 98.1 F 77 26 H 94 04/28/21 16:00 98.2 F 68 14 106/60 96 04/28/21 15:03 130 H 114/48 L 04/28/21 15:00 98.6 F 123 H 28 H 94 04/28/21 14:53 70 28 H 97 04/28/21 14:00 98.8 F 60 28 H 98 04/28/21 13:00 99.5 F 58 L 28 H 150/80 H 99 04/28/21 12:00 100.2 F H 68 28 H 97 04/28/21 11:24 75 130/60 04/28/21 11:00 100.2 F H 72 28 H 97 04/28/21 10:19 72 28 H 98 04/28/21 10:00 100.2 F H 72 28 H 130/78 98 04/28/21 09:00 100.0 F H 73 28 H 118/73 98 04/28/21 08:00 99.7 F H 75 28 H 96 04/28/21 07:22 28 H 04/28/21 07:00 99.5 F 73 28 H 94 PG Care Time/CCT Total # of Minutes Spent Total Time Spent with Patient: Total time spent is greater than 50% in coordination of care (as documented) at patient's floor/unit and/or counseling patient: Coding Level of Care Code 88274 Subseq Hosp Care Lvl 3 Diagnoses Acute hypoxemic respiratory failure due to COVID-19 U07.1; J96.01 COPD (chronic obstructive pulmonary disease) J44.1 COPD type: COPD with acute exacerbation Hyperlipidemia E78.5 HTN (hypertension) I10 Anxiety F41.9 Atrial fibrillation with RVR I48.91 (1) COPD (chronic obstructive pulmonary disease) COPD type: COPD with acute exacerbation Qualified Code(s): J44.1 - Chronic obstructive pulmonary disease with (acute) exacerbation
[2021-04-28 18:47] LABS: Partial Thromboplastin Time 90.4 Seconds (21.0-31.0)
[2021-04-28] MEDS: SIMVASTATIN 40 MG TAB PO SCH (20:24)
[2021-04-28] MEDS: METOPROLOL TARTRATE 25 MG TAB PO SCH (20:24)
[2021-04-28] MEDS: APIXABAN 5 MG TABLET PO SCH (20:24)
[2021-04-28] MEDS ORDERED: INSULIN ASPART 100 UNITS/ML 3 ML PEN SC SCH (23:00)
[2021-04-28] MEDS ORDERED: GLUCOSE 10 TABS/TUBE PO PRN (23:24)
[2021-04-29 07:30] LABS: Hematocrit (blood only) 26.7 % (37-47); Hemoglobin 8.4 g/dL (12.0-16.0); Immature Granulocytes # (auto) 0.02 K/uL (0.00-0.02); Immature Granulocytes % (auto) 0.3 %; Lymphocytes # (auto) 0.46 K/uL (1.2-3.4); Lymphocytes % (auto) 6.5 %; Mean Corpuscular Hemoglobin 24.1 pg (25-34); Mean Corpuscular Hgb Conc 31.5 g/dL (32-36); Mean Corpuscular Volume 76.5 fL (80-100); Mean Platelet Volume 9.3 fL (7.4-10.4); Monocytes # (auto) 0.31 K/uL (0.11-0.59); Monocytes % (auto) 4.4 %; Neutrophils # (auto) 6.31 K/uL (1.4-6.5); Neutrophils % (auto) 88.8 %; Platelet Count 199 K/uL (130-400); RDW Coefficient of Variation 16.1 % (11.5-14.5); RDW Standard Deviation 45.5 fL (36.4-46.3); Red Blood Count 3.49 M/uL (4.2-5.4)
[2021-04-29 07:42] LABS: Partial Thromboplastin Ratio 1.3; Partial Thromboplastin Time 35.1 Seconds (21.0-31.0)
[2021-04-29] MEDS: APIXABAN 5 MG TABLET PO SCH ×2 (07:56→20:38)
[2021-04-29] MEDS: PANTOprazole 40 MG TAB PO SCH (07:57)
[2021-04-29] MEDS: AMIODARONE 200 MG TAB PO SCH ×2 (07:57→17:52)
[2021-04-29] MEDS: METOPROLOL TARTRATE 25 MG TAB PO SCH ×2 (07:57→20:39)
[2021-04-29] MEDS: UMECLIDINIUM/VILANTEROL 62.5/25MCG 7 PUFFS/INHALER INH SCH (07:58)
[2021-04-29] MEDS: FLUTICASONE FUROATE 100MCG 14 PUFFS/INHALER INH SCH (07:58)
[2021-04-29 08:02] LABS: Alanine Aminotransferase 14 (12-78); Aspartate Aminotransferase 20 U/L (15-37); BUN Creatinine Ratio 30.3 (10-20); Blood Urea Nitrogen 25 mg/dl (7-18); Calcium 7.9 mg/dl (8.5-10.1); Carbon Dioxide 21 mmol/L (21-32); Chloride 115 mmol/L (98-107); Est GFR (African American) 78.9 ml/min; Est GFR (Non-African American) 68.1 ml/min; Glucose 133 mg/dl (70-99); Potassium 4.1 mmol/L (3.5-5.1); Sodium 144 mmol/L (136-145)
[2021-04-29 08:18] LABS: Phosphorus 3.1 mg/dl (2.5-4.9); Thyroid Stimulating Hormone < 0.005 uIu/ml (0.300-4.500)
[2021-04-29] MEDS: INSULIN ASPART 100 UNITS/ML 3 ML PEN SC SCH ×4 (08:51→20:41)
[2021-04-29] MEDS: dexAMETHasone 6 MG in SYRINGE 0 ML IV SCH (08:52)
--- NOTE | 2021-04-29 10:43 | Hospitalist Progress Note ---
Date of Service April 29, 2021 Assessment & Plan (1) Acute hypoxemic respiratory failure due to COVID-19: Plan: Unvaccinated COVID 19 patient. Pt was intubated after decompensating due to afib RVR 04/27/21, subsequently extubated, did convert to NSR with amiodarone gtt, remains in NSR stable on 2L NC, she says she wears this at home at night no distress, talking in complete sentences continue dexamethasone, Remdesivir try to wean to room air at rest during the day (2) Atrial fibrillation with RVR: Plan: converted to NSR on amiodarone drip and currently in NSR had SVT yesterday for 5 minutes, continue on monitor continue Amiodarone 400mg BID and then 200mg BID continue full anticoagulation continue metoprolol BID (3) COPD (chronic obstructive pulmonary disease): Plan: COPD, no wheezing on examination at this time as stated above (4) Hyperlipidemia: Plan: Able to resume home medications as patient is now on 2 L nasal cannula (5) HTN (hypertension): Plan: BP stable (6) Anxiety: Plan: Patient restarting her anxiety medications as she is now off sedation for ventilation Admission and Anticipated Discharge Date Admission Date: April 27, 2021 Subjective patient says she is doing well, she wishes she could eat and she wants the left IJ out cause it is bothering her no chest pain, no dyspnea, + cough but not productive no fever/chills, no nausea we discussed earlier events I spoke with Dr. Samuels, continue Amiodarone focus on getting patient stronger Review of Systems Review of Systems: All systems reviewed & are unremarkable except as noted in Subjective Respiratory: + cough; no dyspnea and no dyspnea on exertion Cardiovascular: no chest pain, no palpitations and no edema Physical Exam Physical Exam: General: well developed, well nourished, elderly female, no distress Neck: supple, trachea midline, normal thyroid Lungs: clear to auscultation bilaterally, normal respiratory effort, no accessory muscle use, no distress Heart: regular S1 and S2, no murmur, peripheral pulses normal, capillary refill normal, no edema Abdomen: soft, NT, ND, + BS, no hepatomegaly, normal to percussion Extremities: normal in appearance, no cyanosis, no petechiae, strength is diminished bilaterally Neuro: awake, cooperative, moves all extremities, no focal motor deficits, CN II-XII intact, sensation in extremities intact, normal speech Skin: warm, dry, no rash, normal turgor Psych: Awake, alert oriented x 3, euthymic affect Results & Data Results & Data ([facility]) Vital Signs (Past 12 Hours) Vital Signs Temp Pulse Pulse Resp BP Pulse Ox 04/29/21 07:00 36.7 C 90 30 H 130/75 94 04/29/21 04:14 36.3 C L 84 22 112/78 96 04/29/21 00:00 85 04/28/21 23:46 36.6 C 85 27 H 104/51 L 95 Laboratory Results Laboratory Results - last 24 hr 04/28/21 04/28/21 04/28/21 09:01 10:44 11:00 WBC RBC Hgb Hct MCV MCH MCHC RDW Std Deviation RDW Coeff of Lawson Plt Count MPV Immature Gran % (Auto) Neut % (Auto) Lymph % (Auto) Reynolds % (Auto) Eos % (Auto) Baso % (Auto) Neut # (Auto) Lymph # (Auto) Reynolds # (Auto) Eos # (Auto) Baso # (Auto) Immature Gran # (Auto) APTT 67.9 H* PTT Ratio 2.6 Sodium Potassium Chloride Carbon Dioxide Anion Gap BUN Creatinine Est Cr Clr Drug Dosing Est GFR ( Amer) Est GFR (Non-Af Amer) BUN/Creatinine Ratio Glucose POC Glucose POC Glucose (other) 86 Estimat Average Glucose Hemoglobin A1c Calcium Phosphorus Magnesium AST ALT Troponin I TSH Nasal Screen MRSA (PCR) Negative 04/28/21 04/28/21 04/28/21 11:26 13:10 14:34 WBC RBC Hgb Hct MCV MCH MCHC RDW Std Deviation RDW Coeff of Lawson Plt Count MPV Immature Gran % (Auto) Neut % (Auto) Lymph % (Auto) Reynolds % (Auto) Eos % (Auto) Baso % (Auto) Neut # (Auto) Lymph # (Auto) Reynolds # (Auto) Eos # (Auto) Baso # (Auto) Immature Gran # (Auto) APTT PTT Ratio Sodium Potassium Chloride Carbon Dioxide Anion Gap BUN Creatinine Est Cr Clr Drug Dosing Est GFR ( Amer) Est GFR (Non-Af Amer) BUN/Creatinine Ratio Glucose POC Glucose 170 H 147 H POC Glucose (other) Estimat Average Glucose 143 Hemoglobin A1c 6.6 H Calcium Phosphorus Magnesium AST ALT Troponin I TSH Nasal Screen MRSA (PCR) 04/28/21 04/28/21 04/28/21 14:37 14:47 16:08 WBC RBC Hgb Hct MCV MCH MCHC RDW Std Deviation RDW Coeff of Lawson Plt Count MPV Immature Gran % (Auto) Neut % (Auto) Lymph % (Auto) Reynolds % (Auto) Eos % (Auto) Baso % (Auto) Neut # (Auto) Lymph # (Auto) Reynolds # (Auto) Eos # (Auto) Baso # (Auto) Immature Gran # (Auto) APTT PTT Ratio Sodium Potassium Chloride Carbon Dioxide Anion Gap BUN Creatinine Est Cr Clr Drug Dosing Est GFR ( Amer) Est GFR (Non-Af Amer) BUN/Creatinine Ratio Glucose POC Glucose 133 H POC Glucose (other) 135 H Estimat Average Glucose Hemoglobin A1c Calcium Phosphorus Magnesium AST ALT Troponin I 0.074 H* TSH Nasal Screen MRSA (PCR) 04/28/21 04/28/21 04/28/21 17:11 17:38 18:21 WBC RBC Hgb Hct MCV MCH MCHC RDW Std Deviation RDW Coeff of Lawson Plt Count MPV Immature Gran % (Auto) Neut % (Auto) Lymph % (Auto) Reynolds % (Auto) Eos % (Auto) Baso % (Auto) Neut # (Auto) Lymph # (Auto) Reynolds # (Auto) Eos # (Auto) Baso # (Auto) Immature Gran # (Auto) APTT 90.4 H* PTT Ratio 3.4 Sodium Potassium Chloride Carbon Dioxide Anion Gap BUN Creatinine Est Cr Clr Drug Dosing Est GFR ( Amer) Est GFR (Non-Af Amer) BUN/Creatinine Ratio Glucose POC Glucose 135 H 136 H POC Glucose (other) Estimat Average Glucose Hemoglobin A1c Calcium Phosphorus Magnesium AST ALT Troponin I TSH Nasal Screen MRSA (PCR) 04/28/21 04/29/21 04/29/21 20:50 06:47 06:47 WBC 7.10 RBC 3.49 L Hgb 8.4 L Hct 26.7 L MCV 76.5 L MCH 24.1 L MCHC 31.5 L RDW Std Deviation 45.5 RDW Coeff of Lawson 16.1 H Plt Count 199 MPV 9.3 Immature Gran % (Auto) 0.3 Neut % (Auto) 88.8 Lymph % (Auto) 6.5 Reynolds % (Auto) 4.4 Eos % (Auto) 0.0 Baso % (Auto) 0.0 Neut # (Auto) 6.31 Lymph # (Auto) 0.46 L Reynolds # (Auto) 0.31 Eos # (Auto) 0.00 Baso # (Auto) 0.00 Immature Gran # (Auto) 0.02 APTT PTT Ratio Sodium 144 Potassium 4.1 D Chloride 115 H Carbon Dioxide 21 Anion Gap 8.0 BUN 25 H Creatinine 0.82 Est Cr Clr Drug Dosing 52.0 Est GFR ( Amer) 78.9 Est GFR (Non-Af Amer) 68.1 BUN/Creatinine Ratio 30.3 H Glucose 133 H POC Glucose 137 H POC Glucose (other) Estimat Average Glucose Hemoglobin A1c Calcium 7.9 L Phosphorus 3.1 Magnesium 2.0 AST 20 ALT 14 Troponin I TSH < 0.005 L Nasal Screen MRSA (PCR) 04/29/21 04/29/21 06:53 07:38 WBC RBC Hgb Hct MCV MCH MCHC RDW Std Deviation RDW Coeff of Lawson Plt Count MPV Immature Gran % (Auto) Neut % (Auto) Lymph % (Auto) Reynolds % (Auto) Eos % (Auto) Baso % (Auto) Neut # (Auto) Lymph # (Auto) Reynolds # (Auto) Eos # (Auto) Baso # (Auto) Immature Gran # (Auto) APTT 35.1 H PTT Ratio 1.3 Sodium Potassium Chloride Carbon Dioxide Anion Gap BUN Creatinine Est Cr Clr Drug Dosing Est GFR ( Amer) Est GFR (Non-Af Amer) BUN/Creatinine Ratio Glucose POC Glucose 129 H POC Glucose (other) Estimat Average Glucose Hemoglobin A1c Calcium Phosphorus Magnesium AST ALT Troponin I TSH Nasal Screen MRSA (PCR) Medications Administered Current Inpatient Medications Acetaminophen (Acetaminophen Susp 325 Mg/10.15 Ml Udc) 650 mg PO Q6H PRN PRN Reason: Pain or Fever Stop: 05/28/21 11:21 Albuterol (Albut/Ipratrop 3mg/0.5mg Neb 3 Ml Vial) 3 ml NEB Q4R PRN PRN Reason: Shortness Of Breath Or Wheezing Stop: 05/28/21 02:59 Amiodarone HCl (Amiodarone 200 Mg Tab) 400 mg PO BIDM [facility] Stop: 05/29/21 08:59 Last Admin: 12/04/21 07:57 Dose: 400 mg Documented by: Apixaban (Apixaban 5 Mg Tablet) 5 mg PO BID [facility] Stop: 05/28/21 20:59 Last Admin: 04/29/21 07:56 Dose: 5 mg Documented by: Dextrose (Dextrose 50% 50 Ml Syringe) 25 - 50 ml IV UD PRN; Protocol PRN Reason: Hypoglycemia Protocol Stop: 05/27/21 22:59 Last Admin: 04/28/21 10:55 Dose: 25 ml Documented by: Fluticasone Furoate (Fluticasone Furoate 100mcg 14 Puffs/Inhaler) 1 puffs INH DAILY [facility] Stop: 05/28/21 08:59 Last Admin: 04/29/21 07:58 Dose: 1 puffs Documented by: Glucagon (Glucagon For Inj 1 Mg Vial) 1 mg IM UD PRN; Protocol PRN Reason: Hypoglycemia Protocol Stop: 05/27/21 22:59 Glucose (Glucose 40% Gel 15 Gm Tube) 15 - 30 gm PO UD PRN; Protocol PRN Reason: Hypoglycemia Protocol Stop: 05/27/21 22:59 Glucose (Glucose 10 Tabs/Tube) 4 - 8 tabs PO UD PRN; Protocol PRN Reason: Hypoglycemia Protocol Stop: 05/27/21 22:59 Remdesivir 100 mg/ Sodium (Chloride) 250 mls @ 250 mls/hr IV Q24H [facility]; Protocol Stop: 05/01/21 12:59 Last Infusion: 04/28/21 13:11 Dose: Infused Documented by: Dexamethasone 6 mg/ Syringe 1.5 mls @ 1 mls/min IV Q24H [facility] Stop: 05/28/21 09:59 Last Admin: 04/29/21 08:52 Dose: 1 mls/min Documented by: Insulin Aspart (Insulin Aspart 100 Units/Ml 3 Ml Pen) 0 units SC ACHS [facility] Stop: 05/29/21 07:29 Last Admin: 04/29/21 08:51 Dose: Not Given Documented by: Lorazepam (Lorazepam 0.5 Mg Tab) 0.5 mg PO BID PRN PRN Reason: anxiety Stop: 05/28/21 18:40 Metoprolol Tartrate (Metoprolol Tartrate 25 Mg Tab) 12.5 mg PO BID [facility] Stop: 05/28/21 20:59 Last Admin: 04/29/21 07:57 Dose: 12.5 mg Documented by: Metoprolol Tartrate (Metoprolol Tartrate 1 Mg/Ml Vial) 5 mg IV Q4 PRN PRN Reason: sbp> 185, dbp >95, HR >120 Stop: 05/28/21 18:40 Miscellaneous (Carbohydrates For Hypoglycemia ) 15 - 30 gm PO PRN PRN PRN Reason: Hypoglycemia Treatment Stop: 05/27/21 22:59 Pantoprazole Sodium (Pantoprazole 40 Mg Tab) 40 mg PO DAILY [facility] Stop: 05/29/21 08:59 Last Admin: 04/29/21 07:57 Dose: 40 mg Documented by: Simvastatin (Simvastatin 40 Mg Tab) 40 mg PO HS [facility] Stop: 05/28/21 20:59 Last Admin: 04/28/21 20:24 Dose: 40 mg Documented by: Sodium Chloride (Sodium Chloride 0.9% 10ml Flush) 30 ml IV Q24H [facility] Stop: 05/01/21 14:16 Last Admin: 04/28/21 13:12 Dose: 30 ml Documented by: Umeclidinium/Vilanterol (Umeclidinium/Vilanterol 62.5/25mcg 7 Puffs/Inhaler) 1 puffs INH DAILY [facility] Stop: 05/28/21 08:59 Last Admin: 04/29/21 07:58 Dose: 1 puffs Documented by: PG Care Time/CCT Total # of Minutes Spent Total Time Spent with Patient: Total time spent is greater than 50% in coordination of care (as documented) at patient's floor/unit and/or counseling patient: Coding Level of Care Code 36858 Subseq Hosp Care Lvl 2 Diagnoses Acute hypoxemic respiratory failure due to COVID-19 U07.1; J96.01 Atrial fibrillation with RVR I48.91 COPD (chronic obstructive pulmonary disease) J44.1 COPD type: COPD with acute exacerbation Hyperlipidemia E78.5 HTN (hypertension) I10 Anxiety F41.9 (1) COPD (chronic obstructive pulmonary disease) COPD type: COPD with acute exacerbation Qualified Code(s): J44.1 - Chronic obstructive pulmonary disease with (acute) exacerbation
[2021-04-29] MEDS: REMDESIVIR 100 MG in SODIUM CHLORIDE 0.9% 230 ML IV SCH (12:24)
[2021-04-29] MEDS: SODIUM CHLORIDE 0.9% 10ML FLUSH IV SCH (14:28)
[2021-04-29] MEDS: SIMVASTATIN 40 MG TAB PO SCH (20:39)
[2021-04-30] MEDS: METOPROLOL TARTRATE 25 MG TAB PO SCH ×2 (07:25→19:29)
[2021-04-30] MEDS: AMIODARONE 200 MG TAB PO SCH ×2 (07:25→17:50)
[2021-04-30] MEDS: METOPROLOL TARTRATE 1 MG/ML VIAL IV PRN (07:31)
[2021-04-30] MEDS ORDERED: dilTIAZem HCl 5 MG/ML 5 ML VIAL IV STA (07:37)
[2021-04-30] MEDS ORDERED: dilTIAZem HCl 5 MG/ML 5 ML VIAL IV ONE (07:38)
[2021-04-30 08:55] LABS: Hemoglobin 10.6 g/dL (12.0-16.0); Mean Corpuscular Hemoglobin 24.3 pg (25-34); Mean Corpuscular Hgb Conc 32.1 g/dL (32-36); Mean Corpuscular Volume 75.7 fL (80-100); Mean Platelet Volume 9.6 fL (7.4-10.4); Platelet Count 324 K/uL (130-400); RDW Coefficient of Variation 15.9 % (11.5-14.5); RDW Standard Deviation 44.4 fL (36.4-46.3); Red Blood Count 4.36 M/uL (4.2-5.4); White Blood Count 11.42 K/uL (4.8-10.8)
[2021-04-30] MEDS: APIXABAN 5 MG TABLET PO SCH ×2 (08:56→19:28)
[2021-04-30] MEDS: PANTOprazole 40 MG TAB PO SCH (08:56)
[2021-04-30] MEDS: FLUTICASONE FUROATE 100MCG 14 PUFFS/INHALER INH SCH (08:57)
[2021-04-30] MEDS: UMECLIDINIUM/VILANTEROL 62.5/25MCG 7 PUFFS/INHALER INH SCH (08:57)
[2021-04-30] MEDS: INSULIN ASPART 100 UNITS/ML 3 ML PEN SC SCH ×4 (08:57→20:14)
[2021-04-30] MEDS: dexAMETHasone 6 MG in SYRINGE 0 ML IV SCH (08:58)
[2021-04-30 09:06] LABS: BUN Creatinine Ratio 38.2 (10-20); Calcium 8.9 mg/dl (8.5-10.1); Creatinine Clr Calc Pharmacy 51.3 ml/min; Est GFR (African American) 78.9 ml/min; Est GFR (Non-African American) 68.1 ml/min; Phosphorus 2.7 mg/dl (2.5-4.9); Potassium 3.8 mmol/L (3.5-5.1)
[2021-04-30 09:28] LABS: Anisocytosis Present; Echinocytes 1+; Immature Granulocytes # (auto) 0.05 K/uL (0.00-0.02); Immature Granulocytes % (auto) 0.4 %; Lymphocytes % (auto) 5.3 %; Monocytes # (auto) 0.65 K/uL (0.11-0.59); Monocytes % (auto) 5.7 %; Neutrophils # (auto) 10.12 K/uL (1.4-6.5); Neutrophils % (auto) 88.6 %; Ovalocytes 1+
--- NOTE | 2021-04-30 11:20 | Hospitalist Progress Note ---
Date of Service April 30, 2021 Assessment & Plan (1) Acute hypoxemic respiratory failure due to COVID-19: Plan: Unvaccinated COVID 19 patient. Pt was intubated after decompensating due to afib RVR 04/27/21, subsequently extubated, did convert to NSR with amiodarone gtt, remains in NSR stable on 2L NC again today, she says she wears this at home at night no distress, talking in complete sentences sitting upright in a chair, breathing a little fast but no distress continue dexamethasone 6mg IV daily x 10 days continue Remdesivir x 5 days, last day would be 05/01 try to wean to room air at rest during the day (2) Atrial fibrillation with RVR: Plan: converted to NSR on amiodarone drip shortly after admission this morning she had afib and then aflutter for 30 minutes, rates up to 150 in itially responded to Lopressor 5mg IV and then diltiazem 10mg IV push back in NSR continue Amiodarone 400mg BID and then 200mg BID once okay with cardiology continue full anticoagulation continue metoprolol BID (3) COPD (chronic obstructive pulmonary disease): Plan: COPD, no wheezing on examination at this time as stated above (4) Hyperlipidemia: Plan: Able to resume home medications as patient is now on 2 L nasal cannula (5) HTN (hypertension): Plan: BP stable (6) Anxiety: Plan: Patient restarting her anxiety medications as she is now off sedation for ventilation Admission and Anticipated Discharge Date Admission Date: April 27, 2021 Subjective patient went into afib and aflutter with RVR this morning broke with Diltiazem 10mg IV push breathing well on low flow nasal canula discussed plan with Dr. Samuels no fever, minimal cough, no dyspnea Review of Systems Review of Systems: All systems reviewed & are unremarkable except as noted in Subjective Physical Exam Physical Exam: General: well developed, well nourished, elderly female, no distress Neck: supple, trachea midline, normal thyroid Lungs: clear to auscultation bilaterally, normal respiratory effort, no accessory muscle use, no distress Heart: regular S1 and S2, no murmur, peripheral pulses normal, capillary refill normal, no edema Abdomen: soft, NT, ND, + BS, no hepatomegaly, normal to percussion Extremities: normal in appearance, no cyanosis, no petechiae, strength is diminished bilaterally Neuro: awake, cooperative, moves all extremities, no focal motor deficits, CN II-XII intact, sensation in extremities intact, normal speech Skin: warm, dry, no rash, normal turgor Psych: Awake, alert oriented x 3, euthymic affect Results & Data Results & Data ([facility]) Vital Signs (Past 12 Hours) Vital Signs Temp Pulse Pulse Resp BP BP Pulse Ox 04/30/21 07:31 141 H 154/132 H 04/30/21 06:08 87 132/91 04/30/21 04:07 36.6 C 85 19 165/116 H 94 04/30/21 03:03 148/89 H 04/30/21 02:16 80 19 143/102 H 94 04/30/21 01:15 77 19 167/113 H 94 04/30/21 00:01 88 20 140/100 93 04/29/21 23:33 81 04/29/21 23:25 36.7 C 87 19 147/104 H 93 Laboratory Results Laboratory Results - last 24 hr 04/29/21 04/29/21 04/29/21 11:26 17:16 20:30 WBC RBC Hgb Hct MCV MCH MCHC RDW Std Deviation RDW Coeff of Lawson Plt Count MPV Immature Gran % (Auto) Neut % (Auto) Lymph % (Auto) Thomas % (Auto) Eos % (Auto) Baso % (Auto) Neut # (Auto) Lymph # (Auto) Thomas # (Auto) Eos # (Auto) Baso # (Auto) Immature Gran # (Auto) Anisocytosis Ovalocytes Echinocytes Sodium Potassium Chloride Carbon Dioxide Anion Gap BUN Creatinine Est Cr Clr Drug Dosing Est GFR ( Amer) Est GFR (Non-Af Amer) BUN/Creatinine Ratio Glucose POC Glucose 140 H 175 H 218 H Calcium Phosphorus Magnesium AST ALT 04/30/21 04/30/21 04/30/21 07:29 07:45 07:45 WBC 11.42 H RBC 4.36 Hgb 10.6 L Hct 33.0 L MCV 75.7 L MCH 24.3 L MCHC 32.1 RDW Std Deviation 44.4 RDW Coeff of Lawson 15.9 H Plt Count 324 D MPV 9.6 Immature Gran % (Auto) 0.4 Neut % (Auto) 88.6 Lymph % (Auto) 5.3 Thomas % (Auto) 5.7 Eos % (Auto) 0.0 Baso % (Auto) 0.0 Neut # (Auto) 10.12 H Lymph # (Auto) 0.60 L Thomas # (Auto) 0.65 H Eos # (Auto) 0.00 Baso # (Auto) 0.00 Immature Gran # (Auto) 0.05 H Anisocytosis Present Ovalocytes 1+ Echinocytes 1+ Sodium 139 Potassium 3.8 Chloride 105 Carbon Dioxide 24 Anion Gap 10.0 BUN 31 H Creatinine 0.82 Est Cr Clr Drug Dosing 51.3 Est GFR ( Amer) 78.9 Est GFR (Non-Af Amer) 68.1 BUN/Creatinine Ratio 38.2 H Glucose 133 H POC Glucose 134 H Calcium 8.9 Phosphorus 2.7 Magnesium 2.0 AST 34 ALT 23 Medications Administered Current Inpatient Medications Acetaminophen (Acetaminophen Susp 325 Mg/10.15 Ml Udc) 650 mg PO Q6H PRN PRN Reason: Pain or Fever Stop: 05/28/21 11:21 Albuterol (Albut/Ipratrop 3mg/0.5mg Neb 3 Ml Vial) 3 ml NEB Q4R PRN PRN Reason: Shortness Of Breath Or Wheezing Stop: 05/28/21 02:59 Amiodarone HCl (Amiodarone 200 Mg Tab) 400 mg PO BIDM [facility] Stop: 05/29/21 08:59 Last Admin: 04/30/21 07:25 Dose: 400 mg Documented by: Apixaban (Apixaban 5 Mg Tablet) 5 mg PO BID [facility] Stop: 05/28/21 20:59 Last Admin: 04/30/21 08:56 Dose: 5 mg Documented by: Dextrose (Dextrose 50% 50 Ml Syringe) 25 - 50 ml IV UD PRN; Protocol PRN Reason: Hypoglycemia Protocol Stop: 05/27/21 22:59 Last Admin: 04/28/21 10:55 Dose: 25 ml Documented by: Fluticasone Furoate (Fluticasone Furoate 100mcg 14 Puffs/Inhaler) 1 puffs INH DAILY [facility] Stop: 05/28/21 08:59 Last Admin: 04/30/21 08:57 Dose: 1 puffs Documented by: Glucagon (Glucagon For Inj 1 Mg Vial) 1 mg IM UD PRN; Protocol PRN Reason: Hypoglycemia Protocol Stop: 05/27/21 22:59 Glucose (Glucose 40% Gel 15 Gm Tube) 15 - 30 gm PO UD PRN; Protocol PRN Reason: Hypoglycemia Protocol Stop: 05/27/21 22:59 Glucose (Glucose 10 Tabs/Tube) 4 - 8 tabs PO UD PRN; Protocol PRN Reason: Hypoglycemia Protocol Stop: 05/27/21 22:59 Remdesivir 100 mg/ Sodium (Chloride) 250 mls @ 250 mls/hr IV Q24H [facility]; Protocol Stop: 05/01/21 12:59 Last Infusion: 04/29/21 14:24 Dose: Infused Documented by: Dexamethasone 6 mg/ Syringe 1.5 mls @ 1 mls/min IV Q24H [facility] Stop: 05/28/21 09:59 Last Admin: 04/30/21 08:58 Dose: 1 mls/min Documented by: Insulin Aspart (Insulin Aspart 100 Units/Ml 3 Ml Pen) 0 units SC ACHS [facility] Stop: 05/29/21 07:29 Last Admin: 04/30/21 08:57 Dose: Not Given Documented by: Lorazepam (Lorazepam 0.5 Mg Tab) 0.5 mg PO BID PRN PRN Reason: anxiety Stop: 05/28/21 18:40 Metoprolol Tartrate (Metoprolol Tartrate 25 Mg Tab) 12.5 mg PO BID [facility] Stop: 05/28/21 20:59 Last Admin: 04/30/21 07:25 Dose: 12.5 mg Documented by: Metoprolol Tartrate (Metoprolol Tartrate 1 Mg/Ml Vial) 5 mg IV Q4 PRN PRN Reason: sbp> 185, dbp >95, HR >120 Stop: 05/28/21 18:40 Last Admin: 04/30/21 07:31 Dose: 5 mg Documented by: Miscellaneous (Carbohydrates For Hypoglycemia ) 15 - 30 gm PO PRN PRN PRN Reason: Hypoglycemia Treatment Stop: 05/27/21 22:59 Pantoprazole Sodium (Pantoprazole 40 Mg Tab) 40 mg PO DAILY [facility] Stop: 05/29/21 08:59 Last Admin: 04/30/21 08:56 Dose: 40 mg Documented by: Simvastatin (Simvastatin 40 Mg Tab) 40 mg PO HS [facility] Stop: 05/28/21 20:59 Last Admin: 04/29/21 20:39 Dose: 40 mg Documented by: Sodium Chloride (Sodium Chloride 0.9% 10ml Flush) 30 ml IV Q24H [facility] Stop: 05/01/21 14:16 Last Admin: 04/29/21 14:28 Dose: 30 ml Documented by: Umeclidinium/Vilanterol (Umeclidinium/Vilanterol 62.5/25mcg 7 Puffs/Inhaler) 1 puffs INH DAILY [facility] Stop: 05/28/21 08:59 Last Admin: 04/30/21 08:57 Dose: 1 puffs Documented by: PG Care Time/CCT Total # of Minutes Spent Total Time Spent with Patient: Total time spent is greater than 50% in coordination of care (as documented) at patient's floor/unit and/or counseling patient: Coding Level of Care Code 04618 Subseq Hosp Care Lvl 2 Diagnoses Acute hypoxemic respiratory failure due to COVID-19 U07.1; J96.01 Atrial fibrillation with RVR I48.91 COPD (chronic obstructive pulmonary disease) J44.1 COPD type: COPD with acute exacerbation Hyperlipidemia E78.5 HTN (hypertension) I10 Anxiety F41.9 (1) COPD (chronic obstructive pulmonary disease) COPD type: COPD with acute exacerbation Qualified Code(s): J44.1 - Chronic obstructive pulmonary disease with (acute) exacerbation
[2021-04-30] MEDS: ACETAMINOPHEN SUSP 325 MG/10.15 ML UDC PO PRN (12:32)
[2021-04-30] MEDS: REMDESIVIR 100 MG in SODIUM CHLORIDE 0.9% 230 ML IV SCH (12:32)
[2021-04-30] MEDS: SODIUM CHLORIDE 0.9% 10ML FLUSH IV SCH (14:00)
[2021-04-30] MEDS: SIMVASTATIN 40 MG TAB PO SCH (19:28)
[2021-05-01] MEDS: METOPROLOL TARTRATE 1 MG/ML VIAL IV PRN (04:13)
[2021-05-01 07:00] LABS: Creatinine Clr Calc Pharmacy 42.1 ml/min; Est GFR (African American) 64.4 ml/min; Est GFR (Non-African American) 55.5 ml/min
[2021-05-01] MEDS: APIXABAN 5 MG TABLET PO SCH ×2 (08:42→20:35)
[2021-05-01] MEDS: dexAMETHasone 6 MG in SYRINGE 0 ML IV SCH (08:42)
[2021-05-01] MEDS: METOPROLOL TARTRATE 25 MG TAB PO SCH ×2 (08:42→20:35)
[2021-05-01] MEDS: AMIODARONE 200 MG TAB PO SCH ×2 (08:42→17:05)
[2021-05-01] MEDS: FLUTICASONE FUROATE 100MCG 14 PUFFS/INHALER INH SCH (08:43)
[2021-05-01] MEDS: UMECLIDINIUM/VILANTEROL 62.5/25MCG 7 PUFFS/INHALER INH SCH (08:43)
[2021-05-01] MEDS: PANTOprazole 40 MG TAB PO SCH (08:43)
[2021-05-01] MEDS: INSULIN ASPART 100 UNITS/ML 3 ML PEN SC SCH ×4 (09:04→20:39)
[2021-05-01] MEDS ORDERED: METOPROLOL TARTRATE 25 MG TAB PO STA (10:54)
--- NOTE | 2021-05-01 11:02 | Hospitalist Progress Note ---
Date of Service May 01, 2021 Assessment & Plan (1) Acute hypoxemic respiratory failure due to COVID-19: Plan: Unvaccinated COVID 19 patient. Pt was intubated after decompensating due to afib RVR 04/27/21, subsequently extubated, did convert to NSR with amiodarone gtt, remains in NSR stable on 2L NC for three days, she says she wears this at home at night no distress, talking in complete sentences sitting upright in a chair, breathing a little fast but no distress continue dexamethasone 6mg IV daily x 10 days, day 5 today continue Remdesivir x 5 days, last day would be 05/01 (today) try to wean to room air at rest during the day move to [facility], 2 W covid unit (2) Atrial fibrillation with RVR: Plan: converted to NSR on amiodarone drip shortly after admission 04/30 in morning she had afib and then aflutter for 30 minutes, rates up to 150 initially responded to Lopressor 5mg IV and then diltiazem 10mg IV push back in NSR today with sinus tachycardia, 100's, will increase to metoprolol 25mg BID she takes cardizem 240mg daily prior to admission, consider resuming at lower dose if HR stays high continue Amiodarone 400mg BID and then 200mg BID once okay with cardiology continue full anticoagulation (3) COPD (chronic obstructive pulmonary disease): Plan: COPD, no wheezing on examination at this time as stated above (4) Hyperlipidemia: Plan: Able to resume home medications as patient is now on 2 L nasal cannula (5) HTN (hypertension): Plan: BP stable (6) Anxiety: Plan: Patient restarting her anxiety medications as she is now off sedation for ventilation Plan: move to 2W COVID unit PT/OT Admission and Anticipated Discharge Date Admission Date: April 27, 2021 Subjective patient doing well, has a wet cough, not short of breath no chest pain or palpitations on monitor she is in sinus tachycardia, will increase her metoprolol to 25mg BID, give 12.5mg additional today eating okay move to [facility] today Review of Systems Review of Systems: All systems reviewed & are unremarkable except as noted in Subjective Physical Exam Physical Exam: General: well developed, well nourished, elderly female, no distress Neck: supple, trachea midline, normal thyroid Lungs: clear to auscultation bilaterally, normal respiratory effort, no accessory muscle use, no distress Heart: tachycardic S1 and S2, no murmur, peripheral pulses normal, capillary ref ill normal, no edema Abdomen: soft, NT, ND, + BS, no hepatomegaly, normal to percussion Extremities: normal in appearance, no cyanosis, no petechiae, strength is diminished bilaterally Neuro: awake, cooperative, moves all extremities, no focal motor deficits, CN II-XII intact, sensation in extremities intact, normal speech Skin: warm, dry, no rash, normal turgor Psych: Awake, alert oriented x 3, euthymic affect Results & Data Results & Data ([facility]) Vital Signs (Past 12 Hours) Vital Signs Temp Pulse Pulse Resp BP BP BP 05/01/21 07:50 36.5 C 106 H 23 127/83 05/01/21 04:13 99 H 165/107 H 05/01/21 04:11 37.1 C 99 H 24 165/107 H 05/01/21 00:00 99 H 04/30/21 23:44 36.6 C 86 24 150/92 H Pulse Ox 05/01/21 07:50 92 05/01/21 04:13 05/01/21 04:11 93 05/01/21 00:00 04/30/21 23:44 92 Laboratory Results Laboratory Results - last 24 hr 04/30/21 04/30/21 04/30/21 11:33 16:48 20:13 Creatinine Est Cr Clr Drug Dosing Est GFR ( Amer) Est GFR (Non-Af Amer) POC Glucose 188 H 211 H 204 H AST ALT 05/01/21 05/01/21 05:46 07:48 Creatinine 0.97 Est Cr Clr Drug Dosing 42.1 Est GFR ( Amer) 64.4 Est GFR (Non-Af Amer) 55.5 POC Glucose 125 H AST 36 ALT 29 Medications Administered Current Inpatient Medications Acetaminophen (Acetaminophen Susp 325 Mg/10.15 Ml Udc) 650 mg PO Q6H PRN PRN Reason: Pain or Fever Stop: 05/28/21 11:21 Last Admin: 04/30/21 12:32 Dose: 650 mg Documented by: Albuterol (Albut/Ipratrop 3mg/0.5mg Neb 3 Ml Vial) 3 ml NEB Q4R PRN PRN Reason: Shortness Of Breath Or Wheezing Stop: 05/28/21 02:59 Amiodarone HCl (Amiodarone 200 Mg Tab) 400 mg PO BIDM [facility] Stop: 05/29/21 08:59 Last Admin: 05/01/21 08:42 Dose: 400 mg Documented by: Apixaban (Apixaban 5 Mg Tablet) 5 mg PO BID [facility] Stop: 05/28/21 20:59 Last Admin: 05/01/21 08:42 Dose: 5 mg Documented by: Dextrose (Dextrose 50% 50 Ml Syringe) 25 - 50 ml IV UD PRN; Protocol PRN Reason: Hypoglycemia Protocol Stop: 05/27/21 22:59 Last Admin: 04/28/21 10:55 Dose: 25 ml Documented by: Fluticasone Furoate (Fluticasone Furoate 100mcg 14 Puffs/Inhaler) 1 puffs INH DAILY [facility] Stop: 05/28/21 08:59 Last Admin: 05/01/21 08:43 Dose: 1 puffs Documented by: Glucagon (Glucagon For Inj 1 Mg Vial) 1 mg IM UD PRN; Protocol PRN Reason: Hypoglycemia Protocol Stop: 05/27/21 22:59 Glucose (Glucose 40% Gel 15 Gm Tube) 15 - 30 gm PO UD PRN; Protocol PRN Reason: Hypoglycemia Protocol Stop: 05/27/21 22:59 Glucose (Glucose 10 Tabs/Tube) 4 - 8 tabs PO UD PRN; Protocol PRN Reason: Hypoglycemia Protocol Stop: 05/27/21 22:59 Remdesivir 100 mg/ Sodium (Chloride) 250 mls @ 250 mls/hr IV Q24H [facility]; Protocol Stop: 05/01/21 12:59 Last Infusion: 04/30/21 14:01 Dose: Infused Documented by: Dexamethasone 6 mg/ Syringe 1.5 mls @ 1 mls/min IV Q24H [facility] Stop: 05/28/21 09:59 Last Admin: 05/01/21 08:42 Dose: 1 mls/min Documented by: Insulin Aspart (Insulin Aspart 100 Units/Ml 3 Ml Pen) 0 units SC ACHS [facility] Stop: 05/29/21 07:29 Last Admin: 05/01/21 09:04 Dose: Not Given Documented by: Lorazepam (Lorazepam 0.5 Mg Tab) 0.5 mg PO BID PRN PRN Reason: anxiety Stop: 05/28/21 18:40 Metoprolol Tartrate (Metoprolol Tartrate 1 Mg/Ml Vial) 5 mg IV Q4 PRN PRN Reason: sbp> 185, dbp >95, HR >120 Stop: 05/28/21 18:40 Last Admin: 05/01/21 04:13 Dose: 5 mg Documented by: Metoprolol Tartrate (Metoprolol Tartrate 25 Mg Tab) 25 mg PO BID [facility] Stop: 05/31/21 20:59 Miscellaneous (Carbohydrates For Hypoglycemia ) 15 - 30 gm PO PRN PRN PRN Reason: Hypoglycemia Treatment Stop: 05/27/21 22:59 Pantoprazole Sodium (Pantoprazole 40 Mg Tab) 40 mg PO DAILY [facility] Stop: 05/29/21 08:59 Last Admin: 05/01/21 08:43 Dose: 40 mg Documented by: Simvastatin (Simvastatin 40 Mg Tab) 40 mg PO HS [facility] Stop: 05/28/21 20:59 Last Admin: 04/30/21 19:28 Dose: 40 mg Documented by: Sodium Chloride (Sodium Chloride 0.9% 10ml Flush) 30 ml IV Q24H [facility] Stop: 05/01/21 14:16 Last Admin: 04/30/21 14:00 Dose: 30 ml Documented by: Umeclidinium/Vilanterol (Umeclidinium/Vilanterol 62.5/25mcg 7 Puffs/Inhaler) 1 puffs INH DAILY [facility] Stop: 05/28/21 08:59 Last Admin: 05/01/21 08:43 Dose: 1 puffs Documented by: PG Care Time/CCT Total # of Minutes Spent Total Time Spent with Patient: Total time spent is greater than 50% in coordination of care (as documented) at patient's floor/unit and/or counseling patient: Coding Level of Care Code 58357 Subseq Hosp Care Lvl 2 Diagnoses Acute hypoxemic respiratory failure due to COVID-19 U07.1; J96.01 Atrial fibrillation with RVR I48.91 COPD (chronic obstructive pulmonary disease) J44.1 COPD type: COPD with acute exacerbation Hyperlipidemia E78.5 HTN (hypertension) I10 Anxiety F41.9 (1) COPD (chronic obstructive pulmonary disease) COPD type: COPD with acute exacerbation Qualified Code(s): J44.1 - Chronic obstructive pulmonary disease with (acute) exacerbation
[2021-05-01] MEDS: REMDESIVIR 100 MG in SODIUM CHLORIDE 0.9% 230 ML IV SCH (11:54)
[2021-05-01] MEDS: ACETAMINOPHEN SUSP 325 MG/10.15 ML UDC PO PRN (12:00)
[2021-05-01] MEDS: SODIUM CHLORIDE 0.9% 10ML FLUSH IV SCH (14:19)
[2021-05-01] MEDS: LOSARTAN POTASSIUM 50 MG TAB PO SCH (17:05)
[2021-05-01] MEDS: SIMVASTATIN 40 MG TAB PO SCH (20:35)
[2021-05-02 07:36] LABS: Creatinine Clr Calc Pharmacy 34.6 ml/min; Est GFR (African American) 55.9 ml/min; Est GFR (Non-African American) 48.2 ml/min
[2021-05-02] MEDS: INSULIN ASPART 100 UNITS/ML 3 ML PEN SC SCH ×4 (08:42→21:52)
[2021-05-02] MEDS: AMIODARONE 200 MG TAB PO SCH ×2 (08:46→17:35)
[2021-05-02] MEDS: LOSARTAN POTASSIUM 50 MG TAB PO SCH (08:47)
[2021-05-02] MEDS: METOPROLOL TARTRATE 25 MG TAB PO SCH ×3 (08:47→21:51)
[2021-05-02] MEDS: FLUTICASONE FUROATE 100MCG 14 PUFFS/INHALER INH SCH (08:47)
[2021-05-02] MEDS: APIXABAN 5 MG TABLET PO SCH ×2 (08:47→21:51)
[2021-05-02] MEDS: PANTOprazole 40 MG TAB PO SCH (08:47)
[2021-05-02] MEDS: UMECLIDINIUM/VILANTEROL 62.5/25MCG 7 PUFFS/INHALER INH SCH (08:48)
[2021-05-02] MEDS: dexAMETHasone 6 MG in SYRINGE 0 ML IV SCH (11:16)
--- NOTE | 2021-05-02 11:56 | Hospitalist Progress Note ---
Date of Service May 02, 2021 Assessment & Plan (1) Acute hypoxemic respiratory failure due to COVID-19: Plan: Unvaccinated COVID 19 patient. Pt was intubated after decompensating due to afib RVR 04/27/21, subsequently extubated, did convert to NSR with amiodarone gtt, remains in NSR stable on 2L NC for four days, she says she wears this at home at night no distress, talking in complete sentences sitting upright in a chair, breathing a little fast but no distress continue dexamethasone 6mg IV daily x 10 days, day 6 today completed Remdesivir try to wean to room air at rest during the day move to [facility] [employer], 2 W covid unit encourage flutter valve consult PT/OT, suspect she may need rehab (2) Atrial fibrillation with RVR: Plan: converted to NSR on amiodarone drip shortly after admission 04/30 in morning she had afib and then aflutter for 30 minutes, rates up to 150 initially responded to Lopressor 5mg IV and then diltiazem 10mg IV push back in NSR today with sinus tachycardia, 90-100's, will increase to metoprolol 25mg TID from BID decrease Amiodarone to 200mg BID, keep on this dose and follow up with cardiology continue full anticoagulation (3) COPD (chronic obstructive pulmonary disease): Plan: COPD, no wheezing on examination at this time as stated above (4) Hyperlipidemia: Plan: Able to resume home medications as patient is now on 2 L nasal cannula (5) HTN (hypertension): Plan: BP stable (6) Anxiety: Plan: Patient restarting her anxiety medications as she is now off sedation for ventilation Plan: move to 2W COVID unit PT/OT Admission and Anticipated Discharge Date Admission Date: April 27, 2021 Subjective patient doing well, needed by help to sit up, she is weaker than normal HR is 90-100's on the metoprolol BID, will try increasing to TID she still has a rattle in the back of her throat, cough, encouraged her to use flutter valve, sit up more will have RN get her to a chair during the day she is eating okay, not great asking about going home, told her she will be here a few more days, she may need rehab Review of Systems Review of Systems: All systems reviewed & are unremarkable except as noted in Subjective Constitutional: + fatigue and + weakness; no fever Respiratory: + cough and + dyspnea on exertion Cardiovascular: no chest pain Physical Exam Physical Exam: General: well developed, well nourished, elderly female, no distress Neck: supple, trachea midline, normal thyroid Lungs: clear to auscultation bilaterally, normal respiratory effort, no accessory muscle use, no distress Heart: tachycardic S1 and S2, no murmur, peripheral pulses normal, capillary refill normal, no edema Abdomen: soft, NT, ND, + BS, no hepatomegaly, normal to percussion Extremities: normal in appearance, no cyanosis, no petechiae, strength is diminished bilaterally Neuro: awake, cooperative, moves all extremities, no focal motor deficits, CN II-XII intact, sensation in extremities intact, normal speech Skin: warm, dry, no rash, normal turgor Psych: Awake, alert oriented x 3, euthymic affect Results & Data Results & Data ([facility]) Vital Signs (Past 12 Hours) Vital Signs Temp Pulse Pulse Pulse Resp BP BP 05/02/21 11:49 36.2 C L 91 H 18 167/78 H 05/02/21 08:45 36.3 C L 101 H 20 130/85 05/02/21 08:00 102 H 05/02/21 07:48 36.9 C 59 L 18 110/70 05/02/21 03:22 36.5 C 93 H 18 163/94 H Pulse Ox 05/02/21 11:49 91 05/02/21 08:45 90 05/02/21 08:00 05/02/21 07:48 100 05/02/21 03:22 94 Laboratory Results Laboratory Results - last 24 hr 05/01/21 05/01/21 05/01/21 11:56 16:22 20:38 Creatinine Est Cr Clr Drug Dosing Est GFR ( Amer) Est GFR (Non-Af Amer) POC Glucose 141 H 213 H 159 H AST ALT 05/02/21 05/02/21 06:22 07:16 Creatinine 1.09 Est Cr Clr Drug Dosing 34.6 Est GFR ( Amer) 55.9 Est GFR (Non-Af Amer) 48.2 POC Glucose 140 H AST 27 ALT 29 Medications Administered Current Inpatient Medications Acetaminophen (Acetaminophen Susp 325 Mg/10.15 Ml Udc) 650 mg PO Q6H PRN PRN Reason: Pain or Fever Stop: 05/28/21 11:21 Last Admin: 05/01/21 12:00 Dose: 650 mg Documented by: Albuterol (Albut/Ipratrop 3mg/0.5mg Neb 3 Ml Vial) 3 ml NEB Q4R PRN PRN Reason: Shortness Of Breath Or Wheezing Stop: 05/28/21 02:59 Amiodarone HCl (Amiodarone 200 Mg Tab) 200 mg PO BIDM [facility] Stop: 06/01/21 16:59 Apixaban (Apixaban 5 Mg Tablet) 5 mg PO BID [facility] Stop: 05/28/21 20:59 Last Admin: 05/02/21 08:47 Dose: 5 mg Documented by: Dextrose (Dextrose 50% 50 Ml Syringe) 25 - 50 ml IV UD PRN; Protocol PRN Reason: Hypoglycemia Protocol Stop: 05/27/21 22:59 Last Admin: 04/28/21 10:55 Dose: 25 ml Documented by: Fluticasone Furoate (Fluticasone Furoate 100mcg 14 Puffs/Inhaler) 1 puffs INH DAILY [facility] Stop: 05/28/21 08:59 Last Admin: 05/02/21 08:47 Dose: 1 puffs Documented by: Glucagon (Glucagon For Inj 1 Mg Vial) 1 mg IM UD PRN; Protocol PRN Reason: Hypoglycemia Protocol Stop: 05/27/21 22:59 Glucose (Glucose 40% Gel 15 Gm Tube) 15 - 30 gm PO UD PRN; Protocol PRN Reason: Hypoglycemia Protocol Stop: 05/27/21 22:59 Glucose (Glucose 10 Tabs/Tube) 4 - 8 tabs PO UD PRN; Protocol PRN Reason: Hypoglycemia Protocol Stop: 05/27/21 22:59 Dexamethasone 6 mg/ Syringe 1.5 mls @ 1 mls/min IV Q24H [facility] Stop: 05/28/21 09:59 Last Admin: 05/02/21 11:16 Dose: 1 mls/min Documented by: Insulin Aspart (Insulin Aspart 100 Units/Ml 3 Ml Pen) 0 units SC ACHS [facility] Stop: 05/29/21 07:29 Last Admin: 05/02/21 08:42 Dose: Not Given Documented by: Lorazepam (Lorazepam 0.5 Mg Tab) 0.5 mg PO BID PRN PRN Reason: anxiety Stop: 05/28/21 18:40 Losartan Potassium (Losartan Potassium 50 Mg Tab) 100 mg PO DAILY [facility] Stop: 05/31/21 16:14 Last Admin: 05/02/21 08:47 Dose: 100 mg Documented by: Metoprolol Tartrate (Metoprolol Tartrate 1 Mg/Ml Vial) 5 mg IV Q4 PRN PRN Reason: sbp> 185, dbp >95, HR >120 Stop: 05/28/21 18:40 Last Admin: 05/01/21 04:13 Dose: 5 mg Documented by: Metoprolol Tartrate (Metoprolol Tartrate 25 Mg Tab) 25 mg PO TID [facility] Stop: 06/01/21 13:59 Miscellaneous (Carbohydrates For Hypoglycemia ) 15 - 30 gm PO PRN PRN PRN Reason: Hypoglycemia Treatment Stop: 05/27/21 22:59 Pantoprazole Sodium (Pantoprazole 40 Mg Tab) 40 mg PO DAILY [facility] Stop: 05/29/21 08:59 Last Admin: 05/02/21 08:47 Dose: 40 mg Documented by: Simvastatin (Simvastatin 40 Mg Tab) 40 mg PO HS [facility] Stop: 05/28/21 20:59 Last Admin: 05/01/21 20:35 Dose: 40 mg Documented by: Umeclidinium/Vilanterol (Umeclidinium/Vilanterol 62.5/25mcg 7 Puffs/Inhaler) 1 puffs INH DAILY [facility] Stop: 05/28/21 08:59 Last Admin: 05/02/21 08:48 Dose: 1 puffs Documented by: PG Care Time/CCT Total # of Minutes Spent Total Time Spent with Patient: Total time spent is greater than 50% in coordination of care (as documented) at patient's floor/unit and/or counseling patient: Coding Level of Care Code 49819 Subseq Hosp Care Lvl 2 Diagnoses Acute hypoxemic respiratory failure due to COVID-19 U07.1; J96.01 Atrial fibrillation with RVR I48.91 COPD (chronic obstructive pulmonary disease) J44.1 COPD type: COPD with acute exacerbation Hyperlipidemia E78.5 HTN (hypertension) I10 Anxiety F41.9 (1) COPD (chronic obstructive pulmonary disease) COPD type: COPD with acute exacerbation Qualified Code(s): J44.1 - Chronic obstructive pulmonary disease with (acute) exacerbation
[2021-05-02] MEDS: ONDANSETRON INJ 2 MG/ML 2 ML VIAL IV PRN (12:50)
[2021-05-02] MEDS: ACETAMINOPHEN SUSP 325 MG/10.15 ML UDC PO PRN (18:07)
[2021-05-02] MEDS: SIMVASTATIN 40 MG TAB PO SCH (21:51)
[2021-05-03] MEDS: APIXABAN 5 MG TABLET PO SCH ×2 (08:19→21:22)
[2021-05-03] MEDS: METOPROLOL TARTRATE 25 MG TAB PO SCH (08:19)
[2021-05-03] MEDS: PANTOprazole 40 MG TAB PO SCH (08:20)
[2021-05-03] MEDS: LOSARTAN POTASSIUM 50 MG TAB PO SCH (08:20)
[2021-05-03] MEDS: UMECLIDINIUM/VILANTEROL 62.5/25MCG 7 PUFFS/INHALER INH SCH (08:21)
[2021-05-03] MEDS: dexAMETHasone 6 MG in SYRINGE 0 ML IV SCH (08:21)
[2021-05-03] MEDS: FLUTICASONE FUROATE 100MCG 14 PUFFS/INHALER INH SCH (08:21)
[2021-05-03] MEDS: AMIODARONE 200 MG TAB PO SCH ×2 (08:22→17:33)
[2021-05-03] MEDS: INSULIN ASPART 100 UNITS/ML 3 ML PEN SC SCH ×4 (09:03→21:23)
[2021-05-03] MEDS ORDERED: METOPROLOL TARTRATE 25 MG TAB PO STA (11:35)
--- NOTE | 2021-05-03 11:55 | Hospitalist Progress Note ---
Date of Service May 03, 2021 Assessment & Plan (1) Acute hypoxemic respiratory failure due to COVID-19: Plan: Unvaccinated COVID 19 patient. Pt was intubated after decompensating due to afib RVR 04/27/21, subsequently extubated, did convert to NSR with amiodarone gtt, remains in NSR stable on 2L NC for five days, she says she wears this at home at night no distress, talking in complete sentences sitting upright in a chair, breathing a little fast but no distress continue dexamethasone 6mg IV daily x 10 days, day 7 today completed Remdesivir encourage flutter valve consult PT/OT, suspect she may need rehab pull alvarez today (2) Atrial fibrillation with RVR: Plan: converted to NSR on amiodarone drip shortly after admission 04/30 in morning she had afib and then aflutter for 30 minutes, rates up to 150 initially responded to Lopressor 5mg IV and then diltiazem 10mg IV push back in NSR HR better on Lopressor 25mg TID, in the 80's will change to Lopressor 50mg BID decrease Amiodarone to 200mg BID, keep on this dose and follow up with cardiology continue full anticoagulation (3) COPD (chronic obstructive pulmonary disease): Plan: COPD, no wheezing on examination at this time as stated above (4) Hyperlipidemia: Plan: Able to resume home medications as patient is now on 2 L nasal cannula (5) HTN (hypertension): Plan: BP stable (6) Anxiety: Plan: Patient restarting her anxiety medications as she is now off sedation for ventilation Plan: PT/OT either home or rehab by end of the week Admission and Anticipated Discharge Date Admission Date: April 27, 2021 Subjective patient doing well, OOB in a chair today, no distress coughing less, eating a little more still on the 2L NC at rest she participated with therapy on monitor her HR is better, in 80's, will change her to 50mg BID lopressor will have RN remove her alvarez today working towards discharge in a few days, depends on how she does with therapy Review of Systems Review of Systems: All systems reviewed & are unremarkable except as noted in Subjective Constitutional: + fatigue and + weakness; no fever Respiratory: + cough and + dyspnea Gastrointestinal: no abdominal pain, no nausea, no vomiting, no constipation and no diarrhea/loose stools Physical Exam Physical Exam: General: well developed, well nourished, elderly female, no distress Neck: supple, trachea midline, normal thyroid Lungs: clear to auscultation bilaterally, normal respiratory effort, no accessory muscle use, no distress Heart: tachycardic S1 and S2, no murmur, peripheral pulses normal, capillary refill normal, no edema Abdomen: soft, NT, ND, + BS, no hepatomegaly, normal to percussion Extremities: normal in appearance, no cyanosis, no petechiae, strength is diminished bilaterally Neuro: awake, cooperative, moves all extremities, no focal motor deficits, CN II-XII intact, sensation in extremities intact, normal speech Skin: warm, dry, no rash, normal turgor Psych: Awake, alert oriented x 3, euthymic affect Results & Data Results & Data ([facility]) Vital Signs (Past 12 Hours) Vital Signs Temp Pulse Pulse Resp BP Pulse Ox 05/03/21 11:52 36.4 C L 83 20 103/73 90 05/03/21 07:51 36.4 C L 81 18 165/89 H 90 05/03/21 07:49 80 05/03/21 04:01 36.2 C L 70 18 151/93 H 90 Laboratory Results Laboratory Results - last 24 hr 05/02/21 05/02/21 05/02/21 11:38 16:41 19:50 POC Glucose 119 H 150 H 224 H 05/03/21 05/03/21 07:56 11:33 POC Glucose 136 H 149 H Medications Administered Current Inpatient Medications Acetaminophen (Acetaminophen Susp 325 Mg/10.15 Ml Udc) 650 mg PO Q6H PRN PRN Reason: Pain or Fever Stop: 05/28/21 11:21 Last Admin: 05/02/21 18:07 Dose: 650 mg Documented by: Albuterol (Albut/Ipratrop 3mg/0.5mg Neb 3 Ml Vial) 3 ml NEB Q4R PRN PRN Reason: Shortness Of Breath Or Wheezing Stop: 05/28/21 02:59 Amiodarone HCl ([facility]one 200 Mg Tab) [facility] [place] Stop: 06/01/21 16:59 Last Admin: 05/03/21 08:22 Dose: 200 mg Documented by: Apixaban (Apixaban 5 Mg Tablet) 5 mg PO BID [facility] Stop: 05/28/21 20:59 Last Admin: 05/03/21 08:19 Dose: 5 mg Documented by: Dextrose (Dextrose 50% 50 Ml Syringe) 25 - 50 ml IV UD PRN; Protocol PRN Reason: Hypoglycemia Protocol Stop: 05/27/21 22:59 Last Admin: 04/28/21 10:55 Dose: 25 ml Documented by: Fluticasone Furoate (Fluticasone Furoate 100mcg 14 Puffs/Inhaler) 1 puffs INH DAILY [facility] Stop: 05/28/21 08:59 Last Admin: 05/03/21 08:21 Dose: 1 puffs Documented by: Glucagon (Glucagon For Inj 1 Mg Vial) 1 mg IM UD PRN; Protocol PRN Reason: Hypoglycemia Protocol Stop: 05/27/21 22:59 Glucose (Glucose 40% Gel 15 Gm Tube) 15 - 30 gm PO UD PRN; Protocol PRN Reason: Hypoglycemia Protocol Stop: 05/27/21 22:59 Glucose (Glucose 10 Tabs/Tube) 4 - 8 tabs PO UD PRN; Protocol PRN Reason: Hypoglycemia Protocol Stop: 05/27/21 22:59 Dexamethasone 6 mg/ Syringe 1.5 mls @ 1 mls/min IV Q24H [facility] Stop: 05/28/21 09:59 Last Admin: 05/03/21 08:21 Dose: 1 mls/min Documented by: Insulin Aspart (Insulin Aspart 100 Units/Ml 3 Ml Pen) 0 units SC ACHS [facility] Stop: 05/29/21 07:29 Last Admin: 05/03/21 09:03 Dose: Not Given Documented by: Lorazepam (Lorazepam 0.5 Mg Tab) 0.5 mg PO BID PRN PRN Reason: anxiety Stop: 05/28/21 18:40 Losartan Potassium (Losartan Potassium 50 Mg Tab) 100 mg PO DAILY [facility] Stop: 05/31/21 16:14 Last Admin: 05/03/21 08:20 Dose: 100 mg Documented by: Metoprolol Tartrate (Metoprolol Tartrate 1 Mg/Ml Vial) 5 mg IV Q4 PRN PRN Reason: sbp> 185, dbp >95, HR >120 Stop: 05/28/21 18:40 Last Admin: 05/01/21 04:13 Dose: 5 mg Documented by: Metoprolol Tartrate (Metoprolol Tartrate 50 Mg Tab) 50 mg PO BID [facility] Stop: 06/02/21 20:59 Miscellaneous (Carbohydrates For Hypoglycemia ) 15 - 30 gm PO PRN PRN PRN Reason: Hypoglycemia Treatment Stop: 05/27/21 22:59 Ondansetron HCl (Ondansetron Inj 2 Mg/Ml 2 Ml Vial) 4 mg IV Q6H PRN PRN Reason: Nausea And Vomiting Stop: 06/01/21 12:07 Last Admin: 05/02/21 12:50 Dose: 4 mg Documented by: Pantoprazole Sodium (Pantoprazole 40 Mg Tab) 40 mg PO DAILY [facility] Stop: 05/29/21 08:59 Last Admin: 05/03/21 08:20 Dose: 40 mg Documented by: Simvastatin (Simvastatin 40 Mg Tab) 40 mg PO HS [facility] Stop: 05/28/21 20:59 Last Admin: 05/02/21 21:51 Dose: 40 mg Documented by: Umeclidinium/Vilanterol (Umeclidinium/Vilanterol 62.5/25mcg 7 Puffs/Inhaler) 1 puffs INH DAILY [facility] Stop: 05/28/21 08:59 Last Admin: 05/03/21 08:21 Dose: 1 puffs Documented by: PG Care Time/CCT Total # of Minutes Spent Total Time Spent with Patient: Total time spent is greater than 50% in coordination of care (as documented) at patient's floor/unit and/or counseling patient: Coding Level of Care Code 78486 Subseq Hosp Care Lvl 2 Diagnoses Acute hypoxemic respiratory failure due to COVID-19 U07.1; J96.01 Atrial fibrillation with RVR I48.91 COPD (chronic obstructive pulmonary disease) J44.1 COPD type: COPD with acute exacerbation Hyperlipidemia E78.5 HTN (hypertension) I10 Anxiety F41.9 (1) COPD (chronic obstructive pulmonary disease) COPD type: COPD with acute exacerbation Qualified Code(s): J44.1 - Chronic obstructive pulmonary disease with (acute) exacerbation
[2021-05-03] MEDS: ACETAMINOPHEN SUSP 325 MG/10.15 ML UDC PO PRN (12:06)
[2021-05-03] MEDS: METOPROLOL TARTRATE 50 MG TAB PO SCH (21:22)
[2021-05-03] MEDS: SIMVASTATIN 40 MG TAB PO SCH (21:22)
[2021-05-03] MEDS: MELATONIN 3 MG TAB PO PRN (22:50)
[2021-05-04] MEDS: INSULIN ASPART 100 UNITS/ML 3 ML PEN SC SCH ×4 (08:30→20:20)
[2021-05-04] MEDS: APIXABAN 5 MG TABLET PO SCH ×2 (09:00→20:19)
[2021-05-04] MEDS: PANTOprazole 40 MG TAB PO SCH (09:00)
[2021-05-04] MEDS: LOSARTAN POTASSIUM 50 MG TAB PO SCH (09:00)
[2021-05-04] MEDS: dexAMETHasone 6 MG in SYRINGE 0 ML IV SCH (09:00)
[2021-05-04] MEDS: UMECLIDINIUM/VILANTEROL 62.5/25MCG 7 PUFFS/INHALER INH SCH (09:00)
[2021-05-04] MEDS: FLUTICASONE FUROATE 100MCG 14 PUFFS/INHALER INH SCH (09:00)
[2021-05-04] MEDS: AMIODARONE 200 MG TAB PO SCH ×2 (09:00→17:44)
[2021-05-04] MEDS: METOPROLOL TARTRATE 50 MG TAB PO SCH ×2 (09:00→20:19)
--- NOTE | 2021-05-04 13:18 | Hospitalist Progress Note ---
Date of Service May 04, 2021 Assessment & Plan (1) Acute hypoxemic respiratory failure due to COVID-19: Plan: Unvaccinated COVID 19 patient. Pt was intubated after decompensating due to afib RVR 04/27/21, subsequently extubated, did convert to NSR with amiodarone gtt, remains in NSR stable on 2L NC for six days, she says she wears this at home at night no distress, talking in complete sentences continue dexamethasone 6mg IV daily x 10 days, day 8 today completed Remdesivir encourage flutter valve consult PT/OT, she needs rehab, will be difficult to place given COVID status CM working on it (2) Atrial fibrillation with RVR: Plan: converted to NSR on amiodarone drip shortly after admission 04/30 in morning she had afib and then aflutter for 30 minutes, rates up to 150 initially responded to Lopressor 5mg IV and then diltiazem 10mg IV push back in NSR HR better on Lopressor 25mg TID, in the 80's will change to Lopressor 50mg BID decrease Amiodarone to 200mg BID, keep on this dose and follow up with cardiology continue full anticoagulation (3) COPD (chronic obstructive pulmonary disease): Plan: COPD, no wheezing on examination at this time as stated above (4) Hyperlipidemia: Plan: Able to resume home medications as patient is now on 2 L nasal cannula (5) HTN (hypertension): Plan: BP stable (6) Anxiety: Plan: Patient restarting her anxiety medications as she is now off sedation for ventilation Plan: PT/OT needs rehab, awaiting accepting facility Admission and Anticipated Discharge Date Admission Date: April 27, 2021 Subjective patient doing well, breathing comfortably on 2L, HR is stable reviewed therapy notes, OT gave her a score of 16 and PT was 11, she needs rehab will have CM look into rehab but with her COVID status it will be difficult she is eating well, more today no other issues per patient Review of Systems Review of Systems: All systems reviewed & are unremarkable except as noted in Subjective Respiratory: + dyspnea on exertion Musculoskeletal: + muscle weakness Physical Exam Physical Exam: General: well developed, well nourished, elderly female, no distress Neck: supple, trachea midline, normal thyroid Lungs: clear to auscultation bilaterally, normal respiratory effort, no accessory muscle use, no distress Heart: tachycardic S1 and S2, no murmur, peripheral pulses normal, capillary refill normal, no edema Abdomen: soft, NT, ND, + BS, no hepatomegaly, normal to percussion Extremities: normal in appearance, no cyanosis, no petechiae, strength is diminished bilaterally Neuro: awake, cooperative, moves all extremities, no focal motor deficits, CN II-XII intact, sensation in extremities intact, normal speech Skin: warm, dry, no rash, normal turgor Psych: Awake, alert oriented x 3, euthymic affect Results & Data Results & Data ([facility]) Vital Signs (Past 12 Hours) Vital Signs Temp Pulse Resp BP BP Pulse Ox 05/04/21 08:15 36.4 C L 71 20 147/81 H 05/04/21 04:03 36.2 C L 80 18 152/93 H 91 Laboratory Results Laboratory Results - last 24 hr 05/03/21 05/03/21 05/04/21 16:41 20:21 07:26 POC Glucose 181 H 201 H 145 H 05/04/21 11:45 POC Glucose 158 H Medications Administered Current Inpatient Medications Acetaminophen (Acetaminophen Susp 325 Mg/10.15 Ml Udc) 650 mg PO Q6H PRN PRN Reason: Pain or Fever Stop: 05/28/21 11:21 Last Admin: 05/03/21 12:06 Dose: 650 mg Documented by: Albuterol (Albut/Ipratrop 3mg/0.5mg Neb 3 Ml Vial) 3 ml NEB Q4R PRN PRN Reason: Shortness Of Breath Or Wheezing Stop: 05/28/21 02:59 Amiodarone HCl (Amiodarone 200 Mg Tab) 200 mg PO BIDM [facility] Stop: 06/01/21 16:59 Last Admin: 05/04/21 09:00 Dose: 200 mg Documented by: Apixaban (Apixaban 5 Mg Tablet) 5 mg PO BID [facility] Stop: 05/28/21 20:59 Last Admin: 05/04/21 09:00 Dose: 5 mg Documented by: Dextrose (Dextrose 50% 50 Ml Syringe) 25 - 50 ml IV UD PRN; Protocol PRN Reason: Hypoglycemia Protocol Stop: 05/27/21 22:59 Last Admin: 04/28/21 10:55 Dose: 25 ml Documented by: Fluticasone Furoate (Fluticasone Furoate 100mcg 14 Puffs/Inhaler) 1 puffs INH DAILY [facility] Stop: 05/28/21 08:59 Last Admin: 05/04/21 09:00 Dose: 1 puffs Documented by: Glucagon (Glucagon For Inj 1 Mg Vial) 1 mg IM UD PRN; Protocol PRN Reason: Hypoglycemia Protocol Stop: 05/27/21 22:59 Glucose (Glucose 40% Gel 15 Gm Tube) 15 - 30 gm PO UD PRN; Protocol PRN Reason: Hypoglycemia Protocol Stop: 05/27/21 22:59 Glucose (Glucose 10 Tabs/Tube) 4 - 8 tabs PO UD PRN; Protocol PRN Reason: Hypoglycemia Protocol Stop: 05/27/21 22:59 Dexamethasone 6 mg/ Syringe 1.5 mls @ 1 mls/min IV Q24H [facility] Stop: 05/28/21 09:59 Last Admin: 05/04/21 09:00 Dose: 1 mls/min Documented by: Insulin Aspart (Insulin Aspart 100 Units/Ml 3 Ml Pen) 0 units SC ACHS [facility] Stop: 05/29/21 07:29 Last Admin: 05/04/21 12:39 Dose: 2 units Documented by: Lorazepam (Lorazepam 0.5 Mg Tab) 0.5 mg PO BID PRN PRN Reason: anxiety Stop: 05/28/21 18:40 Losartan Potassium (Losartan Potassium 50 Mg Tab) 100 mg PO DAILY [facility] Stop: 05/31/21 16:14 Last Admin: 05/04/21 09:00 Dose: 100 mg Documented by: Melatonin (Melatonin 3 Mg Tab) 6 mg PO HS PRN PRN Reason: Sleep Stop: 06/02/21 22:41 Last Admin: 05/03/21 22:50 Dose: 6 mg Documented by: Metoprolol Tartrate (Metoprolol Tartrate 1 Mg/Ml Vial) 5 mg IV Q4 PRN PRN Reason: sbp> 185, dbp >95, HR >120 Stop: 05/28/21 18:40 Last Admin: 05/01/21 04:13 Dose: 5 mg Documented by: Metoprolol Tartrate (Metoprolol Tartrate 50 Mg Tab) 50 mg PO BID [facility] Stop: 06/02/21 20:59 Last Admin: 05/04/21 09:00 Dose: 50 mg Documented by: Miscellaneous (Carbohydrates For Hypoglycemia ) 15 - 30 gm PO PRN PRN PRN Reason: Hypoglycemia Treatment Stop: 05/27/21 22:59 Ondansetron HCl (Ondansetron Inj 2 Mg/Ml 2 Ml Vial) 4 mg IV Q6H PRN PRN Reason: Nausea And Vomiting Stop: 06/01/21 12:07 Last Admin: 05/02/21 12:50 Dose: 4 mg Documented by: Pantoprazole Sodium (Pantoprazole 40 Mg Tab) 40 mg PO DAILY [facility] Stop: 05/29/21 08:59 Last Admin: 05/04/21 09:00 Dose: 40 mg Documented by: Simvastatin (Simvastatin 40 Mg Tab) 40 mg PO HS [facility] Stop: 05/28/21 20:59 Last Admin: 05/03/21 21:22 Dose: 40 mg Documented by: Umeclidinium/Vilanterol (Umeclidinium/Vilanterol 62.5/25mcg 7 Puffs/Inhaler) 1 puffs INH DAILY [facility] Stop: 05/28/21 08:59 Last Admin: 05/04/21 09:00 Dose: 1 puffs Documented by: PG Care Time/CCT Total # of Minutes Spent Total Time Spent with Patient: Total time spent is greater than 50% in coordination of care (as documented) at patient's floor/unit and/or counseling patient: Coding Level of Care Code 15231 Subseq Hosp Care Lvl 2 Diagnoses Acute hypoxemic respiratory failure due to COVID-19 U07.1; J96.01 Atrial fibrillation with RVR I48.91 COPD (chronic obstructive pulmonary disease) J44.1 COPD type: COPD with acute exacerbation Hyperlipidemia E78.5 HTN (hypertension) I10 Anxiety F41.9 (1) COPD (chronic obstructive pulmonary disease) COPD type: COPD with acute exacerbation Qualified Code(s): J44.1 - Chronic obstructive pulmonary disease with (acute) exacerbation
[2021-05-04] MEDS: SIMVASTATIN 40 MG TAB PO SCH (21:54)
[2021-05-04] MEDS: LORazepam 0.5 MG TAB PO PRN (23:01)
[2021-05-04] MEDS: MELATONIN 3 MG TAB PO PRN (23:01)
[2021-05-05] MEDS: LOSARTAN POTASSIUM 50 MG TAB PO SCH (09:28)
[2021-05-05] MEDS: UMECLIDINIUM/VILANTEROL 62.5/25MCG 7 PUFFS/INHALER INH SCH (09:28)
[2021-05-05] MEDS: FLUTICASONE FUROATE 100MCG 14 PUFFS/INHALER INH SCH (09:28)
[2021-05-05] MEDS: dexAMETHasone 6 MG in SYRINGE 0 ML IV SCH (09:28)
[2021-05-05] MEDS: INSULIN ASPART 100 UNITS/ML 3 ML PEN SC SCH ×4 (09:31→20:34)
[2021-05-05] MEDS: PANTOprazole 40 MG TAB PO SCH (10:32)
[2021-05-05] MEDS: METOPROLOL TARTRATE 50 MG TAB PO SCH ×2 (10:33→20:24)
[2021-05-05] MEDS: AMIODARONE 200 MG TAB PO SCH ×2 (10:33→16:51)
[2021-05-05] MEDS: ACETAMINOPHEN SUSP 325 MG/10.15 ML UDC PO PRN (10:34)
[2021-05-05] MEDS: APIXABAN 5 MG TABLET PO SCH ×2 (11:40→20:23)
[2021-05-05] MEDS: LORazepam 0.5 MG TAB PO PRN (20:22)
[2021-05-05] MEDS: ONDANSETRON INJ 2 MG/ML 2 ML VIAL IV PRN (20:22)
[2021-05-05] MEDS: MELATONIN 3 MG TAB PO PRN (20:22)
[2021-05-05] MEDS: SIMVASTATIN 40 MG TAB PO SCH (20:23)
--- NOTE | 2021-05-06 01:27 | Hospitalist Progress Note ---
Date of Service May 06, 2021 Assessment & Plan (1) Acute hypoxemic respiratory failure due to COVID-19: Plan: Unvaccinated COVID 19 patient. Pt was intubated after decompensating due to afib RVR 04/27/21, subsequently extubated, did convert to NSR with amiodarone gtt, remains in NSR stable on 2L NC for six days, she says she wears this at home at night no distress, talking in complete sentences continue dexamethasone 6mg IV daily x 10 days, day 9 today completed Remdesivir encourage flutter valve consult PT/OT, she needs rehab, will be difficult to place given COVID status CM working on it, might be able to go to [facility] Saturday, depends on bed situa tion (2) Atrial fibrillation with RVR: Plan: converted to NSR on amiodarone drip shortly after admission 04/30 in morning she had afib and then aflutter for 30 minutes, rates up to 150 initially responded to Lopressor 5mg IV and then diltiazem 10mg IV push back in NSR HR better on Lopressor 25mg TID, in the 80's will change to Lopressor 50mg BID decrease Amiodarone to 200mg BID, keep on this dose and follow up with cardiology continue full anticoagulation (3) COPD (chronic obstructive pulmonary disease): Plan: COPD, no wheezing on examination at this time as stated above (4) Hyperlipidemia: Plan: Able to resume home medications as patient is now on 2 L nasal cannula (5) HTN (hypertension): Plan: BP stable (6) Anxiety: Plan: Patient restarting her anxiety medications as she is now off sedation for ventilation Plan: PT/OT needs rehab, awaiting accepting facility Admission and Anticipated Discharge Date Admission Date: April 27, 2021 Subjective patient doing great, no issues, stable on 2L NC minimal cough, HR is stable on Lopressor plan is to try to go to [facility] on Saturday when restrictions would be lifted Review of Systems Review of Systems: All systems reviewed & are unremarkable except as noted in Subjective Physical Exam Physical Exam: General: well developed, well nourished, elderly female, no distress Neck: supple, trachea midline, normal thyroid Lungs: clear to auscultation bilaterally, normal respiratory effort, no accessory muscle use, no distress Heart: tachycardic S1 and S2, no murmur, peripheral pulses normal, capillary refill normal, no edema Abdomen: soft, NT, ND, + BS, no hepatomegaly, normal to percussion Extremities: normal in appearance, no cyanosis, no petechiae, strength is diminished bilaterally Neuro: awake, cooperative, moves all extremities, no focal motor deficits, CN II-XII intact, sensation in extremities intact, normal speech Skin: warm, dry, no rash, normal turgor Psych: Awake, alert oriented x 3, euthymic affect Results & Data Results & Data ([facility]) Vital Signs (Past 12 Hours) Vital Signs Temp Pulse Pulse Resp BP Pulse Ox 05/05/21 22:00 36.4 C L 64 20 125/81 90 05/05/21 15:00 65 05/05/21 14:47 36.3 C L 65 18 106/64 90 05/05/21 13:25 90 Laboratory Results Laboratory Results - last 24 hr 05/05/21 05/05/21 05/05/21 07:39 11:44 16:32 POC Glucose 128 H 210 H 162 H 05/05/21 20:31 POC Glucose 237 H Medications Administered Current Inpatient Medications Acetaminophen (Acetaminophen Susp 325 Mg/10.15 Ml Udc) 650 mg PO Q6H PRN PRN Reason: Pain or Fever Stop: 05/28/21 11:21 Last Admin: 05/05/21 10:34 Dose: 650 mg Documented by: Albuterol (Albut/Ipratrop 3mg/0.5mg Neb 3 Ml Vial) 3 ml NEB Q4R PRN PRN Reason: Shortness Of Breath Or Wheezing Stop: 05/28/21 02:59 Amiodarone HCl (Amiodarone 200 Mg Tab) 200 mg PO BIDM [facility] Stop: 06/01/21 16:59 Last Admin: 05/05/21 16:51 Dose: 200 mg Documented by: Apixaban (Apixaban 5 Mg Tablet) 5 mg PO BID [facility] Stop: 05/28/21 20:59 Last Admin: 05/05/21 20:23 Dose: 5 mg Documented by: Dextrose (Dextrose 50% 50 Ml Syringe) 25 - 50 ml IV UD PRN; Protocol PRN Reason: Hypoglycemia Protocol Stop: 05/27/21 22:59 Last Admin: 04/28/21 10:55 Dose: 25 ml Documented by: Fluticasone Furoate (Fluticasone Furoate 100mcg 14 Puffs/Inhaler) 1 puffs INH DAILY [facility] Stop: 05/28/21 08:59 Last Admin: 05/05/21 09:28 Dose: 1 puffs Documented by: Glucagon (Glucagon For Inj 1 Mg Vial) 1 mg IM UD PRN; Protocol PRN Reason: Hypoglycemia Protocol Stop: 05/27/21 22:59 Glucose (Glucose 40% Gel 15 Gm Tube) 15 - 30 gm PO UD PRN; Protocol PRN Reason: Hypoglycemia Protocol Stop: 05/27/21 22:59 Glucose (Glucose 10 Tabs/Tube) 4 - 8 tabs PO UD PRN; Protocol PRN Reason: Hypoglycemia Protocol Stop: 05/27/21 22:59 Dexamethasone 6 mg/ Syringe 1.5 mls @ 1 mls/min IV Q24H [facility] Stop: 05/28/21 09:59 Last Admin: 05/05/21 09:28 Dose: 1 mls/min Documented by: Insulin Aspart (Insulin Aspart 100 Units/Ml 3 Ml Pen) 0 units SC ACHS [facility] Stop: 05/29/21 07:29 Last Admin: 05/05/21 20:34 Dose: 5 units Documented by: Lorazepam (Lorazepam 0.5 Mg Tab) 0.5 mg PO BID PRN PRN Reason: anxiety Stop: 05/28/21 18:40 Last Admin: 05/05/21 20:22 Dose: 0.5 mg Documented by: Losartan Potassium (Losartan Potassium 50 Mg Tab) 100 mg PO DAILY [facility] Stop: 05/31/21 16:14 Last Admin: 05/05/21 09:28 Dose: 100 mg Documented by: Melatonin (Melatonin 3 Mg Tab) 6 mg PO HS PRN PRN Reason: Sleep Stop: 06/02/21 22:41 Last Admin: 05/05/21 20:22 Dose: 6 mg Documented by: Metoprolol Tartrate (Metoprolol Tartrate 50 Mg Tab) 50 mg PO BID [facility] Stop: 06/02/21 20:59 Last Admin: 05/05/21 20:24 Dose: 50 mg Documented by: Miscellaneous (Carbohydrates For Hypoglycemia ) 15 - 30 gm PO PRN PRN PRN Reason: Hypoglycemia Treatment Stop: 05/27/21 22:59 Ondansetron HCl (Ondansetron Inj 2 Mg/Ml 2 Ml Vial) 4 mg IV Q6H PRN PRN Reason: Nausea And Vomiting Stop: 06/01/21 12:07 Last Admin: 05/05/21 20:22 Dose: 4 mg Documented by: Pantoprazole Sodium (Pantoprazole 40 Mg Tab) 40 mg PO DAILY [facility] Stop: 05/29/21 08:59 Last Admin: 05/05/21 10:32 Dose: 40 mg Documented by: Simvastatin (Simvastatin 40 Mg Tab) 40 mg PO HS [facility] Stop: 05/28/21 20:59 Last Admin: 05/05/21 20:23 Dose: 40 mg Documented by: Umeclidinium/Vilanterol (Umeclidinium/Vilanterol 62.5/25mcg 7 Puffs/Inhaler) 1 puffs INH DAILY [facility] Stop: 05/28/21 08:59 Last Admin: 05/05/21 09:28 Dose: 1 puffs Documented by: PG Care Time/CCT Total # of Minutes Spent Total Time Spent with Patient: Total time spent is greater than 50% in coordination of care (as documented) at patient's floor/unit and/or counseling patient: Coding Level of Care Code 55142 Subseq Hosp Care Lvl 2 Diagnoses Acute hypoxemic respiratory failure due to COVID-19 U07.1; J96.01 Atrial fibrillation with RVR I48.91 COPD (chronic obstructive pulmonary disease) J44.1 COPD type: COPD with acute exacerbation Hyperlipidemia E78.5 HTN (hypertension) I10 Anxiety F41.9 (1) COPD (chronic obstructive pulmonary disease) COPD type: COPD with acute exacerbation Qualified Code(s): J44.1 - Chronic obstructive pulmonary disease with (acute) exacerbation
[2021-05-06] MEDS ORDERED: FUROSEMIDE INJ 20 MG/2 ML VIAL IV ONE (02:43)
[2021-05-06] MEDS: ONDANSETRON INJ 2 MG/ML 2 ML VIAL IV PRN (06:24)
--- NOTE | 2021-05-06 08:19 | XRay Report ---
XR chest 1V portable CLINICAL HISTORY: acute hypoxia, sob. COMPARISON STUDY: 04/28/2021 TECHNIQUE: 1 view of the chest FINDINGS: Single frontal view of the chest demonstrates the cardiomediastinal silhouette to be within normal li mits. 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 Endotracheal tube has been removed. The re is a decreased inspiratory effort with elevation of the hemidiaphragms and crowding of the broncho vascular markings at the lung bases and centrally. The lungs are clear of alveolar opacities. Bluntin g of left costophrenic angle is again seen suspicious for small left pleural effusion. There is no ev idence for vascular congestion. There is no acute osseous pathology. IMPRESSION: There is a decreased inspiratory effort with otherwise no acute chest disease. The patien t is status post extubation. There is chronic blunting of left costophrenic angle. ACT 112: Negative or not required by law. Electronically signed by: Randal Chiu M.D. 05/06/2021 8:17 AM
[2021-05-06] MEDS: LOSARTAN POTASSIUM 50 MG TAB PO SCH (08:22)
[2021-05-06] MEDS: PANTOprazole 40 MG TAB PO SCH (08:22)
[2021-05-06] MEDS: APIXABAN 5 MG TABLET PO SCH ×2 (08:23→20:08)
[2021-05-06] MEDS: FLUTICASONE FUROATE 100MCG 14 PUFFS/INHALER INH SCH (08:23)
[2021-05-06] MEDS: UMECLIDINIUM/VILANTEROL 62.5/25MCG 7 PUFFS/INHALER INH SCH (08:23)
[2021-05-06] MEDS: dexAMETHasone 6 MG in SYRINGE 0 ML IV SCH (08:24)
[2021-05-06] MEDS: INSULIN ASPART 100 UNITS/ML 3 ML PEN SC SCH ×4 (08:24→20:22)
[2021-05-06] MEDS: AMIODARONE 200 MG TAB PO SCH ×2 (08:38→18:01)
[2021-05-06] MEDS ORDERED: METOPROLOL TARTRATE 25 MG TAB PO SCH (09:00)
--- NOTE | 2021-05-06 12:11 | Hospitalist Progress Note ---
Date of Service May 06, 2021 Assessment & Plan (1) Acute hypoxemic respiratory failure due to COVID-19: Plan: Unvaccinated COVID 19 patient. Pt was intubated after decompensating due to afib RVR 04/27/21, subsequently extubated 04/28/2021. Has been on NC O2 since that time but overnight acutely required HFNC. CXR today with low lung volumes. See below. (2) Pneumonia due to COVID-19 virus: Plan: Continue dexamethasone - today is day 10. Rather than stopping steroids will increase to 10mg/day given her worsening status. Her clinical worsening could be from mucous plugging in the setting of baseline COPD, shunting, etc. PE doubtful - is on full-strength eliquis. Encouraged side positioning, encouraged pulmonary toilet. Completed Remdesivir 5-day course. Consider repeating procal and crp. (3) Atrial fibrillation with RVR: Plan: Converted to NSR on amiodarone drip shortly after admission 04/30 in morning she had afib and then aflutter for 30 minutes, rates up to 150 initially responded to Lopressor 5mg IV and then diltiazem 10mg IV push Cont Amiodarone to 200mg BID Cont Eliquis 5mg BID HOLD metoprolol due to relative hypotension Cont tele (4) COPD (chronic obstructive pulmonary disease): Plan: COPD with probable exacerbation from COVID see above Cont home inhalers Add combivent 1 puff QID scheduled (5) Hyperlipidemia: Plan: Cont simvastatin Recent ast/alt wnl (6) HTN (hypertension): Plan: BPs low-normal on losartan & BB Hold Both and trend BPs (7) Anxiety: Plan: cont home meds Plan: constipation - add senna with miralax cont PT/OT DVT proph - eliquis 5mg BID updated pt's daughter by phone this evening Admission and Anticipated Discharge Date Admission Date: April 27, 2021 Subjective events of overnight noted had to go back on HFNC requiring 70% FiO2 during my visit she is eating her meal no distress she c/o fatigue & weakness mild cough - dry can't get to her side; can't prone using flutter only occasionally tele w/o a.fib overnight Review of Systems Review of Systems: gen - no fevers or chills; very weak/fatigued cv - no orthopnea or cp pulm - RAIN, none at rest GI - constipated Physical Exam Physical Exam: gen - frail, but no distress mouth - MM dry neck - no JVD heart - RRR, s1 s2 lungs - fine bibasilar rales, some wheeze b/l, no distress but poor air movement abd - soft NT ext - no edema Results & Data Results & Data ([facility]) Vital Signs (Past 12 Hours) Vital Signs Temp Pulse Pulse Resp BP BP Pulse Ox 05/06/21 11:31 36.3 C L 71 16 102/52 L 93 05/06/21 10:37 66 20 100 05/06/21 08:15 63 20 103/67 100 05/06/21 08:14 36.3 C L 64 20 90/66 L 98 05/06/21 06:12 58 L 20 97 05/06/21 03:17 53 L 22 91 PG Care Time/CCT Total # of Minutes Spent Total Time Spent with Patient: Total time spent is greater than 50% in coordination of care (as documented) at patient's floor/unit and/or counseling patient: Coding Level of Care Code 52517 Subseq Hosp Care Lvl 3 Diagnoses Acute hypoxemic respiratory failure due to COVID-19 U07.1; J96.01 Atrial fibrillation with RVR I48.91 COPD (chronic obstructive pulmonary disease) J44.1 COPD type: COPD with acute exacerbation Hyperlipidemia E78.5 HTN (hypertension) I10 Anxiety F41.9 Pneumonia due to COVID-19 virus U07.1; J12.82 (1) COPD (chronic obstructive pulmonary disease) COPD type: COPD with acute exacerbation Qualified Code(s): J44.1 - Chronic obstructive pulmonary disease with (acute) exacerbation
[2021-05-06] MEDS ORDERED: dexAMETHasone 4 MG in SYRINGE 0 ML IV ONE (12:30)
[2021-05-06] MEDS ORDERED: IPRATROPIUM BROMIDE/ALBUTEROL respimat INH INH SCH (13:00)
[2021-05-06] MEDS: guaiFENesin 600 MG TABCR PO SCH ×2 (14:00→20:08)
[2021-05-06] MEDS: IPRATROPIUM BROMIDE HFA INHALER INH SCH ×2 (16:33→20:56)
[2021-05-06] MEDS: ALBUTEROL HFA 8 GM INHALER INH SCH ×2 (16:33→20:56)
[2021-05-06] MEDS: SIMVASTATIN 40 MG TAB PO SCH (20:08)
[2021-05-06] MEDS: LORazepam 0.5 MG TAB PO PRN (20:18)
[2021-05-06] MEDS: MELATONIN 3 MG TAB PO PRN (20:18)
[2021-05-06 23:40] LABS: Appearance Urine Clear (Clear); Bacteria Urine Automated Negative (Negative); Bilirubin Urine Negative (Negative); Blood Urine 1+ (Negative); Color Urine Yellow; Glucose Urine UA Negative (Negative); Ketones Urine Negative (Negative); Leukocyte Esterase Urine 1+ (Negative); Nitrite Urine Negative (Negative); Protein Urine Negative (Negative); RBC Urine Automated 0-4 /hpf (0-4); Specific Gravity Urine 1.012 (1.000-1.030); Urobilinogen Urine Negative (Negative)
[2021-05-07 06:53] LABS: Hematocrit (blood only) 34.1 % (37-47); Hemoglobin 10.6 g/dL (12.0-16.0); Mean Corpuscular Hemoglobin 23.8 pg (25-34); Mean Corpuscular Hgb Conc 31.1 g/dL (32-36); Mean Corpuscular Volume 76.5 fL (80-100); Mean Platelet Volume 9.3 fL (7.4-10.4); Platelet Count 368 K/uL (130-400); RDW Coefficient of Variation 15.5 % (11.5-14.5); RDW Standard Deviation 42.8 fL (36.4-46.3); Red Blood Count 4.46 M/uL (4.2-5.4); White Blood Count 11.57 K/uL (4.8-10.8)
[2021-05-07 07:22] LABS: Calcium 8.8 mg/dl (8.5-10.1); Creatinine Clr Calc Pharmacy 27.3 ml/min; Est GFR (Non-African American) 36.3 ml/min; Magnesium 2.5 mg/dl (1.8-2.4); Potassium 4.8 mmol/L (3.5-5.1)
[2021-05-07] MEDS: AMIODARONE 200 MG TAB PO SCH ×2 (08:06→16:41)
[2021-05-07] MEDS: APIXABAN 5 MG TABLET PO SCH ×2 (08:07→20:23)
[2021-05-07] MEDS: UMECLIDINIUM/VILANTEROL 62.5/25MCG 7 PUFFS/INHALER INH SCH (08:08)
[2021-05-07] MEDS: dexAMETHasone 10 MG in SYRINGE 0 ML IV SCH (08:10)
[2021-05-07] MEDS: FLUTICASONE FUROATE 100MCG 14 PUFFS/INHALER INH SCH (08:11)
[2021-05-07] MEDS: guaiFENesin 600 MG TABCR PO SCH ×2 (08:12→20:23)
[2021-05-07] MEDS: INSULIN ASPART 100 UNITS/ML 3 ML PEN SC SCH ×4 (09:28→21:03)
[2021-05-07] MEDS: POLYETHYLENE (MIRALAX) 17 GM PACK PO SCH (09:29)
[2021-05-07] MEDS: SENNA 8.6 MG TAB PO SCH (09:29)
[2021-05-07] MEDS: IPRATROPIUM BROMIDE HFA INHALER INH SCH ×4 (09:31→20:03)
[2021-05-07] MEDS: ALBUTEROL HFA 8 GM INHALER INH SCH ×4 (09:32→20:04)
[2021-05-07] MEDS: PANTOprazole 40 MG TAB PO SCH (10:20)
[2021-05-07] MEDS: LORazepam 0.5 MG TAB PO PRN (20:22)
[2021-05-07] MEDS: MELATONIN 3 MG TAB PO PRN (20:23)
[2021-05-07] MEDS: SIMVASTATIN 40 MG TAB PO SCH (20:23)
--- NOTE | 2021-05-07 22:50 | Hospitalist Progress Note ---
Date of Service May 07, 2021 Assessment & Plan (1) Acute hypoxemic respiratory failure due to COVID-19: Plan: Pt was intubated after decompensating due to afib RVR 04/27/21, subsequently extubated 04/28/2021. Has been on NC O2 since that time. HFNC on Saturday pm into Saturday. Weaned to wall-mounted HF this am. See below. (2) Pneumonia due to COVID-19 virus: Plan: Continue dexamethasone - today is day 11. I increased her steroids to 10mg/day given her worsening status this weekend. Leave as is today w/o wean. Her clinical worsening could be from mucous plugging in the setting of baseline COPD, shunting, etc. PE doubtful - is on full-strength eliquis. Encouraged side positioning, encouraged pulmonary toilet. Completed Remdesivir 5-day course. Consider repeating procal and crp if she worsens again. (3) Atrial fibrillation with RVR: Plan: Converted to NSR on amiodarone drip shortly after admission 04/30 in morning she had afib and then aflutter for 30 minutes, rates up to 150 initially responded to Lopressor 5mg IV and then diltiazem 10mg IV push Cont Amiodarone to 200mg BID Cont Eliquis 5mg BID HOLD metoprolol due to relative hypotension Cont tele (4) COPD (chronic obstructive pulmonary disease): Plan: COPD with probable exacerbation from COVID see above Cont home inhalers Cont combivent 1 puff QID scheduled (5) Hyperlipidemia: Plan: Cont simvastatin Recent ast/alt wnl (6) HTN (hypertension): Plan: BPs low-normal on losartan & BB Hold Both and trend BPs (7) Anxiety: Plan: cont home meds Plan: constipation - cont senna with miralax cont PT/OT DVT proph - eliquis 5mg BID updated pt's daughter by phone yesterday evening Admission and Anticipated Discharge Date Admission Date: April 27, 2021 Subjective HFNC has been weaned now on wall-mounted HF 10 L she is feeling better today fatigued, and still mild RAIN but overall feeling better she is a little down because she thought she would be going to rehab soon eating ok Review of Systems Review of Systems: gen - no fevers or chills cv - no cp, no orthopnea pulm - no hemoptysis GI - no n/v/d Physical Exam Physical Exam: gen - frail, but no distress; looks a little better today mouth - MM dry neck - no JVD heart - RRR, s1 s2 lungs - fine bibasilar rales, wheezes b/l, air movement improved today abd - soft NT ND BS+ ext - no edema Results & Data Results & Data ([facility]) Vital Signs (Past 12 Hours) Vital Signs Temp Pulse Resp BP Pulse Ox 05/07/21 20:04 63 20 95 05/07/21 16:47 36.6 C 71 20 114/60 96 05/07/21 16:18 78 20 97 05/07/21 12:35 77 22 97 Laboratory Results Laboratory Results - last 24 hr 05/06/21 05/07/21 05/07/21 23:00 05:39 05:39 WBC 11.57 H RBC 4.46 Hgb 10.6 L Hct 34.1 L MCV 76.5 L MCH 23.8 L MCHC 31.1 L RDW Std Deviation 42.8 RDW Coeff of Lawson 15.5 H Plt Count 368 MPV 9.3 Sodium 134 L Potassium 4.8 Chloride 96 L Carbon Dioxide 31 Anion Gap 7.0 BUN 66 H Creatinine 1.38 H Est Cr Clr Drug Dosing 27.3 Est GFR ( Amer) 42.0 Est GFR (Non-Af Amer) 36.3 BUN/Creatinine Ratio 48.0 H Glucose 163 H POC Glucose Calcium 8.8 Magnesium 2.5 H Urine Color Yellow Urine Appearance Clear Urine pH 5.0 Ur Specific [place] 1.012 Urine Protein Negative Urine Glucose (UA) Negative Urine Ketones Negative Urine Blood 1+ H Urine Nitrite Negative Urine Bilirubin Negative Urine Urobilinogen Negative Ur Leukocyte Esterase 1+ H Urine WBC (Auto) 10-30 H Urine RBC (Auto) 0-4 U Hyaline Cast (Auto) 1-5 U Epithel Cells (Auto) 10-20 H Urine Bacteria (Auto) Negative 05/07/21 05/07/21 05/07/21 07:39 11:45 16:36 WBC RBC Hgb Hct MCV MCH MCHC RDW Std Deviation RDW Coeff of Lawson Plt Count MPV Sodium Potassium Chloride Carbon Dioxide Anion Gap BUN Creatinine Est Cr Clr Drug Dosing Est GFR ( Amer) Est GFR (Non-Af Amer) BUN/Creatinine Ratio Glucose POC Glucose 164 H 266 H 174 H Calcium Magnesium Urine Color Urine Appearance Urine pH Ur Specific [place] Urine Protein Urine Glucose (UA) Urine Ketones Urine Blood Urine Nitrite Urine Bilirubin Urine Urobilinogen Ur Leukocyte Esterase Urine WBC (Auto) Urine RBC (Auto) U Hyaline Cast (Auto) U Epithel Cells (Auto) Urine Bacteria (Auto) 05/07/21 20:46 WBC RBC Hgb Hct MCV MCH MCHC RDW Std Deviation RDW Coeff of Lawson Plt Count MPV Sodium Potassium Chloride Carbon Dioxide Anion Gap BUN Creatinine Est Cr Clr Drug Dosing Est GFR ( Amer) Est GFR (Non-Af Amer) BUN/Creatinine Ratio Glucose POC Glucose 294 H Calcium Magnesium Urine Color Urine Appearance Urine pH Ur Specific [place] Urine Protein Urine Glucose (UA) Urine Ketones Urine Blood Urine Nitrite Urine Bilirubin Urine Urobilinogen Ur Leukocyte Esterase Urine WBC (Auto) Urine RBC (Auto) U Hyaline Cast (Auto) U Epithel Cells (Auto) Urine Bacteria (Auto) PG Care Time/CCT Total # of Minutes Spent Total Time Spent with Patient: Total time spent is greater than 50% in coordination of care (as documented) at patient's floor/unit and/or counseling patient: Coding Level of Care Code 53418 Subseq Hosp Care Lvl 2 Diagnoses Acute hypoxemic respiratory failure due to COVID-19 U07.1; J96.01 Pneumonia due to COVID-19 virus U07.1; J12.82 Atrial fibrillation with RVR I48.91 COPD (chronic obstructive pulmonary disease) J44.1 COPD type: COPD with acute exacerbation Hyperlipidemia E78.5 HTN (hypertension) I10 Anxiety F41.9 (1) COPD (chronic obstructive pulmonary disease) COPD type: COPD with acute exacerbation Qualified Code(s): J44.1 - Chronic obstructive pulmonary disease with (acute) exacerbation
[2021-05-07] MEDS: INSULIN GLARGINE SOLOSTAR 100 UNITS/ML 3 ML PEN SC SCH (23:16)
[2021-05-08 08:06] LABS: BUN Creatinine Ratio 51.8 (10-20); Calcium 8.8 mg/dl (8.5-10.1); Creatinine Clr Calc Pharmacy 28.2 ml/min; Est GFR (African American) 43.6 ml/min; Est GFR (Non-African American) 37.6 ml/min
[2021-05-08] MEDS: ALBUTEROL HFA 8 GM INHALER INH SCH ×4 (08:09→21:49)
[2021-05-08] MEDS: IPRATROPIUM BROMIDE HFA INHALER INH SCH ×4 (08:10→21:49)
[2021-05-08 08:18] LABS: Potassium 5.4 mmol/L (3.5-5.1)
[2021-05-08] MEDS: AMIODARONE 200 MG TAB PO SCH ×2 (08:38→17:21)
[2021-05-08] MEDS: APIXABAN 5 MG TABLET PO SCH ×2 (08:38→21:22)
[2021-05-08] MEDS: guaiFENesin 600 MG TABCR PO SCH ×2 (08:38→21:12)
[2021-05-08] MEDS: dexAMETHasone 10 MG in SYRINGE 0 ML IV SCH (08:38)
[2021-05-08] MEDS: PANTOprazole 40 MG TAB PO SCH (08:39)
[2021-05-08] MEDS: SENNA 8.6 MG TAB PO SCH (08:39)
[2021-05-08] MEDS: POLYETHYLENE (MIRALAX) 17 GM PACK PO SCH (08:39)
[2021-05-08] MEDS: UMECLIDINIUM/VILANTEROL 62.5/25MCG 7 PUFFS/INHALER INH SCH (08:40)
[2021-05-08] MEDS: FLUTICASONE FUROATE 100MCG 14 PUFFS/INHALER INH SCH (08:40)
[2021-05-08] MEDS: INSULIN ASPART 100 UNITS/ML 3 ML PEN SC SCH ×4 (08:43→21:14)
[2021-05-08] MEDS: BENZONATATE 100 MG CAPSULE PO SCH ×3 (09:26→21:12)
[2021-05-08] MEDS: cefTRIAXone SODIUM 1,000 MG in DEXTROSE 5% 50 ML IV SCH (10:10)
[2021-05-08] MEDS ORDERED: PATIROMER CALCIUM SORBITEX 8.4 GM PACK PO ONE (11:00)
--- NOTE | 2021-05-08 11:13 | Hospitalist Progress Note ---
Date of Service May 08, 2021 Assessment & Plan (1) Acute hypoxemic respiratory failure due to COVID-19: Plan: Pt was intubated after decompensating due to afib RVR 04/27/21, subsequently extubated 04/28/2021. Has been on NC O2 since that time. HFNC on Saturday pm into Saturday. Suspect 2nd to COPD flare and/or brewing UTI and/or mucous plugging vs other. Weaned to wall-mounted HF yesterday am and remains on such. CXR today without any significant changes. I believe her active COPD is the main culprit at this time in the setting of her COPD. See below. (2) Pneumonia due to COVID-19 virus: Plan: Continue dexamethasone - today is day 12. I increased her steroids to 10mg/day given her worsening status this weekend. Leave as is today w/o wean. Her clinical worsening could be from mucous plugging in the setting of baseline COPD, shunting, etc. PE doubtful - has been on full-strength eliquis. Encouraged side positioning, encouraged pulmonary toilet. Completed Remdesivir 5-day course. Consider repeating procal and crp. May need to change MDI bronchodilators to nebs. (3) Atrial fibrillation with RVR: Plan: Converted to NSR on amiodarone drip shortly after admission 04/30 in morning she had afib and then aflutter for 30 minutes, rates up to 150 initially responded to Lopressor 5mg IV and then diltiazem 10mg IV push Cont Amiodarone to 200mg BID Cont Eliquis 5mg BID HOLD metoprolol due to relative hypotension Cont tele (4) COPD (chronic obstructive pulmonary disease): Plan: COPD with probable exacerbation from COVID see above Cont home inhalers Cont combivent 1 puff QID scheduled Consider nebs in sandra of combivent (5) Hyperlipidemia: Plan: Cont simvastatin Recent ast/alt wnl (6) HTN (hypertension): Plan: BPs low-normal on losartan & BB Hold Both and trend BPs (7) Anxiety: Plan: ideally would like to give SSRI but there is an interaction between SSRIs and amiodarone (8) TOBY (acute kidney injury): Plan: suspect 2nd to diuresis this past weekend cont supportive care serial BMPs (9) Hyperkalemia: Plan: patiromer 8.4gm po x 1 serial BMPs high K 2nd to #8 (10) Mood disorder: Plan: daughter very concerned that pt has fallen into a depression I do agree with her consider wellbutrin low-dose cannot give SSRI with amiodarone I don't think she would tolerate effexor not sure remeron would be good either due to sedation effects Plan: constipation - cont senna with miralax cont PT/OT DVT proph - eliquis 5mg BID updated pt's daughter by phone extensively this evening Admission and Anticipated Discharge Date Admission Date: April 27, 2021 Subjective patient on wall mounted HFNC still during the visit she constantly coughed dry, no sputum reports not feeling well - very weak, can't even roll in bed appetite fair did poorly with PT states she is more sob today than yesterday also with RAIN no chest pain Review of Systems Review of Systems: gen - weak, fatigued and mild anorexia CV - no cp pulm - wheeze, cough, dyspnea GI - no abd pain Physical Exam Physical Exam: gen - frail, but no distress; constant cough during the visit; looks generally unwell and weak mouth - MM dry neck - no JVD heart - RRR, s1 s2, no murmur lungs - fine bibasilar rales, wheezes b/l, air movement poor; coughing abd - soft NT ND BS+ ext - no edema, pulses 2+ b/l psych - restricted affect Results & Data Results & Data ([facility]) Vital Signs (Past 12 Hours) Vital Signs Temp Pulse Resp BP Pulse Ox 05/08/21 07:42 36.6 C 66 16 134/77 91 05/07/21 23:19 36.5 C 76 20 105/60 96 Laboratory Results Laboratory Results - last 24 hr 05/07/21 05/07/21 05/07/21 11:45 16:36 20:46 Sodium Potassium Chloride Carbon Dioxide Anion Gap BUN Creatinine Est Cr Clr Drug Dosing Est GFR ( Amer) Est GFR (Non-Af Amer) BUN/Creatinine Ratio Glucose POC Glucose 266 H 174 H 294 H Calcium 05/08/21 05/08/21 07:07 07:37 Sodium 134 L Potassium 5.4 H Chloride 98 Carbon Dioxide 31 Anion Gap 5.0 BUN 69 H Creatinine 1.34 H Est Cr Clr Drug Dosing 28.2 Est GFR ( Amer) 43.6 Est GFR (Non-Af Amer) 37.6 BUN/Creatinine Ratio 51.8 H Glucose 122 H POC Glucose 148 H Calcium 8.8 PG Care Time/CCT Total # of Minutes Spent Total Time Spent with Patient: Total time spent is greater than 50% in coordination of care (as documented) at patient's floor/unit and/or counseling patient: Coding Level of Care Code 53667 Subseq Hosp Care Lvl 3 Diagnoses Acute hypoxemic respiratory failure due to COVID-19 U07.1; J96.01 Pneumonia due to COVID-19 virus U07.1; J12.82 Atrial fibrillation with RVR I48.91 COPD (chronic obstructive pulmonary disease) J44.1 COPD type: COPD with acute exacerbation Hyperlipidemia E78.5 HTN (hypertension) I10 Anxiety F41.9 TOBY (acute kidney injury) N17.9 Hyperkalemia E87.5 Mood disorder F39 (1) COPD (chronic obstructive pulmonary disease) COPD type: COPD with acute exacerbation Qualified Code(s): J44.1 - Chronic obstructive pulmonary disease with (acute) exacerbation
[2021-05-08] MEDS: ONDANSETRON INJ 2 MG/ML 2 ML VIAL IV PRN (11:50)
--- NOTE | 2021-05-08 12:23 | XRay Report ---
XR chest 1V portable CLINICAL HISTORY: COVID pneumonia, worsening cough TECHNIQUE: Single frontal radiograph of the chest was obtained. Comparison: Comparison is made to chest one view 05/06/2021 FINDINGS: No lines and tubes are seen. Ascending aortic aneurysm is seen with a graft in place. The lungs are c lear. No evidence of pleural effusion or pneumothorax. IMPRESSION: No acute chest disease. ACT 112: Negative or not required by law. Electronically signed by: Chandler Melgoza M.D. 05/08/2021 12:21 PM
[2021-05-08] MEDS ORDERED: ALBUT/IPRATROP 3MG/0.5MG NEB 3 ML VIAL NEB STA (13:09)
[2021-05-08] MEDS: MELATONIN 3 MG TAB PO PRN (19:19)
[2021-05-08] MEDS: LORazepam 0.5 MG TAB PO PRN (19:19)
[2021-05-08 20:58] LABS: Basophils # (auto) 0.01 K/uL (0-0.2); Basophils % (auto) 0.1 %; Hematocrit (blood only) 30.4 % (37-47); Hemoglobin 9.6 g/dL (12.0-16.0); Immature Granulocytes # (auto) 0.13 K/uL (0.00-0.02); Immature Granulocytes % (auto) 0.9 %; Lymphocytes # (auto) 0.48 K/uL (1.2-3.4); Lymphocytes % (auto) 3.2 %; Mean Corpuscular Hemoglobin 24.1 pg (25-34); Mean Corpuscular Hgb Conc 31.6 g/dL (32-36); Mean Corpuscular Volume 76.2 fL (80-100); Mean Platelet Volume 9.3 fL (7.4-10.4); Monocytes # (auto) 0.33 K/uL (0.11-0.59); Monocytes % (auto) 2.2 %; Neutrophils # (auto) 13.83 K/uL (1.4-6.5); Neutrophils % (auto) 93.6 %; Platelet Count 329 K/uL (130-400); RDW Coefficient of Variation 15.6 % (11.5-14.5); RDW Standard Deviation 42.9 fL (36.4-46.3); Red Blood Count 3.99 M/uL (4.2-5.4); White Blood Count 14.78 K/uL (4.8-10.8)
[2021-05-08] MEDS: INSULIN GLARGINE SOLOSTAR 100 UNITS/ML 3 ML PEN SC SCH (21:13)
[2021-05-08] MEDS: SIMVASTATIN 40 MG TAB PO SCH (21:13)
[2021-05-08 21:14] LABS: BUN Creatinine Ratio 48.4 (10-20); Calcium 8.7 mg/dl (8.5-10.1); Creatinine Clr Calc Pharmacy 23.4 ml/min; Est GFR (African American) 34.9 ml/min; Est GFR (Non-African American) 30.1 ml/min
[2021-05-08 22:17] LABS: Potassium 4.8 mmol/L (3.5-5.1)
[2021-05-09] MEDS: ALBUTEROL HFA 8 GM INHALER INH SCH ×4 (07:39→18:37)
[2021-05-09] MEDS: IPRATROPIUM BROMIDE HFA INHALER INH SCH ×4 (07:40→18:37)
[2021-05-09 07:41] LABS: BUN Creatinine Ratio 61.3 (10-20); Calcium 9.1 mg/dl (8.5-10.1); Creatinine Clr Calc Pharmacy 32.3 ml/min; Est GFR (African American) 51.3 ml/min; Est GFR (Non-African American) 44.3 ml/min; Potassium 4.6 mmol/L (3.5-5.1)
[2021-05-09 07:46] LABS: Ferritin 268.4 ng/ml (8-388)
[2021-05-09] MEDS: APIXABAN 5 MG TABLET PO SCH ×2 (07:54→20:46)
[2021-05-09] MEDS: BENZONATATE 100 MG CAPSULE PO SCH ×2 (07:54→14:59)
[2021-05-09] MEDS: AMIODARONE 200 MG TAB PO SCH ×2 (07:54→17:45)
[2021-05-09] MEDS: cefTRIAXone SODIUM 1,000 MG in DEXTROSE 5% 50 ML IV SCH (07:54)
[2021-05-09] MEDS: guaiFENesin 600 MG TABCR PO SCH ×2 (07:55→20:46)
[2021-05-09] MEDS: dexAMETHasone 10 MG in SYRINGE 0 ML IV SCH (07:55)
[2021-05-09] MEDS: FLUTICASONE FUROATE 100MCG 14 PUFFS/INHALER INH SCH (07:55)
[2021-05-09] MEDS: SENNA 8.6 MG TAB PO SCH (07:56)
[2021-05-09] MEDS: UMECLIDINIUM/VILANTEROL 62.5/25MCG 7 PUFFS/INHALER INH SCH (07:56)
[2021-05-09] MEDS: PANTOprazole 40 MG TAB PO SCH (07:56)
[2021-05-09] MEDS: INSULIN ASPART 100 UNITS/ML 3 ML PEN SC SCH ×4 (08:09→20:44)
[2021-05-09] MEDS: POLYETHYLENE (MIRALAX) 17 GM PACK PO SCH (08:58)
[2021-05-09] MEDS: buPROPion HCl 75 MG TABLET PO SCH ×2 (11:28→20:46)
[2021-05-09] MEDS: ACETAMINOPHEN SUSP 325 MG/10.15 ML UDC PO PRN (12:13)
[2021-05-09] MEDS: guaiFENesin/CODEINE 100MG/10MG 5ML UDC PO PRN (15:35)
[2021-05-09] MEDS: MELATONIN 3 MG TAB PO PRN (20:43)
[2021-05-09] MEDS: LORazepam 0.5 MG TAB PO PRN (20:43)
[2021-05-09] MEDS: INSULIN GLARGINE SOLOSTAR 100 UNITS/ML 3 ML PEN SC SCH (20:47)
[2021-05-09] MEDS: SIMVASTATIN 40 MG TAB PO SCH (20:47)
--- NOTE | 2021-05-10 00:10 | Hospitalist Progress Note ---
Date of Service May 09, 2021 Assessment & Plan (1) Acute hypoxemic respiratory failure due to COVID-19: Plan: Pt was intubated after decompensating due to afib RVR 04/27/21, subsequently extubated 04/28/2021. Has been on NC O2 since that time. HFNC on Saturday pm into Saturday. Suspect 2nd to COPD flare and/or brewing UTI and/or mucous plugging vs other. Weaned to wall-mounted HF 05/08 and remains on such. I believe her active COPD is the main culprit at this time causing her symptoms - exacerbation due to COPD. Can't rule out a concomitant bacterial process. See below. (2) Pneumonia due to COVID-19 virus: Plan: Continue dexamethasone - today is day 13. I increased her steroids to 10mg/day given her worsening status this past weekend. No wean today. Her clinical worsening could be from mucous plugging in the setting of baseline COPD, shunting, etc. She could have a concomitant bacterial process - send sputum cx. PE doubtful - has been on full-strength eliquis. Encouraged side positioning, encouraged pulmonary toilet. Completed Remdesivir 5-day course. Ongoing cough - unresponsive to tessalon. Try robitussin ac prn. Try saline nebs BID to help with mucous mobilization. (3) Atrial fibrillation with RVR: Plan: Converted to NSR on amiodarone drip shortly after admission Cont Amiodarone to 200mg BID Cont Eliquis 5mg BID HOLD metoprolol due to relative hypotension (4) COPD (chronic obstructive pulmonary disease): Plan: COPD with exacerbation from COVID see above Cont home inhalers Cont combivent 1 puff QID scheduled I gave a 1-time neb yesterday (duoneb) - she didn't notice much difference in symptoms with such Cont combivent then Sputum cx see above (5) Hyperlipidemia: Plan: Cont simvastatin Recent ast/alt wnl (6) HTN (hypertension): Plan: BPs low-normal on losartan & BB Cont to hold both and trend BPs (7) Anxiety: Plan: ideally would like to give SSRI but there is an interaction between SSRIs and amiodarone (8) TOBY (acute kidney injury): Plan: suspect 2nd to diuresis this past weekend cont supportive care serial BMPs (9) Hyperkalemia: Plan: patiromer 8.4gm po x 1 serial BMPs high K 2nd to #8 K improved today (10) Mood disorder: Plan: daughter very concerned that pt has fallen into a depression I do agree with her start low-dose wellbutrin BID cannot give SSRI with amiodarone I don't think she would tolerate effexor not sure remeron would be good either due to sedation effects Plan: constipation - cont senna with miralax cont PT/OT DVT proph - eliquis 5mg BID updated pt's daughter by phone extensively yesterday evening Admission and Anticipated Discharge Date Admission Date: April 27, 2021 Subjective despite tessalon pearles she continues with ongoing cough there has been sputum production ate a good breakfast weakness/fatigue continues no dyspnea at rest she admits to feeling depressed she "just wants to go home so she can see her family" no chest pain no abd pain Review of Systems Review of Systems: gen - no fevers, no chills CV - no chest pain pulm - cough, congestion, wheezing, sputum GI - no abd pain, nausea, emesis Physical Exam Physical Exam: gen - frail, but no distress; like yesterday constant cough during the visit mouth - MMM, no thrush neck - no JVD heart - RRR, s1 s2, no murmur lungs - fine bibasilar rales, wheezes b/l, air movement still poor; coughing abd - soft NT ND BS+ ext - no edema, pulses 2+ b/l psych - restricted affect Results & Data Results & Data ([facility]) Vital Signs (Past 12 Hours) Vital Signs Temp Pulse Resp BP Pulse Ox 05/09/21 23:52 36.5 C 87 18 103/72 90 05/09/21 18:38 86 22 95 05/09/21 16:10 86 18 94 05/09/21 14:52 36.7 C 73 18 111/69 97 Laboratory Results Laboratory Results - last 24 hr 05/09/21 05/09/21 05/09/21 06:01 07:36 11:33 Sodium 133 L Potassium 4.6 Chloride 99 Carbon Dioxide 27 Anion Gap 7.0 BUN 72 H Creatinine 1.17 D Est Cr Clr Drug Dosing 32.3 Est GFR ( Amer) 51.3 Est GFR (Non-Af Amer) 44.3 BUN/Creatinine Ratio 61.3 H Glucose 129 H POC Glucose 121 H 277 H Calcium 9.1 Iron 61 Transferrin 234 Transferrin % Sat 18 Ferritin 268.4 05/09/21 05/09/21 16:33 20:15 Sodium Potassium Chloride Carbon Dioxide Anion Gap BUN Creatinine Est Cr Clr Drug Dosing Est GFR ( Amer) Est GFR (Non-Af Amer) BUN/Creatinine Ratio Glucose POC Glucose 169 H 279 H Calcium Iron Transferrin Transferrin % Sat Ferritin PG Care Time/CCT Total # of Minutes Spent Total Time Spent with Patient: Total time spent is greater than 50% in coordination of care (as documented) at patient's floor/unit and/or counseling patient: Coding Level of Care Code 87411 Subseq Hosp Care Lvl 3 Diagnoses Acute hypoxemic respiratory failure due to COVID-19 U07.1; J96.01 Pneumonia due to COVID-19 virus U07.1; J12.82 Atrial fibrillation with RVR I48.91 COPD (chronic obstructive pulmonary disease) J44.1 COPD type: COPD with acute exacerbation Hyperlipidemia E78.5 HTN (hypertension) I10 Anxiety F41.9 TOBY (acute kidney injury) N17.9 Hyperkalemia E87.5 Mood disorder F39 (1) COPD (chronic obstructive pulmonary disease) COPD type: COPD with acute exacerbation Qualified Code(s): J44.1 - Chronic obstructive pulmonary disease with (acute) exacerbation
[2021-05-10 07:26] LABS: Hematocrit (blood only) 30.6 % (37-47); Hemoglobin 9.7 g/dL (12.0-16.0); Mean Corpuscular Hemoglobin 24.3 pg (25-34); Mean Corpuscular Hgb Conc 31.7 g/dL (32-36); Mean Corpuscular Volume 76.7 fL (80-100); Platelet Count 302 K/uL (130-400); RDW Coefficient of Variation 15.7 % (11.5-14.5); RDW Standard Deviation 43.7 fL (36.4-46.3); Red Blood Count 3.99 M/uL (4.2-5.4); White Blood Count 8.21 K/uL (4.8-10.8)
[2021-05-10] MEDS: ALBUTEROL HFA 8 GM INHALER INH SCH ×4 (07:47→20:31)
[2021-05-10] MEDS: IPRATROPIUM BROMIDE HFA INHALER INH SCH ×4 (07:48→20:31)
[2021-05-10 08:01] LABS: BUN Creatinine Ratio 67.2 (10-20); Calcium 8.6 mg/dl (8.5-10.1); Creatinine Clr Calc Pharmacy 36.5 ml/min; Est GFR (African American) 53.5 ml/min; Est GFR (Non-African American) 46.2 ml/min; Potassium 5.4 mmol/L (3.5-5.1)
[2021-05-10] MEDS ORDERED: PATIROMER CALCIUM SORBITEX 8.4 GM PACK PO ONE (08:30)
[2021-05-10] MEDS: APIXABAN 5 MG TABLET PO SCH ×2 (08:52→20:18)
[2021-05-10] MEDS: PANTOprazole 40 MG TAB PO SCH (08:52)
[2021-05-10] MEDS: AMIODARONE 200 MG TAB PO SCH ×2 (08:52→17:46)
[2021-05-10] MEDS: SENNA 8.6 MG TAB PO SCH (08:52)
[2021-05-10] MEDS: buPROPion HCl 75 MG TABLET PO SCH ×2 (08:52→20:19)
[2021-05-10] MEDS: dexAMETHasone 10 MG in SYRINGE 0 ML IV SCH (08:52)
[2021-05-10] MEDS: cefTRIAXone SODIUM 1,000 MG in DEXTROSE 5% 50 ML IV SCH (08:53)
[2021-05-10] MEDS: guaiFENesin 600 MG TABCR PO SCH ×2 (08:53→20:18)
[2021-05-10] MEDS: UMECLIDINIUM/VILANTEROL 62.5/25MCG 7 PUFFS/INHALER INH SCH (08:53)
[2021-05-10] MEDS: FLUTICASONE FUROATE 100MCG 14 PUFFS/INHALER INH SCH (08:53)
[2021-05-10] MEDS: INSULIN ASPART 100 UNITS/ML 3 ML PEN SC SCH ×4 (08:55→20:20)
[2021-05-10] MEDS: POLYETHYLENE (MIRALAX) 17 GM PACK PO SCH (09:01)
[2021-05-10] MEDS: SODIUM CHLOR 7% 4 ML NEB NEB SCH ×2 (12:10→20:30)
[2021-05-10] MEDS: guaiFENesin/CODEINE 100MG/10MG 5ML UDC PO PRN (12:50)
[2021-05-10] MEDS: ONDANSETRON INJ 2 MG/ML 2 ML VIAL IV PRN (12:50)
[2021-05-10] MEDS: MELATONIN 3 MG TAB PO PRN (20:17)
[2021-05-10] MEDS: LORazepam 0.5 MG TAB PO PRN (20:17)
[2021-05-10] MEDS: SIMVASTATIN 40 MG TAB PO SCH (20:19)
[2021-05-10] MEDS: INSULIN GLARGINE SOLOSTAR 100 UNITS/ML 3 ML PEN SC SCH (20:19)
--- NOTE | 2021-05-10 20:41 | Hospitalist Progress Note ---
Date of Service May 10, 2021 Assessment & Plan (1) Acute hypoxemic respiratory failure due to COVID-19: Plan: Pt was intubated 04/27/21. Extubated 04/28/2021. Has been on NC O2 since that time. Last Saturday pm/Saturday am decompensated - required transition back to HFNC. Suspect 2nd to COPD flare and/or brewing UTI leading to weakness and/or mucous plugging vs other. Weaned to wall-mounted HF 05/08 and remains on such, now <10 liters. I believe her active COPD is the main culprit at this time causing her symptoms. Can't rule out a concomitant bacterial process. Trying to obtain sputum culture. Added saline nebs BID. Cont combivent QID. Cont high-dose dexamethasone due to refractory symptoms - 10mg once daily IV. Cont flutter/incentive spirometry. (2) Pneumonia due to COVID-19 virus: Plan: Continue dexamethasone - today is day 14. Remains on 10mg/day given refractory symptoms. No wean today but perhaps can start weaning tomorrow. Her clinical worsening could be from mucous plugging in the setting of baseline COPD, shunting, etc. She could have a concomitant bacterial process - sputum cx ordered - but unable to produce anything. PE doubtful - has been on full-strength eliquis. Encouraged side positioning, encouraged pulmonary toilet. Completed Remdesivir 5-day course. (3) Atrial fibrillation with RVR: Plan: Converted to NSR on amiodarone drip shortly after admission Cont Amiodarone to 200mg BID Cont Eliquis 5mg BID HOLDING metoprolol due to relative hypotension (4) COPD (chronic obstructive pulmonary disease): Plan: COPD with exacerbation from COVID see above Cont home inhalers Cont combivent 1 puff QID scheduled Saline nebs BID Dexamethasone daily Sputum cx see above (5) Hyperlipidemia: Plan: Cont simvastatin Recent ast/alt wnl (6) HTN (hypertension): Plan: BPs low-normal on losartan & BB Cont to hold both and trend BPs (7) Anxiety: Plan: ideally would like to give SSRI but there is an interaction between SSRIs and amiodarone could consider low-dose buspar (8) TOBY (acute kidney injury): Plan: suspect 2nd to diuresis this past weekend cont supportive care serial BMPs (9) Hyperkalemia: Plan: patiromer 8.4gm po x 1 earlier this week K 5.4 today - repeat the patiromer today bmp am high K 2nd to #8 K improved today (10) Mood disorder: Plan: started low-dose wellbutrin BID - tolerating such thus far cannot give SSRI with amiodarone I don't think she would tolerate effexor not sure remeron would be good either due to sedation effects Plan: constipation - cont senna with miralax cont PT/OT DVT proph - eliquis 5mg BID updated pt's daughter by phone extensively this evening Admission and Anticipated Discharge Date Admission Date: April 27, 2021 Subjective patient thinks her eating is better cough improved no dyspnea at rest fatigue persists "I just want to go home - I miss my family" slept ok last night denies any other complaints Review of Systems Review of Systems: gen - no fevers or chills CV - no chest pain; mild orthopnea but this is chronic (can't lay flat at home either) pulm - minimal sputum, thinks she has more in her lungs that just won't come out GI - no N/V Physical Exam Physical Exam: gen - frail, but no distress; coughing - but improved from yesterday neck - no JVD heart - RRR, s1 s2, no murmur lungs - fine bibasilar rales, extensive wheezing b/l, air movement fair abd - soft NT ND BS+ ext - no edema, pulses 2+ b/l psych - anxious Results & Data Results & Data ([facility]) Vital Signs (Past 12 Hours) Vital Signs Temp Pulse Resp BP Pulse Ox 05/10/21 20:32 88 20 89 L 05/10/21 18:41 123/74 90 05/10/21 16:00 36.4 C L 79 18 90/60 L 88 L 05/10/21 15:10 91 H 18 92 05/10/21 11:23 65 22 92 Laboratory Results Laboratory Results - last 24 hr 05/10/21 05/10/21 05/10/21 06:59 06:59 08:00 WBC 8.21 RBC 3.99 L Hgb 9.7 L Hct 30.6 L MCV 76.7 L MCH 24.3 L MCHC 31.7 L RDW Std Deviation 43.7 RDW Coeff of Lawson 15.7 H Plt Count 302 MPV 9.0 Sodium 137 Potassium 5.4 H D Chloride 102 Carbon Dioxide 30 Anion Gap 5.0 BUN 76 H Creatinine 1.13 Est Cr Clr Drug Dosing 36.5 Est GFR ( Amer) 53.5 Est GFR (Non-Af Amer) 46.2 BUN/Creatinine Ratio 67.2 H Glucose 107 H POC Glucose 98 Calcium 8.6 05/10/21 05/10/21 05/10/21 11:56 16:50 20:17 WBC RBC Hgb Hct MCV MCH MCHC RDW Std Deviation RDW Coeff of Lawson Plt Count MPV Sodium Potassium Chloride Carbon Dioxide Anion Gap BUN Creatinine Est Cr Clr Drug Dosing Est GFR ( Amer) Est GFR (Non-Af Amer) BUN/Creatinine Ratio Glucose POC Glucose 193 H 137 H 251 H Calcium PG Care Time/CCT Total # of Minutes Spent Total Time Spent with Patient: Total time spent is greater than 50% in coordination of care (as documented) at patient's floor/unit and/or counseling patient: Coding Level of Care Code 25913 Subseq Hosp Care Lvl 3 Diagnoses Acute hypoxemic respiratory failure due to COVID-19 U07.1; J96.01 Pneumonia due to COVID-19 virus U07.1; J12.82 Atrial fibrillation with RVR I48.91 COPD (chronic obstructive pulmonary disease) J44.1 COPD type: COPD with acute exacerbation Hyperlipidemia E78.5 HTN (hypertension) I10 Anxiety F41.9 TOBY (acute kidney injury) N17.9 Hyperkalemia E87.5 Mood disorder F39 (1) COPD (chronic obstructive pulmonary disease) COPD type: COPD with acute exacerbation Qualified Code(s): J44.1 - Chronic obstructive pulmonary disease with (acute) exacerbation
[2021-05-11] MEDS: IPRATROPIUM BROMIDE HFA INHALER INH SCH ×4 (07:33→19:23)
[2021-05-11] MEDS: ALBUTEROL HFA 8 GM INHALER INH SCH ×4 (07:33→19:23)
[2021-05-11] MEDS: SODIUM CHLOR 7% 4 ML NEB NEB SCH ×3 (07:35→19:24)
[2021-05-11] MEDS: INSULIN ASPART 100 UNITS/ML 3 ML PEN SC SCH ×4 (09:05→20:22)
[2021-05-11] MEDS: APIXABAN 5 MG TABLET PO SCH ×2 (09:09→20:23)
[2021-05-11] MEDS: AMIODARONE 200 MG TAB PO SCH ×2 (09:09→17:42)
[2021-05-11] MEDS: guaiFENesin 600 MG TABCR PO SCH ×2 (09:09→20:23)
[2021-05-11] MEDS: FLUTICASONE FUROATE 100MCG 14 PUFFS/INHALER INH SCH (09:09)
[2021-05-11] MEDS: dexAMETHasone 10 MG in SYRINGE 0 ML IV SCH (09:09)
[2021-05-11] MEDS: buPROPion HCl 75 MG TABLET PO SCH ×2 (09:09→20:23)
[2021-05-11] MEDS: cefTRIAXone SODIUM 1,000 MG in DEXTROSE 5% 50 ML IV SCH (09:09)
[2021-05-11] MEDS: UMECLIDINIUM/VILANTEROL 62.5/25MCG 7 PUFFS/INHALER INH SCH (09:10)
[2021-05-11] MEDS: PANTOprazole 40 MG TAB PO SCH (09:10)
[2021-05-11] MEDS: SENNA 8.6 MG TAB PO SCH (09:10)
[2021-05-11] MEDS: POLYETHYLENE (MIRALAX) 17 GM PACK PO SCH (09:13)
[2021-05-11] MEDS: guaiFENesin/CODEINE 100MG/10MG 5ML UDC PO PRN ×2 (09:14→15:50)
[2021-05-11 10:08] LABS: BUN Creatinine Ratio 51.3 (10-20); Calcium 8.5 mg/dl (8.5-10.1); Creatinine Clr Calc Pharmacy 31.9 ml/min; Est GFR (Non-African American) 39.7 ml/min; Potassium 4.8 mmol/L (3.5-5.1)
[2021-05-11] MEDS: SIMVASTATIN 40 MG TAB PO SCH (20:24)
[2021-05-11] MEDS: INSULIN GLARGINE SOLOSTAR 100 UNITS/ML 3 ML PEN SC SCH (20:24)
--- NOTE | 2021-05-11 23:03 | Hospitalist Progress Note ---
Date of Service May 11, 2021 Assessment & Plan (1) Acute hypoxemic respiratory failure due to COVID-19: Plan: Pt was intubated 04/27/21. Extubated 04/28/2021. Has been on NC O2 since that time. Last Saturday pm/Saturday am decompensated - required transition back to HFNC. Suspect 2nd to COPD flare and/or brewing UTI leading to weakness and/or mucous plugging vs other vs combo of factors. Weaned to wall-mounted HF 05/08 and remains on such, now <10 liters and slowly weaning. I believe her active COPD is the main culprit at this time causing her symptoms. Can't rule out a concomitant bacterial process but unlikely given normal procal and negative sputum culture. Cont saline nebs BID. Cont combivent QID. Cont high-dose dexamethasone due to refractory symptoms - 10mg once daily IV today, then wean to 8mg/day in am. Cont flutter/incentive spirometry. (2) Pneumonia due to COVID-19 virus: Plan: Continue dexamethasone - today is day 15. Remains on 10mg/day but start weaning now. Her recent clinical worsening could be from mucous plugging in the setting of baseline COPD, shunting, etc. Nothing bacterial suspected. PE doubtful - has been on full-strength eliquis. Encouraged side positioning, encouraged pulmonary toilet. Completed Remdesivir 5-day course. (3) Atrial fibrillation with RVR: Plan: Converted to NSR on amiodarone drip shortly after admission Cont Amiodarone to 200mg BID Cont Eliquis 5mg BID HOLDING metoprolol due to relative hypotension but hopefully can resume soon (4) COPD (chronic obstructive pulmonary disease): Plan: COPD with exacerbation from COVID see above Cont home inhalers Cont combivent 1 puff QID scheduled Saline nebs BID Dexamethasone daily see above (5) Hyperlipidemia: Plan: Cont simvastatin Recent ast/alt wnl (6) HTN (hypertension): Plan: BPs starting to climb - start back on metoprolol 25mg BID (7) Anxiety: Plan: ideally would like to give SSRI but there is an interaction between SSRIs and amiodarone could consider low-dose buspar (8) TOBY (acute kidney injury): Plan: suspect 2nd to diuresis this past weekend cont supportive care serial BMPs hold further diuretics (9) Hyperkalemia: Plan: finally resolved s/p 2 doses of patiromer this week high K 2nd to #8 K stable today (10) Mood disorder: Plan: started low-dose wellbutrin BID 05/09/21 - tolerating such thus far cannot give SSRI with amiodarone I don't think she would tolerate effexor not sure remeron would be good either due to sedation effects Plan: constipation - cont senna with miralax cont PT/OT although making very, very slow progress DVT proph - eliquis 5mg BID updated pt's daughter by phone extensively yesterday Admission and Anticipated Discharge Date Admission Date: April 27, 2021 Subjective pt continues with frequent, weak cough but feels it is "Better" today than previous dyspnea is unchanged very weak- hard to roll in bed she does state that she typically sleeps on her L side at home mild orthopnea no cp eating robustly again NC O2 needs have come down despite the frequent cough/wheezing "I just want to go home" Review of Systems Review of Systems: gen - weak, fatigue; but eating; no fevers cv - no chest pain pulm - saline nebs helping "a little" with her sputum production GI - no abd pain, nausea, emesis Physical Exam Physical Exam: gen - frail, but no distress; constant weak cough neck - no JVD heart - RRR, s1 s2, no murmur lungs - fine bibasilar rales, extensive wheezing b/l, air movement poor (even worse than yesterday); she coughs when trying to take deep breaths abd - soft NT ND BS+ ext - no edema, pulses 2+ b/l psych - anxious but oriented x 3 Results & Data Results & Data ([facility] [place]) Vital Signs (Past 12 Hours) Vital Signs Temp Pulse Resp BP Pulse Ox 05/11/21 19:24 98 H 26 H 95 05/11/21 15:57 70 18 98 05/11/21 15:28 36.4 C L 81 18 134/77 97 05/11/21 11:08 104 H 20 97 Laboratory Results Laboratory Results - last 24 hr 05/11/21 05/11/21 05/11/21 07:05 07:36 09:13 Sodium 134 L Potassium 4.8 Chloride 99 Carbon Dioxide 25 Anion Gap 10.0 BUN 66 H Creatinine 1.28 H Est Cr Clr Drug Dosing 31.9 Est GFR ( Amer) 46.0 Est GFR (Non-Af Amer) 39.7 BUN/Creatinine Ratio 51.3 H Glucose 228 H POC Glucose 93 Calcium 8.5 C-Reactive Protein < 0.29 05/11/21 05/11/21 05/11/21 11:30 16:29 20:19 Sodium Potassium Chloride Carbon Dioxide Anion Gap BUN Creatinine Est Cr Clr Drug Dosing Est GFR ( Amer) Est GFR (Non-Af Amer) BUN/Creatinine Ratio Glucose POC Glucose 147 H 97 226 H Calcium C-Reactive Protein PG Care Time/CCT Total # of Minutes Spent Total Time Spent with Patient: Total time spent is greater than 50% in coordination of care (as documented) at patient's floor/unit and/or counseling patient: Coding Level of Care Code 01423 Subseq Hosp Care Lvl 3 Diagnoses Acute hypoxemic respiratory failure due to COVID-19 U07.1; J96.01 Pneumonia due to COVID-19 virus U07.1; J12.82 Atrial fibrillation with RVR I48.91 COPD (chronic obstructive pulmonary disease) J44.1 COPD type: COPD with acute exacerbation Hyperlipidemia E78.5 HTN (hypertension) I10 Anxiety F41.9 TOBY (acute kidney injury) N17.9 Hyperkalemia E87.5 Mood disorder F39 (1) COPD (chronic obstructive pulmonary disease) COPD type: COPD with acute exacerbation Qualified Code(s): J44.1 - Chronic obstructive pulmonary disease with (acute) exacerbation
[2021-05-12 07:02] LABS: BUN Creatinine Ratio 65.9 (10-20); Calcium 8.6 mg/dl (8.5-10.1); Creatinine Clr Calc Pharmacy 42.5 ml/min; Est GFR (African American) 65.2 ml/min; Est GFR (Non-African American) 56.2 ml/min; Potassium 4.6 mmol/L (3.5-5.1)
[2021-05-12] MEDS: SODIUM CHLOR 7% 4 ML NEB NEB SCH ×2 (08:01→19:55)
[2021-05-12] MEDS: IPRATROPIUM BROMIDE HFA INHALER INH SCH ×4 (08:01→20:01)
[2021-05-12] MEDS: ALBUTEROL HFA 8 GM INHALER INH SCH ×4 (08:01→20:01)
[2021-05-12] MEDS: INSULIN ASPART 100 UNITS/ML 3 ML PEN SC SCH ×4 (09:26→20:51)
[2021-05-12] MEDS: AMIODARONE 200 MG TAB PO SCH ×2 (09:27→17:55)
[2021-05-12] MEDS: APIXABAN 5 MG TABLET PO SCH ×2 (09:33→20:49)
[2021-05-12] MEDS: buPROPion HCl 75 MG TABLET PO SCH ×2 (09:33→21:34)
[2021-05-12] MEDS: cefTRIAXone SODIUM 1,000 MG in DEXTROSE 5% 50 ML IV SCH (09:33)
[2021-05-12] MEDS: guaiFENesin 600 MG TABCR PO SCH ×2 (09:34→21:34)
[2021-05-12] MEDS: POLYETHYLENE (MIRALAX) 17 GM PACK PO SCH (09:34)
[2021-05-12] MEDS: SENNA 8.6 MG TAB PO SCH (09:34)
[2021-05-12] MEDS: PANTOprazole 40 MG TAB PO SCH (09:34)
[2021-05-12] MEDS: FLUTICASONE FUROATE 100MCG 14 PUFFS/INHALER INH SCH (09:34)
[2021-05-12] MEDS: dexAMETHasone 8 MG in SYRINGE 0 ML IV SCH (09:34)
[2021-05-12] MEDS: UMECLIDINIUM/VILANTEROL 62.5/25MCG 7 PUFFS/INHALER INH SCH (09:35)
[2021-05-12] MEDS: METOPROLOL TARTRATE 25 MG TAB PO SCH ×2 (10:17→20:48)
[2021-05-12] MEDS: SIMVASTATIN 40 MG TAB PO SCH (20:49)
[2021-05-12] MEDS: INSULIN GLARGINE SOLOSTAR 100 UNITS/ML 3 ML PEN SC SCH (20:50)
[2021-05-12] MEDS: guaiFENesin/CODEINE 100MG/10MG 5ML UDC PO PRN (21:01)
[2021-05-12] MEDS: MELATONIN 3 MG TAB PO PRN (21:01)
--- NOTE | 2021-05-12 22:40 | Hospitalist Progress Note ---
Date of Service May 12, 2021 Assessment & Plan (1) Acute hypoxemic respiratory failure due to COVID-19: Plan: Pt was intubated 04/27/21. Extubated 04/28/2021. Has been on NC O2 since that time. 05/05 into 05/06 she became decompensated - required transition back to HFNC. Suspect 2nd to COPD flare and/or brewing UTI leading to weakness and/or mucous plugging vs other vs combo of factors. Weaned to wall-mounted HF on 05/08 and has remained on such now down to 5 L I believe her active COPD is the main culprit at this time causing her symptoms. Can't rule out a concomitant bacterial process but unlikely given normal procal and negative sputum culture. Cont saline nebs BID. Cont combivent QID. Cont high-dose dexamethasone due to refractory symptoms - wean today from 10mg to 8mg; wean by 2mg every 2 days to off Cont flutter/incentive spirometry. Could consider cough-assist device if mucous is suspected and if weak cough persists. (2) Pneumonia due to COVID-19 virus: Plan: Continue dexamethasone - today is day 16. Weaned to 8mg today - wean by 2mg every 48 hours to off. Her recent clinical worsening as noted above. Suspect mucous plugging in the setting of baseline COPD, shunting, etc. Nothing bacterial suspected. PE doubtful - has been on full-strength eliquis. Encouraged side positioning, encouraged pulmonary toilet. It is hard for her to even do side positioning. Completed Remdesivir 5-day course. (3) Atrial fibrillation with RVR: Plan: Converted to NSR on amiodarone drip shortly after admission Cont Amiodarone to 200mg BID Cont Eliquis 5mg BID Now that BPs are improved will resume metoprolol albeit at lower dose of 25mg BID (4) COPD (chronic obstructive pulmonary disease): Plan: COPD with exacerbation from COVID see above Cont home inhalers Cont combivent 1 puff QID scheduled Saline nebs BID Dexamethasone daily see above (5) Hyperlipidemia: Plan: Cont simvastatin Recent ast/alt wnl (6) HTN (hypertension): Plan: started back on metoprolol 25mg BID holding ARB (7) Anxiety: Plan: ideally would like to give SSRI but there is an interaction between SSRIs and amiodarone could consider low-dose buspar anxiety has been better last 1-2 days (8) TOBY (acute kidney injury): Plan: suspect 2nd to diuresis last weekend cont supportive care serial BMPs hold further diuretics (9) Hyperkalemia: Plan: finally resolved s/p 2 doses of patiromer this week high K 2nd to #8 K stable again today (10) Mood disorder: Plan: started low-dose wellbutrin BID 05/09/21 - tolerating such thus far cannot give SSRI with amiodarone I don't think she would tolerate effexor not sure remeron would be good either due to sedation effects Plan: constipation - cont senna with miralax - resolved cont PT/OT although making very, very slow progress DVT proph - eliquis 5mg BID updated pt's daughter by phone extensively yesterday and today dispo - [facility]? will not need auth per social work Admission and Anticipated Discharge Date Admission Date: April 27, 2021 Subjective pt states that overall she feels better cough is improved o2 now weaned to 5 L feels like the saline nebs are helping - she is getting more mucous up can take deeper breaths spirits are better today appetite improved Review of Systems Review of Systems: gen - no fevers, no chills - but is weak and fatigued cv - no chest pain pulm - cough, mucous, congestion, mild RAIN GI - no abd pain, nausea or emesis Physical Exam Physical Exam: gen - frail, but no distress; cough is improved today; better spirits neck - no JVD heart - RRR, s1 s2, no murmur lungs - fine bibasilar rales, extensive wheezing b/l but air movement is much better than previous exams abd - soft NT ND BS+ ext - no edema, pulses 2+ b/l psych - a/o x 3; better spitis today Results & Data Results & Data ([facility]) Vital Signs (Past 12 Hours) Vital Signs Temp Pulse Resp BP Pulse Ox 05/12/21 20:00 69 20 94 05/12/21 15:52 36.8 C 73 18 121/86 95 05/12/21 15:07 71 22 93 05/12/21 11:24 36.7 C 80 17 124/87 94 05/12/21 10:56 86 24 91 Laboratory Results Laboratory Results - last 24 hr 05/12/21 05/12/21 05/12/21 06:00 07:35 11:42 Sodium 133 L Potassium 4.6 Chloride 101 Carbon Dioxide 27 Anion Gap 5.0 BUN 64 H Creatinine 0.96 D Est Cr Clr Drug Dosing 42.5 Est GFR ( Amer) 65.2 Est GFR (Non-Af Amer) 56.2 BUN/Creatinine Ratio 65.9 H Glucose 104 H POC Glucose 98 143 H Calcium 8.6 05/12/21 05/12/21 16:41 20:17 Sodium Potassium Chloride Carbon Dioxide Anion Gap BUN Creatinine Est Cr Clr Drug Dosing Est GFR ( Amer) Est GFR (Non-Af Amer) BUN/Creatinine Ratio Glucose POC Glucose 108 H 207 H Calcium PG Care Time/CCT Total # of Minutes Spent Total Time Spent with Patient: Total time spent is greater than 50% in coordination of care (as documented) at patient's floor/unit and/or counseling patient: Coding Level of Care Code 31440 Subseq Hosp Care Lvl 3 Diagnoses Acute hypoxemic respiratory failure due to COVID-19 U07.1; J96.01 Pneumonia due to COVID-19 virus U07.1; J12.82 Atrial fibrillation with RVR I48.91 COPD (chronic obstructive pulmonary disease) J44.1 COPD type: COPD with acute exacerbation Hyperlipidemia E78.5 HTN (hypertension) I10 Anxiety F41.9 TOBY (acute kidney injury) N17.9 Hyperkalemia E87.5 Mood disorder F39 (1) COPD (chronic obstructive pulmonary disease) COPD type: COPD with acute exacerbation Qualified Code(s): J44.1 - Chronic o bstructive pulmonary disease with (acute) exacerbation
[2021-05-13] MEDS: ALBUTEROL HFA 8 GM INHALER INH SCH ×2 (07:22→11:10)
[2021-05-13] MEDS: SODIUM CHLOR 7% 4 ML NEB NEB SCH ×2 (07:22→20:12)
[2021-05-13] MEDS: IPRATROPIUM BROMIDE HFA INHALER INH SCH ×2 (07:22→11:10)
[2021-05-13 07:24] LABS: BUN Creatinine Ratio 62.2 (10-20); Calcium 8.7 mg/dl (8.5-10.1); Creatinine Clr Calc Pharmacy 43.9 ml/min; Est GFR (African American) 67.7 ml/min; Est GFR (Non-African American) 58.5 ml/min
[2021-05-13] MEDS: INSULIN ASPART 100 UNITS/ML 3 ML PEN SC SCH ×4 (08:50→21:05)
[2021-05-13] MEDS: POLYETHYLENE (MIRALAX) 17 GM PACK PO SCH (08:51)
[2021-05-13] MEDS: AMOXICILLIN/CLAVULANATE 875 MG TAB PO SCH ×2 (08:53→17:18)
[2021-05-13] MEDS: APIXABAN 5 MG TABLET PO SCH ×2 (08:53→21:04)
[2021-05-13] MEDS: AMIODARONE 200 MG TAB PO SCH ×2 (08:53→17:16)
[2021-05-13] MEDS: buPROPion HCl 75 MG TABLET PO SCH ×2 (08:54→21:03)
[2021-05-13] MEDS: guaiFENesin 600 MG TABCR PO SCH ×2 (08:54→21:03)
[2021-05-13] MEDS: dexAMETHasone 8 MG in SYRINGE 0 ML IV SCH (08:54)
[2021-05-13] MEDS: PANTOprazole 40 MG TAB PO SCH (08:55)
[2021-05-13] MEDS: METOPROLOL TARTRATE 25 MG TAB PO SCH ×2 (08:55→21:04)
[2021-05-13] MEDS: UMECLIDINIUM/VILANTEROL 62.5/25MCG 7 PUFFS/INHALER INH SCH (08:55)
[2021-05-13] MEDS: SENNA 8.6 MG TAB PO SCH (10:09)
[2021-05-13] MEDS: FLUTICASONE FUROATE 100MCG 14 PUFFS/INHALER INH SCH (10:09)
[2021-05-13] MEDS ORDERED: ALBUTEROL HFA 8 GM INHALER INH PRN (11:09)
[2021-05-13] MEDS ORDERED: IPRATROPIUM BROMIDE HFA INHALER INH PRN (11:09)
--- NOTE | 2021-05-13 14:37 | Hospitalist Progress Note ---
Date of Service May 13, 2021 Assessment & Plan (1) Acute hypoxemic respiratory failure due to COVID-19: Plan: Pt was intubated 04/27/21. Extubated 04/28/2021. Has been on NC O2 since that time. 05/05 into 05/06 she became decompensated - required transition back to HFNC. Suspect 2nd to COPD flare and/or brewing UTI leading to weakness and/or mucous plugging vs other vs combo of factors. Weaned to wall-mounted HF on 05/08 and has remained on such now down to 3 L, breathing comfortably Cont saline nebs BID. Cont combivent QID. Cont high-dose dexamethasone due to refractory symptoms - 8mg today, down to 6mg tomorrow Cont flutter/incentive spirometry. Could consider cough-assist device if mucous is suspected and if weak cough persists. (2) Pneumonia due to COVID-19 virus: Plan: Continue dexamethasone - today is day 17 Weaned to 8mg 05/12 - wean to 6mg tomorrow Her recent clinical worsening as noted above. Suspect mucous plugging in the setting of baseline COPD, shunting, etc. Nothing bacterial suspected. PE doubtful - has been on full-strength eliquis. Encouraged side positioning, encouraged pulmonary toilet. It is hard for her to even do side positioning. Completed Remdesivir 5-day course. (3) Atrial fibrillation with RVR: Plan: Converted to NSR on amiodarone drip shortly after admission Cont Amiodarone to 200mg BID Cont Eliquis 5mg BID Now that BPs are improved will resume metoprolol albeit at lower dose of 25mg BID (4) COPD (chronic obstructive pulmonary disease): Plan: COPD with exacerbation from COVID see above Cont home inhalers Cont combivent 1 puff QID scheduled Saline nebs BID Dexamethasone daily see above (5) Hyperlipidemia: Plan: Cont simvastatin Recent ast/alt wnl (6) HTN (hypertension): Plan: started back on metoprolol 25mg BID holding ARB (7) Anxiety: Plan: ideally would like to give SSRI but there is an interaction between SSRIs and amiodarone could consider low-dose buspar anxiety has been better last 1-2 days (8) TOBY (acute kidney injury): Plan: suspect 2nd to diuresis last weekend cont supportive care serial BMPs hold further diuretics (9) Hyperkalemia: Plan: finally resolved s/p 2 doses of patiromer this week high K 2nd to #8 K stable again today holding Losartan (10) Mood disorder: Plan: started low-dose wellbutrin BID 05/09/21 - tolerating such thus far cannot give SSRI with amiodarone Plan: constipation - cont senna with miralax - resolved cont PT/OT although making very, very slow progress DVT proph - eliquis 5mg BID Admission and Anticipated Discharge Date Admission Date: April 27, 2021 Subjective patient feeling better, down to 3L NC today, no distress coughing up more sputum today, sputum is thick no fever/chills, eating well, no nausea discussed getting back on track to go to rehab, she agrees Review of Systems Review of Systems: All systems reviewed & are unremarkable except as noted in Subjective Respiratory: + cough, + chest congestion, + dyspnea, + dyspnea on exertion and + sputum production; no pain with cough and no wheezing Physical Exam Physical Exam: General: well developed, well nourished, elderly female, no distress Neck: supple, trachea midline, normal thyroid Lungs: rhonchi bilaterally, clear with cough, normal respiratory effort, no accessory muscle use, no distress Heart: regular S1 and S2, no murmur, peripheral pulses normal, capillary refill normal, no edema Abdomen: soft, NT, ND, + BS, no hepatomegaly, normal to percussion Extremities: normal in appearance, no cyanosis, no petechiae, strength is diminished bilaterally Neuro: awake, cooperative, moves all extremities, no focal motor deficits, CN II-XII intact, sensation in extremities intact, normal speech Skin: warm, dry, no rash, normal turgor Psych: Awake, alert oriented x 3, euthymic affect Results & Data Results & Data ([facility]) Vital Signs (Past 12 Hours) Vital Signs Temp Pulse Resp BP Pulse Ox 05/13/21 12:33 36.7 C 71 18 109/76 95 05/13/21 08:06 36.6 C 66 18 122/83 95 05/13/21 07:22 60 18 94 Laboratory Results Laboratory Results - last 24 hr 05/12/21 05/12/21 05/13/21 16:41 20:17 06:20 Sodium 133 L Potassium 5.0 Chloride 100 Carbon Dioxide 28 Anion Gap 5.0 BUN 58 H Creatinine 0.93 Est Cr Clr Drug Dosing 43.9 Est GFR ( Amer) 67.7 Est GFR (Non-Af Amer) 58.5 BUN/Creatinine Ratio 62.2 H Glucose 96 POC Glucose 108 H 207 H Calcium 8.7 05/13/21 05/13/21 07:45 12:11 Sodium Potassium Chloride Carbon Dioxide Anion Gap BUN Creatinine Est Cr Clr Drug Dosing Est GFR ( Amer) Est GFR (Non-Af Amer) BUN/Creatinine Ratio Glucose POC Glucose 94 181 H Calcium Medications Administered Current Inpatient Medications Acetaminophen (Acetaminophen Susp 325 Mg/10.15 Ml Udc) 650 mg PO Q6H PRN PRN Reason: Pain or Fever Stop: 05/28/21 11:21 Last Admin: 05/09/21 12:13 Dose: 650 mg Documented by: Albuterol (Albut/Ipratrop 3mg/0.5mg Neb 3 Ml Vial) 3 ml NEB Q4R PRN PRN Reason: Shortness Of Breath Or Wheezing Stop: 05/28/21 02:59 Last Admin: 05/12/21 19:55 Dose: 3 ml Documented by: Albuterol (Albuterol Hfa 8 Gm Inhaler) 1 puffs INH QIDR PRN PRN Reason: Shortness Of Breath Or Wheezing Stop: 06/05/21 14:59 Amiodarone HCl (Amiodarone 200 Mg Tab) 200 mg PO BIDM [facility] Stop: 06/01/21 16:59 Last Admin: 05/13/21 08:53 Dose: 200 mg Documented by: Amoxicillin/Clavulanate Potassium (Amoxicillin/Clavulanate 875 Mg Tab) 1 tab PO BIDM [facility] Stop: 05/15/21 07:59 Last Admin: 05/13/21 08:53 Dose: 1 tab Documented by: Apixaban (Apixaban 5 Mg Tablet) 5 mg PO BID [facility] Stop: 05/28/21 20:59 Last Admin: 05/13/21 08:53 Dose: 5 mg Documented by: Bupropion HCl (Bupropion Hcl 75 Mg Tablet) 75 mg PO BID [facility] Stop: 06/08/21 09:59 Last Admin: 05/13/21 08:54 Dose: 75 mg Documented by: Dextrose (Dextrose 50% 50 Ml Syringe) 25 - 50 ml IV UD PRN; Protocol PRN Reason: Hypoglycemia Protocol Stop: 05/27/21 22:59 Last Admin: 04/28/21 10:55 Dose: 25 ml Documented by: Fluticasone Furoate (Fluticasone Furoate 100mcg 14 Puffs/Inhaler) 1 puffs INH DAILY [facility] Stop: 05/28/21 08:59 Last Admin: 05/13/21 10:09 Dose: 1 puffs Documented by: Glucagon (Glucagon For Inj 1 Mg Vial) 1 mg IM UD PRN; Protocol PRN Reason: Hypoglycemia Protocol Stop: 05/27/21 22:59 Glucose (Glucose 40% Gel 15 Gm Tube) 15 - 30 gm PO UD PRN; Protocol PRN Reason: Hypoglycemia Protocol Stop: 05/27/21 22:59 Glucose (Glucose 10 Tabs/Tube) 4 - 8 tabs PO UD PRN; Protocol PRN Reason: Hypoglycemia Protocol Stop: 05/27/21 22:59 Guaifenesin (Guaifenesin 600 Mg Tabcr) 1,200 mg PO Q12 [facility] Stop: 06/05/21 12:09 Last Admin: 05/13/21 08:54 Dose: 1,200 mg Documented by: Guaifenesin/Codeine Phosphate (Guaifenesin/Codeine 100mg/10mg 5ml Udc) 5 ml PO Q6H PRN PRN Reason: Cough Stop: 06/08/21 15:11 Last Admin: 05/12/21 21:01 Dose: 5 ml Documented by: Dexamethasone 8 mg/ Syringe 2 mls @ 1 mls/min IV Q24H [facility] Stop: 06/11/21 08:59 Last Admin: 05/13/21 08:54 Dose: 1 mls/min Documented by: Insulin Aspart (Insulin Aspart 100 Units/Ml 3 Ml Pen) 0 units SC ACHS [facility] Stop: 05/29/21 07:29 Last Admin: 05/13/21 13:25 Dose: 5 units Documented by: Insulin Glargine (Insulin Glargine Solostar 100 Units/Ml 3 Ml Pen) 15 units SC HS [facility] Stop: 06/06/21 22:49 Last Admin: 05/12/21 20:50 Dose: 15 units Documented by: Ipratropium [place] (Ipratropium [place] Hfa Inhaler) 1 puffs INH QIDR PRN PRN Reason: Shortness Of Breath Or Wheezing Stop: 06/05/21 14:59 Lorazepam (Lorazepam 0.5 Mg Tab) 0.5 mg PO BID PRN PRN Reason: anxiety Stop: 05/28/21 18:40 Last Admin: 05/10/21 20:17 Dose: 0.5 mg Documented by: Losartan Potassium (Losartan Potassium 50 Mg Tab) 100 mg PO DAILY [facility] Stop: 05/31/21 16:14 Last Admin: 05/06/21 08:22 Dose: 100 mg Documented by: Melatonin (Melatonin 3 Mg Tab) 6 mg PO HS PRN PRN Reason: Sleep Stop: 06/02/21 22:41 Last Admin: 05/12/21 21:01 Dose: 6 mg Documented by: Metoprolol Tartrate (Metoprolol Tartrate 25 Mg Tab) 25 mg PO BID [facility] Stop: 06/05/21 08:59 Last Admin: 05/06/21 08:38 Dose: 25 mg Documented by: Metoprolol Tartrate (Metoprolol Tartrate 25 Mg Tab) 25 mg PO BID [facility] Stop: 06/11/21 09:59 Last Admin: 05/13/21 08:55 Dose: 25 mg Documented by: Miscellaneous (Carbohydrates For Hypoglycemia ) 15 - 30 gm PO PRN PRN PRN Reason: Hypoglycemia Treatment Stop: 05/27/21 22:59 Ondansetron HCl (Ondansetron Inj 2 Mg/Ml 2 Ml Vial) 4 mg IV Q6H PRN PRN Reason: Nausea And Vomiting Stop: 06/01/21 12:07 Last Admin: 05/10/21 12:50 Dose: 4 mg Documented by: Pantoprazole Sodium (Pantoprazole 40 Mg Tab) 40 mg PO DAILY [facility] Stop: 05/29/21 08:59 Last Admin: 05/13/21 08:55 Dose: 40 mg Documented by: Polyethylene Glycol (Polyethylene (Miralax) 17 Gm Pack) 17 gm PO DAILY [facility] Stop: 06/06/21 08:59 Last Admin: 05/13/21 08:51 Dose: 17 gm Documented by: Sennosides (Senna 8.6 Mg Tab) 17.2 mg PO QAM [facility] Stop: 06/06/21 08:59 Last Admin: 05/13/21 10:09 Dose: 17.2 mg Documented by: Simvastatin (Simvastatin 40 Mg Tab) 40 mg PO HS [facility] Stop: 05/28/21 20:59 Last Admin: 05/12/21 20:49 Dose: 40 mg Documented by: Sodium Chloride (Sodium Chlor 7% 4 Ml Neb) 4 ml NEB BIDR [facility] Stop: 06/09/21 08:29 Last Admin: 05/13/21 07:22 Dose: Not Given Documented by: Umeclidinium/Vilanterol (Umeclidinium/Vilanterol 62.5/25mcg 7 Puffs/Inhaler) 1 puffs INH DAILY [facility] Stop: 05/28/21 08:59 Last Admin: 05/13/21 08:55 Dose: 1 puffs Documented by: PG Care Time/CCT Total # of Minutes Spent Total Time Spent with Patient: Total time spent is greater than 50% in coordination of care (as documented) at patient's floor/unit and/or counseling patient: Coding Level of Care Code 69830 Subseq Hosp Care Lvl 2 Diagnoses Acute hypoxemic respiratory failure due to COVID-19 U07.1; J96.01 Pneumonia due to COVID-19 virus U07.1; J12.82 Atrial fibrillation with RVR I48.91 COPD (chronic obstructive pulmonary disease) J44.1 COPD type: COPD with acute exacerbation Hyperlipidemia E78.5 HTN (hypertension) I10 Anxiety F41.9 TOBY (acute kidney injury) N17.9 Hyperkalemia E87.5 Mood disorder F39 (1) COPD (chronic obstructive pulmonary disease) COPD type: COPD with acute exacerbation Qualified Code(s): J44.1 - Chronic o bstructive pulmonary disease with (acute) exacerbation
[2021-05-13] MEDS: ACETAMINOPHEN SUSP 325 MG/10.15 ML UDC PO PRN ×2 (17:18→21:03)
[2021-05-13] MEDS: guaiFENesin/CODEINE 100MG/10MG 5ML UDC PO PRN (21:03)
[2021-05-13] MEDS: SIMVASTATIN 40 MG TAB PO SCH (21:04)
[2021-05-13] MEDS: MELATONIN 3 MG TAB PO PRN (21:04)
[2021-05-13] MEDS: INSULIN GLARGINE SOLOSTAR 100 UNITS/ML 3 ML PEN SC SCH (21:06)
[2021-05-14] MEDS: LORazepam 0.5 MG TAB PO PRN (01:19)
[2021-05-14] MEDS: SODIUM CHLOR 7% 4 ML NEB NEB SCH ×2 (07:54→19:51)
[2021-05-14] MEDS: INSULIN ASPART 100 UNITS/ML 3 ML PEN SC SCH ×4 (09:09→21:37)
[2021-05-14] MEDS: AMIODARONE 200 MG TAB PO SCH ×2 (09:13→17:34)
[2021-05-14] MEDS: AMOXICILLIN/CLAVULANATE 875 MG TAB PO SCH ×2 (09:13→17:34)
[2021-05-14] MEDS: dexAMETHasone 8 MG in SYRINGE 0 ML IV SCH (09:14)
[2021-05-14] MEDS: METOPROLOL TARTRATE 25 MG TAB PO SCH ×2 (09:14→21:38)
[2021-05-14] MEDS: guaiFENesin 600 MG TABCR PO SCH ×2 (09:14→21:38)
[2021-05-14] MEDS: PANTOprazole 40 MG TAB PO SCH (09:14)
[2021-05-14] MEDS: FLUTICASONE FUROATE 100MCG 14 PUFFS/INHALER INH SCH (09:14)
[2021-05-14] MEDS: SENNA 8.6 MG TAB PO SCH (09:14)
[2021-05-14] MEDS: UMECLIDINIUM/VILANTEROL 62.5/25MCG 7 PUFFS/INHALER INH SCH (09:14)
[2021-05-14] MEDS: APIXABAN 5 MG TABLET PO SCH ×2 (09:14→21:39)
[2021-05-14] MEDS: buPROPion HCl 75 MG TABLET PO SCH ×2 (09:14→21:38)
[2021-05-14] MEDS: POLYETHYLENE (MIRALAX) 17 GM PACK PO SCH (09:17)
[2021-05-14] MEDS: ONDANSETRON INJ 2 MG/ML 2 ML VIAL IV PRN (09:20)
[2021-05-14] MEDS: ACETAMINOPHEN SUSP 325 MG/10.15 ML UDC PO PRN ×2 (12:51→22:02)
--- NOTE | 2021-05-14 16:34 | Hospitalist Progress Note ---
Date of Service May 14, 2021 Assessment & Plan (1) Acute hypoxemic respiratory failure due to COVID-19: Plan: Pt was intubated 04/27/21. Extubated 04/28/2021. Has been on NC O2 since that time. 05/05 into 05/06 she became decompensated - required transition back to HFNC. Suspect 2nd to COPD flare and/or brewing UTI leading to weakness and/or mucous plugging vs other vs combo of factors. Weaned to wall-mounted HF on 05/08 and has remained on such now down to 2 L, breathing comfortably Cont saline nebs BID. Cont combivent QID. Cont high-dose dexamethasone due to refractory symptoms - 6mg today Cont flutter/incentive spirometry. Could consider cough-assist device if mucous is suspected and if weak cough persists. (2) Pneumonia due to COVID-19 virus: Plan: Continue dexamethasone - today is day 18 Weaned to 6mg Her recent clinical worsening as noted above. Suspect mucous plugging in the setting of baseline COPD, shunting, etc. Nothing bacterial suspected. PE doubtful - has been on full-strength eliquis. Encouraged side positioning, encouraged pulmonary toilet. It is hard for her to even do side positioning. Completed Remdesivir 5-day course. (3) Atrial fibrillation with RVR: Plan: Converted to NSR on amiodarone drip shortly after admission Cont Amiodarone to 200mg BID Cont Eliquis 5mg BID Now that BPs are improved will resume metoprolol albeit at lower dose of 25mg BID (4) COPD (chronic obstructive pulmonary disease): Plan: COPD with exacerbation from COVID see above Cont home inhalers Cont combivent 1 puff QID scheduled Saline nebs BID Dexamethasone daily see above (5) Hyperlipidemia: Plan: Cont simvastatin Recent ast/alt wnl (6) HTN (hypertension): Plan: started back on metoprolol 25mg BID holding ARB (7) Anxiety: Plan: ideally would like to give SSRI but there is an interaction between SSRIs and amiodarone could consider low-dose buspar anxiety has been better last 1-2 days (8) TOBY (acute kidney injury): Plan: suspect 2nd to diuresis last weekend cont supportive care serial BMPs hold further diuretics (9) Hyperkalemia: Plan: finally resolved s/p 2 doses of patiromer this week high K 2nd to #8 K stable again today holding Losartan (10) Mood disorder: Plan: started low-dose wellbutrin BID 05/09/21 - tolerating such thus far cannot give SSRI with amiodarone Plan: constipation - cont senna with miralax - resolved cont PT/OT although making very, very slow progress DVT proph - eliquis 5mg BID Admission and Anticipated Discharge Date Admission Date: April 27, 2021 Subjective patient doing reasonably well having issues with low back pain, difficult time getting OOB still with cough, tough time getting mucous up, rhonchi on right anteriorly less dyspnea today, down to 2L can work towards getting her to [facility], maybe even tomorrow Review of Systems Review of Systems: All systems reviewed & are unremarkable except as noted in Subjective Respiratory: + cough, + chest congestion, + dyspnea and + dyspnea on exertion Musculoskeletal: + back pain Physical Exam Physical Exam: General: well developed, well nourished, elderly female, no distress Neck: supple, trachea midline, normal thyroid Lungs: rhonchi bilaterally, clear with cough, normal respiratory effort, no accessory muscle use, no distress Heart: regular S1 and S2, no murmur, peripheral pulses normal, capillary refill normal, no edema Abdomen: soft, NT, ND, + BS, no hepatomegaly, normal to percussion Extremities: normal in appearance, no cyanosis, no petechiae, strength is diminished bilaterally Neuro: awake, cooperative, moves all extremities, no focal motor deficits, CN II-XII intact, sensation in extremities intact, normal speech Skin: warm, dry, no rash, normal turgor Psych: Awake, alert oriented x 3, euthymic affect Results & Data Results & Data ([facility]) Vital Signs (Past 12 Hours) Vital Signs Temp Pulse Resp BP BP Pulse Ox 05/14/21 15:54 36.7 C 70 18 120/74 90 05/14/21 12:48 36.6 C 66 22 129/74 91 05/14/21 07:54 64 20 96 05/14/21 07:48 36.7 C 62 22 145/77 H 94 Laboratory Results Laboratory Results - last 24 hr 05/13/21 05/13/21 05/14/21 16:49 20:23 07:44 POC Glucose 96 181 H 91 05/14/21 12:23 POC Glucose 230 H Medications Administered Current Inpatient Medications Acetaminophen (Acetaminophen Susp 325 Mg/10.15 Ml Udc) 650 mg PO Q6H PRN PRN Reason: Pain or Fever Stop: 05/28/21 11:21 Last Admin: 05/14/21 12:51 Dose: 650 mg Documented by: Albuterol (Albut/Ipratrop 3mg/0.5mg Neb 3 Ml Vial) 3 ml NEB Q4R PRN PRN Reason: Shortness Of Breath Or Wheezing Stop: 05/28/21 02:59 Last Admin: 05/12/21 19:55 Dose: 3 ml Documented by: Albuterol (Albuterol Hfa 8 Gm Inhaler) 1 puffs INH QIDR PRN PRN Reason: Shortness Of Breath Or Wheezing Stop: 06/05/21 14:59 Amiodarone HCl (Amiodarone 200 Mg Tab) 200 mg PO BIDM [facility] Stop: 06/01/21 16:59 Last Admin: 05/14/21 09:13 Dose: 200 mg Documented by: Amoxicillin/Clavulanate Potassium (Amoxicillin/Clavulanate 875 Mg Tab) 1 tab PO BIDM [facility] Stop: 05/15/21 07:59 Last Admin: 05/14/21 09:13 Dose: 1 tab Documented by: Apixaban (Apixaban 5 Mg Tablet) 5 mg PO BID [facility] Stop: 05/28/21 20:59 Last Admin: 05/14/21 09:14 Dose: 5 mg Documented by: Bupropion HCl (Bupropion Hcl 75 Mg Tablet) 75 mg PO BID [facility] Stop: 06/08/21 09:59 Last Admin: 05/14/21 09:14 Dose: 75 mg Documented by: Dextrose (Dextrose 50% 50 Ml Syringe) 25 - 50 ml IV UD PRN; Protocol PRN Reason: Hypoglycemia Protocol Stop: 05/27/21 22:59 Last Admin: 04/28/21 10:55 Dose: 25 ml Documented by: Fluticasone Furoate (Fluticasone Furoate 100mcg 14 Puffs/Inhaler) 1 puffs INH DAILY [facility] Stop: 05/28/21 08:59 Last Admin: 05/14/21 09:14 Dose: 1 puffs Documented by: Glucagon (Glucagon For Inj 1 Mg Vial) 1 mg IM UD PRN; Protocol PRN Reason: Hypoglycemia Protocol Stop: 05/27/21 22:59 Glucose (Glucose 40% Gel 15 Gm Tube) 15 - 30 gm PO UD PRN; Protocol PRN Reason: Hypoglycemia Protocol Stop: 05/27/21 22:59 Glucose (Glucose 10 Tabs/Tube) 4 - 8 tabs PO UD PRN; Protocol PRN Reason: Hypoglycemia Protocol Stop: 05/27/21 22:59 Guaifenesin (Guaifenesin 600 Mg Tabcr) 1,200 mg PO Q12 [facility] Stop: 06/05/21 12:09 Last Admin: 05/14/21 09:14 Dose: 1,200 mg Documented by: Guaifenesin/Codeine Phosphate (Guaifenesin/Codeine 100mg/10mg 5ml Udc) 5 ml PO Q6H PRN PRN Reason: Cough Stop: 06/08/21 15:11 Last Admin: 05/13/21 21:03 Dose: 5 ml Documented by: Dexamethasone 8 mg/ Syringe 2 mls @ 1 mls/min IV Q24H [facility] Stop: 06/11/21 08:59 Last Admin: 05/14/21 09:14 Dose: 1 mls/min Documented by: Insulin Aspart (Insulin Aspart 100 Units/Ml 3 Ml Pen) 0 units SC ACHS [facility] Stop: 05/29/21 07:29 Last Admin: 05/14/21 12:45 Dose: 4 units Documented by: Insulin Glargine (Insulin Glargine Solostar 100 Units/Ml 3 Ml Pen) 15 units SC HS [facility] Stop: 06/06/21 22:49 Last Admin: 05/13/21 21:06 Dose: 15 units Documented by: Ipratropium [place] (Ipratropium [place] Hfa Inhaler) 1 puffs INH QIDR PRN PRN Reason: Shortness Of Breath Or Wheezing Stop: 06/05/21 14:59 Lorazepam (Lorazepam 0.5 Mg Tab) 0.5 mg PO BID PRN PRN Reason: anxiety Stop: 05/28/21 18:40 Last Admin: 05/14/21 01:19 Dose: 0.5 mg Documented by: Losartan Potassium (Losartan Potassium 50 Mg Tab) 100 mg PO DAILY [facility] Stop: 05/31/21 16:14 Last Admin: 05/06/21 08:22 Dose: 100 mg Documented by: Melatonin (Melatonin 3 Mg Tab) 6 mg PO HS PRN PRN Reason: Sleep Stop: 06/02/21 22:41 Last Admin: 05/13/21 21:04 Dose: 6 mg Documented by: Metoprolol Tartrate (Metoprolol Tartrate 25 Mg Tab) 25 mg PO BID [facility] Stop: 06/05/21 08:59 Last Admin: 05/06/21 08:38 Dose: 25 mg Documented by: Metoprolol Tartrate (Metoprolol Tartrate 25 Mg Tab) 25 mg PO BID [facility] Stop: 06/11/21 09:59 Last Admin: 05/14/21 09:14 Dose: 25 mg Documented by: Miscellaneous (Carbohydrates For Hypoglycemia ) 15 - 30 gm PO PRN PRN PRN Reason: Hypoglycemia Treatment Stop: 05/27/21 22:59 Ondansetron HCl (Ondansetron Inj 2 Mg/Ml 2 Ml Vial) 4 mg IV Q6H PRN PRN Reason: Nausea And Vomiting Stop: 06/01/21 12:07 Last Admin: 05/14/21 09:20 Dose: 4 mg Documented by: Pantoprazole Sodium (Pantoprazole 40 Mg Tab) 40 mg PO DAILY [facility] Stop: 05/29/21 08:59 Last Admin: 05/14/21 09:14 Dose: 40 mg Documented by: Polyethylene Glycol (Polyethylene (Miralax) 17 Gm Pack) 17 gm PO DAILY [facility] Stop: 06/06/21 08:59 Last Admin: 05/14/21 09:17 Dose: 17 gm Documented by: Sennosides (Senna 8.6 Mg Tab) 17.2 mg PO QAM [facility] Stop: 06/06/21 08:59 Last Admin: 05/14/21 09:14 Dose: 17.2 mg Documented by: Simvastatin (Simvastatin 40 Mg Tab) 40 mg PO HS [facility] Stop: 05/28/21 20:59 Last Admin: 05/13/21 21:04 Dose: 40 mg Documented by: Sodium Chloride (Sodium Chlor 7% 4 Ml Neb) 4 ml NEB BIDR [facility] Stop: 06/09/21 08:29 Last Admin: 05/14/21 07:54 Dose: 4 ml Documented by: Umeclidinium/Vilanterol (Umeclidinium/Vilanterol 62.5/25mcg 7 Puffs/Inhaler) 1 puffs INH DAILY [facility] Stop: 05/28/21 08:59 Last Admin: 05/14/21 09:14 Dose: 1 puffs Documented by: PG Care Time/CCT Total # of Minutes Spent Total Time Spent with Patient: Total time spent is greater than 50% in coordination of care (as documented) at patient's floor/unit and/or counseling patient: Coding Level of Care Code 19830 Subseq Hosp Care Lvl 2 Diagnoses Acute hypoxemic respiratory failure due to COVID-19 U07.1; J96.01 Pneumonia due to COVID-19 virus U07.1; J12.82 Atrial fibrillation with RVR I48.91 COPD (chronic obstructive pulmonary disease) J44.1 COPD type: COPD with acute exacerbation Hyperlipidemia E78.5 HTN (hypertension) I10 Anxiety F41.9 TOBY (acute kidney injury) N17.9 Hyperkalemia E87.5 Mood disorder F39 (1) COPD (chronic obstructive pulmonary disease) COPD type: COPD with acute exacerbation Qualified Code(s): J44.1 - Chronic obstructive pulmonary disease with (acute) exacerbation
[2021-05-14] MEDS ORDERED: KETOROLAC TROMETHAMINE 15 MG/ML VIAL IV PRN (17:22)
[2021-05-14] MEDS: INSULIN GLARGINE SOLOSTAR 100 UNITS/ML 3 ML PEN SC SCH (21:36)
[2021-05-14] MEDS: SIMVASTATIN 40 MG TAB PO SCH (21:39)
[2021-05-14] MEDS: guaiFENesin/CODEINE 100MG/10MG 5ML UDC PO PRN (22:02)
[2021-05-14] MEDS: MELATONIN 3 MG TAB PO PRN (22:02)
[2021-05-15] MEDS: LORazepam 0.5 MG TAB PO PRN (02:09)
[2021-05-15] MEDS: SODIUM CHLOR 7% 4 ML NEB NEB SCH (08:07)
[2021-05-15] MEDS: INSULIN ASPART 100 UNITS/ML 3 ML PEN SC SCH ×2 (08:29→11:48)
[2021-05-15] MEDS: guaiFENesin 600 MG TABCR PO SCH (08:30)
[2021-05-15] MEDS: APIXABAN 5 MG TABLET PO SCH (08:31)
[2021-05-15] MEDS: SENNA 8.6 MG TAB PO SCH (08:31)
[2021-05-15] MEDS: FLUTICASONE FUROATE 100MCG 14 PUFFS/INHALER INH SCH (08:31)
[2021-05-15] MEDS: AMIODARONE 200 MG TAB PO SCH (08:31)
[2021-05-15] MEDS: PANTOprazole 40 MG TAB PO SCH (08:32)
[2021-05-15] MEDS: buPROPion HCl 75 MG TABLET PO SCH (08:33)
[2021-05-15] MEDS: METOPROLOL TARTRATE 25 MG TAB PO SCH (08:33)
[2021-05-15] MEDS: POLYETHYLENE (MIRALAX) 17 GM PACK PO SCH (08:35)
[2021-05-15] MEDS: UMECLIDINIUM/VILANTEROL 62.5/25MCG 7 PUFFS/INHALER INH SCH (08:35)
[2021-05-15] MEDS ORDERED: dexAMETHasone 6 MG in SYRINGE 0 ML IV SCH (09:00)
--- NOTE | 2021-05-15 12:02 | Discharge Summary ---
Date of Service May 15, 2021 Admission HPI Per Admitting Provider 71-year-old female with history of COPD, and is a recent quiter of tobacco (August of this year) comes with shortness of breath and general malaise for the past 3 days. Patient was on 2 L nasal cannula but yesterday was noted be hypoxic at home. Patient had a positive test. Patient appears to have a sick contact at home. Her daughter was sick 2 days before thanksgiving, this was followed by her son in law this weekend and now the patient. The patient is unvaccinated. The patient did take her morning medications and has a known history of A. fib. Though she wears 2 L of oxygen at all time but did present on 4 L nasal cannula via EMS. Principal Diagnosis COVID 19 infection Atrial fibrillation with RVR Acute heart failure Discharge Exam General: well developed, well nourished, elderly female, no distress Neck: supple, trachea midline, normal thyroid Lungs: rhonchi bilaterally, clear with cough, normal respiratory effort, no accessory muscle use, no distress Heart: regular S1 and S2, no murmur, peripheral pulses normal, capillary refill normal, no edema Abdomen: soft, NT, ND, + BS, no hepatomegaly, normal to percussion Extremities: normal in appearance, no cyanosis, no petechiae, strength is diminished bilaterally Neuro: awake, cooperative, moves all extremities, no focal motor deficits, CN II-XII intact, sensation in extremities intact, normal speech Skin: warm, dry, no rash, normal turgor Psych: Awake, alert oriented x 3, euthymic affect Discharge Data Allergies Allergy/AdvReac Type Severity Reaction Status Date / Time No Known Allergies Allergy Unknown Verified 05/26/21 19:37 Consultations 04/27/21 10:56 ED Decision to Admit Stat 04/28/21 02:06 Consult Box Feeder Routine 04/28/21 14:23 Consult Cardiology Routine Ordered Studies 04/27/21 19:37 CT angio chest PE protocol Stat Hospital Course (1) Acute hypoxemic respiratory failure due to COVID-19: Pt was intubated 04/27/21. Extubated 04/28/2021 and titrated to low flow nasal canula 05/05 into 05/06 she became decompensated - required transition back to [facility]. Suspect 2nd to COPD flare and/or brewing UTI leading to weakness and/or mucous plugging vs other vs combo of factors. Weaned to wall-mounted HF on 05/08 and has remained on such now down to 2 L, breathing comfortably at rest Cont saline nebs BID at [facility] if possible Cont combivent QID. Cont dexamethasone due to refractory symptoms - 6mg today and taper on discharge Cont flutter/incentive spirometry. Could consider cough-assist device if mucous is suspected and if weak cough persists. (2) Pneumonia due to COVID-19 virus: Continue dexamethasone - today is day 18 Weaned to 6mg. taper over next few days Her recent clinical worsening as noted above. Suspect mucous plugging in the setting of baseline COPD, shunting, etc. Nothing bacterial suspected. PE doubtful - has been on full-strength eliquis. Encouraged side positioning, encouraged pulmonary toilet. It is hard for her to even do side positioning. Completed Remdesivir 5-day course. (3) Atrial fibrillation with RVR: Converted to NSR on amiodarone drip shortly after admission Cont Amiodarone to 200mg BID Cont Eliquis 5mg BID Now that BPs are improved will resume metoprolol albeit at lower dose of 25mg BID follow up with cardiology in clinic (4) COPD (chronic obstructive pulmonary disease): COPD with exacerbation from COVID see above Cont home inhalers Cont combivent 1 puff QID scheduled Saline nebs BID Dexamethasone daily see above (5) Hyperlipidemia: Cont simvastatin Recent ast/alt wnl (6) HTN (hypertension): started back on metoprolol 25mg BID holding ARB (7) Anxiety: ideally would like to give SSRI but there is an interaction between SSRIs and amiodarone could consider low-dose buspar anxiety has been better last 1-2 days (8) TOBY (acute kidney injury): suspect 2nd to diuresis last weekend cont supportive care serial BMPs hold further diuretics (9) Hyperkalemia: finally resolved s/p 2 doses of patiromer this week high K 2nd to #8 K stable again today holding Losartan (10) Mood disorder: started low-dose wellbutrin BID 05/09/21 - tolerating such thus far cannot give SSRI with amiodarone constipation - cont senna with miralax - resolved cont PT/OT although making very, very slow progress DVT proph - eliquis 5mg BID Total Time Total Time Spent Total Time Spent (In Minutes): 34 minutes Discharge Plan Discharge Items Patient Disposition: Transfer Inpatient Rehab Fac Reason For Visit: COVID Discharge Diagnosis: COVID 19 pneumonia COPD exacerbation Atrial fibrillation with RVR Condition on Discharge: Fair Goals: improve strength follow up with cardiology Activity: Resume your previous activity Exercise/Sports: Gradually increase as tolerated Weightbearing: Full weightbearing Non-emergency contact: Primary Care Provider Call non-emergency contact if: you have any medication questions and your symptoms worsen Follow-up/Referrals: Nino Deshpande PA-C [Physician [employer] Set Up Operator] - (2 weeks) Grace Price MD [Primary Care Provider] - (1 week after discharge from rehab) Diet: Carb Consistent or DM2 and Heart Healthy Addtl Attending Provider Instructions: Medications: - AMIODARONE: 200mg twice a day until she sees cardiology, might reduce to 200mg daily at that time - METOPROLOL: 25mg twice a day - DEXAMETHASONE: finished a taper, should take 4mg daily on 05/16 and 05/17 and 2mg daily on 05/18 and 05/19 then stop - HYPERTONIC SALINE NEBULIZERS: if you have these at [facility], she will benefit from them twice a day for the next week - SENOKOT and MIRALAX: take the Senokot daily (2 tabs) and can take the Miralax just as needed if no BM in 48 hours - BUPROPRION: 75mg twice a day, this is new, started in lieu of Ativan, tolerated well, mood is stable - MELATONIN: take HS for sleep aide see discharge summary for details and plans breathing has been stable on 2L for a few days, still with a lot of rhonchi, weak cough using Mucinex and nebulizres, encourage flutter valve, could try cough assist if RT has it at [facility] hoping that if she gets her strength up she can get more sputum out alvarez catheter was removed but she could not void so it was placed again consider voiding trial in 7 days once bladder has had sufficient time to relax Pending Studies at Discharge: No Stand-Alone Forms: My [facility] [employer] Skilled Items Patient informed of condition?: Yes DNR: Yes Discharge Level of Care: Acute rehab Communicable Disease: No Discharge Prognosis: Stable Lines: None Urinary Catheter: Yes Medications and DC Order Prescriptions: New amiodarone 200 mg Tablet 200 mg PO BIDM 30 Days Qty: 60 RF: 1 bupropion HCl 75 mg Tablet 75 mg PO BID 30 Days Qty: 60 RF: 1 sennosides [Senokot] 8.6 mg Tablet 17.2 mg PO QAM 30 Days Qty: 60 RF: 0 melatonin 3 mg Tablet 6 mg PO HS PRN (Reason: sleep) 30 Days Qty: 30 RF: 0 Continued simvastatin 40 mg tablet 40 mg PO HS Qty: 90 RF: 3 apixaban 5 mg tablet 5 mg PO BID Qty: 180 RF: 3 albuterol sulfate 90 mcg/actuation HFA aerosol inhaler 2 puff INH Q6H PRN (Reason: shortness of breath or wheezing) Qty: 18 RF: 5 metoprolol tartrate 25 mg tablet 25 mg PO BID Qty: 180 RF: 3 tramadol 50 mg tablet 50 mg PO TID PRN (Reason: pain) Qty: 90 RF: 2 Discontinued losartan 100 mg tablet 100 mg PO DAILY Qty: 90 RF: 3 prednisone 20 mg tablet See Rx Instructions PO QAM Qty: 18 RF: 0 potassium chloride 20 mEq tablet extended release 20 meq PO BID Qty: 180 RF: 3 doxycycline hyclate 100 mg tablet 100 mg PO BID Qty: 20 RF: 0 lorazepam 0.5 mg tablet 0.5 mg PO BID PRN (Reason: anxiety) Qty: 60 RF: 2 diltiazem HCl 240 mg capsule,extended release 24 hr 240 mg PO QAM RF: 0 No Action acetaminophen [Tylenol] 325 mg Tablet 650 mg PO Q4H PRN (Reason: Pain) RF: 0 pantoprazole 20 mg Tablet,Delayed Release (Dr/Ec) 20 mg PO DAILYBB RF: 0 lorazepam 0.5 mg Tablet 0.5 mg PO HS PRN (Reason: Anxiety) RF: 0 docusate sodium 100 mg Capsule 100 mg PO BID RF: 0 guaifenesin [Mucinex] 600 mg Tablet Extended Release 12hr 600 mg PO Q12H RF: 0 Discharge Orders: Discharge Order (Routine); Ordered 05/15/21 Ordered By: Chandler Bolaños/Other Patient Handouts: 5 Steps for Eating Healthier, Exercise: Why Fitness Matters, Type 2 Diabetes Admission Data Admit Date/Time: 04/27/21 12:52 Attending Provider: Chandler Sawyer Admit Provider: Kevin Morris Primary Care Provider: Grace Price Other Providers: [facility] ; Kevin Morris ; Daniel Edmond ; Nino Deshpande ; Emir Mckenzie ; Eladio Samuels ; Adam Pereira ; Romario Branch Jr ; Albert Chaparro ; Meagan Trujillo ; Carlota Villar ; Deuce Valdez ; Deuce Manzano ; David Encarnacion ; Violeta Butt ; Kayla Rahman ; Wily Mcgraw ; Adriano Carrion ; Jacob Merritt Coding Level of Care Code D/C DAY MANAGEMENT >30 MINS Diagnoses Acute hypoxemic respiratory failure due to COVID-19 U07.1; J96.01 Pneumonia due to COVID-19 virus U07.1; J12.82 Atrial fibrillation with RVR I48.91 COPD (chronic obstructive pulmonary disease) J44.1 COPD type: COPD with acute exacerbation Hyperlipidemia E78.5 HTN (hypertension) I10 Anxiety F41.9 TOBY (acute kidney injury) N17.9 Hyperkalemia E87.5 Mood disorder F39
== END 2021-05-15 12:23 | DRG 208 ==
LOC: ED 09:27 → SUATTDRO 12:52 → EDINP 12:52 → 2E 16:56 → 2W 05-02 07:39

== ENCOUNTER 2021-05-26 18:43 | Inpatient (IN) ==
--- NOTE | 2021-05-26 18:57 | Emergency Department Note ---
History of Present Illness General Chief complaint: Abdominal Pain Stated complaint: AMS Time Seen by Provider: 05/26/21 18:44 Source: patient and EMS Mode of arrival: EMS History of Present Illness Provider complaint: Confusion and abdominal discomfort Onset (ago): day(s) Location: abdomen Severity: mild Pain Consistency: + constant Maximum Pain Intensity: 3 Quality: + other (Abdominal distention without pain) Relieved By: + none Associated symptoms: + confusion; no chest pain, no cough, no fever/chills, no headaches, no nausea/vomiting or no shortness of breath This is a 80-year-old female brought in by EMS for evaluation of confusion and abdominal discomfort. The patient is not confused on my exam but the paramedics state that she was somewhat confused when they picked her up. She has had abdominal distention for the past 2 days since she came home from her rehabilitation hospital stay. She denies any pain to her abdomen but states that it feels distended. She has not had any constipation. She does state that she has diarrhea. She did recently have COVID-19 and was in the hospital in ICU for this. She states that they were unable to catheterize her urine today. She does not, however, feel like her bladder is distended or that she needs to urinate. She denies any fever, headache, cough or cold symptoms, chest pain, shortness of breath, vomiting or leg swelling or pain. Home Medications Medication Instructions Recorded Confirmed Type simvastatin 40 mg tablet 40 mg PO HS #90 tab 06/13/20 05/26/21 Rx apixaban 5 mg tablet 5 mg PO BID #180 tab 09/15/20 05/26/21 Rx albuterol sulfate 90 mcg/actuation 2 puff INH Q6H PRN #18 gm 12/13/20 05/26/21 Rx aerosol inhaler metoprolol tartrate 25 mg tablet 25 mg PO BID #180 tab 03/06/21 05/26/21 Rx tramadol 50 mg tablet 50 mg PO TID PRN #90 tab 03/31/21 05/26/21 Rx amiodarone 200 mg tablet 200 mg PO BIDM 30 Days #60 tab 05/15/21 05/26/21 Rx bupropion HCl 75 mg tablet 75 mg PO BID 30 Days #60 tab 05/15/21 05/26/21 Rx melatonin 3 mg tablet 6 mg PO HS PRN 30 Days #30 tab 05/15/21 05/26/21 Rx sennosides 8.6 mg tablet (Senokot) 17.2 mg PO QAM 30 Days #60 tab 05/15/21 05/26/21 Rx acetaminophen 325 mg tablet 650 mg PO Q4H PRN 05/26/21 05/26/21 History (Tylenol) docusate sodium 100 mg capsule 100 mg PO BID 05/26/21 05/26/21 History guaifenesin 600 mg tablet, 600 mg PO Q12H 05/26/21 05/26/21 History extended release 12 hr (Mucinex) lorazepam 0.5 mg tablet 0.5 mg PO HS PRN 05/26/21 05/26/21 History pantoprazole 20 mg tablet,delayed 20 mg PO DAILYBB 05/26/21 05/26/21 History release Allergies Allergy/AdvReac Type Severity Reaction Status Date / Time No Known Allergies Allergy Unknown Verified 05/26/21 19:37 Past Med/Surg History Medical History (Updated 05/26/21 @ 21:37 by Silverio Esparza MD) AF (paroxysmal atrial fibrillation) Anxiety Carotid artery stenosis Chronic low back pain COPD (chronic obstructive pulmonary disease) GERD without esophagitis Hip fracture (04/27/13) History of transient cerebral ischemia HTN (hypertension) Hyperlipidemia Hyperthyroidism Impaired fasting glucose Iron deficiency anemia Left ventricular hypertrophy Multiple thyroid nodules Osteoporosis Vitamin D deficiency Surgical History H/O carotid endarterectomy left H/O thoracic aortic aneurysm repair History of appendectomy History of hysterectomy History of laparoscopic cholecystectomy History of repair of hip fracture Family History Sister Cancer Asthma Ovarian cancer Mother Cardiac disorder Myocardial infarction Father Cardiac disorder Lung cancer Myocardial infarction Denies family history of Prostate cancer Breast cancer Colorectal cancer Social History Smoking Status: Never smoker Tobacco Type: Cigarettes Age Started Using Tobacco: 17; packs per day: 0.5; Second Hand Exposure: Yes; Hx Alcohol Use: No Hx Substance Use: No Preferred Language: Maltese Communication Ability: Unable Visual Impairment: No Limitations Hearing Ability: Hard of Hearing Ship Steward Required: No Beliefs That Will Affect Care: None marital status: / Current Living Situation: Alone Current Living Situation Comment: lives with her daughter current occupational status: retired 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 and A total of 10 systems reviewed and were otherwise negative Physical Exam Vital Signs Vital Signs - 24 hr 05/26/21 18:51 05/26/21 21:00 Temperature 36.5 C Temperature Source Oral Pulse Rate 86 Pulse Rate [Left Finger] 73 Pulse Rhythm Regular Pulse Strength Normal Respiratory Rate 20 20 Respiratory Effort / Characteristics Non-Labored Spontaneous Respiratory Depth Normal Respiratory Pattern Regular Blood Pressure 106/56 L Blood Pressure [Left Arm] 102/59 L Blood Pressure Mean 72 Blood Pressure Mean [Left Arm] 73 Blood Pressure Position Lying Blood Pressure Position [Left Arm] Sitting Pulse Oximetry 96 96 Oxygen Delivery Method Nasal Cannula Nasal Cannula Oxygen Flow Rate 2 2 Sepsis Recent Fever Within 48 Hours No Sepsis New/Unexplained Change in Mental Status No Sepsis Action Taken by Nursing No Action Required Constitutional: Vital signs reviewed. Eyes: Pupils are equal round reactive to light. Conjunctiva are noninjected. ENT: Pharynx is clear without erythema or exudate. Mucous membranes are dry Neck supple without meningeal signs. Respiratory: Clear to auscultation bilaterally. Breath sounds are equal bilaterally. Cardiovascular: Irregularly irregular rhythm. Normal rate. GI: Soft, distended but not tender. Bowel sounds are present. Musculoskeletal: No peripheral edema. No lower extremity tenderness. Integumentary: No cyanosis. or jaundice. Neurologic: The patient is awake and alert. She is oriented x4. Cranial nerves II-XII are intact. Motor is 5 out of 5 all extremities. Sensation is intact to light touch all extremities. Normal speech. No pronator drift. Psychiatric: Slightly anxious appearing. Course Administered Medications Sodium Chloride (Nss) 500 mls @ 80 mls/hr IV .Q6H15M [facility] Stop: 06/25/21 21:14 Last Admin: 05/26/21 21:18 Dose: 80 mls/hr Documented by: [id number] Medical Decision Making Differential Diagnosis Metabolic derangement, intracranial hemorrhage, CVA, pneumonia, bowel obstruction, ascites Medical Records Attestation: I reviewed the patient's medical records. I did perform a limited focused review of portions of the patient's old chart on the electronic medical record. The patient was admitted to the hospital on April 27 for respiratory failure due to Covid pneumonia. She was intubated and then extubated and then finally discharged to a rehabilitation hospital. She has been treated with dexamethasone and remdesivir during her hospitalization. She is on Eliquis. Home Medications Current Medication List: was personally reviewed by me Laboratory Data Attestation: I reviewed the patient's lab results. Result diagrams: 05/26/21 20:35 05/26/21 20:35 Lab Results 05/26/21 05/26/21 05/26/21 Range/Units 19:35 20:35 20:35 WBC 4.69 L (4.8-10.8) K/uL RBC 3.34 L (4.2-5.4) M/uL Hgb 8.5 L (12.0-16.0) g/dL Hct 26.8 L (37-47) % MCV 80.2 (80-100) fL MCH 25.4 (25-34) pg MCHC 31.7 L (32-36) g/dL RDW Std Deviation 56.8 H (36.4-46.3) fL RDW Coeff of Lawson 19.9 H (11.5-14.5) % Plt Count 144 (130-400) K/uL MPV 9.0 (7.4-10.4) fL Immature Gran % (Auto) 0.4 % Neut % (Auto) 85.2 % Lymph % (Auto) 8.7 % [place] % (Auto) 5.5 % Eos % (Auto) 0.2 % Baso % (Auto) 0.0 % Neut # (Auto) 3.99 (1.4-6.5) K/uL Lymph # (Auto) 0.41 L (1.2-3.4) K/uL [place] # (Auto) 0.26 (0.11-0.59) K/uL Eos # (Auto) 0.01 (0-0.5) K/uL Baso # (Auto) 0.00 (0-0.2) K/uL Immature Gran # (Auto) 0.02 (0.00-0.02) K/uL Sodium 138 (136-145) mmol/L Potassium 3.8 (3.5-5.1) mmol/L Chloride 106 (98-107) mmol/L Carbon Dioxide 19 L (21-32) mmol/L Anion Gap 12.0 H (3-11) BUN 82 H (7-18) mg/dl Creatinine 2.12 H (0.6-1.2) mg/dl Est Cr Clr Drug Dosing 18.1 ml/min Est GFR ( Amer) 25.0 ml/min Est GFR (Non-Af Amer) 21.6 ml/min BUN/Creatinine Ratio 38.5 H (10-20) Glucose 139 H (70-99) mg/dl Calcium 7.7 L (8.5-10.1) mg/dl Total Bilirubin 0.5 (0.2-1) mg/dl AST 25 (15-37) U/L ALT 34 (12-78) Alkaline Phosphatase 87 (45-117) U/L Troponin I 0.088 H* (0-0.045) ng/ml Total Protein 5.2 L (6.4-8.2) gm/dl Albumin 2.1 L (3.4-5.0) gm/dl Globulin 3.1 (2.5-4.0) gm/dl Albumin/Globulin Ratio 0.7 L (0.9-2) Lipase 35 L (73-393) U/L Urine Color Dark Yellow Urine Appearance Cloudy A (Clear) Urine pH 5.0 (4.5-7.5) Ur Specific [place] 1.012 (1.000-1.030) Urine Protein Negative (Negative) Urine Glucose (UA) Negative (Negative) Urine Ketones Negative (Negative) Urine Blood 3+ H (Negative) Urine Nitrite Negative (Negative) Urine Bilirubin Negative (Negative) Urine Urobilinogen Negative (Negative) Ur Leukocyte Esterase 1+ H (Negative) Urine WBC (Auto) >30 H (0-5) /hpf Urine RBC (Auto) >30 H (0-4) /hpf U Hyaline Cast (Auto) 1-5 (0-5) /lpf U Epithel Cells (Auto) 10-20 H (0-5) /lpf Urine Bacteria (Auto) Negative (Negative) SARS-CoV-2, RNA, NAAT (NEGATIVE) 05/26/21 Range/Units 21:39 WBC (4.8-10.8) K/uL RBC (4.2-5.4) M/uL Hgb (12.0-16.0) g/dL Hct (37-47) % MCV (80-100) fL MCH (25-34) pg MCHC (32-36) g/dL RDW Std Deviation (36.4-46.3) fL RDW Coeff of Lawson (11.5-14.5) % Plt Count (130-400) K/uL MPV (7.4-10.4) fL Immature Gran % (Auto) % Neut % (Auto) % Lymph % (Auto) % [place] % (Auto) % Eos % (Auto) % Baso % (Auto) % Neut # (Auto) (1.4-6.5) K/uL Lymph # (Auto) (1.2-3.4) K/uL [place] # (Auto) (0.11-0.59) K/uL Eos # (Auto) (0-0.5) K/uL Baso # (Auto) (0-0.2) K/uL Immature Gran # (Auto) (0.00-0.02) K/uL Sodium (136-145) mmol/L Potassium (3.5-5.1) mmol/L Chloride (98-107) mmol/L Carbon Dioxide (21-32) mmol/L Anion Gap (3-11) BUN (7-18) mg/dl Creatinine (0.6-1.2) mg/dl Est Cr Clr Drug Dosing ml/min Est GFR ( Amer) ml/min Est GFR (Non-Af Amer) ml/min BUN/Creatinine Ratio (10-20) Glucose (70-99) mg/dl Calcium (8.5-10.1) mg/dl Total Bilirubin (0.2-1) mg/dl AST (15-37) U/L ALT (12-78) Alkaline Phosphatase (45-117) U/L Troponin I (0-0.045) ng/ml Total Protein (6.4-8.2) gm/dl Albumin (3.4-5.0) gm/dl Globulin (2.5-4.0) gm/dl Albumin/Globulin Ratio (0.9-2) Lipase (73-393) U/L Urine Color Urine Appearance (Clear) Urine pH (4.5-7.5) Ur Specific [place] (1.000-1.030) Urine Protein (Negative) Urine Glucose (UA) (Negative) Urine Ketones (Negative) Urine Blood (Negative) Urine Nitrite (Negative) Urine Bilirubin (Negative) Urine Urobilinogen (Negative) Ur Leukocyte Esterase (Negative) Urine WBC (Auto) (0-5) /hpf Urine RBC (Auto) (0-4) /hpf U Hyaline Cast (Auto) (0-5) /lpf U Epithel Cells (Auto) (0-5) /lpf Urine Bacteria (Auto) (Negative) SARS-CoV-2, RNA, NAAT POSITIVE A* (NEGATIVE) Imaging Data Attestation: I personally reviewed and interpreted this imaging study as follows: My Impression: Chest x-ray per my interpretation shows no acute cardiopulmonary process. Thoracic aortic aneurysm with graft in place. Radiologist's Impression: Abdomen/Pelvis CT 05/26/21 18:52 CT SCAN OF THE ABDOMEN AND PELVIS WITHOUT IV CONTRAST CLINICAL HISTORY: Generalized abdominal pain. Distention. Change in mental status. COMPARISON STUDY: Abdominal CT dated 01/07/2014. TECHNIQUE: CT scan of the abdomen and pelvis is performed from the lung bases to the proximal femora. Images are reviewed in the axial, sagittal, and coronal planes. IV contrast was not administered for this examination. Note that the e xamination is significantly suboptimal without oral and IV contrast. There is also motion artifact. A dose lowering technique was utilized adhering to the principles of ALARA. CT DOSE: 1754.93 mGy.cm FINDINGS: Lung bases: The heart is top normal in size noting trace pericardial effusion. The coronary arteries and mitral annulus are densely calcified. Evaluation of the lung parenchyma is significantly degraded by motion artifact. The lung bases are grossly clear noting bibasilar scarring/atelectasis. There is a moderate hiatal hernia. Liver: The unenhanced liver is normal in size, contour, and attenuation. There is no intrahepatic biliary ductal dilatation. Gallbladder: Surgically absent noting clips in the gallbladder fossa. Spleen: Normal in size and attenuation. There are numerous calcified splenic granulomas. A 12 mm splenic hypodensity seen on image #33 is unchanged and statistically of doubtful significance. Pancreas: The unenhanced pancreas is atrophic and grossly unremarkable. Adrenal glands: Unremarkable. Kidneys: The unenhanced kidneys are atrophic and without hydronephrosis. There are no renal calculi identified. A 2.8 cm cyst is noted in the interpolar right kidney. Additional subcentimeter cortical hypodensities also likely represent cysts but are too small for definitive characterization. Abdominal vasculature: There is aneurysmal dilatation of the distal descending thoracic aorta and at the diaphragmatic hiatus. This measures up to 3.9 cm in diameter. There is advanced atherosclerotic calcification and mild ectasia of the abdominal aorta. Bowel: There is rectosigmoid fecal impaction and moderate to severe constipation. The cecum is markedly distended, measuring up to 10.4 cm in diameter. There is mild colonic wall thickening. Diffuse pericolonic infiltration and trace fluid is noted. No pneumatosis is clearly identified. The small bowel loops are normal in caliber. There is mild colonic diverticulosis without CT evidence of acute diverticulitis. A small duodenal diverticulum is incidentally noted. The appendix is not identified and reported surgically absent. Peritoneum: There is trace perihepatic and pelvic ascites. No intraperitoneal free air is seen. There is a small fat-containing umbilical hernia. Lymphadenopathy: None. Pelvic viscera: Evaluation of the pelvis is degraded by streak artifact from a right hip arthroplasty. The bladder is decompressed and not well evaluated. The uterus is surgically absent. No adnexal lesion is seen. Skeletal structures: The skeletal structures are osteopenic. There is moderate lumbosacral spondylosis and scoliosis. No lytic or blastic lesions are seen. A right hip arthroplasty is in place. Intertrochanteric and intramedullary nails are seen in the left proximal femur. IMPRESSION: 1. Suboptimal examination without oral and IV contrast. There is also motion artifact. 2. There is rectosigmoid fecal impaction and moderate to severe constipation with marked distention of the right colon. 3. There is mild diffuse colonic wall thickening with pericolonic infiltration and trace fluid. The findings suggest stercoral proctocolitis and clinical correlation will required. 4. The small bowel loops are normal in caliber. 5. Trace abdominopelvic ascites. 6. No intraperitoneal free air is identified. There is no evidence of pneumatosis. 7. There is mild aneurysmal dilatation of the distal descending thoracic aorta which measures up to 3.9 cm. 8. Moderate hiatal hernia. 9. Additional findings as above. ACT 112: Negative or not required by law. Electronically signed by: John Romero M.D. 05/26/2021 8:40 PM Chest X-Ray 05/26/21 18:52 SINGLE VIEW CHEST CLINICAL HISTORY: Change in mental status. Generalized abdominal pain. FINDINGS: An AP, portable, semierect chest radiograph is compared to study dated 05/08/2021. The heart is top normal for projection noting atherosclerotic calcification of the thoracic aorta. A thoracic aortic stent graft is in place. There is chronic elevation of the left hemidiaphragm with bibasilar atelectasis. No airspace consolidation is seen typical for pneumonia. No large pleural effusion or pneumothorax is seen. The skeletal structures are osteopenic. The bony thorax is grossly intact. IMPRESSION: No acute cardiopulmonary abnormality. ACT 112: Negative or not required by law. Electronically signed by: John Romero M.D. 05/26/2021 9:[address] 05/26/21 18:52 CT SCAN OF THE BRAIN WITHOUT IV CONTRAST CLINICAL HISTORY: Change in mental status. COMPARISON STUDY: CT of the brain dated 12/03/2020. TECHNIQUE: Unenhanced axial CT scan of the brain is performed from the vertex to the skull base. A dose lowering technique was utilized adhering to the principles of ALARA. FINDINGS: Brain parenchyma: There are age-related involutional changes noting advanced subcortical and periventricular microangiopathic change. There is no hemorrhage, mass effect, or evidence of acute territorial ischemia by CT criteria. Foci of left frontal and left parietal encephalomalacia are unchanged from prior studies and consistent with remote infarcts. Rivera-white matter differentiation is preserved. No extra-axial fluid collection is seen. Ventricles, sulci, cisterns: Prominent secondary to involutional change. Intracranial vasculature: There is atherosclerotic calcification of the cavernous carotid and vertebral arteries. Calvarium: Unremarkable. Sinuses and mastoids: The visualized paranasal sinuses are clear. There is a small left mastoid effusion. The right mastoid air cells are well pneumatized. Orbits: The bony orbits are grossly intact. There are bilateral ocular lens implants. IMPRESSION: There is no hemorrhage, mass effect, or evidence of acute territorial ischemia by CT criteria. ACT 112: Negative or not required by law. Electronically signed by: John Romero M.D. 05/26/2021 8:22 PM ECG Data Attestation: I personally reviewed and interpreted this ECG as follows: Indication: + altered mental status Rate (beats per minute): 80 Rhythm: + normal sinus ECG Intervals/blocks: + Prolonged QT ECG ST segments: no ST elevation ECG Findings: + Other (Motion artifact); no PVCs Comparison ECG Date: from (April 27, 2021) Change: the following changes noted (QT is prolonged today.) MDM Narrative I did evaluate the patient as noted above. The patient is brought in for confusion and abdominal distention. She is not having any abdominal pain at this time. I did obtain history from the patient as well as the senior hr manager. She is not confused at this time and is actually oriented x4. IV access was established. I did place an order for continuous cardiac monitoring. The monitor showed atrial fibrillation at a rate of 84 bpm. I did order and personally review the patient's 12-lead EKG as described above. She has no acute ischemic changes. I did order and personally reviewed the images of the patient's chest x-ray as described above. There is no evidence of acute process. Aortic aneurysm with graft is visible. I did order a urine analysis. She does have evidence of an infection. I did order and review the patient's blood work as noted in the electronic medical record. White count is 4.69. Hemoglobin is 8.5. This is down from 9.7 on the 15th of this month. Electrolytes demonstrate a calcium of 7.7. CO2 is 19. BUN and creatinine are elevated at 82 and 2.1 respectively. Her last creatinine was less than 1. I did start her on IV normal saline. Her troponin is elevated at 0.088. She has no chest pain or shortness of breath. This may be a function of her kidney injury at this time. I did order a CT of the head, abdomen and pelvis. I did review the images myself as well as the radiology report as described above. There is no evidence of acute intracranial process. CT of the abdomen pelvis shows significant dilation of the colon with fecal impaction. She has stercoral proctocolitis. I did reassess the patient. I did obtain further history from the patient's daughter who is now at the bedside. She states that the patient came home from the rehab hospital and she had distention of her abdomen. Yesterday she had stool coming out of her anus and so she manually assisted her and having bowel movements. She states that a claylike stool came out and she was having stools all day similar to this. She has not been having diarrhea. She has not eaten anything since she came home because of the abdominal distention. She has been drinking fluids. When she came to the emergency department after her CAT scan she noticed another piece of stool sticking out. Nurse states that she had a very large bowel movement just prior to going to CAT scan. The daughter also states that the patient was confused and hallucinating overnight which happens when she has a urinary tract infection. She was better this morning according to the daughter. I did order an enema and suggested disimpaction but the patient refused. She stated it was too uncomfortable for her. She will be hospitalized for further care and evaluation and rehydration. The case was discussed with the case fitter and hospitalist. Impression & Plan TOBY (acute kidney injury), Acute UTI, Elevated troponin, Stercoral colitis, Anemia, Hypocalcemia Discharge Plan Visit Data Chief Complaint: Abdominal Pain Stated Complaint: [facility] ED Provider: Silverio Esparza Discharge Problem: TOBY (acute kidney injury), Acute UTI, Elevated troponin, Stercoral colitis, Anemia, Hypocalcemia Patient Disposition: Being Evaluated by Hospitalist Forms Stand Alone Forms: My [facility] Prescriptions Prescriptions: No Action simvastatin 40 mg tablet 40 mg PO HS Qty: 90 RF: 3 apixaban 5 mg tablet 5 mg PO BID Qty: 180 RF: 3 albuterol sulfate 90 mcg/actuation HFA aerosol inhaler 2 puff INH Q6H PRN (Reason: shortness of breath or wheezing) Qty: 18 RF: 5 metoprolol tartrate 25 mg tablet 25 mg PO BID Qty: 180 RF: 3 tramadol 50 mg tablet 50 mg PO TID PRN (Reason: pain) Qty: 90 RF: 2 amiodarone 200 mg Tablet 200 mg PO BIDM 30 Days Qty: 60 RF: 1 bupropion HCl 75 mg Tablet 75 mg PO BID 30 Days Qty: 60 RF: 1 sennosides [Senokot] 8.6 mg Tablet 17.2 mg PO QAM 30 Days Qty: 60 RF: 0 melatonin 3 mg Tablet 6 mg PO HS PRN (Reason: sleep) 30 Days Qty: 30 RF: 0 acetaminophen [Tylenol] 325 mg Tablet 650 mg PO Q4H PRN (Reason: Pain) RF: 0 pantoprazole 20 mg Tablet,Delayed Release (Dr/Ec) 20 mg PO DAILYBB RF: 0 lorazepam 0.5 mg Tablet 0.5 mg PO HS PRN (Reason: Anxiety) RF: 0 docusate sodium 100 mg Capsule 100 mg PO BID RF: 0 guaifenesin [Mucinex] 600 mg Tablet Extended Release 12hr 600 mg PO Q12H RF: 0 Referrals Referrals: Tracie Pugh CRNP [Nurse Practitioner] - 05/29/21 2:00 pm Grace Price MD [Primary Care Provider] - Discharge Problem: Anemia Qualifiers: Anemia type: unspecified type Qualified Code(s): D64.9 - Anemia, unspecified
[2021-05-26 19:45] LABS: Appearance Urine Cloudy (Clear); Bacteria Urine Automated Negative (Negative); Bilirubin Urine Negative (Negative); Blood Urine 3+ (Negative); Color Urine Dark Yellow; Glucose Urine UA Negative (Negative); Ketones Urine Negative (Negative); Leukocyte Esterase Urine 1+ (Negative); Nitrite Urine Negative (Negative); Protein Urine Negative (Negative); RBC Urine Automated >30 /hpf (0-4); Specific Gravity Urine 1.012 (1.000-1.030); Urobilinogen Urine Negative (Negative); WBC Urine Automated >30 /hpf (0-5)
--- NOTE | 2021-05-26 20:24 | CT Scan Report ---
CT SCAN OF THE BRAIN WITHOUT IV CONTRAST CLINICAL HISTORY: Change in mental status. COMPARISON STUDY: CT of the brain dated 12/03/2020. TECHNIQUE: Unenhanced axial CT scan of the brain is performed from the vertex to the skull base. A do se lowering technique was utilized adhering to the principles of ALARA. FINDINGS: Brain parenchyma: There are age-related involutional changes noting advanced subcortical and periven tricular microangiopathic change. There is no hemorrhage, mass effect, or evidence of acute territori al ischemia by CT criteria. Foci of left frontal and left parietal encephalomalacia are unchanged fro m prior studies and consistent with remote infarcts. Rivera-white matter differentiation is preserved. No extra-axial fluid collection is seen. Ventricles, sulci, cisterns: Prominent secondary to involutional change. Intracranial vasculature: There is atherosclerotic calcification of the cavernous carotid and vertebr al arteries. Calvarium: Unremarkable. Sinuses and mastoids: The visualized paranasal sinuses are clear. There is a small left mastoid effus ion. The right mastoid air cells are well pneumatized. Orbits: The bony orbits are grossly intact. There are bilateral ocular lens implants. IMPRESSION: There is no hemorrhage, mass effect, or evidence of acute territorial ischemia by CT madison fowler. ACT 112: Negative or not required by law. Electronically signed by: John Romero M.D. 05/26/2021 8:22 PM
--- NOTE | 2021-05-26 20:41 | CT Scan Report ---
CT SCAN OF THE ABDOMEN AND PELVIS WITHOUT IV CONTRAST CLINICAL HISTORY: Generalized abdominal pain. Distention. Change in mental status. COMPARISON STUDY: Abdominal CT dated 01/07/2014. TECHNIQUE: CT scan of the abdomen and pelvis is performed from the lung bases to the proximal femora. Images are reviewed in the axial, sagittal, and coronal planes. IV contrast was not administered for this examination. Note that the examination is significantly suboptimal without oral and IV contrast . There is also motion artifact. A dose lowering technique was utilized adhering to the principles of ALARA. CT DOSE: 1754.93 mGy.cm FINDINGS: Lung bases: The heart is top normal in size noting trace pericardial effusion. The coronary arteries and mitral annulus are densely calcified. Evaluation of the lung parenchyma is significantly degraded by motion artifact. The lung bases are grossly clear noting bibasilar scarring/atelectasis. There is a moderate hiatal hernia. Liver: The unenhanced liver is normal in size, contour, and attenuation. There is no intrahepatic tyler iary ductal dilatation. Gallbladder: Surgically absent noting clips in the gallbladder fossa. Spleen: Normal in size and attenuation. There are numerous calcified splenic granulomas. A 12 mm sple soniya hypodensity seen on image #33 is unchanged and statistically of doubtful significance. Pancreas: The unenhanced pancreas is atrophic and grossly unremarkable. Adrenal glands: Unremarkable. Kidneys: The unenhanced kidneys are atrophic and without hydronephrosis. There are no renal calculi i dentified. A 2.8 cm cyst is noted in the interpolar right kidney. Additional subcentimeter cortical h ypodensities also likely represent cysts but are too small for definitive characterization. Abdominal vasculature: There is aneurysmal dilatation of the distal descending thoracic aorta and at the diaphragmatic hiatus. This measures up to 3.9 cm in diameter. There is advanced atherosclerotic c alcification and mild ectasia of the abdominal aorta. Bowel: There is rectosigmoid fecal impaction and moderate to severe constipation. The cecum is marked ly distended, measuring up to 10.4 cm in diameter. There is mild colonic wall thickening. Diffuse per icolonic infiltration and trace fluid is noted. No pneumatosis is clearly identified. The small bowel loops are normal in caliber. There is mild colonic diverticulosis without CT evidence of acute diver ticulitis. A small duodenal diverticulum is incidentally noted. The appendix is not identified and r eported surgically absent. Peritoneum: There is trace perihepatic and pelvic ascites. No intraperitoneal free air is seen. There is a small fat-containing umbilical hernia. Lymphadenopathy: None. Pelvic viscera: Evaluation of the pelvis is degraded by streak artifact from a right hip arthroplasty . The bladder is decompressed and not well evaluated. The uterus is surgically absent. No adnexal les ion is seen. Skeletal structures: The skeletal structures are osteopenic. There is moderate lumbosacral spondylosi s and scoliosis. No lytic or blastic lesions are seen. A right hip arthroplasty is in place. Intertro chanteric and intramedullary nails are seen in the left proximal femur. IMPRESSION: 1. Suboptimal examination without oral and IV contrast. There is also motion artifact. 2. There is rectosigmoid fecal impaction and moderate to severe constipation with marked distention o f the right colon. 3. There is mild diffuse colonic wall thickening with pericolonic infiltration and trace fluid. The f indings suggest stercoral proctocolitis and clinical correlation will required. 4. The small bowel loops are normal in caliber. 5. Trace abdominopelvic ascites. 6. No intraperitoneal free air is identified. There is no evidence of pneumatosis. 7. There is mild aneurysmal dilatation of the distal descending thoracic aorta which measures up to 3 .9 cm. 8. Moderate hiatal hernia. 9. Additional findings as above. ACT 112: Negative or not required by law. Electronically signed by: John Romero M.D. 05/26/2021 8:40 PM
[2021-05-26 20:45] LABS: Eosinophils # (auto) 0.01 K/uL (0-0.5); Eosinophils % (auto) 0.2 %; Hematocrit (blood only) 26.8 % (37-47); Hemoglobin 8.5 g/dL (12.0-16.0); Immature Granulocytes # (auto) 0.02 K/uL (0.00-0.02); Immature Granulocytes % (auto) 0.4 %; Lymphocytes # (auto) 0.41 K/uL (1.2-3.4); Lymphocytes % (auto) 8.7 %; Mean Corpuscular Hemoglobin 25.4 pg (25-34); Mean Corpuscular Hgb Conc 31.7 g/dL (32-36); Mean Corpuscular Volume 80.2 fL (80-100); Monocytes # (auto) 0.26 K/uL (0.11-0.59); Monocytes % (auto) 5.5 %; Neutrophils # (auto) 3.99 K/uL (1.4-6.5); Neutrophils % (auto) 85.2 %; Platelet Count 144 K/uL (130-400); RDW Coefficient of Variation 19.9 % (11.5-14.5); RDW Standard Deviation 56.8 fL (36.4-46.3); Red Blood Count 3.34 M/uL (4.2-5.4); White Blood Count 4.69 K/uL (4.8-10.8)
[2021-05-26 21:02] LABS: Albumin Level 2.1 gm/dl (3.4-5.0); BUN Creatinine Ratio 38.5 (10-20); Calcium 7.7 mg/dl (8.5-10.1); Creatinine Clr Calc Pharmacy 18.1 ml/min; Est GFR (Non-African American) 21.6 ml/min; Potassium 3.8 mmol/L (3.5-5.1)
[2021-05-26 21:12] LABS: Albumin Globulin Ratio 0.7 (0.9-2); Bilirubin,Total 0.5 mg/dl (0.2-1); Globulin 3.1 gm/dl (2.5-4.0); Total Protein 5.2 gm/dl (6.4-8.2); Troponin I 0.088 ng/ml (0-0.045)
[2021-05-26] MEDS ORDERED: SODIUM CHLORIDE 0.9% 500 ML IV SCH (21:15)
--- NOTE | 2021-05-26 21:19 | XRay Report ---
SINGLE VIEW CHEST CLINICAL HISTORY: Change in mental status. Generalized abdominal pain. FINDINGS: An AP, portable, semierect chest radiograph is compared to study dated 05/08/2021. The hear t is top normal for projection noting atherosclerotic calcification of the thoracic aorta. A thoracic aortic stent graft is in place. There is chronic elevation of the left hemidiaphragm with bibasilar atelectasis. No airspace consolidation is seen typical for pneumonia. No large pleural effusion or pn eumothorax is seen. The skeletal structures are osteopenic. The bony thorax is grossly intact. IMPRESSION: No acute cardiopulmonary abnormality. ACT 112: Negative or not required by law. Electronically signed by: John Romero M.D. 05/26/2021 9:17 PM
--- NOTE | 2021-05-26 22:55 | History & Physical Report ---
Date of Service May 26, 2021 Assessment & Plan (1) Stercoral colitis: Plan: Stercoral colitis- Was ordered milk of molasses enema by the ED IV fluid rehydration with normal saline at 100 mils per hour Continue bowel regimen of docusate and Senokot Zosyn 3.375 mg IV every 8 hours (2) Elevated troponin: Plan: Elevated troponin/atrial fibrillation RVR/hypertension- The patient will be admitted to telemetry for serial cardiac enzymes, serial EKG's, cardiac rhythm monitoring Likely type II GA, supply demand mismatch Continue amiodarone, apixaban, and metoprolol tartrate with hold parameters (3) TOBY (acute kidney injury): Plan: Creatinine 2.12 on admission, with baseline 0.93 IV fluids as noted above, and repeat laboratories in the a.m. (4) Atrial fibrillation with RVR: Plan: See above (5) COPD (chronic obstructive pulmonary disease): Plan: Continue routine inhalers as needed (6) GERD without esophagitis: Plan: Continue pantoprazole (7) Hyperlipidemia: Plan: Continue simvastatin (8) HTN (hypertension): Plan: See above History of Present Illness Chief Complaint: The patient was brought to the emergency department due to increasing confusion and abdominal discomfort/distention over the past 2 days since arriving home from a rehab hospital stay Primary Care Provider: Grace Price MD The patient is a 80-year-old female with a past medical history including acute kidney injury, peripheral vascular disease, atrial fibrillation with RVR, acute and chronic respiratory failure with hypoxia, COPD, chronic low back pain, hypothyroidism, GERD without esophagitis, hyperlipidemia, hypertension, COPD, vitamin D deficiency, multiple thyroid nodules, LVH and anxiety. She was most recently mated to [facility] from 04/27-05/15/2021 for COVID-19 pneumonia induced respiratory failure with hypoxia. She had been going to rehab stay, and as noted above, after being home for 2 days was noted increased abdominal distention, discomfort and confusion Allergies Allergy/AdvReac Type Severity Reaction Status Date / Time No Known Allergies Allergy Unknown Verified 05/26/21 19:37 Home Medications Medication Instructions Recorded Confirmed Type simvastatin 40 mg tablet 40 mg PO HS #90 tab 06/13/20 05/26/21 Rx apixaban 5 mg tablet 5 mg PO BID #180 tab 09/15/20 05/26/21 Rx albuterol sulfate 90 mcg/actuation 2 puff INH Q6H PRN #18 gm 12/13/20 05/26/21 Rx aerosol inhaler metoprolol tartrate 25 mg tablet 25 mg PO BID #180 tab 03/06/21 05/26/21 Rx tramadol 50 mg tablet 50 mg PO TID PRN #90 tab 03/31/21 05/26/21 Rx amiodarone 200 mg tablet 200 mg PO BIDM 30 Days #60 tab 05/15/21 05/26/21 Rx bupropion HCl 75 mg tablet 75 mg PO BID 30 Days #60 tab 05/15/21 05/26/21 Rx melatonin 3 mg tablet 6 mg PO HS PRN 30 Days #30 tab 05/15/21 05/26/21 Rx sennosides 8.6 mg tablet (Senokot) 17.2 mg PO QAM 30 Days #60 tab 05/15/21 05/26/21 Rx acetaminophen 325 mg tablet 650 mg PO Q4H PRN 05/26/21 05/26/21 History (Tylenol) docusate sodium 100 mg capsule 100 mg PO BID 05/26/21 05/26/21 History guaifenesin 600 mg tablet, 600 mg PO Q12H 05/26/21 05/26/21 History extended release 12 hr (Mucinex) lorazepam 0.5 mg tablet 0.5 mg PO HS PRN 05/26/21 05/26/21 History pantoprazole 20 mg tablet,delayed 20 mg PO DAILYBB 05/26/21 05/26/21 History release Past Med/Surg History Medical History (Updated 05/26/21 @ 21:37 by Silverio Esparza MD) AF (paroxysmal atrial fibrillation) Anxiety Carotid artery stenosis Chronic low back pain COPD (chronic obstructive pulmonary disease) GERD without esophagitis Hip fracture (04/27/13) History of transient cerebral ischemia HTN (hypertension) Hyperlipidemia Hyperthyroidism Impaired fasting glucose Iron deficiency anemia Left ventricular hypertrophy Multiple thyroid nodules Osteoporosis Vitamin D deficiency Surgical History H/O carotid endarterectomy left H/O thoracic aortic aneurysm repair History of appendectomy History of hysterectomy History of laparoscopic cholecystectomy History of repair of hip fracture Family History Sister Cancer Asthma Ovarian cancer Mother Cardiac disorder Myocardial infarction Father Cardiac disorder Lung cancer Myocardial infarction Denies family history of Prostate cancer Breast cancer Colorectal cancer Social History Smoking Status: Never smoker Tobacco Type: Cigarettes Age Started Using Tobacco: 17; packs per day: 0.5; Second Hand Exposure: Yes; Hx Alcohol Use: No Hx Substance Use: No Preferred Language: Kazakh Communication Ability: Unable Visual Impairment: No Limitations Hearing Ability: Hard of Hearing Medical Equipment Sales Required: No Beliefs That Will Affect Care: None marital status: / Current Living Situation: Alone Current Living Situation Comment: lives with her daughter current occupational status: retired 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 HEENT--PERRL, EOMI, mucous membranes and oropharynx dry. Neck--supple. No JVD. No bruits. Thyroid normal, trachea midline, no adenopathy. Heart--normal S1 and S2. No murmurs, rubs or gallops. Lungs--clear bilaterally, no respiratory distress, no accessory muscle use. Abdomen--normal bowel sounds and soft. Nontender. Mildly distended and tympanitic Extremities--no cyanosis or clubbing. No edema. Dermatologic--normal skin turgor, normal color, no abnormal lymph nodes, no rash. Neurologic--cranial nerves II through XII grossly intact. Rheumatologic--normal range of motion. Psychiatric--normal affect. Results & Data Results & Data ([facility]) Vital Signs (Past 12 Hours) Vital Signs Temp Pulse Pulse Resp BP BP Pulse Ox 05/26/21 21:00 73 20 102/59 L 96 05/26/21 18:51 36.5 C 86 20 106/56 L 96 Laboratory Results Laboratory Results WBC 4.69 K/uL (4.8-10.8) L 05/26/21 20:35 RBC 3.34 M/uL (4.2-5.4) L 05/26/21 20:35 Hgb 8.5 g/dL (12.0-16.0) L 05/26/21 20:35 Hct 26.8 % (37-47) L 05/26/21 20:35 MCV 80.2 fL (80-100) 05/26/21 20:35 MCH 25.4 pg (25-34) 05/26/21 20:35 MCHC 31.7 g/dL (32-36) L 05/26/21 20:35 RDW Std Deviation 56.8 fL (36.4-46.3) H 05/26/21 20:35 RDW Coeff of Lawson 19.9 % (11.5-14.5) H 05/26/21 20:35 Plt Count 144 K/uL (130-400) 05/26/21 20:35 MPV 9.0 fL (7.4-10.4) 05/26/21 20:35 Immature Gran % (Auto) 0.4 % 05/26/21 20:35 Neut % (Auto) 85.2 % 05/26/21 20:35 Lymph % (Auto) 8.7 % 05/26/21 20:35 Coles % (Auto) 5.5 % 05/26/21 20:35 Eos % (Auto) 0.2 % 05/26/21 20:35 Baso % (Auto) 0.0 % 05/26/21 20:35 Neut # (Auto) 3.99 K/uL (1.4-6.5) 05/26/21 20:35 Lymph # (Auto) 0.41 K/uL (1.2-3.4) L 05/26/21 20:35 Coles # (Auto) 0.26 K/uL (0.11-0.59) 05/26/21 20:35 Eos # (Auto) 0.01 K/uL (0-0.5) 05/26/21 20:35 Baso # (Auto) 0.00 K/uL (0-0.2) 05/26/21 20:35 Immature Gran # (Auto) 0.02 K/uL (0.00-0.02) 05/26/21 20:35 Sodium 138 mmol/L (136-145) 05/26/21 20:35 Potassium 3.8 mmol/L (3.5-5.1) 05/26/21 20:35 Chloride 106 mmol/L (98-107) 05/26/21 20:35 Carbon Dioxide 19 mmol/L (21-32) L 05/26/21 20:35 Anion Gap 12.0 (3-11) H 05/26/21 20:35 BUN 82 mg/dl (7-18) H 05/26/21 20:35 Creatinine 2.12 mg/dl (0.6-1.2) H 05/26/21 20:35 Est Cr Clr Drug Dosing 18.1 ml/min 05/26/21 20:35 Est GFR ( Amer) 25.0 ml/min 05/26/21 20:35 Est GFR (Non-Af Amer) 21.6 ml/min 05/26/21 20:35 BUN/Creatinine Ratio 38.5 (10-20) H 05/26/21 20:35 Glucose 139 mg/dl (70-99) H 05/26/21 20:35 Calcium 7.7 mg/dl (8.5-10.1) L 05/26/21 20:35 Total Bilirubin 0.5 mg/dl (0.2-1) 05/26/21 20:35 AST 25 U/L (15-37) 05/26/21 20:35 ALT 34 (12-78) 05/26/21 20:35 Alkaline Phosphatase 87 U/L (45-117) 05/26/21 20:35 Troponin I 0.088 ng/ml (0-0.045) H* 05/26/21 20:35 Total Protein 5.2 gm/dl (6.4-8.2) L 05/26/21 20:35 Albumin 2.1 gm/dl (3.4-5.0) L 05/26/21 20:35 Globulin 3.1 gm/dl (2.5-4.0) 05/26/21 20:35 Albumin/Globulin Ratio 0.7 (0.9-2) L 05/26/21 20:35 Lipase 35 U/L (73-393) L 05/26/21 20:35 Urine Color Dark Yellow 05/26/21 19:35 Urine Appearance Cloudy (Clear) A 05/26/21 19:35 Urine pH 5.0 (4.5-7.5) 05/26/21 19:35 Ur Specific [place] 1.012 (1.000-1.030) 05/26/21 19:35 Urine Protein Negative (Negative) 05/26/21 19:35 Urine Glucose (UA) Negative (Negative) 05/26/21 19:35 Urine Ketones Negative (Negative) 05/26/21 19:35 Urine Blood 3+ (Negative) H 05/26/21 19:35 Urine Nitrite Negative (Negative) 05/26/21 19:35 Urine Bilirubin Negative (Negative) 05/26/21 19:35 Urine Urobilinogen Negative (Negative) 05/26/21 19:35 Ur Leukocyte Esterase 1+ (Negative) H 05/26/21 19:35 Urine WBC (Auto) >30 /hpf (0-5) H 05/26/21 19:35 Urine RBC (Auto) >30 /hpf (0-4) H 05/26/21 19:35 U Hyaline Cast (Auto) 1-5 /lpf (0-5) 05/26/21 19:35 U Epithel Cells (Auto) 10-20 /lpf (0-5) H 05/26/21 19:35 Urine Bacteria (Auto) Negative (Negative) 05/26/21 19:35 SARS-CoV-2, RNA, NAAT POSITIVE (NEGATIVE) A* 05/26/21 21:39 Impressions Abdomen/Pelvis CT 05/26/21 18:52 CT SCAN OF THE ABDOMEN AND PELVIS WITHOUT IV CONTRAST CLINICAL HISTORY: Generalized abdominal pain. Distention. Change in mental status. COMPARISON STUDY: Abdominal CT dated 01/07/2014. TECHNIQUE: CT scan of the abdomen and pelvis is performed from the lung bases to the proximal femora. Images are reviewed in the axial, sagittal, and coronal planes. IV contrast was not administered for this examination. Note that the examination is significantly suboptimal without oral and IV contrast. There is also motion artifact. A dose lowering technique was utilized adhering to the principles of ALARA. CT DOSE: 1754.93 mGy.cm FINDINGS: Lung bases: The heart is top normal in size noting trace pericardial effusion. The coronary arteries and mitral annulus are densely calcified. Evaluation of the lung parenchyma is significantly degraded by motion artifact. The lung bases are grossly clear noting bibasilar scarring/atelectasis. There is a moderate hiatal hernia. Liver: The unenhanced liver is normal in size, contour, and attenuation. There is no intrahepatic biliary ductal dilatation. Gallbladder: Surgically absent noting clips in the gallbladder fossa. Spleen: Normal in size and attenuation. There are numerous calcified splenic granulomas. A 12 mm splenic hypodensity seen on image #33 is unchanged and statistically of doubtful significance. Pancreas: The unenhanced pancreas is atrophic and grossly unremarkable. Adrenal glands: Unremarkable. Kidneys: The unenhanced kidneys are atrophic and without hydronephrosis. There are no renal calculi identified. A 2.8 cm cyst is noted in the interpolar right kidney. Additional subcentimeter cortical hypodensities also likely represent cysts but are too small for definitive characterization. Abdominal vasculature: There is aneurysmal dilatation of the distal descending thoracic aorta and at the diaphragmatic hiatus. This measures up to 3.9 cm in diameter. There is advanced atherosclerotic calcification and mild ectasia of the abdominal aorta. Bowel: There is rectosigmoid fecal impaction and moderate to severe constipation. The cecum is markedly distended, measuring up to 10.4 cm in diameter. There is mild colonic wall thickening. Diffuse pericolonic infiltration and trace fluid is noted. No pneumatosis is clearly identified. The small bowel loops are normal in caliber. There is mild colonic diverticulosis without CT evidence of acute diverticulitis. A small duodenal diverticulum is incidentally noted. The appendix is not identified and reported surgically absent. Peritoneum: There is trace perihepatic and pelvic ascites. No intraperitoneal free air is seen. There is a small fat-containing umbilical hernia. Lymphadenopathy: None. Pelvic viscera: Evaluation of the pelvis is degraded by streak artifact from a right hip arthroplasty. The bladder is decompressed and not well evaluated. The uterus is surgically absent. No adnexal lesion is seen. Skeletal structures: The skeletal structures are osteopenic. There is moderate lumbosacral spondylosis and scoliosis. No lytic or blastic lesions are seen. A right hip arthroplasty is in place. Intertrochanteric and intramedullary nails are seen in the left proximal femur. IMPRESSION: 1. Suboptimal examination without oral and IV contrast. There is also motion artifact. 2. There is rectosigmoid fecal impaction and moderate to severe constipation w ith marked distention of the right colon. 3. There is mild diffuse colonic wall thickening with pericolonic infiltration and trace fluid. The findings suggest stercoral proctocolitis and clinical co rrelation will required. 4. The small bowel loops are normal in caliber. 5. Trace abdominopelvic ascites. 6. No intraperitoneal free air is identified. There is no evidence of pneumatosis. 7. There is mild aneurysmal dilatation of the distal descending thoracic aorta which measures up to 3.9 cm. 8. Moderate hiatal hernia. 9. Additional findings as above. ACT 112: Negative or not required by law. Electronically signed by: John Romero M.D. 05/26/2021 8:40 PM Chest X-Ray 05/26/21 18:52 SINGLE VIEW CHEST CLINICAL HISTORY: Change in mental status. Generalized abdominal pain. FINDINGS: An AP, portable, semierect chest radiograph is compared to study dated 05/08/2021. The heart is top normal for projection noting atherosclerotic calcif ication of the thoracic aorta. A thoracic aortic stent graft is in place. There is chronic elevation of the left hemidiaphragm with bibasilar atelectasis. No airspace consolidation is seen typical for pneumonia. No large pleural effusion or pneumothorax is seen. The skeletal structures are osteopenic. The bony thorax is grossly intact. IMPRESSION: No acute cardiopulmonary abnormality. ACT 112: Negative or not required by law. Electronically signed by: John Romero M.D. 05/26/2021 9:[address] 05/26/21 18:52 CT SCAN OF THE BRAIN WITHOUT IV CONTRAST CLINICAL HISTORY: Change in mental status. COMPARISON STUDY: CT of the brain dated 12/03/2020. TECHNIQUE: Unenhanced axial CT scan of the brain is performed from the vertex to the skull base. A dose lowering technique was utilized adhering to the principles of ALARA. FINDINGS: Brain parenchyma: There are age-related involutional changes noting advanced subcortical and periventricular microangiopathic change. There is no hemorrhage, mass effect, or evidence of acute territorial ischemia by CT criteria. Foci of left frontal and left parietal encephalomalacia are unchanged from prior studies and consistent with remote infarcts. Rivera-white matter differentiation is preserved. No extra-axial fluid collection is seen. Ventricles, sulci, cisterns: Prominent secondary to involutional change. Intracranial vasculature: There is atherosclerotic calcification of the cavernous carotid and vertebral arteries. Calvarium: Unremarkable. Sinuses and mastoids: The visualized paranasal sinuses are clear. There is a small left mastoid effusion. The right mastoid air cells are well pneumatized. Orbits: The bony orbits are grossly intact. There are bilateral ocular lens implants. IMPRESSION: There is no hemorrhage, mass effect, or evidence of acute territorial ischemia by CT criteria. ACT 112: Negative or not required by law. Electronically signed by: John Romero M.D. 05/26/2021 8:22 PM Code Status & VTE Plan Code Status Full code VTE Prophylaxis Plan VTE Prophylaxis will be ordered: Yes PG Care Time/CCT Total # of Minutes Spent Total Time Spent with Patient: Total time spent is greater than 50% in coordination of care (as documented) at patient's floor/unit and/or counseling patient: Coding Level of Care Code 26333 Initial Inpt Care Lvl 3 Diagnoses Stercoral colitis K52.89 Elevated troponin R77.8 TOBY (acute kidney injury) N17.9 Atrial fibrillation with RVR I48.91 COPD (chronic obstructive pulmonary disease) J44.1 COPD type: COPD with acute exacerbation GERD without esophagitis K21.9 Hyperlipidemia E78.5 HTN (hypertension) I10 (1) COPD (chronic obstructive pulmonary disease) COPD type: COPD with acute exacerbation Qualified Code(s): J44.1 - Chronic obstructive pulmonary disease with (acute) exacerbation
[2021-05-27] MEDS ORDERED: PIPERACILL/TAZOBAC CONSULT ACTIVE PRN (01:57)
[2021-05-27] MEDS ORDERED: ONDANSETRON INJ 2 MG/ML 2 ML VIAL IV PRN (01:57)
[2021-05-27] MEDS ORDERED: MELATONIN 3 MG TAB PO PRN (01:57)
[2021-05-27] MEDS ORDERED: ACETAMINOPHEN 325 MG TAB PO PRN (01:57)
[2021-05-27] MEDS ORDERED: PIPERACILLIN/TAZOBACTAM 3.375 GM in DEXTROSE 5% 100 ML IV ONE (02:30)
[2021-05-27] MEDS: SODIUM CHLORIDE 0.9% 1000ML 1,000 ML IV SCH (02:44)
[2021-05-27 05:34] LABS: Albumin Level 1.8 gm/dl (3.4-5.0); BUN Creatinine Ratio 41.6 (10-20); Calcium 7.4 mg/dl (8.5-10.1); Creatinine Clr Calc Pharmacy 22.8 ml/min; Est GFR (African American) 25.9 ml/min; Est GFR (Non-African American) 22.3 ml/min; Potassium 3.6 mmol/L (3.5-5.1)
[2021-05-27 05:40] LABS: Albumin Globulin Ratio 0.6 (0.9-2); Bilirubin,Total 0.7 mg/dl (0.2-1); Globulin 3.1 gm/dl (2.5-4.0); Total Protein 4.9 gm/dl (6.4-8.2); Troponin I 0.059 ng/ml (0-0.045)
[2021-05-27 07:16] LABS: Hemoglobin 6.9 g/dL (12.0-16.0); Mean Corpuscular Hemoglobin 25.4 pg (25-34); Mean Corpuscular Hgb Conc 31.4 g/dL (32-36); Mean Corpuscular Volume 80.9 fL (80-100); Mean Platelet Volume 9.2 fL (7.4-10.4); Nucleated RBC # (auto) 0.02 K/uL (0-0); Nucleated RBC % (auto) 0.5 %; Platelet Count 116 K/uL (130-400); RDW Coefficient of Variation 20.2 % (11.5-14.5); RDW Standard Deviation 58.7 fL (36.4-46.3); Red Blood Count 2.72 M/uL (4.2-5.4); White Blood Count 3.53 K/uL (4.8-10.8)
[2021-05-27 07:47] LABS: Anisocytosis Present; Dohle Bodies 2+; Echinocytes 1+; Eosinophils # (auto) 0.01 K/uL (0-0.5); Eosinophils % (auto) 0.3 %; Immature Granulocytes # (auto) 0.06 K/uL (0.00-0.02); Immature Granulocytes % (auto) 1.7 %; Lymphocytes # (auto) 0.35 K/uL (1.2-3.4); Lymphocytes % (auto) 9.9 %; Monocytes # (auto) 0.24 K/uL (0.11-0.59); Monocytes % (auto) 6.8 %; Neutrophils # (auto) 2.87 K/uL (1.4-6.5); Neutrophils % (auto) 81.3 %; Polychromasia 1+
[2021-05-27] MEDS: AMIODARONE 200 MG TAB PO SCH ×2 (08:17→19:44)
[2021-05-27] MEDS: DOCUSATE SODIUM 100 MG CAP PO SCH ×2 (08:18→20:28)
[2021-05-27] MEDS: buPROPion HCl 75 MG TABLET PO SCH ×2 (08:18→20:28)
[2021-05-27] MEDS: METOPROLOL TARTRATE 25 MG TAB PO SCH ×2 (08:19→20:28)
[2021-05-27] MEDS: SENNA 8.6 MG TAB PO SCH (08:19)
[2021-05-27] MEDS ORDERED: SODIUM CHLORIDE 0.9% 250 ML IV PRN ×2 (08:34→14:44)
--- NOTE | 2021-05-27 08:56 | Hospitalist Progress Note ---
Date of Service May 27, 2021 Assessment & Plan (1) Stercoral colitis: Plan: Stercoral colitis Ischemic molasses enema while in ER Continuing docusate/Senokot Was receiving IV fluids Patient with a decreased hemoglobin as noted below,? Dilutional with fluids ve rsus slow bleed. Patient has required blood transfusions in the past for poor production Continue Zosyn every 8 hours (2) Anemia: Plan: Hemoglobin dropped from 8.5 to 6.9 following fluids ? Slow ooze/bleed with ulceration from stercoral colitis Patient with poor reduction requiring transfusions in the past per patient and family Demand ischemia troponin leak with TOBY on admission 2 units for transfusion ordered, patient consented for blood and also discussed with family Hemoglobin recheck posttransfusion (3) Elevated troponin: Plan: Elevated troponin in the setting of volume depletion, TOBY, hypertension, and stercoral colitis trop downtrending following fluids EKG without acute acute ST changes - No chest pain/sx of ACS at assessment A. fib treatment as below (4) TOBY (acute kidney injury): Plan: Creatinine elevated from normal baseline to 2.12 on admission Creatinine approximately 2 this morning Receiving blood as otherwise noted Avoid nephrotoxins Continue to trend BMP (5) Atrial fibrillation with RVR: Plan: Rate 88 on bedside assessment, adequately controlled Continue amiodarone Continue metoprolol tartrate, hold for hypotension 1 dose of apixaban held in the setting of blood transfusion, being evaluated as above (6) COPD (chronic obstructive pulmonary disease): Plan: No wheezing on exam DuoNeb as needed (7) GERD without esophagitis: Plan: Protonix daily (8) Hyperlipidemia: Plan: Continue simvastatin (9) HTN (hypertension): Plan: Currently with hypotension, beta-harsh as above Plan: DVT prophylaxis: On anticoagulations, 1 dose held with anemia as above Diet: N.p.o. Disposition: Telemetry CODE STATUS: Full code Admission and Anticipated Discharge Date Admission Date: May 26, 2021 Ailin Najera is seen at the bedside. She reports frustration at having to be in the hospital around the holidays. Has not had a bowel movement yet this morning. She denies chest pain, chest pressure, shortness of breath, difficulty breathing, fever, chills. Continues to have some abdominal discomfort, she th inks this is about the same to be a little bit better than yesterday. Did discuss her low hemoglobin and recommended 2 units of blood, especially with her troponin suggesting potential demand ischemia. She reports that she has needed transfusions of blood before, and is agreeable to receiving them again. Consent signed, also discussed with patient's daughter by telephone. Review of Systems Review of Systems: All systems reviewed & are unremarkable except as noted in Subjective Physical Exam Physical Exam: General: Oriented to name month and place. NAD. Cooperative. HEENT: Atraumatic, normocephalic. Visual acuity and hearing grossly intact. Pulm: Diminished, trace bibasilar crackles, without wheezes. Symmetrical chest rise. No increase work of breathing. No respiratory distress. Cardiac: RRR. Radial pulses intact and symmetrical. Abdominal: Nontender, nondistended, soft. BS present. Extremities: Warm, dry. Moves all extremities equally. No edema. Results & Data Results & Data ([facility]) Vital Signs (Past 12 Hours) Vital Signs Temp Pulse Resp BP Pulse Ox 05/27/21 08:29 88 20 97/57 L 97 05/27/21 08:06 36.5 C 90 22 76/56 L 94 05/27/21 03:44 81 18 128/68 96 05/27/21 00:00 36.7 C 85 22 112/72 96 05/26/21 21:00 73 20 102/59 L 96 PG Care Time/CCT Total # of Minutes Spent Total Time Spent with Patient: Total time spent is greater than 50% in coordination of care (as documented) at patient's floor/unit and/or counseling patient: Coding Level of Care Code 84790 Subseq Hosp Care Lvl 3 Diagnoses Stercoral colitis K52.89 Elevated troponin R77.8 TOBY (acute kidney injury) N17.9 Atrial fibrillation with RVR I48.91 COPD (chronic obstructive pulmonary disease) J44.1 COPD type: COPD with acute exacerbation GERD without esophagitis K21.9 Hyperlipidemia E78.5 HTN (hypertension) I10 Anemia D64.9 Anemia type: unspecified type (1) COPD (chronic obstructive pulmonary disease) COPD type: COPD with acute exacerbation Qualified Code(s): J44.1 - Chronic obstructive pulmonary disease with (acute) exacerbation (2) Anemia Anemia type: unspecified type Qualified Code(s): D64.9 - Anemia, unspecified
[2021-05-27] MEDS ORDERED: APIXABAN 5 MG TABLET PO SCH (09:00)
[2021-05-27] MEDS ORDERED: PIPERACILLIN/TAZOBACTAM 3.375 GM in DEXTROSE 5% 100 ML IV SCH (10:00)
[2021-05-27] MEDS ORDERED: LACTATED RINGER'S 1,000 ML IV ONE ×2 (12:05→14:43)
[2021-05-27] MEDS ORDERED: SODIUM CHLORIDE 0.9% 1000ML 500 ML IV ONE (12:07)
--- NOTE | 2021-05-27 14:48 | XCELERA ---
[id number]
--- NOTE | 2021-05-27 15:05 | Surgery Consultation ---
Date of Consultation May 27, 2021 Assessment & Plan (1) Stercoral colitis: This is a 80yF with PMH of carotid artery dz s/p L CEA, afib on eliquis, COPD, HTN, and recently covid + diagnosis who presented to the [facility] ED on 05/26/21 via EMS for presumed AMS and abdominal discomfort. On admission workup with a CT a/p revealed evidence of stercoral colitis. Surgery was consulted today as patient was found to be persistently hypotensive with Hbg of 6.9, along with worsening abdominal distention. She is receiving 2 units of blood for her anemia and has been receiving IVF for resuscitation. BP's appear to be improving. KUB today revealed dilated R colon >10cm. On examination patient's abdomen is distended with majority of discomfort along the R side. A repeat CT a/p obtained revealed was mostly unchanged, no evidence of perforation, and ongoing proctocolitis, and constipation compatible with ileus. We recommend GI consultation, she may benefit from some gentle enema's, and repeat KUB tomorrow. Eliquis is on hold for now given downtrending hgb. We will follow along, but no plans for acute surgical intervention at this time. Supervising Physician Co-Signing Physician Notes I personally saw and evaluated the patient with Cassy Gamez PA-C and agree with the assessment and plan. 80-year-old female with stercoral colitis and severe constipation KUB and CT images and results reviewed, consistent with stercoral colitis and colonic ileus We will keep her n.p.o. and on IV antibiotics We will consult GI for consideration of a decompressive colonoscopy She has no signs of ischemia clinically or on imaging We will hold her Eliquis as her hemoglobin was 6.9 as well as if she may need surgical intervention We will follow History of Present Illness Attending Physician: Je Medina MD History of Present Illness This is a 80yF with PMH of carotid artery dz s/p L CEA, afib on eliquis, COPD, HTN, and recently covid + diagnosis who presented to the [facility] ED on 05/26/21 via EMS for presumed AMS and abdominal discomfort. She tells me she is here because of Covid, which on this admission she is testing +, but was admitted earlier this month with covid pneumonia. During patient's workup here she was found to have stercoral colitis and has been managed for such. Surgery was consulted today as patient was found to be persistently hypotensive with Hbg of 6.9, along with worsening abdominal distention. Patient presently tells me she has pain with movement, none at rest. She denies nausea/vomiting. She tells me that she has been constipated for days and that her last BM was 3 days ago. She had been previously eating well without issues. Denies blood per rectum. No lighth eadedness/dizziness. Her past abdominal surgeries include cholecystectomy, appendectomy, hysterectomy, and of note she has also had a thoracic aneurysm repair and L CEA. Patient reports overall feeling about the same as yesterday, but does believe she is more bloated. Patient lives alone with her daughter in [place]. Allergies Allergy/AdvReac Type Severity Reaction Status Date / Time No Known Allergies Allergy Unknown Verified 05/26/21 19:37 Home Medications Medication Instructions Recorded Confirmed Type simvastatin 40 mg tablet 40 mg PO HS #90 tab 06/13/20 05/26/21 Rx apixaban 5 mg tablet 5 mg PO BID #180 tab 09/15/20 05/26/21 Rx albuterol sulfate 90 mcg/actuation 2 puff INH Q6H PRN #18 gm 12/13/20 05/26/21 Rx aerosol inhaler metoprolol tartrate 25 mg tablet 25 mg PO BID #180 tab 03/06/21 05/26/21 Rx tramadol 50 mg tablet 50 mg PO TID PRN #90 tab 03/31/21 05/26/21 Rx amiodarone 200 mg tablet 200 mg PO BIDM 30 Days #60 tab 05/15/21 05/26/21 Rx bupropion HCl 75 mg tablet 75 mg PO BID 30 Days #60 tab 05/15/21 05/26/21 Rx melatonin 3 mg tablet 6 mg PO HS PRN 30 Days #30 tab 05/15/21 05/26/21 Rx sennosides 8.6 mg tablet (Senokot) 17.2 mg PO QAM 30 Days #60 tab 05/15/21 05/26/21 Rx acetaminophen 325 mg tablet 650 mg PO Q4H PRN 05/26/21 05/26/21 History (Tylenol) docusate sodium 100 mg capsule 100 mg PO BID 05/26/21 05/26/21 History guaifenesin 600 mg tablet, 600 mg PO Q12H 05/26/21 05/26/21 History extended release 12 hr (Mucinex) lorazepam 0.5 mg tablet 0.5 mg PO HS PRN 05/26/21 05/26/21 History pantoprazole 20 mg tablet,delayed 20 mg PO DAILYBB 05/26/21 05/26/21 History release Patient History Medical History AF (paroxysmal atrial fibrillation) Anxiety Carotid artery stenosis Chronic low back pain COPD (chronic obstructive pulmonary disease) GERD without esophagitis Hip fracture (04/27/13) History of transient cerebral ischemia HTN (hypertension) Hyperlipidemia Hyperthyroidism Impaired fasting glucose Iron deficiency anemia Left ventricular hypertrophy Multiple thyroid nodules Osteoporosis Vitamin D deficiency Surgical History H/O carotid endarterectomy left H/O thoracic aortic aneurysm repair History of appendectomy History of hysterectomy History of laparoscopic cholecystectomy History of repair of hip fracture Family History Sister Cancer Asthma Ovarian cancer Mother Cardiac disorder Myocardial infarction Father Cardiac disorder Lung cancer Myocardial infarction Denies family history of Prostate cancer Breast cancer Colorectal cancer Social History Smoking Status: Former smoker Tobacco Type: Cigarettes Age Started Using Tobacco: 17; packs per day: 0.5; Second Hand Exposure: Yes; Hx Alcohol Use: No Hx Substance Use: No Preferred Language: Upper Sorbian Communication Ability: Unable Visual Impairment: No Limitations Hearing Ability: Hard of Hearing Adding Machine 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 Required: No Beliefs That Will Affect Care: None marital status: / Current Living Situation: Family Current Living Situation Comment: lives with her daughter current occupational status: retired 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 Feels Safe at Home: Yes Childhood Exposure to Second-Hand Smoke: Yes Dental Care, Regularly: No Physical Activity Frequency: Does not Exercise Seatbelt Use: always Sunscreen Use: No Assistive Devices: Oxygen - Continuous Review of Systems Constitutional: no fever and no chills Respiratory: + dyspnea Cardiovascular: no chest pain Gastrointestinal: + bloating and + constipation; no nausea, no vomiting and no blood in stools No pain at rest, but pain with movement Neurologic: no dizziness Physical Exam Physical Exam: awake Constitutional: no acute distress Respiratory: normal respiratory effort Gastrointestinal (Abdomen): Inspection/Auscultation: + abdomen distended and + abdominal surgical scar Percussion/Palpation: + abdomen tender (appears to be in discomfort w/ throughout abdomen but worse on the R side) Results & Data ([facility]) Vital Signs (Past 12 Hours) Vital Signs Temp Pulse Pulse Resp BP BP Pulse Ox 05/27/21 14:54 05/27/21 14:53 83 20 88/55 L 96 05/27/21 14:11 36.7 C 82 16 88/38 L 98 05/27/21 13:56 36.5 C 83 20 88/38 L 96 05/27/21 13:41 36.6 C 85 16 109/66 97 05/27/21 13:26 36.7 C 83 16 87/45 L 05/27/21 13:25 36.7 C 84 16 86/50 L 05/27/21 13:16 05/27/21 13:09 36.5 C 87 21 104/50 L 97 05/27/21 12:08 90 20 86/46 L 99 05/27/21 11:57 36.6 C 90 20 72/39 L 95 05/27/21 11:38 90 22 92/43 L 95 05/27/21 11:33 90 20 72/49 L 95 05/27/21 10:57 36.5 C 90 20 80/50 L 95 05/27/21 10:27 36.4 C L 90 21 107/90 95 05/27/21 10:12 36.4 C L 88 22 90/58 L 95 05/27/21 10:00 36.4 C L 88 20 95/50 L 95 05/27/21 09:55 36.4 C L 88 24 85/57 L 99 05/27/21 09:32 86 20 76/48 L 95 05/27/21 09:29 82 18 71/44 L 99 05/27/21 08:29 88 20 97/57 L 97 05/27/21 08:06 36.5 C 90 22 76/56 L 94 05/27/21 03:44 81 18 128/68 96 Pulse Ox 05/27/21 14:54 95 05/27/21 14:53 05/27/21 14:11 05/27/21 13:56 05/27/21 13:41 05/27/21 13:26 05/27/21 13:25 05/27/21 13:16 98 05/27/21 13:09 05/27/21 12:08 05/27/21 11:57 05/27/21 11:38 05/27/21 11:33 05/27/21 10:57 05/27/21 10:27 05/27/21 10:12 05/27/21 10:00 05/27/21 09:55 05/27/21 09:32 05/27/21 09:29 05/27/21 08:29 05/27/21 08:06 05/27/21 03:[address] SCAN OF THE ABDOMEN AND PELVIS WITHOUT IV CONTRAST CLINICAL HISTORY: Generalized abdominal pain. Distention. Change in mental status. COMPARISON STUDY: Abdominal CT dated 01/07/2014. TECHNIQUE: CT scan of the abdomen and pelvis is performed from the lung bases to the proximal femora. Images are reviewed in the axial, sagittal, and coronal planes. IV contrast was not administered for this examination. Note that the examination is significantly suboptimal without oral and IV contrast. There is also motion artifact. A dose lowering technique was utilized adhering to the principles of ALARA. CT DOSE: 1754.93 mGy.cm FINDINGS: Lung bases: The heart is top normal in size noting trace pericardial effusion. The coronary arteries and mitral annulus are densely calcified. Evaluation of the lung parenchyma is significantly degraded by motion artifact. The lung bases are grossly clear noting bibasilar scarring/atelectasis. There is a moderate hiatal hernia. Liver: The unenhanced liver is normal in size, contour, and attenuation. There is no intrahepatic biliary ductal dilatation. Gallbladder: Surgically absent noting clips in the gallbladder fossa. Spleen: Normal in size and attenuation. There are numerous calcified splenic granulomas. A 12 mm splenic hypodensity seen on image #33 is unchanged and statistically of doubtful significance. Pancreas: The unenhanced pancreas is atrophic and grossly unremarkable. Adrenal glands: Unremarkable. Kidneys: The unenhanced kidneys are atrophic and without hydronephrosis. There are no renal calculi identified. A 2.8 cm cyst is noted in the interpolar right kidney. Additional subcentimeter cortical hypodensities also likely represent cysts but are too small for definitive characterization. Abdominal vasculature: There is aneurysmal dilatation of the distal descending thoracic aorta and at the diaphragmatic hiatus. This measures up to 3.9 cm in diameter. There is advanced atherosclerotic calcification and mild ectasia of the abdominal aorta. Bowel: There is rectosigmoid fecal impaction and moderate to severe constipation. The cecum is markedly distended, measuring up to 10.4 cm in diameter. There is mild colonic wall thickening. Diffuse pericolonic infiltration and trace fluid is noted. No pneumatosis is clearly identified. The small bowel loops are normal in caliber. There is mild colonic diverticulosis without CT evidence of acute diverticulitis. A small duodenal diverticulum is incidentally noted. The appendix is not identified and reported surgically absent. Peritoneum: There is trace perihepatic and pelvic ascites. No intraperitoneal free air is seen. There is a small fat-containing umbilical hernia. Lymphadenopathy: None. Pelvic viscera: Evaluation of the pelvis is degraded by streak artifact from a right hip arthroplasty. The bladder is decompressed and not well evaluated. The uterus is surgically absent. No adnexal lesion is seen. Skeletal structures: The skeletal structures are osteopenic. There is moderate lumbosacral spondylosis and scoliosis. No lytic or blastic lesions are seen. A right hip arthroplasty is in place. Intertrochanteric and intramedullary nails are seen in the left proximal femur. IMPRESSION: 1. Suboptimal examination without oral and IV contrast. There is also motion artifact. 2. There is rectosigmoid fecal impaction and moderate to severe constipation with marked distention of the right colon. 3. There is mild diffuse colonic wall thickening with pericolonic infiltration and trace fluid. The findings suggest stercoral proctocolitis and clinical correlation will required. 4. The small bowel loops are normal in caliber. 5. Trace abdominopelvic ascites. 6. No intraperitoneal free air is identified. There is no evidence of pneumatosis. 7. There is mild aneurysmal dilatation of the distal descending thoracic aorta which measures up to 3.9 cm. 8. Moderate hiatal hernia. 9. Additional findings as above. ACT 112: Negative or not required by law. Electronically signed by: John Romero M.D. 05/26/2021 8:40 PM KUB HISTORY: Acute abdominal pain ?colonic perf COMPARISON: CT abdomen and pelvis 05/26/2021 FINDINGS: There is persistent gaseous distention of the colon with the large bowel measuring up to 11.6 cm. Bowel gas pattern appears to be nonobstructive. Cholecystectomy. Thoracic aortic endograft. No renal calculi. No ureteral calculi. No pneumoperitoneum or pneumatosis. Lumbar levoscoliosis. Degenerative changes of the spine, pelvis and left hip. ORIF changes of the proximal left humerus. Right hip total joint arthroplasty. No fracture. IMPRESSION: Persistent gaseous distention of the colon suggestive of colonic ileus. ACT 112: Negative or not required by law. The above report was generated using voice recognition software. It may contain grammatical, syntax or spelling errors. Electronically signed by: Jeremiah Hanson M.D. 05/27/2021 3:19 PM A[address]OMEN AND PELVIS CT WITHOUT CONTRAST CT DOSE: 435.14 mGy.cm HISTORY: Acute generalized abdominal pain ?extravasation/perf TECHNIQUE: Multiaxial CT images of the abdomen and pelvis were performed without contrast. A dose lowering technique was utilized adhering to the principles of ALARA. COMPARISON STUDY: CT abdomen and pelvis 05/26/2021 FINDINGS: Trace pericardial effusion. Coronary artery calcifications. Trace pleural effusions with bibasilar densities suggestive of atelectasis. No pneumatosis or pneumoperitoneum. Calcified granulomata of the spleen. Indeterminate 1.4 cm hypodense splenic lesion, likely benign. Moderate generalized pancreatic atrophy. Unremarkable adrenal glands. Cholecystectomy. Intrahepatic and extrahepatic biliary ductal dilation is redemonstrated which is likely postsurgical. Unenhanced liver is within normal limits. 2.8 cm cyst of the interpolar right kidney redemonstrated. No hydronephrosis. Layering hyperdense material within the urinary bladder suggestive of retained contrast versus bladder calculi. Atherosclerosis of the aorta. Dilation of the distal descending thoracic aorta is unchanged measuring 3.9 cm. There is no adenopathy. Moderate sized hiatal hernia. No small bowel obstruction. Mild colonic diverticulosis without acute diverticulitis. There is moderate fecal retention with scattered colonic air-fluid levels. Mild diffuse wall thickening throughout the colon and rectum with perirectal stranding and trace abdominal pelvic ascites, unchanged from yesterday's study. There are degenerative changes of the spine and pelvis. No acute fracture identified. Right hip total joint arthroplasty with ORIF changes of the left proximal femur. Lumbar levoscoliosis. IMPRESSION: 1. Stable exam from the study obtained less than 24 hours prior. 2. Constipation with findings compatible with colonic ileus. 3. Unchanged findings of mild diffuse proctocolitis with trace abdominopelvic ascites. No evidence of perforation. 4. Moderate hiatal hernia. 5. Trace pleural effusions with mild bibasilar densities suggestive of atelectasis. 6. Additional findings as above. ACT 112: Negative or not required by law. The above report was generated using voice recognition software. It may contain grammatical, syntax or spelling errors. Electronically signed by: Jeremiah Hanson M.D. 05/27/2021 4:24 PM PG Care Time/CCT Total # of Minutes Spent Total Time Spent with Patient: Total time spent is greater than 50% in coordination of care (as documented) at patient's floor/unit and/or counseling patient: Coding Level of Care Code 75669 Initial Inpt Care Lvl 1 Diagnoses Stercoral colitis K52.89
--- NOTE | 2021-05-27 15:20 | XRay Report ---
KUB HISTORY: Acute abdominal pain ?colonic perf COMPARISON: CT abdomen and pelvis 05/26/2021 FINDINGS: There is persistent gaseous distention of the colon with the large bowel measuring up to 11 .6 cm. Bowel gas pattern appears to be nonobstructive. Cholecystectomy. Thoracic aortic endograft. N o renal calculi. No ureteral calculi. No pneumoperitoneum or pneumatosis. Lumbar levoscoliosis. Degen erative changes of the spine, pelvis and left hip. ORIF changes of the proximal left humerus. Right h ip total joint arthroplasty. No fracture. IMPRESSION: Persistent gaseous distention of the colon suggestive of colonic ileus. ACT 112: Negative or not required by law. The above report was generated using voice recognition software. It may contain grammatical, syntax o r spelling errors. Electronically signed by: Jermeiah Hanson M.D. 05/27/2021 3:19 PM
--- NOTE | 2021-05-27 16:26 | CT Scan Report ---
ABDOMEN AND PELVIS CT WITHOUT CONTRAST CT DOSE: 435.14 mGy.cm HISTORY: Acute generalized abdominal pain ?extravasation/perf TECHNIQUE: Multiaxial CT images of the abdomen and pelvis were performed without contrast. A dose lo wering technique was utilized adhering to the principles of ALARA. COMPARISON STUDY: CT abdomen and pelvis 05/26/2021 FINDINGS: Trace pericardial effusion. Coronary artery calcifications. Trace pleural effusions with bi basilar densities suggestive of atelectasis. No pneumatosis or pneumoperitoneum. Calcified granulomat a of the spleen. Indeterminate 1.4 cm hypodense splenic lesion, likely benign. Moderate generalized p ancreatic atrophy. Unremarkable adrenal glands. Cholecystectomy. Intrahepatic and extrahepatic biliar y ductal dilation is redemonstrated which is likely postsurgical. Unenhanced liver is within normal l imits. 2.8 cm cyst of the interpolar right kidney redemonstrated. No hydronephrosis. Layering hyperdense mat erial within the urinary bladder suggestive of retained contrast versus bladder calculi. Atherosclero sis of the aorta. Dilation of the distal descending thoracic aorta is unchanged measuring 3.9 cm. The re is no adenopathy. Moderate sized hiatal hernia. No small bowel obstruction. Mild colonic diverticulosis without acute d iverticulitis. There is moderate fecal retention with scattered colonic air-fluid levels. Mild diffus e wall thickening throughout the colon and rectum with perirectal stranding and trace abdominal pelvi c ascites, unchanged from yesterday's study. There are degenerative changes of the spine and pelvis. No acute fracture identified. Right hip total joint arthroplasty with ORIF changes of the left proxim al femur. Lumbar levoscoliosis. IMPRESSION: 1. Stable exam from the study obtained less than 24 hours prior. 2. Constipation with findings compatible with colonic ileus. 3. Unchanged findings of mild diffuse proctocolitis with trace abdominopelvic ascites. No evidence of perforation. 4. Moderate hiatal hernia. 5. Trace pleural effusions with mild bibasilar densities suggestive of atelectasis. 6. Additional findings as above. ACT 112: Negative or not required by law. The above report was generated using voice recognition software. It may contain grammatical, syntax o r spelling errors. Electronically signed by: Jeremiah Hanson M.D. 05/27/2021 4:24 PM
[2021-05-27 18:20] LABS: Hematocrit (blood only) 31.7 % (37-47); Hemoglobin 10.2 g/dL (12.0-16.0)
[2021-05-27] MEDS ORDERED: LACTATED RINGER'S 500 ML IV ONE (18:27)
[2021-05-27] MEDS: PIPERACILLIN/TAZOBACTAM 3.375 GM in DEXTROSE 5% 100 ML IV SCH (20:27)
[2021-05-27] MEDS: SIMVASTATIN 40 MG TAB PO SCH (20:28)
--- NOTE | 2021-05-27 20:54 | Electrocardiogram Report ---
Test Reason : Blood Pressure : / mmHG Vent. Rate : 080 BPM Atrial Rate : 080 BPM P-R Int : 162 ms QRS Dur : 080 ms QT Int : 440 ms P-R-T Axes : 064 011 081 degrees QTc Int : 507 ms Poor data quality, interpretation may be adversely affected Normal sinus rhythm Nonspecific ST abnormality Abnormal ECG When compared with ECG of 27-APR-2021 20:24, ST now depressed in Lateral leads Confirmed by Adam Pereira ([id number]) on 05/27/2021 8:54:37 PM Referred By: REFERRED SELF Confirmed By:Adam Pereira
[2021-05-27 21:11] LABS: Hematocrit (blood only) 33.3 % (37-47); Hemoglobin 10.6 g/dL (12.0-16.0)
[2021-05-27 21:27] LABS: BUN Creatinine Ratio 46.3 (10-20); Calcium 6.7 mg/dl (8.5-10.1); Creatinine Clr Calc Pharmacy 27.5 ml/min; Est GFR (African American) 32.4 ml/min; Potassium 3.4 mmol/L (3.5-5.1)
[2021-05-27 21:32] LABS: Troponin I 0.033 ng/ml (0-0.045)
[2021-05-28 01:54] LABS: Hematocrit (blood only) 33.5 % (37-47)
[2021-05-28] MEDS: PIPERACILLIN/TAZOBACTAM 3.375 GM in DEXTROSE 5% 100 ML IV SCH ×3 (05:37→18:20)
--- NOTE | 2021-05-28 06:24 | Surgery Progress Note ---
Date of Service May 28, 2021 Assessment & Plan (1) Stercoral colitis: Plan: Patient has been admitted on the hospitalist service. We recommend proceeding as follows: Currently no plans for surgical intervention Continue antibiotics in form of Zosyn Awaiting GI input Repeat KUB ordered for this morning Admission and Anticipated Discharge Date Admission Date: May 26, 2021 Supervising Physician Co-Signing Physician Notes I personally saw and evaluated the patient with Dwight Nye PA-C and agree with the assessment and plan. 80-year-old female with stercoral colitis and severe constipation She remains with abdominal pain but no signs of ischemic bowel on exam or CT She started to have some more frequent bowel movements which should help decompress her colon GI consult for consideration of decompressive colonoscopy Would continue to hold her Eliquis Surgical intervention would only be entertained if she had signs of ischemic bowel or perforation Will continue to follow Subjective Patient is resting comfortably in bed. She currently notes she has some abdominal pain primarily on the left side of her abdomen which is slightly improved from yesterday. She does report having a small bowel movement last night. She currently denies any nausea vomiting. She denies any fevers, shakes, chills. Physical Exam Gastrointestinal (Abdomen): Abdomen is mildly distended. Bowel sounds are hypoactive. There is currently no rebound tenderness but patient does have pain with palpation primarily on the left side of her abdomen. Results & Data ([facility]) Vital Signs (Past 12 Hours) Vital Signs Temp Pulse Resp BP Pulse Ox 05/28/21 04:17 36.4 C L 113 H 20 117/80 93 05/28/21 00:25 36.9 C 102 H 20 104/75 94 05/27/21 21:22 36.8 C 95 H 22 120/64 94 05/27/21 20:33 35.8 C L 91 H 20 117/71 95 05/27/21 19:36 90 18 99/57 L 96 05/27/21 18:38 90 20 100/70 97 PG Care Time/CCT Total # of Minutes Spent Total Time Spent with Patient: Total time spent is greater than 50% in coordination of care (as documented) at patient's floor/unit and/or counseling patient: Coding Level of Care Code 40275 Subseq Hosp Care Lvl 1 Diagnoses Stercoral colitis K52.89
[2021-05-28 06:57] LABS: Hemoglobin 10.2 g/dL (12.0-16.0); Mean Corpuscular Hemoglobin 26.6 pg (25-34); Mean Corpuscular Hgb Conc 32.9 g/dL (32-36); Mean Corpuscular Volume 80.7 fL (80-100); Mean Platelet Volume 9.7 fL (7.4-10.4); Nucleated RBC # (auto) 0.05 K/uL (0-0); Nucleated RBC % (auto) 1.3 %; Platelet Count 128 K/uL (130-400); RDW Coefficient of Variation 18.9 % (11.5-14.5); RDW Standard Deviation 55.7 fL (36.4-46.3); Red Blood Count 3.84 M/uL (4.2-5.4); White Blood Count 3.91 K/uL (4.8-10.8)
[2021-05-28 07:18] LABS: Basophils # (auto) 0.01 K/uL (0-0.2); Basophils % (auto) 0.3 %; Dohle Bodies 1+; Echinocytes 1+; Immature Granulocytes # (auto) 0.28 K/uL (0.00-0.02); Immature Granulocytes % (auto) 7.2 %; Lymphocytes # (auto) 0.41 K/uL (1.2-3.4); Lymphocytes % (auto) 10.5 %; Monocytes # (auto) 0.08 K/uL (0.11-0.59); Neutrophils # (auto) 3.13 K/uL (1.4-6.5); Toxic Vacuolation 1+
[2021-05-28] MEDS: SENNA 8.6 MG TAB PO SCH (07:33)
[2021-05-28 07:34] LABS: Albumin Level 1.5 gm/dl (3.4-5.0); BUN Creatinine Ratio 51.8 (10-20); Calcium 6.9 mg/dl (8.5-10.1); Creatinine Clr Calc Pharmacy 30.6 ml/min; Est GFR (African American) 37.1 ml/min; Potassium 3.1 mmol/L (3.5-5.1)
[2021-05-28] MEDS: METOPROLOL TARTRATE 25 MG TAB PO SCH (07:34)
[2021-05-28] MEDS: DOCUSATE SODIUM 100 MG CAP PO SCH (07:34)
[2021-05-28] MEDS: AMIODARONE 200 MG TAB PO SCH ×2 (07:35→16:23)
[2021-05-28] MEDS: buPROPion HCl 75 MG TABLET PO SCH ×2 (07:35→20:44)
[2021-05-28 07:38] LABS: Albumin Globulin Ratio 0.5 (0.9-2); Bilirubin,Total 0.7 mg/dl (0.2-1); Total Protein 4.5 gm/dl (6.4-8.2); Troponin I 0.026 ng/ml (0-0.045)
[2021-05-28] MEDS: SODIUM CHLORIDE 0.9% 1000ML 1,000 ML IV SCH (07:58)
--- NOTE | 2021-05-28 09:39 | XRay Report ---
KUB CLINICAL HISTORY: Colonic dilatation. FINDINGS: 2 AP, portable, supine abdominal radiographs are compared to abdominal x-ray and CT dated . Cholecystectomy clips are noted. There is persistent gaseous distention of the colon which m easures up to 11.5 cm in diameter. There is colonic fecal retention. There is mild gaseous distention of the small bowel loops which are normal in caliber. No evidence of intraperitoneal free air is see n on this supine examination. There is advanced atherosclerotic calcification of the abdominal aorta and iliac arteries. The skeletal structures are osteopenic and appear intact. There is advanced lumba r sacral spondylosis and scoliosis. A right hip arthroplasty is in place. Intertrochanteric and intra medullary nails are seen in the left hip. A stent graft is partially visualized in the thoracic aorta . IMPRESSION: Gaseous distention of the colon is unchanged from yesterday and suggests colonic ileus. Electronically signed by: John Romero M.D. 05/28/2021 9:37 AM
[2021-05-28 10:06] LABS: Hematocrit (blood only) 31.8 % (37-47); Hemoglobin 10.5 g/dL (12.0-16.0)
[2021-05-28] MEDS: POLYETHYLENE (MIRALAX) 17 GM PACK PO SCH (10:53)
[2021-05-28] MEDS ORDERED: LACTATED RINGER'S 500 ML IV ONE (12:48)
--- NOTE | 2021-05-28 12:49 | Gastrointestinal Consultation ---
Date of Consultation May 28, 2021 Assessment & Plan (1) Colonic pseudoobstruction: (2) Stercoral colitis: Ms. Fish has multiple severe and life threatening medical problems now unfortunately complicated by colon pseudoobstruction with associated colitis and cecal distension 11-12cm. The overall prognosis in this situation is very poor, and this was discussed with the patient's daughter and the attending physician The perforation rate is virtually 100% for colon distension >12cm, intermediate for distension of 9-12 cm, and low for distension < 9cm. Management is supportive care and correction of electrolyte and metabolic abnormalities (hypokalemia, metabolic acidosis, hypomagnesemia, prerenal azotemia, dehydration,) disimpaction and stool drainage, in the initial 48-7 hours of care followed by IV neostigmine and/or decompressing colonoscopy if possible. Neostigmine is relatively contraindicated in this case due to side effects of bronchoconstriction, hypotension, bradycardia. Colonoscopy for decompression with attempted insertion of a decompression tube will be difficult and high risk in this situation. This was discussed with the attending and the patient's daughter and will be set up for 05/29/20. History of Present Illness Reason for Consultation: Colon Ileus, Pseudo obstruction Attending Physician: Je Medina MD History of Present Illness 80 year old woman admitted with acute abdominal distension and found to have dilated right colon and stool filled rectosigmoid colon. She was recently hospitalized at [facility] from 04/27/2021 to with Covid-19 pneumonia and respiratory failure requiring mechanical ventilation, transferred to rehab on 05/15/21, then to home around 05/25/21. Discussed with the patient's daughter. The daughter noted abdominal distension at home, and did manual disimpaction on three occasions on 05/25/21 and 05/26/21 with removal of a small amount of hard stool and some tex like stool, and mostly free flow of semiliquid Clayton type 6 stool. On admission the abdomen was noted to be distended, tympanitic and moderately firm, with imaging revealing stool filled and distended rectum and sigmoid colon, distension of the right colon with 10.4 cm cecal diameter, and diffuse mild colonic wall thickening and pericolonic fat stranding and trace fluid, no evidence of pneumatosis or perforation. KUB last night revealed cecal diameter of 11.6 cm, and this morning 11.5 cm. In discussion with Dr. Romero, he indicated that KUB based measurement tends to overestimate the distension, his belief is that the actual distension is between 11 and [address] 05/27/20 revealed same finding. The patient was lethargic and not able to respond to questions this morning, so history obtained from the chart, attending physician, and patient's daughter. There are multiple other severe and life threatening medical problems in this case, including persistent Covid-19 positivity, respiratory insufficiency, COPD, coronary artery and peripheral vascular disease with paroxysmal A Fib on metoprolol and Eliquis (held due to +FOBT and anemia), elevated troponin (NSTEMI very unlikely based on echo results) renal insufficiency, dehydration and prerenal azotemia, hypokalemia and metabolic acidosis, severe malnutrition with serum albumin <2.0. Allergies Allergy/AdvReac Type Severity Reaction Status Date / Time No Known Allergies Allergy Unknown Verified 05/26/21 19:37 Home Medications Medication Instructions Recorded Confirmed Type simvastatin 40 mg tablet 40 mg PO HS #90 tab 06/13/20 05/26/21 Rx apixaban 5 mg tablet 5 mg PO BID #180 tab 09/15/20 05/26/21 Rx albuterol sulfate 90 mcg/actuation 2 puff INH Q6H PRN #18 gm 12/13/20 05/26/21 Rx aerosol inhaler metoprolol tartrate 25 mg tablet 25 mg PO BID #180 tab 03/06/21 05/26/21 Rx tramadol 50 mg tablet 50 mg PO TID PRN #90 tab 03/31/21 05/26/21 Rx amiodarone 200 mg tablet 200 mg PO BIDM 30 Days #60 tab 05/15/21 05/26/21 Rx bupropion HCl 75 mg tablet 75 mg PO BID 30 Days #60 tab 05/15/21 05/26/21 Rx melatonin 3 mg tablet 6 mg PO HS PRN 30 Days #30 tab 05/15/21 05/26/21 Rx sennosides 8.6 mg tablet (Senokot) 17.2 mg PO QAM 30 Days #60 tab 05/15/21 05/26/21 Rx acetaminophen 325 mg tablet 650 mg PO Q4H PRN 05/26/21 05/26/21 History (Tylenol) docusate sodium 100 mg capsule 100 mg PO BID 05/26/21 05/26/21 History guaifenesin 600 mg tablet, 600 mg PO Q12H 05/26/21 05/26/21 History extended release 12 hr (Mucinex) lorazepam 0.5 mg tablet 0.5 mg PO HS PRN 05/26/21 05/26/21 History pantoprazole 20 mg tablet,delayed 20 mg PO DAILYBB 05/26/21 05/26/21 History release Patient History Medical History (Updated 05/28/21 @ 13:38 by Jean-Pierre Mojica MD) AF (paroxysmal atrial fibrillation) Anxiety Carotid artery stenosis Chronic low back pain COPD (chronic obstructive pulmonary disease) GERD without esophagitis Hip fracture (04/27/13) History of transient cerebral ischemia HTN (hypertension) Hyperlipidemia Hyperthyroidism Impaired fasting glucose Iron deficiency anemia Left ventricular hypertrophy Multiple thyroid nodules Osteoporosis Vitamin D deficiency Surgical History H/O carotid endarterectomy left H/O thoracic aortic aneurysm repair History of appendectomy History of hysterectomy History of laparoscopic cholecystectomy History of repair of hip fracture Family History Sister Cancer Asthma Ovarian cancer Mother Cardiac disorder Myocardial infarction Father Cardiac disorder Lung cancer Myocardial infarction Denies family history of Prostate cancer Breast cancer Colorectal cancer Social History Smoking Status: Former smoker Tobacco Type: Cigarettes Age Started Using Tobacco: 17; packs per day: 0.5; Second Hand Exposure: Yes; Hx Alcohol Use: No Hx Substance Use: No Preferred Language: Slovak Communication Ability: Unable Visual Impairment: No Limitations Hearing Ability: Hard of Hearing 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: No Beliefs That Will Affect Care: None marital status: / Current Living Situation: Family Current Living Situation Comment: lives with her daughter current occupational status: retired 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 Pale, elderly, chronically ill appearing Respiratory: dyspneic at rest Gastrointestinal (Abdomen): The abdomen noted to be distended, tympanitic, and moderately firm to palpation. With the patient supine on her left side, free flow of dark brown Clayton type 6 stool was noted from the rectum, with extensive merline coccygeal skin breakdown. On digital rectal examination, no formed stool was identified in the rectum on full finger insertion, only copious drainage of Clayton type 6 stool. A rectal tube was inserted. Results & Data ([facility]) Vital Signs (Past 12 Hours) Vital Signs Temp Pulse Pulse Resp BP Pulse Ox 05/28/21 12:05 37 C 87 18 66/47 L 96 05/28/21 10:09 105 H 05/28/21 08:17 36.5 C 100 H 20 126/80 95 05/28/21 04:17 36.4 C L 113 H 20 117/80 93 Laboratory Results Laboratory Results WBC 3.91 K/uL (4.8-10.8) L 05/28/21 05:55 RBC 3.84 M/uL (4.2-5.4) L 05/28/21 05:55 Hgb 10.1 g/dL (12.0-16.0) L 05/28/21 12:51 Hct 31.1 % (37-47) L 05/28/21 12:51 MCV 80.7 fL (80-100) 05/28/21 05:55 MCH 26.6 pg (25-34) 05/28/21 05:55 MCHC 32.9 g/dL (32-36) 05/28/21 05:55 RDW Std Deviation 55.7 fL (36.4-46.3) H 05/28/21 05:55 RDW Coeff of Lawson 18.9 % (11.5-14.5) H 05/28/21 05:55 Plt Count 128 K/uL (130-400) L 05/28/21 05:55 MPV 9.7 fL (7.4-10.4) 05/28/21 05:55 Immature Gran % (Auto) 7.2 % 05/28/21 05:55 Neut % (Auto) 80.0 % 05/28/21 05:55 Lymph % (Auto) 10.5 % 05/28/21 05:55 [place] % (Auto) 2.0 % 05/28/21 05:55 Eos % (Auto) 0.0 % 05/28/21 05:55 Baso % (Auto) 0.3 % 05/28/21 05:55 Neut # (Auto) 3.13 K/uL (1.4-6.5) 05/28/21 05:55 Lymph # (Auto) 0.41 K/uL (1.2-3.4) L 05/28/21 05:55 [place] # (Auto) 0.08 K/uL (0.11-0.59) L 05/28/21 05:55 Eos # (Auto) 0.00 K/uL (0-0.5) 05/28/21 05:55 Baso # (Auto) 0.01 K/uL (0-0.2) 05/28/21 05:55 Immature Gran # (Auto) 0.28 K/uL (0.00-0.02) H 05/28/21 05:55 Absolute Nucleated RBC 0.05 K/uL (0-0) H 05/28/21 05:55 Nucleated RBC % (auto) 1.3 % 05/28/21 05:55 Neutrophils % (Manual) Cancelled 05/27/21 04:45 Band Neutrophils % Cancelled 05/27/21 04:45 Lymphocytes % (Manual) Cancelled 05/27/21 04:45 Prolymphocyte % Cancelled 05/27/21 04:45 Reactive Lymphs % (Man) Cancelled 05/27/21 04:45 Monocytes % (Manual) Cancelled 05/27/21 04:45 Eosinophils % (Manual) Cancelled 05/27/21 04:45 Basophils % (Manual) Cancelled 05/27/21 04:45 Metamyelocytes % (Man) Cancelled 05/27/21 04:45 Myelocytes % (Man) Cancelled 05/27/21 04:45 Promyelocytes % (Man) Cancelled 05/27/21 04:45 Blast Cells % (Manual) Cancelled 05/27/21 04:45 Plasma Cell % (Manual) Cancelled 05/27/21 04:45 Other Cells % Cancelled 05/27/21 04:45 Nucleated RBC % Cancelled 05/27/21 04:45 Neutrophils # (Manual) Cancelled 05/27/21 04:45 Band Neutrophils # Cancelled 05/27/21 04:45 Total Absolute Neuts Cancelled 05/27/21 04:45 Lymphocytes # (Manual) Cancelled 05/27/21 04:45 Prolymphocyte # Cancelled 05/27/21 04:45 Reactive Lymphs # Cancelled 05/27/21 04:45 Total Abs Lymphocytes Cancelled 05/27/21 04:45 Monocytes # (Manual) Cancelled 05/27/21 04:45 Eosinophils # (Manual) Cancelled 05/27/21 04:45 Basophils # (Manual) Cancelled 05/27/21 04:45 Metamyelocytes # (Man) Cancelled 05/27/21 04:45 Myelocytes # (Manual) Cancelled 05/27/21 04:45 Promyelocytes # (Man) Cancelled 05/27/21 04:45 Blast Cells # (Man) Cancelled 05/27/21 04:45 Plasma Cell # (Manual) Cancelled 05/27/21 04:45 Other Cells # Cancelled 05/27/21 04:45 Nucleated RBCs # (Man) Cancelled 05/27/21 04:45 Hypersegmented Neuts Cancelled 05/27/21 04:45 Hyposegmented Neuts Cancelled 05/27/21 04:45 Hypogranular Neuts Cancelled 05/27/21 04:45 Large Granular Lymphs Cancelled 05/27/21 04:45 # Lrg Granular Lymphs Cancelled 05/27/21 04:45 Hairy Cells Cancelled 05/27/21 04:45 Smudge Cells Cancelled 05/27/21 04:45 Toxic Granulation Cancelled 05/27/21 04:45 Toxic Vacuolation 1+ 05/28/21 05:55 Dohle Bodies 1+ 05/28/21 05:55 Curly Rods Cancelled 05/27/21 04:45 Platelet Estimate Cancelled 05/27/21 04:45 Hypogranular Platelets Cancelled 05/27/21 04:45 Clumped Platelets Cancelled 05/27/21 04:45 Giant Platelets Cancelled 05/27/21 04:45 Platelet Satelliting Cancelled 05/27/21 04:45 RBC Morphology Cancelled 05/27/21 04:45 Polychromasia 1+ 05/27/21 06:48 Hypochromasia Cancelled 05/27/21 04:45 Poikilocytosis Cancelled 05/27/21 04:45 Basophilic Stippling Cancelled 05/27/21 04:45 Anisocytosis Present 05/27/21 06:48 Microcytosis Cancelled 05/27/21 04:45 Macrocytosis Cancelled 05/27/21 04:45 Spherocytes Cancelled 05/27/21 04:45 Pappenheimer Bodies Cancelled 05/27/21 04:45 Sickle Cells Cancelled 05/27/21 04:45 Target Cells Cancelled 05/27/21 04:45 Tear Drop Cells Cancelled 05/27/21 04:45 Ovalocytes Cancelled 05/27/21 04:45 Stomatocytes Cancelled 05/27/21 04:45 Castañeda-Towson Bodies Cancelled 05/27/21 04:45 Echinocytes 1+ 05/28/21 05:55 Acanthocytes (Spur) Cancelled 05/27/21 04:45 Rouleaux Cancelled 05/27/21 04:45 RBC Agglutinates Cancelled 05/27/21 04:45 Schistocytes Cancelled 05/27/21 04:45 RBC Morph Comment Cancelled 05/27/21 04:45 Sezary Cell Cancelled 05/27/21 04:45 Sodium 140 mmol/L (136-145) 05/28/21 05:55 Potassium 3.1 mmol/L (3.5-5.1) L 05/28/21 05:55 Chloride 112 mmol/L (98-107) H 05/28/21 05:55 Carbon Dioxide 16 mmol/L (21-32) L 05/28/21 05:55 Anion Gap 12.0 (3-11) H 05/28/21 05:55 BUN 79 mg/dl (7-18) H 05/28/21 05:55 Creatinine 1.53 mg/dl (0.6-1.2) H 05/28/21 05:55 Est Cr Clr Drug Dosing 30.6 ml/min 05/28/21 05:55 Est GFR ( Amer) 37.1 ml/min 05/28/21 05:55 Est GFR (Non-Af Amer) 32.0 ml/min 05/28/21 05:55 BUN/Creatinine Ratio 51.8 (10-20) H 05/28/21 05:55 Glucose 82 mg/dl (70-99) 05/28/21 05:55 Lactate 1.6 mmol/L (0.4-2.0) 05/27/21 23:03 Calcium 6.9 mg/dl (8.5-10.1) L 05/28/21 05:55 Total Bilirubin 0.7 mg/dl (0.2-1) 05/28/21 05:55 AST 32 U/L (15-37) 05/28/21 05:55 ALT 44 (12-78) 05/28/21 05:55 Alkaline Phosphatase 97 U/L (45-117) 05/28/21 05:55 Troponin I 0.026 ng/ml (0-0.045) 05/28/21 05:55 Total Protein 4.5 gm/dl (6.4-8.2) L 05/28/21 05:55 Albumin 1.5 gm/dl (3.4-5.0) L 05/28/21 05:55 Globulin 3.0 gm/dl (2.5-4.0) 05/28/21 05:55 Albumin/Globulin Ratio 0.5 (0.9-2) L 05/28/21 05:55 Lipase 35 U/L (73-393) L 05/26/21 20:35 Urine Color Dark Yellow 05/26/21 19:35 Urine Appearance Cloudy (Clear) A 05/26/21 19:35 Urine pH 5.0 (4.5-7.5) 05/26/21 19:35 Ur Specific [place] 1.012 (1.000-1.030) 05/26/21 19:35 Urine Protein Negative (Negative) 05/26/21 19:35 Urine Glucose (UA) Negative (Negative) 05/26/21 19:35 Urine Ketones Negative (Negative) 05/26/21 19:35 Urine Blood 3+ (Negative) H 05/26/21 19:35 Urine Nitrite Negative (Negative) 05/26/21 19:35 Urine Bilirubin Negative (Negative) 05/26/21 19:35 Urine Urobilinogen Negative (Negative) 05/26/21 19:35 Ur Leukocyte Esterase 1+ (Negative) H 05/26/21 19:35 Urine WBC (Auto) >30 /hpf (0-5) H 05/26/21 19:35 Urine RBC (Auto) >30 /hpf (0-4) H 05/26/21 19:35 U Hyaline Cast (Auto) 1-5 /lpf (0-5) 05/26/21 19:35 U Epithel Cells (Auto) 10-20 /lpf (0-5) H 05/26/21 19:35 Urine Bacteria (Auto) Negative (Negative) 05/26/21 19:35 Stool Occult Bld Scrn Positive (Negative) A 05/28/21 04:55 SARS-CoV-2, RNA, NAAT POSITIVE (NEGATIVE) A* 05/26/21 21:39 Blood Type B Positive 05/27/21 06:48 Antibody Screen NEGATIVE 05/27/21 06:48 Crossmatch See Detail 05/27/21 06:48 Impressions Chest X-Ray 05/26/21 18:52 SINGLE VIEW CHEST CLINICAL HISTORY: Change in mental status. Generalized abdominal pain. FINDINGS: An AP, portable, semierect chest radiograph is compared to study dated 05/08/2021. The heart is top normal for projection noting atherosclerotic calcification of the thoracic aorta. A thoracic aortic stent graft is in place. There is chronic elevation of the left hemidiaphragm with bibasilar atelectasis. No airspace consolidation is seen typical for pneumonia. No large pleural effusion or pneumothorax is seen. The skeletal structures are osteopenic. The bony thorax is grossly intact. IMPRESSION: No acute cardiopulmonary abnormality. ACT 112: Negative or not required by law. Electronically signed by: John Romero M.D. 05/26/2021 9:[address] 05/26/21 18:52 CT SCAN OF THE BRAIN WITHOUT IV CONTRAST CLINICAL HISTORY: Change in mental status. COMPARISON STUDY: CT of the brain dated 12/03/2020. TECHNIQUE: Unenhanced axial CT scan of the brain is performed from the vertex to the skull base. A dose lowering technique was utilized adhering to the principles of ALARA. FINDINGS: Brain parenchyma: There are age-related involutional changes noting advanced subcortical and periventricular microangiopathic change. There is no hemorrhage, mass effect, or evidence of acute territorial ischemia by CT criteria. Foci of left frontal and left parietal encephalomalacia are unchanged from prior studies and consistent with remote infarcts. Rivera-white matter differentiation is preserved. No extra-axial fluid collection is seen. Ventricles, sulci, cisterns: Prominent secondary to involutional change. Intracranial vasculature: There is atherosclerotic calcification of the cavernous carotid and vertebral arteries. Calvarium: Unremarkable. Sinuses and mastoids: The visualized paranasal sinuses are clear. There is a small left mastoid effusion. The right mastoid air cells are well pneumatized. Orbits: The bony orbits are grossly intact. There are bilateral ocular lens implants. IMPRESSION: There is no hemorrhage, mass effect, or evidence of acute territorial ischemia by CT criteria. ACT 112: Negative or not required by law. Electronically signed by: John Romero M.D. 05/26/2021 8:22 PM Abdomen/Pelvis CT 05/27/21 14:[address] WITHOUT CONTRAST CT DOSE: 435.14 mGy.cm HISTORY: Acute generalized abdominal pain ?extravasation/perf TECHNIQUE: Multiaxial CT images of the abdomen and pelvis were performed without contrast. A dose lowering technique was utilized adhering to the principles of ALARA. COMPARISON STUDY: CT abdomen and pelvis 05/26/2021 FINDINGS: Trace pericardial effusion. Coronary artery calcifications. Trace pleural effusions with bibasilar densities suggestive of atelectasis. No pneumatosis or pneumoperitoneum. Calcified granulomata of the spleen. Indeterminate 1.4 cm hypodense splenic lesion, likely benign. Moderate generalized pancreatic atrophy. Unremarkable adrenal glands. Cholecystectomy. Intrahepatic and extrahepatic biliary ductal dilation is redemonstrated which is likely postsurgical. Unenhanced liver is within normal limits. 2.8 cm cyst of the interpolar right kidney redemonstrated. No hydronephrosis. Layering hyperdense material within the urinary bladder suggestive of retained contrast versus bladder calculi. Atherosclerosis of the aorta. Dilation of the distal descending thoracic aorta is unchanged measuring 3.9 cm. There is no adenopathy. Moderate sized hiatal hernia. No small bowel obstruction. Mild colonic diverticulosis without acute diverticulitis. There is moderate fecal retention with scattered colonic air-fluid levels. Mild diffuse wall thickening throughout the colon and rectum with perirectal stranding and trace abdominal pelvic ascites, unchanged from yesterday's study. There are degenerative changes of the spine and pelvis. No acute fracture identified. Right hip total joint arthroplasty with ORIF changes of the left proximal femur. Lumbar levoscoliosis. IMPRESSION: 1. Stable exam from the study obtained less than 24 hours prior. 2. Constipation with findings compatible with colonic ileus. 3. Unchanged findings of mild diffuse proctocolitis with trace abdominopelvic ascites. No evidence of perforation. 4. Moderate hiatal hernia. 5. Trace pleural effusions with mild bibasilar densities suggestive of atelectasis. 6. Additional findings as above. ACT 112: Negative or not required by law. The above report was generated using voice recognition software. It may contain grammatical, syntax or spelling errors. Electronically signed by: Jeremiah Hanson M.D. 05/27/2021 4:24 PM KUB X-Ray 05/28/21 07:00 KUB CLINICAL HISTORY: Colonic dilatation. FINDINGS: 2 AP, portable, supine abdominal radiographs are compared to abdominal x-ray and CT dated 05/27/2021. Cholecystectomy clips are noted. There is persistent gaseous distention of the colon which measures up to 11.5 cm in diameter. There is colonic fecal retention. There is mild gaseous distention of the small bowel loops which are normal in caliber. No evidence of intraperitoneal free air is seen on this supine examination. There is advanced atherosclerotic calcification of the abdominal aorta and iliac arteries. The skeletal structures are osteopenic and appear intact. There is advanced lumbar sacral spondylosis and scoliosis. A right hip arthroplasty is in place. Intertrochanteric and intramedullary nails are seen in the left hip. A stent graft is partially visualized in the thoracic aorta. IMPRESSION: Gaseous distention of the colon is unchanged from yesterday and suggests colonic ileus. Electronically signed by: John Romero M.D. 05/28/2021 9:37 AM
[2021-05-28 13:20] LABS: Hematocrit (blood only) 31.1 % (37-47); Hemoglobin 10.1 g/dL (12.0-16.0)
--- NOTE | 2021-05-28 13:24 | Hospitalist Progress Note ---
Date of Service May 28, 2021 Assessment & Plan (1) Stercoral colitis: Plan: Downgrade from COVID Isolation Patient was Covid + 04/27/2021 and convalesced from her symptoms was discharged to rehab. Her current hospital presentation is with unrelated symptoms, and original Covid symptoms remain improved. Her RNA test on admission represents a residual positive. This case was discussed with Infection Control by hospitalist provider, Covid isolation precautions are not indicated at this time per their recommendations. Patient downgraded from airborne isolation 05/28/2021 patient is high risk for this, and has substantial risk of Stercoral colitis, colonic pseudoobstruction Daily KUB, additional KUB afternoon today. If dilation greater than 12 cm will likely require surgical intervention. Milk of molasses enema while in ER Continuing docusate/Senokot - Miralax BID -Seen by GI, no stool for manual disimpaction but with copious liquid output, rectal tube placed. Distention of the colon to 10.4 cm on prior examination. Discussed with GI. Perforation risk rapidly increased at 12 cm, low risk under 9 cm, patient is in the indeterminate range. Neostigmine not recommended due to cardiac complications and hypotension, patient high risk but will likely need decompressing colonoscopy. GI to set this up for tomorrow, will require ICU periprocedurally. Patient is with a high risk for mortality, this is discussed with patient and her daughter by phone who expressed understanding of this. If the patient were unlikely to have a meaningful outcome, or would require significant surgical intervention moving forward would want to have a goals of care discussion and consider comfort oriented care at that time, but would like to continue with colo at this time. Will remain full code at this time, patient and daughter both note that Dania has wanted chest compressions but without intubation in the past, did express full code wishes on admission, and understands periprocedural a full code. If clinical picturing worsening, or patient successful with upcoming interventions would like to reassess this at that time. (2) Hyperchloremic acidosis: Plan: - With aggressive fluid resuscitation for hypotension as previously noted -Hyperchloremic metabolic acidosis -VBG 7.2 Patient is hypokalemic to 3.1, magnesium normal -Repleted potassium with K riders Fluid switch to Normosol to minimize chloride - + Isotonic bicarb once potassium improved, defer at this time to avoid worsening hyperkalemia (3) Anemia: Plan: Hemoglobin dropped from 8.5 to 6.9 following fluids ? Slow ooze/bleed with ulceration from stercoral colitis Patient with poor reduction requiring transfusions in the past per patient and family Demand ischemia troponin leak with TOBY on admission 2 units for transfusion ordered, patient consented for blood and also discussed with family Hemoglobin with excellent rise to 10 following transfusion, hemodynamically stable overnight following resuscitation Some bleeding on GI exam, see note 1/2. H&H stable, transfuse as needed to threshold of 8. (4) Hypotension: Plan: Patient with recurrent hypotension, fluid responsive yesterday. Following 4.5 L of crystalloid and 2 units of blood patient normotensive and maintained normotensive BP without tachycardia overnight Following rectal exam patient with hypotensive episode, patient did pass liquid stool with some blood Pending decompressive colonoscopy as above No signs of volume overload/pulmonary edema, patient also with reduced albumin likely to third space Continue fluid boluses as long as responsive but no signs of overload (5) Elevated troponin: Plan: Elevated troponin in the setting of volume depletion, TOBY, hypertension, and stercoral colitis trop downtrending following fluids EKG without acute acute ST changes - No chest pain/sx of ACS at assessment A. fib treatment as below (6) TOBY (acute kidney injury): Plan: Creatinine elevated from normal baseline to 2.12 on admission Creatinine downtrending today, 1.53 on morning labs Received blood, prerenal repletion as above Avoid nephrotoxins Continue to trend BMP (7) Atrial fibrillation with RVR: Plan: Rate 88 on bedside assessment, adequately controlled Continue amiodarone Continue metoprolol tartrate, dose reduced/hold for hypotension apixaban held in the setting of GI bleeding, and anemia requiring transfusion (8) COPD (chronic obstructive pulmonary disease): Plan: No wheezing on exam DuoNeb as needed (9) GERD without esophagitis: Plan: Protonix daily (10) Hyperlipidemia: Plan: Continue simvastatin (11) HTN (hypertension): Plan: Currently with hypotension, beta-harsh as above Plan: DVT prophylaxis: SCDs, oral anticoagulation held as above Diet: N.p.o. Disposition: Telemetry CODE STATUS: Full code Admission and Anticipated Discharge Date Admission Date: May 26, 2021 Subjective Dania is seen at bedside in the morning. At time of bedside assessment she reports she feels "better ", denies lightheadedness, dizziness, chest pain, chest pressure. She denies abdominal pain this morning, and endorses that she has had multiple liquid bowel movements. She is happy that her blood counts and blood pressure improved overnight, and that she was not transferred to the ICU. No additional questions/concerns. MUltiple updates with care team and family, see A&P Review of Systems Review of Systems: All systems reviewed & are unremarkable except as noted in Subjective Physical Exam Physical Exam: General: Oriented to name and place. Fatigued, appears frail. Cooperative. HEENT: Atraumatic, normocephalic. Visual acuity grossly intact Pulm: Diminished effort without overt wheezes/rales/rhonchi. Symmetrical chest rise. No increase work of breathing. No respiratory distress. Cardiac: RRR, -mrg. Radial pulses intact and symmetrical. Abdominal: Distended, less firm than previous. Reduced bowel sounds. Tender to palpation at mid and left abdomen, less than prior exam. No rebound tenderness, no guarding. Results & Data Results & Data ([facility]) Vital Signs (Past 12 Hours) Vital Signs Temp Pulse Pulse Resp BP Pulse Ox 05/28/21 12:05 37 C 87 18 66/47 L 96 05/28/21 10:09 105 H 05/28/21 08:17 36.5 C 100 H 20 126/80 95 05/28/21 04:17 36.4 C L 113 H 20 117/80 93 PG Care Time/CCT Total # of Minutes Spent Total Time Spent with Patient: Total time spent is greater than 50% in coordination of care (as documented) at patient's floor/unit and/or counseling patient: Coding Level of Care Code 55600 Subseq Hosp Care Lvl 3 Diagnoses Stercoral colitis K52.89 Anemia D64.9 Anemia type: unspecified type Elevated troponin R77.8 TOBY (acute kidney injury) N17.9 Atrial fibrillation with RVR I48.91 COPD (chronic obstructive pulmonary disease) J44.1 COPD type: COPD with acute exacerbation GERD without esophagitis K21.9 Hyperlipidemia E78.5 HTN (hypertension) I10 Hypotension I95.9 Hyperchloremic acidosis E87.2 (1) Anemia Anemia type: unspecified type Qualified Code(s): D64.9 - Anemia, unspecified (2) COPD (chronic obstructive pulmonary disease) COPD type: COPD with acute exacerbation Qualified Code(s): J44.1 - Chronic obstructive pulmonary disease with (acute) exacerbation
[2021-05-28] MEDS ORDERED: LACTATED RINGER'S 1,000 ML IV SCH (13:30)
[2021-05-28 14:30] LABS: Base Excess VBG -7.6 mEq/L; pH VBG 7.29 (7.36-7.41)
[2021-05-28] MEDS: POTASSIUM CHLORIDE / WTR 10 MEQ/100 ML PLCT IV SCH ×6 (15:12→21:21)
[2021-05-28] MEDS ORDERED: NORMOSOL-R 1,000 ML IV SCH (15:30)
--- NOTE | 2021-05-28 18:28 | XRay Report ---
KUB CLINICAL HISTORY: Colonic dilatation. Pseudoobstruction. FINDINGS: 2 AP, portable, supine abdominal radiographs are compared to abdominal radiographs performe d earlier the same day 05/28/2021 and correlated with abdominal CT dated 05/27/2021. Cholecystectomy clip s are noted. There is persistent gaseous distention of the colon which measures up to 11.0 cm in diam eter. There is mild gaseous distention of the small bowel loops which are normal in caliber. No evide nce of intraperitoneal free air is seen on this supine examination. There is advanced atherosclerotic calcification of the abdominal aorta and iliac arteries. The skeletal structures are osteopenic and appear intact. There is advanced lumbar sacral spondylosis and scoliosis. A right hip arthroplasty is in place. Intertrochanteric and intramedullary nails are seen in the left hip. A stent graft is part ially visualized in the thoracic aorta. IMPRESSION: No significant change from today's earlier examination. Gaseous distention of the colon i s persists and suggests colonic ileus. Electronically signed by: John Romero M.D. 05/28/2021 6:26 PM
[2021-05-28] MEDS ORDERED: STAT IV STA (19:11)
[2021-05-28 20:21] LABS: BUN Creatinine Ratio 60.8 (10-20); Calcium 6.3 mg/dl (8.5-10.1); Creatinine Clr Calc Pharmacy 37.4 ml/min; Est GFR (African American) 47.4 ml/min; Est GFR (Non-African American) 40.9 ml/min; Potassium 3.3 mmol/L (3.5-5.1)
[2021-05-28] MEDS: SIMVASTATIN 40 MG TAB PO SCH (20:44)
[2021-05-28] MEDS ORDERED: SODIUM BICARBONATE 8.4% 150 MEQ in DEXTROSE 5% 1,000 ML IV SCH (22:30)
[2021-05-29] MEDS ORDERED: CALCIUM GLUCONATE 10% 1,000 MG in SODIUM CHLORIDE 0.9% 50 ML IV ONE (00:33)
[2021-05-29 00:54] LABS: BUN Creatinine Ratio 58.8 (10-20); Calcium 6.5 mg/dl (8.5-10.1); Creatinine Clr Calc Pharmacy 38.7 ml/min; Est GFR (African American) 49.3 ml/min; Est GFR (Non-African American) 42.5 ml/min; Potassium 3.3 mmol/L (3.5-5.1)
[2021-05-29] MEDS: DOCUSATE SODIUM 100 MG CAP PO SCH ×2 (01:33→08:02)
[2021-05-29] MEDS: POLYETHYLENE (MIRALAX) 17 GM PACK PO SCH ×2 (01:34→08:02)
[2021-05-29] MEDS: METOPROLOL TARTRATE 25 MG TAB PO SCH ×2 (01:34→08:01)
[2021-05-29] MEDS: PIPERACILLIN/TAZOBACTAM 3.375 GM in DEXTROSE 5% 100 ML IV SCH (02:15)
[2021-05-29 02:28] LABS: BUN Creatinine Ratio 57.3 (10-20); Calcium 7.1 mg/dl (8.5-10.1); Creatinine Clr Calc Pharmacy 39.7 ml/min; Est GFR (African American) 50.8 ml/min; Est GFR (Non-African American) 43.8 ml/min
[2021-05-29] MEDS ORDERED: POTASSIUM CHLORIDE CRTAB 20 MEQ TABCR PO STA (02:36)
[2021-05-29] MEDS: POTASSIUM CHLORIDE / WTR 10 MEQ/100 ML PLCT IV SCH ×6 (03:15→15:50)
[2021-05-29 04:32] LABS: Hematocrit (blood only) 28.8 % (37-47); Hemoglobin 9.3 g/dL (12.0-16.0); Mean Corpuscular Hemoglobin 26.1 pg (25-34); Mean Corpuscular Hgb Conc 32.3 g/dL (32-36); Mean Corpuscular Volume 80.9 fL (80-100); Mean Platelet Volume 9.8 fL (7.4-10.4); Nucleated RBC # (auto) 0.07 K/uL (0-0); Nucleated RBC % (auto) 0.9 %; Platelet Count 149 K/uL (130-400); RDW Coefficient of Variation 19.5 % (11.5-14.5); RDW Standard Deviation 57.9 fL (36.4-46.3); Red Blood Count 3.56 M/uL (4.2-5.4); White Blood Count 7.19 K/uL (4.8-10.8)
[2021-05-29 04:58] LABS: Albumin Level 1.4 gm/dl (3.4-5.0); Calcium 7.1 mg/dl (8.5-10.1); Creatinine Clr Calc Pharmacy 41.1 ml/min; Est GFR (Non-African American) 45.7 ml/min; Potassium 2.9 mmol/L (3.5-5.1)
[2021-05-29 04:59] LABS: BUN Creatinine Ratio 58.2 (10-20); Calcium 7.1 mg/dl (8.5-10.1); Creatinine Clr Calc Pharmacy 41.1 ml/min; Est GFR (Non-African American) 45.7 ml/min
[2021-05-29 05:01] LABS: Albumin Globulin Ratio 0.5 (0.9-2); Bilirubin,Total 0.5 mg/dl (0.2-1); Globulin 2.8 gm/dl (2.5-4.0); Total Protein 4.2 gm/dl (6.4-8.2)
[2021-05-29 05:03] LABS: ALC (manual) 0.24 K/uL (1.2-3.4); ANC (manual) 6.33 K/uL (1.4-6.5); Basophils # (manual) 0.12 K/uL (0-0.2); Basophils % (manual) 1.7 %; Echinocytes 2+; Eosinophils # (manual) 0.12 K/uL (0-0.5); Eosinophils % (manual) 1.7 %; Lymphocytes # (manual) 0.24 K/uL (1.2-3.4); Lymphocytes % (manual) 3.4 %; Metamyelocytes # (manual) 0.06 K/uL (0-0); Metamyelocytes % (manual) 0.9 %; Monocytes # (manual) 0.12 K/uL (0.11-0.59); Monocytes % (manual) 1.7 %; Myelocytes # (manual) 0.19 K/uL (0-0); Myelocytes % (manual) 2.6 %; Neutrophils # (manual) 6.33 K/uL (1.4-6.5)
--- NOTE | 2021-05-29 05:24 | Gastroenterology Progress Note ---
Date of Service May 29, 2021 Assessment & Plan (1) Pancolitis: Plan: Imaging findings and clinical course reviewed this morning with the primary care team. Ms. Fish has pancolitis and all findings are compatible with C difficile colitis and a toxic megacolon. A C diff infection has not been ruled out. Recommend stool specimen to the lab for C. difficile toxin, stool for enteric pathogens, and begin IV metronidazole. Plan limited colonoscopy exam later today. Admission and Anticipated Discharge Date Admission Date: May 26, 2021 Results & Data ([facility]) Vital Signs (Past 12 Hours) Vital Signs Temp Pulse Pulse Resp BP BP Pulse Ox 05/29/21 04:09 37 C 78 18 116/70 93 05/28/21 23:59 80 05/28/21 23:03 36.9 C 80 18 108/75 94 05/28/21 20:18 113/74 05/28/21 19:42 36.4 C L 79 18 108/66 94
[2021-05-29] MEDS ORDERED: metroNIDAZOLE 500 MG/100 ML BAG IV SCH (06:00)
[2021-05-29 07:00] LABS: Adenovirus F 40/41 PCR Not Detected (NotDetected); Astrovirus PCR Not Detected (NotDetected); Campylobacter PCR Not Detected (NotDetected); Clostridium diff Toxin A/B PCR Not Detected (NotDetected); Cryptosporidium PCR Not Detected (NotDetected); Cyclospora cayetanensis PCR Not Detected (NotDetected); Entamoeba histolytica PCR Not Detected (NotDetected); Enteroaggregative E.coli(EAEC) Not Detected (NotDetected); Enteropathogenic E.coli (EPEC) Not Detected (NotDetected); Enterotoxigenic E.coli (ETEC) Not Detected (NotDetected); Giardia lamblia PCR Not Detected (NotDetected); Norovirus GI/GII PCR Not Detected (NotDetected); Plesiomonas shigelloides PCR Not Detected (NotDetected); Rotavirus A PCR Not Detected (NotDetected); Salmonella PCR Not Detected (NotDetected); Sapovirus PCR Not Detected (NotDetected); Shiga-like Toxin E.coli (STEC) Not Detected (NotDetected); Shigella/Enteroinvasive E.coli Not Detected (NotDetected); Vibrio cholerae PCR Not Detected (NotDetected); Vibrio species PCR Not Detected (NotDetected); Yersinia enterocolitica PCR Not Detected (NotDetected)
--- NOTE | 2021-05-29 07:17 | Anesthesiology Consultation ---
Date of Service May 29, 2021 Assessment & Plan (1) Encounter for pre-operative examination: Chart Review Chart Review: data entry coordinator initiated History Surgery Operation Date: 05/29/21 08:10 Proposed Procedures p Colonoscopy - Jean-Pierre Mojica MD Height/Weight Height: 5 ft 11 in Weight: 72.5 kg Allergies Allergy/AdvReac Type Severity Reaction Status Date / Time No Known Allergies Allergy Unknown Verified 05/26/21 19:37 Medications Home Medications Medication Instructions Recorded Confirmed Last Taken simvastatin 40 mg tablet 40 mg PO HS #90 tab 06/13/20 05/26/21 05/25/21 apixaban 5 mg tablet 5 mg PO BID #180 tab 09/15/20 05/26/21 05/26/21 08:00 albuterol sulfate 90 mcg/actuation 2 puff INH Q6H PRN #18 gm 12/13/20 05/26/21 Unknown aerosol inhaler metoprolol tartrate 25 mg tablet 25 mg PO BID #180 tab 03/06/21 05/26/21 05/26/21 08:00 tramadol 50 mg tablet 50 mg PO TID PRN #90 tab 03/31/21 05/26/21 Unknown amiodarone 200 mg tablet 200 mg PO BIDM 30 Days #60 tab 05/15/21 05/26/21 05/26/21 bupropion HCl 75 mg tablet 75 mg PO BID 30 Days #60 tab 05/15/21 05/26/21 05/26/21 08:00 melatonin 3 mg tablet 6 mg PO HS PRN 30 Days #30 tab 05/15/21 05/26/21 Unknown sennosides 8.6 mg tablet (Senokot) 17.2 mg PO QAM 30 Days #60 tab 05/15/21 05/26/21 05/26/21 acetaminophen 325 mg tablet 650 mg PO Q4H PRN 05/26/21 05/26/21 Unknown (Tylenol) docusate sodium 100 mg capsule 100 mg PO BID 05/26/21 05/26/21 05/26/21 08:00 guaifenesin 600 mg tablet, 600 mg PO Q12H 05/26/21 05/26/21 05/26/21 08:00 extended release 12 hr (Mucinex) lorazepam 0.5 mg tablet 0.5 mg PO HS PRN 05/26/21 05/26/21 Unknown pantoprazole 20 mg tablet,delayed 20 mg PO DAILYBB 05/26/21 05/26/21 05/26/21 release Active Medications Generic Name Dose Route Start Last Admin Trade Name Hema PRN Reason Stop Dose Admin Amiodarone HCl 200 mg 05/27/21 08:00 05/28/21 16:23 Amiodarone 200 Mg Tab PO 06/26/21 07:59 200 mg BIDM IRWIN Administration Apixaban 5 mg 05/27/21 09:00 05/27/21 08:19 Apixaban 5 Mg Tablet PO 06/26/21 08:59 5 mg BID IRWIN Administration Bupropion HCl 75 mg 05/27/21 09:00 05/28/21 20:44 Bupropion Hcl 75 Mg Tablet PO 06/26/21 08:59 75 mg BID IRWIN Administration Docusate Sodium 100 mg 05/27/21 09:00 05/29/21 01:33 Docusate Sodium 100 Mg Cap PO 06/26/21 08:59 100 mg BID IRWIN Administration Piperacillin Sod/Tazobactam 115 mls @ 28.75 mls/hr 05/27/21 18:00 05/29/21 02:15 Sod 3.375 gm/ Dextrose IV 06/06/21 17:59 28.8 mls/hr Q8H IRWIN Administration Parenteral Electrolytes 1,000 mls @ 100 mls/hr 05/28/21 15:30 05/29/21 03:34 Normosol-R IV 05/29/21 11:29 Infused .Q10H IRWIN Infusion Melatonin 6 mg 05/27/21 01:57 05/28/21 20:44 Melatonin 3 Mg Tab PO 06/26/21 01:56 6 mg HS PRN Administration sleep Metoprolol Tartrate 25 mg 05/27/21 09:00 05/29/21 01:34 Metoprolol Tartrate 25 Mg Tab PO 06/26/21 08:59 Not Given BID IRWIN Polyethylene Glycol 17 gm 05/28/21 10:30 05/29/21 01:34 Polyethylene (Miralax) 17 Gm Pack PO 06/27/21 10:29 Not Given BID IRWIN Sennosides 17.2 mg 05/27/21 09:00 05/28/21 07:33 Senna 8.6 Mg Tab PO 06/26/21 08:59 Not Given QAM IRWIN Simvastatin 40 mg 05/27/21 21:00 05/28/21 20:44 Simvastatin 40 Mg Tab PO 06/26/21 20:59 40 mg HS IRWIN Administration Past Medical History Medical History (Updated 05/29/21 @ 07:16 by Alex Castañeda DO) AF (paroxysmal atrial fibrillation) Anxiety Carotid artery stenosis Chronic low back pain COPD (chronic obstructive pulmonary disease) GERD without esophagitis Hip fracture (04/27/13) History of transient cerebral ischemia HTN (hypertension) Hyperlipidemia Hyperthyroidism Impaired fasting glucose Iron deficiency anemia Left ventricular hypertrophy Multiple thyroid nodules Osteoporosis Vitamin D deficiency Past Family History Family History Sister Cancer Asthma Ovarian cancer Mother Cardiac disorder Myocardial infarction Father Cardiac disorder Lung cancer Myocardial infarction Denies family history of Prostate cancer Breast cancer Colorectal cancer Past Surgical History Surgical History H/O carotid endarterectomy left H/O thoracic aortic aneurysm repair History of appendectomy History of hysterectomy History of laparoscopic cholecystectomy History of repair of hip fracture Social History Smoking Status: Former smoker tobacco type: cigarettes Hx Alcohol Use: No Hx Substance Use: No Physical Exam Vital Signs Last Vital Signs Temp 98.6 F 05/29/21 04:09 Pulse 78 05/29/21 04:09 Resp 18 05/29/21 04:09 BP 116/70 05/29/21 04:09 Pulse Ox 93 05/29/21 04:09 Testing Laboratory Results 05/29/21 04:09 05/29/21 04:09 Urine Color Dark Yellow 05/26/21 19:35 Urine Appearance Cloudy (Clear) A 05/26/21 19:35 Urine pH 5.0 (4.5-7.5) 05/26/21 19:35 Ur Specific [place] 1.012 (1.000-1.030) 05/26/21 19:35 Urine Protein Negative (Negative) 05/26/21 19:35 Urine Glucose (UA) Negative (Negative) 05/26/21 19:35 Urine Ketones Negative (Negative) 05/26/21 19:35 Urine Nitrite Negative (Negative) 05/26/21 19:35 Ur Leukocyte Esterase 1+ (Negative) H 05/26/21 19:35 Urine WBC (Auto) >30 /hpf (0-5) H 05/26/21 19:35 Urine RBC (Auto) >30 /hpf (0-4) H 05/26/21 19:35 U Hyaline Cast (Auto) 1-5 /lpf (0-5) 05/26/21 19:35 U Epithel Cells (Auto) 10-20 /lpf (0-5) H 05/26/21 19:35 Urine Bacteria (Auto) Negative (Negative) 05/26/21 19:35 Blood Type B Positive 05/27/21 06:48 Antibody Screen NEGATIVE 05/27/21 06:48 05/27/21 17:58 Aerobic Blood Culture - Preliminary Blood No growth in Aerobic bottle after 24 hours. Anaerobic Blood Culture - Final 05/27/21 15:20 Aerobic Blood Culture - Preliminary Blood No growth in Aerobic bottle after 24 hours. Anaerobic Blood Culture - Preliminary No growth in Anaerobic bottle after 24 hours. 05/26/21 19:35 Urine Culture - Final Urine,Indwelling Cath Escherichia coli Electrocardiogram Date: 05/28/21 Sinus tachycardia, rate [address] and T wave abnormality Abnormal ECG When compared with ECG of 26-MAY-2021 19:13, No significant change was found Chest X-Ray Date: 05/26/21 Findings: + NAD Echocardiogram Date: 05/27/21 Small LV ventricular size with hyperdynamic systolic function. EF >70%. No regional wall motion abnormalities. Moderate concentric LVH. Moderate intracavitary gradient likely due to hyperdynamic state. Moderate mitral annular calcification. Normal estimated RVSP; RVSP 27 mmHg Compared to prior study on 08/27/2017, LV systolic function is similar.
[2021-05-29] MEDS: buPROPion HCl 75 MG TABLET PO SCH (08:01)
[2021-05-29] MEDS: AMIODARONE 200 MG TAB PO SCH (08:01)
[2021-05-29] MEDS: SENNA 8.6 MG TAB PO SCH (08:02)
--- NOTE | 2021-05-29 08:31 | Critical Care Consultation ---
Date of Consultation May 29, 2021 Assessment & Plan (1) Colonic pseudoobstruction: (2) Pancolitis: (3) Bloody diarrhea: (4) TOBY (acute kidney injury): (5) COPD (chronic obstructive pulmonary disease): --Colonic pseudoobstruction with pancolitis and ileus Stool for C. difficile has been sent Patient is on Zosyn currently Flagyl for possible C. difficile --> DC'd Oglivie's syndrome is also a possibility. Neostigmine IV could be considered and or Narcan Patient did have stool bio fire sent which was negative for C. difficile PCR GI and surgery on board --TOBY Improving Monitor BUNs/creatinine Avoid nephrotoxic medication --Acute blood loss anemia S/p blood transfusion 2 units on 05/27/2020 Hold apixaban Monitor H&H --Hypertension Blood pressure medication on hold right now Resume once patient is able to take p.o. --A. fib with RVR Rate controlled Continue with amiodarone --COPD Keep O2 saturation between 88-92% --Prophylaxis VTE: IPC GI: Protonix Lines: Peripheral Diet: N.p.o. Plan: Hypokalemia being replaced Follow magnesium and phosphorus level. Given the possibility of ileus I would like the patient to have potassium around 4, phosphorus greater than 3 and magnesium greater than 2. Patient's repeat C. difficile toxin gene was negative DC Flagyl, continue with Zosyn for pancolitis. Patient is currently hemodynamically stable. Hopefully after the colonoscopy is done patient's distention will decrease. I have personally spent 40 minutes of critical care time in the direct management of this patient. This is a life/limb threatening event. This includes time spent evaluating patient, direct bedside care, chart review, placing orders, interpretation of diagnostic studies, discussion with consultants, patient, and family members, as well as other required patient management activities. This time is exclusive of all separately billable procedures, and teaching time and separate from and in addition to any other critical care service time. Please note the above document was generated using voice recognition software. It may contain grammatical, syntax or spelling errors. History of Present Illness Attending Physician: Clayton June MD History of Present Illness 80-year-old female with past medical history of COPD, GERD, hypothyroidism, dyslipidemia, hypertension, A. fib with RVR on apixaban Patient also had recent COVID-19 pneumonia diagnosed 04/26/2021, was in the hospital in early April and discharged to a subacute facility. She presented back because of severe abdominal distention and pain. Patient was also found to have hemoglobin of 6.9 on presentation. She got transfused Plan was to have disimpaction through colonoscopy. Given the transverse diameter of the colon being 11.5 cm, GI wanted the patient to be in the ICU At the time of examination patient's daughter was in the room. Patient was restless she was actually asking to go home. On asking if she had any headache she denied Denied any chest pain, no shortness of breath Did complain of some mild abdominal pain No cough. Allergies Allergy/AdvReac Type Severity Reaction Status Date / Time No Known Allergies Allergy Unknown Verified 05/26/21 19:37 Home Medications Medication Instructions Recorded Confirmed Type simvastatin 40 mg tablet 40 mg PO HS #90 tab 06/13/20 05/26/21 Rx apixaban 5 mg tablet 5 mg PO BID #180 tab 09/15/20 05/26/21 Rx albuterol sulfate 90 mcg/actuation 2 puff INH Q6H PRN #18 gm 12/13/20 05/26/21 Rx aerosol inhaler metoprolol tartrate 25 mg tablet 25 mg PO BID #180 tab 03/06/21 05/26/21 Rx tramadol 50 mg tablet 50 mg PO TID PRN #90 tab 03/31/21 05/26/21 Rx amiodarone 200 mg tablet 200 mg PO BIDM 30 Days #60 tab 05/15/21 05/26/21 Rx bupropion HCl 75 mg tablet 75 mg PO BID 30 Days #60 tab 05/15/21 05/26/21 Rx melatonin 3 mg tablet 6 mg PO HS PRN 30 Days #30 tab 05/15/21 05/26/21 Rx sennosides 8.6 mg tablet (Senokot) 17.2 mg PO QAM 30 Days #60 tab 05/15/21 05/26/21 Rx acetaminophen 325 mg tablet 650 mg PO Q4H PRN 05/26/21 05/26/21 History (Tylenol) docusate sodium 100 mg capsule 100 mg PO BID 05/26/21 05/26/21 History guaifenesin 600 mg tablet, 600 mg PO Q12H 05/26/21 05/26/21 History extended release 12 hr (Mucinex) lorazepam 0.5 mg tablet 0.5 mg PO HS PRN 05/26/21 05/26/21 History pantoprazole 20 mg tablet,delayed 20 mg PO DAILYBB 05/26/21 05/26/21 History release Patient History Medical History (Updated 05/29/21 @ 12:28 by Jean-Pierre Mojica MD) AF (paroxysmal atrial fibrillation) Anxiety Carotid artery stenosis Chronic low back pain COPD (chronic obstructive pulmonary disease) GERD without esophagitis Hip fracture (04/27/13) History of transient cerebral ischemia HTN (hypertension) Hyperlipidemia Hyperthyroidism Impaired fasting glucose Iron deficiency anemia Left ventricular hypertrophy Multiple thyroid nodules Osteoporosis Vitamin D deficiency Surgical History H/O carotid endarterectomy left H/O thoracic aortic aneurysm repair History of appendectomy History of hysterectomy History of laparoscopic cholecystectomy History of repair of hip fracture Family History Sister Cancer Asthma Ovarian cancer Mother Cardiac disorder Myocardial infarction Father Cardiac disorder Lung cancer Myocardial infarction Denies family history of Prostate cancer Breast cancer Colorectal cancer Social History Smoking Status: Former smoker Tobacco Type: Cigarettes Age Started Using Tobacco: 17; packs per day: 0.5; Second Hand Exposure: Yes; Hx Alcohol Use: No Hx Substance Use: No Preferred Language: Panamanian Communication Ability: Unable Visual Impairment: No Limitations Hearing Ability: Hard of Hearing [employer] Required: No Beliefs That Will Affect Care: None marital status: / Current Living Situation: Family Current Living Situation Comment: lives with her daughter current occupational status: retired 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 How many Children do You have: 1 Feels Safe at Home: Yes Childhood Exposure to Second-Hand Smoke: Yes Dental Care, Regularly: No Physical Activity Frequency: Does not Exercise Seatbelt Use: always Sunscreen Use: No Assistive Devices: Oxygen - Continuous, Walker and Wheelchair Review of Systems Review of Systems: All systems reviewed & are unremarkable except as noted in HPI & below Physical Exam Physical Exam: Constitutional: In mild distress HEENT: EOMI, PERRLA Respiratory system: Decreased antibiotic, no wheeze, no rhonchi, positive crackles bilateral lower lobes CVS: S1-S2 positive, no murmurs or gallops Abdomen: Soft, distended, positive right upper quadrant tenderness, no rebound, decreased bowel sounds Extremities: +2 pulses bilaterally radialis/ dorsalis pedis, no cyanosis, +1 pitting edema bilateral lower extremity Neuro: Awake alert oriented x3 Psych: Normal mood and affect G/U: Positive [place] Skin: no rashes, warm and dry Lymphatic: no cervical or axillary lymphadenopathy Results & Data Results & Data ([facility]) Vital Signs (Past 12 Hours) Vital Signs Temp Pulse Pulse Resp BP Pulse Ox 05/29/21 04:09 37 C 78 18 116/70 93 05/28/21 23:59 80 05/28/21 23:03 36.9 C 80 18 108/75 94 05/29/21 04:09 05/29/21 08:10 Coding Level of Care Code Critical Care 1st 30-74 mins Diagnoses Colonic pseudoobstruction K59.81 Pancolitis K51.00 Bloody diarrhea R19.7 TOBY (acute kidney injury) N17.9 COPD (chronic obstructive pulmonary disease) J44.1 COPD type: COPD with acute exacerbation Time Spent (min) 40 (1) COPD (chronic obstructive pulmonary disease) COPD type: COPD with acute exacerbation Qualified Code(s): J44.1 - Chronic obstructive pulmonary disease with (acute) exacerbation
--- NOTE | 2021-05-29 08:38 | Gastroenterology Progress Note ---
Date of Service May 29, 2021 Assessment & Plan (1) Pancolitis: Plan: Pancolitis: Patient with pancolitis and all findings are compatible with C difficile colitis and a toxic megacolon. A C diff infection has not been ruled out. Recommend stool specimen to the lab for C. difficile toxin, stool for enteric pathogens, and begin IV metronidazole. Nursing asked to send stool sample for testing [place]. Plan limited colonoscopy exam later today by Dr Mojica. Please refer to supervising physician addendum for further recommendations. Admission and Anticipated Discharge Date Admission Date: May 26, 2021 Subjective Patient sleeping. Awakens easily with verbal stimuli. Reports she is exhausted. Denies abdominal pain, nausea, or vomiting this morning. Abdominal distension continues, feels very full. Review of Systems Gastrointestinal: as per Subjective / HPI Physical Exam Gastrointestinal (Abdomen): Inspection/Auscultation: + abdomen distended; + abdomen abnormal to inspection Percussion/Palpation: + abdomen tender; no guarding, abdomen not rigid, + abdomen not soft and + abnormal to percussion Results & Data ([facility]) Vital Signs (Past 12 Hours) Vital Signs Temp Pulse Pulse Resp BP Pulse Ox 05/29/21 04:09 37 C 78 18 116/70 93 05/28/21 23:59 80 05/28/21 23:03 36.9 C 80 18 108/75 94 Laboratory Results Laboratory Results - last 24 hr 05/27/21 05/28/21 05/28/21 06:48 09:56 12:51 WBC RBC Hgb 10.5 L 10.1 L Hct 31.8 L 31.1 L MCV MCH MCHC RDW Std Deviation RDW Coeff of Lawson Plt Count MPV Absolute Nucleated RBC Nucleated RBC % (auto) Neutrophils % (Manual) Lymphocytes % (Manual) Monocytes % (Manual) Eosinophils % (Manual) Basophils % (Manual) Metamyelocytes % (Man) Myelocytes % (Man) Neutrophils # (Manual) Total Absolute Neuts Lymphocytes # (Manual) Total Abs Lymphocytes Monocytes # (Manual) Eosinophils # (Manual) Basophils # (Manual) Metamyelocytes # (Man) Myelocytes # (Manual) Echinocytes VBG pH VBG pCO2 VBG pO2 VBG HCO3 VBG O2 Saturation VBG Base Excess Barometric Pressure Sodium Potassium Chloride Carbon Dioxide Anion Gap BUN Creatinine Est Cr Clr Drug Dosing Est GFR ( Amer) Est GFR (Non-Af Amer) BUN/Creatinine Ratio Glucose Calcium Ionized Calcium Magnesium Total Bilirubin AST ALT Alkaline Phosphatase Total Protein Albumin Globulin Albumin/Globulin Ratio Stl C. cayetanensis PCR Stool Rotavirus A PCR Stl Adenov F PCR Stool Astrovirus (PCR) Stool Campylobacter PCR Stl C. diff Tox B Gene Stl C. diff Tox A/B PCR Stool Cryptosporidium PCR Stl E.coli Shiga Tox PCR Stl Enterotoxigenic E PCR Stool EPEC (PCR) Stool EAEC (PCR) Stl E. histolytica PCR Stool Giardia Lamblia PCR Stool Salmonella PCR Stool Sapovirus (PCR) Stl P. shigelloides PCR Stl Shigella/EIEC PCR St Y.enterocolitica PCR Stool Vibrio (PCR) Stl Vibrio cholerae PCR Stl Norovirus GI/GII PCR C. difficile Tox B Gene Crossmatch See Detail 05/28/21 05/28/21 05/28/21 14:01 14:04 19:31 WBC RBC Hgb Hct MCV MCH MCHC RDW Std Deviation RDW Coeff of Lawson Plt Count MPV Absolute Nucleated RBC Nucleated RBC % (auto) Neutrophils % (Manual) Lymphocytes % (Manual) Monocytes % (Manual) Eosinophils % (Manual) Basophils % (Manual) Metamyelocytes % (Man) Myelocytes % (Man) Neutrophils # (Manual) Total Absolute Neuts Lymphocytes # (Manual) Total Abs Lymphocytes Monocytes # (Manual) Eosinophils # (Manual) Basophils # (Manual) Metamyelocytes # (Man) Myelocytes # (Manual) Echinocytes VBG pH 7.29 L VBG pCO2 39 VBG pO2 87 VBG HCO3 18 VBG O2 Saturation 84.0 VBG Base Excess -7.6 Barometric Pressure 726.0 Sodium 144 Potassium 3.3 L Chloride 113 H Carbon Dioxide 18 L Anion Gap 13.0 H BUN 76 H Creatinine 1.25 H Est Cr Clr Drug Dosing 37.4 Est GFR ( Amer) 47.4 Est GFR (Non-Af Amer) 40.9 BUN/Creatinine Ratio 60.8 H Glucose 91 Calcium 6.3 L Ionized Calcium Magnesium 2.0 Total Bilirubin AST ALT Alkaline Phosphatase Total Protein Albumin Globulin Albumin/Globulin Ratio Stl C. cayetanensis PCR Stool Rotavirus A PCR Stl Adenov F PCR Stool Astrovirus (PCR) Stool Campylobacter PCR Stl C. diff Tox B Gene Stl C. diff Tox A/B PCR Stool Cryptosporidium PCR Stl E.coli Shiga Tox PCR Stl Enterotoxigenic E PCR Stool EPEC (PCR) Stool EAEC (PCR) Stl E. histolytica PCR Stool Giardia Lamblia PCR Stool Salmonella PCR Stool Sapovirus (PCR) Stl P. shigelloides PCR Stl Shigella/EIEC PCR St Y.enterocolitica PCR Stool Vibrio (PCR) Stl Vibrio cholerae PCR Stl Norovirus GI/GII PCR C. difficile Tox B Gene Crossmatch 05/28/21 05/29/21 05/29/21 21:19 00:17 02:00 WBC RBC Hgb Hct MCV MCH MCHC RDW Std Deviation RDW Coeff of Lawson Plt Count MPV Absolute Nucleated RBC Nucleated RBC % (auto) Neutrophils % (Manual) Lymphocytes % (Manual) Monocytes % (Manual) Eosinophils % (Manual) Basophils % (Manual) Metamyelocytes % (Man) Myelocytes % (Man) Neutrophils # (Manual) Total Absolute Neuts Lymphocytes # (Manual) Total Abs Lymphocytes Monocytes # (Manual) Eosinophils # (Manual) Basophils # (Manual) Metamyelocytes # (Man) Myelocytes # (Manual) Echinocytes VBG pH VBG pCO2 VBG pO2 VBG HCO3 VBG O2 Saturation VBG Base Excess Barometric Pressure Sodium 143 142 Potassium 3.3 L 3.0 L Chloride 112 H 111 H Carbon Dioxide 18 L 19 L Anion Gap 13.0 H 12.0 H BUN 71 H 68 H Creatinine 1.21 H 1.18 Est Cr Clr Drug Dosing 38.7 39.7 Est GFR ( Amer) 49.3 50.8 Est GFR (Non-Af Amer) 42.5 43.8 BUN/Creatinine Ratio 58.8 H 57.3 H Glucose 89 97 Calcium 6.5 L 7.1 L Ionized Calcium 0.95 L Magnesium Total Bilirubin AST ALT Alkaline Phosphatase Total Protein Albumin Globulin Albumin/Globulin Ratio Stl C. cayetanensis PCR Stool Rotavirus A PCR Stl Adenov F 40/41 PCR Stool Astrovirus (PCR) Stool Campylobacter PCR Stl C. diff Tox B Gene Stl C. diff Tox A/B PCR Stool Cryptosporidium PCR Stl E.coli Shiga Tox PCR Stl Enterotoxigenic E PCR Stool EPEC (PCR) Stool EAEC (PCR) Stl E. histolytica PCR Stool Giardia Lamblia PCR Stool Salmonella PCR Stool Sapovirus (PCR) Stl P. shigelloides PCR Stl Shigella/EIEC PCR St Y.enterocolitica PCR Stool Vibrio (PCR) Stl Vibrio cholerae PCR Stl Norovirus GI/GII PCR C. difficile Tox B Gene Crossmatch 05/29/21 05/29/21 05/29/21 04:09 04:09 04:09 WBC 7.19 RBC 3.56 L Hgb 9.3 L Hct 28.8 L MCV 80.9 MCH 26.1 MCHC 32.3 RDW Std Deviation 57.9 H RDW Coeff of Lawson 19.5 H Plt Count 149 MPV 9.8 Absolute Nucleated RBC 0.07 H Nucleated RBC % (auto) 0.9 Neutrophils % (Manual) 88.0 Lymphocytes % (Manual) 3.4 Monocytes % (Manual) 1.7 Eosinophils % (Manual) 1.7 Basophils % (Manual) 1.7 Metamyelocytes % (Man) 0.9 Myelocytes % (Man) 2.6 Neutrophils # (Manual) 6.33 Total Absolute Neuts 6.33 Lymphocytes # (Manual) 0.24 L Total Abs Lymphocytes 0.24 L Monocytes # (Manual) 0.12 Eosinophils # (Manual) 0.12 Basophils # (Manual) 0.12 Metamyelocytes # (Man) 0.06 H Myelocytes # (Manual) 0.19 H Echinocytes 2+ VBG pH VBG pCO2 VBG pO2 VBG HCO3 VBG O2 Saturation VBG Base Excess Barometric Pressure Sodium 141 141 Potassium 3.0 L 2.9 L Chloride 111 H 110 H Carbon Dioxide 20 L 20 L Anion Gap 10.0 11.0 BUN 66 H 66 H Creatinine 1.14 1.14 Est Cr Clr Drug Dosing 41.1 41.1 Est GFR ( Amer) 53.0 53.0 Est GFR (Non-Af Amer) 45.7 45.7 BUN/Creatinine Ratio 58.2 H 58.0 H Glucose 113 H 114 H Calcium 7.1 L 7.1 L Ionized Calcium Magnesium Total Bilirubin 0.5 AST 25 ALT 40 Alkaline Phosphatase 87 Total Protein 4.2 L Albumin 1.4 L Globulin 2.8 Albumin/Globulin Ratio 0.5 L Stl C. cayetanensis PCR Stool Rotavirus A PCR Stl Adenov F 40/41 PCR Stool Astrovirus (PCR) Stool Campylobacter PCR Stl C. diff Tox B Gene Stl C. diff Tox A/B PCR Stool Cryptosporidium PCR Stl E.coli Shiga Tox PCR Stl Enterotoxigenic E PCR Stool EPEC (PCR) Stool EAEC (PCR) Stl E. histolytica PCR Stool Giardia Lamblia PCR Stool Salmonella PCR Stool Sapovirus (PCR) Stl P. shigelloides PCR Stl Shigella/EIEC PCR St Y.enterocolitica PCR Stool Vibrio (PCR) Stl Vibrio cholerae PCR Stl Norovirus GI/GII PCR C. difficile Tox B Gene Crossmatch 05/29/21 05/29/21 05/29/21 05:10 05:10 05:10 WBC RBC Hgb Hct MCV MCH MCHC RDW Std Deviation RDW Coeff of Lawson Plt Count MPV Absolute Nucleated RBC Nucleated RBC % (auto) Neutrophils % (Manual) Lymphocytes % (Manual) Monocytes % (Manual) Eosinophils % (Manual) Basophils % (Manual) Metamyelocytes % (Man) Myelocytes % (Man) Neutrophils # (Manual) Total Absolute Neuts Lymphocytes # (Manual) Total Abs Lymphocytes Monocytes # (Manual) Eosinophils # (Manual) Basophils # (Manual) Metamyelocytes # (Man) Myelocytes # (Manual) Echinocytes VBG pH VBG pCO2 VBG pO2 VBG HCO3 VBG O2 Saturation VBG Base Excess Barometric Pressure Sodium Potassium Chloride Carbon Dioxide Anion Gap BUN Creatinine Est Cr Clr Drug Dosing Est GFR ( Amer) Est GFR (Non-Af Amer) BUN/Creatinine Ratio Glucose Calcium Ionized Calcium Magnesium Total Bilirubin AST ALT Alkaline Phosphatase Total Protein Albumin Globulin Albumin/Globulin Ratio Stl C. cayetanensis PCR Not Detected Stool Rotavirus A PCR Not Detected Stl Adenov F 40/41 PCR Not Detected Stool Astrovirus (PCR) Not Detected Stool Campylobacter PCR Not Detected Stl C. diff Tox B Gene Cancelled Stl C. diff Tox A/B PCR Not Detected Stool Cryptosporidium PCR Not Detected Stl E.coli Shiga Tox PCR Not Detected Stl Enterotoxigenic E PCR Not Detected Stool EPEC (PCR) Not Detected Stool EAEC (PCR) Not Detected Stl E. histolytica PCR Not Detected Stool Giardia Lamblia PCR Not Detected Stool Salmonella PCR Not Detected Stool Sapovirus (PCR) Not Detected Stl P. shigelloides PCR Not Detected Stl Shigella/EIEC PCR Not Detected St Y.enterocolitica PCR Not Detected Stool Vibrio (PCR) Not Detected Stl Vibrio cholerae PCR Not Detected Stl Norovirus GI/GII PCR Not Detected C. difficile Tox B Gene Cancelled Crossmatch 05/29/21 05/29/21 05:10 08:10 WBC RBC Hgb Hct MCV MCH MCHC RDW Std Deviation RDW Coeff of Lawson Plt Count MPV Absolute Nucleated RBC Nucleated RBC % (auto) Neutrophils % (Manual) Lymphocytes % (Manual) Monocytes % (Manual) Eosinophils % (Manual) Basophils % (Manual) Metamyelocytes % (Man) Myelocytes % (Man) Neutrophils # (Manual) Total Absolute Neuts Lymphocytes # (Manual) Total Abs Lymphocytes Monocytes # (Manual) Eosinophils # (Manual) Basophils # (Manual) Metamyelocytes # (Man) Myelocytes # (Manual) Echinocytes VBG pH VBG pCO2 VBG pO2 VBG HCO3 VBG O2 Saturation VBG Base Excess Barometric Pressure Sodium Pending Potassium Pending Chloride Pending Carbon Dioxide Pending Anion Gap Pending BUN Pending Creatinine Pending Est Cr Clr Drug Dosing Pending Est GFR ( Amer) Pending Est GFR (Non-Af Amer) Pending BUN/Creatinine Ratio Pending Glucose Pending Calcium Pending Ionized Calcium Magnesium Total Bilirubin AST ALT Alkaline Phosphatase Total Protein Albumin Globulin Albumin/Globulin Ratio Stl C. cayetanensis PCR Stool Rotavirus A PCR Stl Adenov F 40/41 PCR Stool Astrovirus (PCR) Stool Campylobacter PCR Stl C. diff Tox B Gene Stl C. diff Tox A/B PCR Stool Cryptosporidium PCR Stl E.coli Shiga Tox PCR Stl Enterotoxigenic E PCR Stool EPEC (PCR) Stool EAEC (PCR) Stl E. histolytica PCR Stool Giardia Lamblia PCR Stool Salmonella PCR Stool Sapovirus (PCR) Stl P. shigelloides PCR Stl Shigella/EIEC PCR St Y.enterocolitica PCR Stool Vibrio (PCR) Stl Vibrio cholerae PCR Stl Norovirus GI/GII PCR C. difficile Tox B Gene Cancelled Crossmatch Diagnostic Findings KUB X-Ray 05/28/21 07:00 KUB CLINICAL HISTORY: Colonic dilatation. FINDINGS: 2 AP, portable, supine abdominal radiographs are compared to abdominal x-ray and CT dated 05/27/2021. Cholecystectomy clips are noted. There is persistent gaseous distention of the colon which measures up to 11.5 cm in diameter. There is colonic fecal retention. There is mild gaseous distention of the small bowel loops which are normal in caliber. No evidence of intraperi toneal free air is seen on this supine examination. There is advanced atherosclerotic calcification of the abdominal aorta and iliac arteries. The skeletal structures are osteopenic and appear intact. There is advanced lumbar sacral spondylosis and scoliosis. A right hip arthroplasty is in place. Intertrochanteric and intramedullary nails are seen in the left hip. A stent graft is partially visualized in the thoracic aorta. IMPRESSION: Gaseous distention of the colon is unchanged from yesterday and suggests colonic ileus. Electronically signed by: John Romero M.D. 05/28/2021 9:37 AM KUB X-Ray 05/28/21 17:25 KUB CLINICAL HISTORY: Colonic dilatation. Pseudoobstruction. FINDINGS: 2 AP, portable, supine abdominal radiographs are compared to abdominal radiographs performed earlier the same day 05/28/2021 and correlated with abdominal CT dated 05/27/2021. Cholecystectomy clips are noted. There is persistent gaseous distention of the colon which measures up to 11.0 cm in diameter. There is mild gaseous distention of the small bowel loops which are normal in caliber. No evidence of intraperitoneal free air is seen on this supine examination. There is advanced atherosclerotic calcification of the abdominal aorta and iliac arteries. The skeletal structures are osteopenic and appear intact. There is advanced lumbar sacral spondylosis and scoliosis. A right hip arthroplasty is in place. Intertrochanteric and intramedullary nails are seen in the left hip. A stent graft is partially visualized in the thoracic aorta. IMPRESSION: No significant change from today's earlier examination. Gaseous distention of the colon is persists and suggests colonic ileus. Electronically signed by: John Romero M.D. 05/28/2021 6:26 PM Addendum May 29, 2021 12:29I interviewed and examined the patient and reviewed the medical record, with the following observations: Subjective: She continues to have generalized abdominal distension and pain Physical Examination: tympanitic distension without peritoneal signs Chart Review: Negative C diff toxin assay and stool enteric pathogens this morning This case was reviewed with the advanced practice provider I agree with the assessment as outlined in this consultation, with the following observations: Impression remains colon pseudo obstruction with severe distension and possible pancolitis, vs. infectious pancolitis with toxic megacolon. Note that stools for C diff and enteric pathogens negative this morning I agree with the plan of care as outlined in this consultation, with the following changes and/or additions: Plan to proceed with colonoscopy to evluated colitis and distension and insert a decompression tube if possible.
--- NOTE | 2021-05-29 08:55 | XRay Report ---
KUB HISTORY: Acute generalized abdominal pain with reported colonic distention Colon distension, please measure cecal diameter COMPARISON: KUB 05/28/2021, CT abdomen and pelvis 05/27/2021 FINDINGS: Cholecystectomy. Endograft of the descending thoracic aorta with arterial calcifications. T here is persistent gaseous distention of the large bowel. The large bowel distention appears to have mildly improved. Mild gaseous distention of small bowel loops measures up to 3.1 cm. No renal calcul i. No ureteral calculi. No pneumoperitoneum or pneumatosis. Right hip total joint arthroplasty. ORIF changes of the left proximal femur. No fracture. IMPRESSION: Persistent ileus pattern. ACT 112: Negative or not required by law. The above report was generated using voice recognition software. It may contain grammatical, syntax o r spelling errors. Electronically signed by: Jeremiah Hanson M.D. 05/29/2021 8:54 AM
--- NOTE | 2021-05-29 09:18 | Hospitalist Progress Note ---
Date of Service May 29, 2021 Assessment & Plan (1) Stercoral colitis: Plan: KUB on 05/28 showed colonic distension to 11.0 cm. - Seen by GI - No stool for manual disimpaction but with copious liquid output, rectal tube placed. Plan for colonoscopy today to attempt colonic washout. As documented by Dr. Medina, this is high risk. - Docusate BID, senna, & Miralax BID - Continue Zosyn & Flagyl (2) Hyperchloremic acidosis: Plan: Due to aggressive fluid resuscitation for hypotension as previously noted. Fluid switched to Normosol to minimize chloride (3) Anemia: Plan: Hemoglobin dropped from 8.5 to 6.9 following fluids. - S/p 2 units of PRBCs on 05/27 - Hgb overall stable ~ 10 since then, though dropped to 9.3 on 05/29. (4) TOBY (acute kidney injury): Plan: Creatinine elevated from normal baseline (~1.0) to 2.12 on admission. Creatinine downtrending: Cr 1.1 on 05/29 Avoid nephrotoxins Continue to trend BMP (5) Atrial fibrillation with RVR: Plan: Rate 88 on bedside assessment, adequately controlled Continue amiodarone Continue metoprolol tartrate, dose reduced/hold for hypotension Apixaban held in the setting of GI bleeding, and anemia requiring transfusion (6) Hypotension: Plan: Patient with recurrent hypotension, fluid responsive. Received 4.5 L of crystalloid and 2 units of blood with patient normotensive and maintained normotensive BP without tachycardia overnight. Monitor BP (7) Elevated troponin: Plan: Elevated troponin in the setting of volume depletion, TOBY, hypertension, and stercoral colitis. EKG without acute acute ST changes. - Demand ischemia, Type II NM. Troponin peaked at 0.09. (8) COPD (chronic obstructive pulmonary disease): Plan: No wheezing on exam. DuoNeb as needed (9) GERD without esophagitis: Plan: - Protonix daily (10) Hyperlipidemia: Plan: - Continue simvastatin (11) HTN (hypertension): Plan: BP today is 115/70. Beta-harsh as above Plan: DVT prophylaxis: SCDs, oral anticoagulation held as above Admission and Anticipated Discharge Date Admission Date: May 26, 2021 Subjective Denies any pain today. Reports no fevers/chills, chest pain, shortness of breath, abdominal pain, nausea, or vomiting. Physical Exam Constitutional: WD/WN, vitals as above + acute distress Eyes: EOM intact bilaterally; no conjunctival abnormality ENMT: external ear and nose normal, oropharynx normal Neck: trachea midline, no thyromegaly normal visual inspection Respiratory: normal respiratory effort, lungs clear to auscultation no respiratory distress Cardiovascular: RRR, no murmur, no edema Gastrointestinal (Abdomen): Inspection/Auscultation: + abdomen distended and + hypoactive bowel sounds; + abdomen abnormal to inspection Percussion/Palpation: + abdomen tender (No rebound tenderness) and abdomen soft; no guarding and abdomen not rigid Musculoskeletal: no cyanosis or clubbing, extremities motor strength 5/5 Skin: no rashes, warm and dry Neurologic: moves all extremities and awake Psychiatric: Orientation: alert, oriented to person and cooperative Results & Data Results & Data ([facility]) Vital Signs (Past 12 Hours) Vital Signs Temp Pulse Pulse Resp BP Pulse Ox 05/29/21 04:09 37 C 78 18 116/70 93 05/28/21 23:59 80 05/28/21 23:03 36.9 C 80 18 108/75 94 PG Care Time/CCT Total # of Minutes Spent Total Time Spent with Patient: Total time spent is greater than 50% in coordination of care (as documented) at patient's floor/unit and/or counseling patient: Coding Level of Care Code 93141 Subseq Hosp Care Lvl 3 Diagnoses Stercoral colitis K52.89 Hyperchloremic acidosis E87.2 Anemia D64.9 Anemia type: unspecified type Hypotension I95.9 Elevated troponin R77.8 TOBY (acute kidney injury) N17.9 Atrial fibrillation with RVR I48.91 COPD (chronic obstructive pulmonary disease) J44.1 COPD type: COPD with acute exacerbation GERD without esophagitis K21.9 Hyperlipidemia E78.5 HTN (hypertension) I10 (1) Anemia Anemia type: unspecified type Qualified Code(s): D64.9 - Anemia, unspecified (2) COPD (chronic obstructive pulmonary disease) COPD type: COPD with acute exacerbation Qualified Code(s): J44.1 - Chronic obstructive pulmonary disease with (acute) exacerbation
[2021-05-29 09:32] LABS: BUN Creatinine Ratio 54.8 (10-20); Calcium 7.3 mg/dl (8.5-10.1); Creatinine Clr Calc Pharmacy 45.1 ml/min; Est GFR (African American) 53.5 ml/min; Est GFR (Non-African American) 46.2 ml/min; Potassium 3.3 mmol/L (3.5-5.1)
--- NOTE | 2021-05-29 11:06 | Surgery Progress Note ---
Date of Service May 29, 2021 Assessment & Plan (1) Stercoral colitis: Plan: WBC 7 some improvement of KUB no acute abdominal findings GI planning for colonoscopy today seen with Dr. Marino Admission and Anticipated Discharge Date Admission Date: May 26, 2021 Supervising Physician Co-Signing Physician Notes I personally saw and evaluated the patient with Yaakov Haywood PA-C and agree with the assessment and plan. 80-year-old female with stercoral colitis and colonic ileus She seems to be stable at this point Agree with GI for possible decompressive colonoscopy We will continue to follow along but no plans for surgical intervention at this time Subjective sleeping Physical Exam Gastrointestinal (Abdomen): Inspection/Auscultation: + abdomen distended Percussion/Palpation: + abdomen tender (less) and abdomen soft Results & Data ([facility]) Vital Signs (Past 12 Hours) Vital Signs Temp Pulse Pulse Resp BP BP Pulse Ox 05/29/21 10:02 72 21 84/72 L 98 05/29/21 10:00 70 18 96 05/29/21 09:30 71 18 97 05/29/21 09:01 78 19 153/80 H 93 05/29/21 09:00 78 18 96 05/29/21 08:30 73 16 96 05/29/21 08:00 78 18 116/77 97 05/29/21 07:30 75 19 95 05/29/21 07:02 82 20 112/85 95 05/29/21 07:00 82 19 05/29/21 04:09 37 C 78 18 116/70 93 05/28/21 23:59 80 PG Care Time/CCT Total # of Minutes Spent Total Time Spent with Patient: Total time spent is greater than 50% in coordination of care (as documented) at patient's floor/unit and/or counseling patient: Coding Level of Care Code 42407 Subseq Hosp Care Lvl 1 Diagnoses Stercoral colitis K52.89
[2021-05-29] MEDS ORDERED: ATROPINE SULFATE 0.1 MG/ML 10ML SYR IV PRN (12:17)
[2021-05-29] MEDS ORDERED: ePHEDrine sulfate 50 MG/ML AMP IV PRN (12:17)
[2021-05-29] MEDS ORDERED: MINERAL OIL 30 ML UDC ONE (12:23)
--- NOTE | 2021-05-29 12:28 | History & Physical Report ---
Date of Service May 29, 2021 Assessment & Plan (1) Pancolitis: (2) Colonic pseudoobstruction: (3) Bloody diarrhea: Plan: Plan colonoscopy for evaluation of colitis and colon distension and insertion of a colon decompression tube. Discussed yesterday with the patient's daughter, and today with the patient, potential benefits and risks explained, incuding but not limited to colon perforation, and understanding acknowledged. Admission and Anticipated Discharge Date Admission Date: May 26, 2021 History of Present Illness Chief Complaint: Abdominal Distension and pain, with findings of severe colon distension and colitis, bloody diarrhea Primary Care Provider: Grace Price MD Patient with recent history of Covid-19 pneumonia and respiratory failure, readmitted with severe abdominal distension and pain, with bloody diarrhea. Imaging reveals appearance of colon pseudo obstruction vs. toxic megacolon, with cecal distension 11-12 cm. C diff toxin assay and stool for enteric pathogens negative. Allergies Allergy/AdvReac Type Severity Reaction Status Date / Time No Known Allergies Allergy Unknown Verified 05/26/21 19:37 Home Medications Medication Instructions Recorded Confirmed Type simvastatin 40 mg tablet 40 mg PO HS #90 tab 06/13/20 05/26/21 Rx apixaban 5 mg tablet 5 mg PO BID #180 tab 09/15/20 05/26/21 Rx albuterol sulfate 90 mcg/actuation 2 puff INH Q6H PRN #18 gm 12/13/20 05/26/21 Rx aerosol inhaler metoprolol tartrate 25 mg tablet 25 mg PO BID #180 tab 03/06/21 05/26/21 Rx tramadol 50 mg tablet 50 mg PO TID PRN #90 tab 03/31/21 05/26/21 Rx amiodarone 200 mg tablet 200 mg PO BIDM 30 Days #60 tab 05/15/21 05/26/21 Rx bupropion HCl 75 mg tablet 75 mg PO BID 30 Days #60 tab 05/15/21 05/26/21 Rx melatonin 3 mg tablet 6 mg PO HS PRN 30 Days #30 tab 05/15/21 05/26/21 Rx sennosides 8.6 mg tablet (Senokot) 17.2 mg PO QAM 30 Days #60 tab 05/15/21 05/26/21 Rx acetaminophen 325 mg tablet 650 mg PO Q4H PRN 05/26/21 05/26/21 History (Tylenol) docusate sodium 100 mg capsule 100 mg PO BID 05/26/21 05/26/21 History guaifenesin 600 mg tablet, 600 mg PO Q12H 05/26/21 05/26/21 History extended release 12 hr (Mucinex) lorazepam 0.5 mg tablet 0.5 mg PO HS PRN 05/26/21 05/26/21 History pantoprazole 20 mg tablet,delayed 20 mg PO DAILYBB 05/26/21 05/26/21 History release Past Med/Surg History Medical History (Updated 05/29/21 @ 12:28 by Jean-Pierre Mojica MD) AF (paroxysmal atrial fibrillation) Anxiety Carotid artery stenosis Chronic low back pain COPD (chronic obstructive pulmonary disease) GERD without esophagitis Hip fracture (04/27/13) History of transient cerebral ischemia HTN (hypertension) Hyperlipidemia Hyperthyroidism Impaired fasting glucose Iron deficiency anemia Left ventricular hypertrophy Multiple thyroid nodules Osteoporosis Vitamin D deficiency Surgical History H/O carotid endarterectomy left H/O thoracic aortic aneurysm repair History of appendectomy History of hysterectomy History of laparoscopic cholecystectomy History of repair of hip fracture Family History Sister Cancer Asthma Ovarian cancer Mother Cardiac disorder Myocardial infarction Father Cardiac disorder Lung cancer Myocardial infarction Denies family history of Prostate cancer Breast cancer Colorectal cancer Social History Smoking Status: Former smoker Tobacco Type: Cigarettes Age Started Using Tobacco: 17; packs per day: 0.5; Second Hand Exposure: Yes; Hx Alcohol Use: No Hx Substance Use: No Preferred Language: Turkish Communication Ability: Unable Visual Impairment: No Limitations Hearing Ability: Hard of Hearing Septic Pump 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 Required: No Beliefs That Will Affect Care: None marital status: / Current Living Situation: Family Current Living Situation Comment: lives with her daughter current occupational status: retired 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 How many Children do You have: 1 Feels Safe at Home: Yes Childhood Exposure to Second-Hand Smoke: Yes Dental Care, Regularly: No Physical Activity Frequency: Does not Exercise Seatbelt Use: always Sunscreen Use: No Assistive Devices: Oxygen - Continuous, Walker and Wheelchair Review of Systems All systems reviewed & are unremarkable except as noted in HPI & below and Other The patient is debilitated, anxious, with limited responses dyspneic at rest generalized abdominal pain Physical Exam Physical Exam: Appears debilitated, acutely and chronically ill Respiratory: dyspneic at rest Gastrointestinal (Abdomen): Tympanitic distension and diffusely tender without guarding or rebound tenderness Neurologic: No focal neurologic signs Psychiatric: Lethargic but awake and appropriately responsive, she appears anxious and depressed. She was able to comprehend and sign the procedure consent form ASA Classification ASA ASA4 Results & Data ([facility]) Vital Signs (Past 12 Hours) Vital Signs Temp Pulse Pulse Resp BP BP Pulse Ox 05/29/21 11:57 36.8 C 75 18 127/68 95 05/29/21 10:02 72 21 84/72 L 98 05/29/21 10:00 70 18 96 05/29/21 09:30 71 18 97 05/29/21 09:01 78 19 153/80 H 93 05/29/21 09:00 78 18 96 05/29/21 08:30 73 16 96 05/29/21 08:00 78 18 116/77 97 05/29/21 07:30 75 19 95 05/29/21 07:02 82 20 112/85 95 05/29/21 07:00 82 19 05/29/21 04:09 37 C 78 18 116/70 93 Laboratory Results Laboratory Results WBC 7.19 K/uL (4.8-10.8) 05/29/21 04:09 RBC 3.56 M/uL (4.2-5.4) L 05/29/21 04:09 Hgb 9.3 g/dL (12.0-16.0) L 05/29/21 04:09 Hct 28.8 % (37-47) L 05/29/21 04:09 MCV 80.9 fL (80-100) 05/29/21 04:09 MCH 26.1 pg (25-34) 05/29/21 04:09 MCHC 32.3 g/dL (32-36) 05/29/21 04:09 RDW Std Deviation 57.9 fL (36.4-46.3) H 05/29/21 04:09 RDW Coeff of Lawson 19.5 % (11.5-14.5) H 05/29/21 04:09 Plt Count 149 K/uL (130-400) 05/29/21 04:09 MPV 9.8 fL (7.4-10.4) 05/29/21 04:09 Immature Gran % (Auto) 7.2 % 05/28/21 05:55 Neut % (Auto) 80.0 % 05/28/21 05:55 Lymph % (Auto) 10.5 % 05/28/21 05:55 [place] % (Auto) 2.0 % 05/28/21 05:55 Eos % (Auto) 0.0 % 05/28/21 05:55 Baso % (Auto) 0.3 % 05/28/21 05:55 Neut # (Auto) 3.13 K/uL (1.4-6.5) 05/28/21 05:55 Lymph # (Auto) 0.41 K/uL (1.2-3.4) L 05/28/21 05:55 [place]berson # (Auto) 0.08 K/uL (0.11-0.59) L 05/28/21 05:55 Eos # (Auto) 0.00 K/uL (0-0.5) 05/28/21 05:55 Baso # (Auto) 0.01 K/uL (0-0.2) 05/28/21 05:55 Immature Gran # (Auto) 0.28 K/uL (0.00-0.02) H 05/28/21 05:55 Absolute Nucleated RBC 0.07 K/uL (0-0) H 05/29/21 04:09 Nucleated RBC % (auto) 0.9 % 05/29/21 04:09 Neutrophils % (Manual) 88.0 % 05/29/21 04:09 Band Neutrophils % Cancelled 05/27/21 04:45 Lymphocytes % (Manual) 3.4 % 05/29/21 04:09 Prolymphocyte % Cancelled 05/27/21 04:45 Reactive Lymphs % (Man) Cancelled 05/27/21 04:45 Monocytes % (Manual) 1.7 % 05/29/21 04:09 Eosinophils % (Manual) 1.7 % 05/29/21 04:09 Basophils % (Manual) 1.7 % 05/29/21 04:09 Metamyelocytes % (Man) 0.9 % 05/29/21 04:09 Myelocytes % (Man) 2.6 % 05/29/21 04:09 Promyelocytes % (Man) Cancelled 05/27/21 04:45 Blast Cells % (Manual) Cancelled 05/27/21 04:45 Plasma Cell % (Manual) Cancelled 05/27/21 04:45 Other Cells % Cancelled 05/27/21 04:45 Nucleated RBC % Cancelled 05/27/21 04:45 Neutrophils # (Manual) 6.33 K/uL (1.4-6.5) 05/29/21 04:09 Band Neutrophils # Cancelled 05/27/21 04:45 Total Absolute Neuts 6.33 K/uL (1.4-6.5) 05/29/21 04:09 Lymphocytes # (Manual) 0.24 K/uL (1.2-3.4) L 05/29/21 04:09 Prolymphocyte # Cancelled 05/27/21 04:45 Reactive Lymphs # Cancelled 05/27/21 04:45 Total Abs Lymphocytes 0.24 K/uL (1.2-3.4) L 05/29/21 04:09 Monocytes # (Manual) 0.12 K/uL (0.11-0.59) 05/29/21 04:09 Eosinophils # (Manual) 0.12 K/uL (0-0.5) 05/29/21 04:09 Basophils # (Manual) 0.12 K/uL (0-0.2) 05/29/21 04:09 Metamyelocytes # (Man) 0.06 K/uL (0-0) H 05/29/21 04:09 Myelocytes # (Manual) 0.19 K/uL (0-0) H 05/29/21 04:09 Promyelocytes # (Man) Cancelled 05/27/21 04:45 Blast Cells # (Man) Cancelled 05/27/21 04:45 Plasma Cell # (Manual) Cancelled 05/27/21 04:45 Other Cells # Cancelled 05/27/21 04:45 Nucleated RBCs # (Man) Cancelled 05/27/21 04:45 Hypersegmented Neuts Cancelled 05/27/21 04:45 Hyposegmented Neuts Cancelled 05/27/21 04:45 Hypogranular Neuts Cancelled 05/27/21 04:45 Large Granular Lymphs Cancelled 05/27/21 04:45 # Lrg Granular Lymphs Cancelled 05/27/21 04:45 Hairy Cells Cancelled 05/27/21 04:45 Smudge Cells Cancelled 05/27/21 04:45 Toxic Granulation Cancelled 05/27/21 04:45 Toxic Vacuolation 1+ 05/28/21 05:55 Dohle Bodies 1+ 05/28/21 05:55 Curly Rods Cancelled 05/27/21 04:45 Platelet Estimate Cancelled 05/27/21 04:45 Hypogranular Platelets Cancelled 05/27/21 04:45 Clumped Platelets Cancelled 05/27/21 04:45 Giant Platelets Cancelled 05/27/21 04:45 Platelet Satelliting Cancelled 05/27/21 04:45 RBC Morphology Cancelled 05/27/21 04:45 Polychromasia 1+ 05/27/21 06:48 Hypochromasia Cancelled 05/27/21 04:45 Poikilocytosis Cancelled 05/27/21 04:45 Basophilic Stippling Cancelled 05/27/21 04:45 Anisocytosis Present 05/27/21 06:48 Microcytosis Cancelled 05/27/21 04:45 Macrocytosis Cancelled 05/27/21 04:45 Spherocytes Cancelled 05/27/21 04:45 Pappenheimer Bodies Cancelled 05/27/21 04:45 Sickle Cells Cancelled 05/27/21 04:45 Target Cells Cancelled 05/27/21 04:45 Tear Drop Cells Cancelled 05/27/21 04:45 Ovalocytes Cancelled 05/27/21 04:45 Stomatocytes Cancelled 05/27/21 04:45 Castañeda-[place] Bodies Cancelled 05/27/21 04:45 Echinocytes 2+ 05/29/21 04:09 Acanthocytes (Spur) Cancelled 05/27/21 04:45 Rouleaux Cancelled 05/27/21 04:45 RBC Agglutinates Cancelled 05/27/21 04:45 Schistocytes Cancelled 05/27/21 04:45 RBC Morph Comment Cancelled 05/27/21 04:45 Sezary Cell Cancelled 05/27/21 04:45 VBG pH 7.29 (7.36-7.41) L 05/28/21 14:04 VBG pCO2 39 mmHg (38-50) 05/28/21 14:04 VBG pO2 87 mmHg 05/28/21 14:04 VBG HCO3 18 mmol/L 05/28/21 14:04 VBG O2 Saturation 84.0 % 05/28/21 14:04 VBG Base Excess -7.6 mEq/L 05/28/21 14:04 Barometric Pressure 726.0 mm/Hg 05/28/21 14:04 Sodium 141 mmol/L (136-145) 05/29/21 08:10 Potassium 3.3 mmol/L (3.5-5.1) L 05/29/21 08:10 Chloride 111 mmol/L (98-107) H 05/29/21 08:10 Carbon Dioxide 18 mmol/L (21-32) L 05/29/21 08:10 Anion Gap 12.0 (3-11) H 05/29/21 08:10 BUN 62 mg/dl (7-18) H 05/29/21 08:10 Creatinine 1.13 mg/dl (0.6-1.2) 05/29/21 08:10 Est Cr Clr Drug Dosing 45.1 ml/min 05/29/21 08:10 Est GFR ( Amer) 53.5 ml/min 05/29/21 08:10 Est GFR (Non-Af Amer) 46.2 ml/min 05/29/21 08:10 BUN/Creatinine Ratio 54.8 (10-20) H 05/29/21 08:10 Glucose 109 mg/dl (70-99) H 05/29/21 08:10 Lactate 1.6 mmol/L (0.4-2.0) 05/27/21 23:03 Calcium 7.3 mg/dl (8.5-10.1) L 05/29/21 08:10 Ionized Calcium 0.95 mmol/L (1.12-1.32) L 05/28/21 21:19 Magnesium 2.0 mg/dl (1.8-2.4) 05/28/21 14:01 Total Bilirubin 0.5 mg/dl (0.2-1) 05/29/21 04:09 AST 25 U/L (15-37) 05/29/21 04:09 ALT 40 (12-78) 05/29/21 04:09 Alkaline Phosphatase 87 U/L (45-117) 05/29/21 04:09 Troponin I 0.026 ng/ml (0-0.045) 05/28/21 05:55 Total Protein 4.2 gm/dl (6.4-8.2) L 05/29/21 04:09 Albumin 1.4 gm/dl (3.4-5.0) L 05/29/21 04:09 Globulin 2.8 gm/dl (2.5-4.0) 05/29/21 04:09 Albumin/Globulin Ratio 0.5 (0.9-2) L 05/29/21 04:09 Lipase 35 U/L (73-393) L 05/26/21 20:35 Random Cortisol 70.76 mcg/dl 05/27/21 21:02 Urine Color Dark Yellow 05/26/21 19:35 Urine Appearance Cloudy (Clear) A 05/26/21 19:35 Urine pH 5.0 (4.5-7.5) 05/26/21 19:35 Ur Specific [place] 1.012 (1.000-1.030) 05/26/21 19:35 Urine Protein Negative (Negative) 05/26/21 19:35 Urine Glucose (UA) Negative (Negative) 05/26/21 19:35 Urine Ketones Negative (Negative) 05/26/21 19:35 Urine Blood 3+ (Negative) H 05/26/21 19:35 Urine Nitrite Negative (Negative) 05/26/21 19:35 Urine Bilirubin Negative (Negative) 05/26/21 19:35 Urine Urobilinogen Negative (Negative) 05/26/21 19:35 Ur Leukocyte Esterase 1+ (Negative) H 05/26/21 19:35 Urine WBC (Auto) >30 /hpf (0-5) H 05/26/21 19:35 Urine RBC (Auto) >30 /hpf (0-4) H 05/26/21 19:35 U Hyaline Cast (Auto) 1-5 /lpf (0-5) 05/26/21 19:35 U Epithel Cells (Auto) 10-20 /lpf (0-5) H 05/26/21 19:35 Urine Bacteria (Auto) Negative (Negative) 05/26/21 19:35 Stool Occult Bld Scrn Positive (Negative) A 05/28/21 04:55 Stl C. cayetanensis PCR Not Detected (NotDetected) 05/29/21 05:10 Stool Rotavirus A PCR Not Detected (NotDetected) 05/29/21 05:10 Stl Adenov F 40/41 PCR Not Detected (NotDetected) 05/29/21 05:10 Stool Astrovirus (PCR) Not Detected (NotDetected) 05/29/21 05:10 Stool Campylobacter PCR Not Detected (NotDetected) 05/29/21 05:10 Stl C. diff Tox B Gene Negative Cdiff Gene (Neg) 05/29/21 09:20 Stl C. diff Tox A/B PCR Not Detected (NotDetected) 05/29/21 05:10 Stool Cryptosporidium PCR Not Detected (NotDetected) 05/29/21 05:10 Stl E.coli Shiga Tox PCR Not Detected (NotDetected) 05/29/21 05:10 Stl Enterotoxigenic E PCR Not Detected (NotDetected) 05/29/21 05:10 Stool EPEC (PCR) Not Detected (NotDetected) 05/29/21 05:10 Stool EAEC (PCR) Not Detected (NotDetected) 05/29/21 05:10 Stl E. histolytica PCR Not Detected (NotDetected) 05/29/21 05:10 Stool Giardia Lamblia PCR Not Detected (NotDetected) 05/29/21 05:10 Stool Salmonella PCR Not Detected (NotDetected) 05/29/21 05:10 Stool Sapovirus (PCR) Not Detected (NotDetected) 05/29/21 05:10 Stl P. shigelloides PCR Not Detected (NotDetected) 05/29/21 05:10 Stl Shigella/EIEC PCR Not Detected (NotDetected) 05/29/21 05:10 St Y.enterocolitica PCR Not Detected (NotDetected) 05/29/21 05:10 Stool Vibrio (PCR) Not Detected (NotDetected) 05/29/21 05:10 Stl Vibrio cholerae PCR Not Detected (NotDetected) 05/29/21 05:10 Stl Norovirus GI/GII PCR Not Detected (NotDetected) 05/29/21 05:10 C. difficile Tox B Gene Cancelled 05/29/21 05:10 C. difficile Tox B Gene Cancelled 05/29/21 05:10 SARS-CoV-2, RNA, NAAT POSITIVE (NEGATIVE) A* 05/26/21 21:39 Blood Type B Positive 05/27/21 06:48 Antibody Screen NEGATIVE 05/27/21 06:48 Crossmatch See Detail 05/27/21 06:48 Impressions Chest X-Ray 05/26/21 18:52 SINGLE VIEW CHEST CLINICAL HISTORY: Change in mental status. Generalized abdominal pain. FINDINGS: An AP, portable, semierect chest radiograph is compared to study dated 05/08/2021. The heart is top normal for projection noting atherosclerotic calcification of the thoracic aorta. A thoracic aortic stent graft is in place. There is chronic elevation of the left hemidiaphragm with bibasilar atelectasis. No airspace consolidation is seen typical for pneumonia. No large pleural effusion or pneumothorax is seen. The skeletal structures are osteopenic. The bony thorax is grossly intact. IMPRESSION: No acute cardiopulmonary abnormality. ACT 112: Negative or not required by law. Electronically signed by: John Romero M.D. 05/26/2021 9:[address] 05/26/21 18:52 CT SCAN OF THE BRAIN WITHOUT IV CONTRAST CLINICAL HISTORY: Change in mental status. COMPARISON STUDY: CT of the brain dated 12/03/2020. TECHNIQUE: Unenhanced axial CT scan of the brain is performed from the vertex to the skull base. A dose lowering technique was utilized adhering to the principles of ALARA. FINDINGS: Brain parenchyma: There are age-related involutional changes noting advanced subcortical and periventricular microangiopathic change. There is no hemorrhage, mass effect, or evidence of acute territorial ischemia by CT criteria. Foci of left frontal and left parietal encephalomalacia are unchanged from prior studies and consistent with remote infarcts. Rivera-white matter differentiation is preserved. No extra-axial fluid collection is seen. Ventricles, sulci, cisterns: Prominent secondary to involutional change. Intracranial vasculature: There is atherosclerotic calcification of the cavernous carotid and vertebral arteries. Calvarium: Unremarkable. Sinuses and mastoids: The visualized paranasal sinuses are clear. There is a small left mastoid effusion. The right mastoid air cells are well pneumatized. Orbits: The bony orbits are grossly intact. There are bilateral ocular lens implants. IMPRESSION: There is no hemorrhage, mass effect, or evidence of acute territorial ischemia by CT criteria. ACT 112: Negative or not required by law. Electronically signed by: John Romero M.D. 05/26/2021 8:22 PM Abdomen/Pelvis CT 05/27/21 14:[address] WITHOUT CONTRAST CT DOSE: 435.14 mGy.cm HISTORY: Acute generalized abdominal pain ?extravasation/perf TECHNIQUE: Multiaxial CT images of the abdomen and pelvis were performed without contrast. A dose lowering technique was utilized adhering to the principles of ALARA. COMPARISON STUDY: CT abdomen and pelvis 05/26/2021 FINDINGS: Trace pericardial effusion. Coronary artery calcifications. Trace pleural effusions with bibasilar densities suggestive of atelectasis. No pneumatosis or pneumoperitoneum. Calcified granulomata of the spleen. Indeterminate 1.4 cm hypodense splenic lesion, likely benign. Moderate generalized pancreatic atrophy. Unremarkable adrenal glands. Cholecystectomy. Intrahepatic and extrahepatic biliary ductal dilation is redemonstrated which is likely postsurgical. Unenhanced liver is within normal limits. 2.8 cm cyst of the interpolar right kidney redemonstrated. No hydronephrosis. Layering hyperdense material within the urinary bladder suggestive of retained contrast versus bladder calculi. Atherosclerosis of the aorta. Dilation of the distal descending thoracic aorta is unchanged measuring 3.9 cm. There is no adenopathy. Moderate sized hiatal hernia. No small bowel obstruction. Mild colonic dive rticulosis without acute diverticulitis. There is moderate fecal retention with scattered colonic air-fluid levels. Mild diffuse wall thickening throughout the colon and rectum with perirectal stranding and trace abdominal pelvic ascites, unchanged from yesterday's study. There are degenerative changes of the spine and pelvis. No acute fracture identified. Right hip total joint arthroplasty with ORIF changes of the left proximal femur. Lumbar levoscoliosis. IMPRESSION: 1. Stable exam from the study obtained less than 24 hours prior. 2. Constipation with findings compatible with colonic ileus. 3. Unchanged findings of mild diffuse proctocolitis with trace abdominopelvic ascites. No evidence of perforation. 4. Moderate hiatal hernia. 5. Trace pleural effusions with mild bibasilar densities suggestive of atelectasis. 6. Additional findings as above. ACT 112: Negative or not required by law. The above report was generated using voice recognition software. It may contain grammatical, syntax or spelling errors. Electronically signed by: Jeremiah Hanson M.D. 05/27/2021 4:24 PM KUB X-Ray 05/29/21 07:00 KUB HISTORY: Acute generalized abdominal pain with reported colonic distention Colon distension, please measure cecal diameter COMPARISON: KUB 05/28/2021, CT abdomen and pelvis 05/27/2021 FINDINGS: Cholecystectomy. Endograft of the descending thoracic aorta with arterial calcifications. There is persistent gaseous distention of the large bowel. The large bowel distention appears to have mildly improved. Mild gaseous distention of small bowel loops measures up to 3.1 cm. No renal calculi. No ureteral calculi. No pneumoperitoneum or pneumatosis. Right hip total joint arthroplasty. ORIF changes of the left proximal femur. No fracture. IMPRESSION: Persistent ileus pattern. ACT 112: Negative or not required by law. The above report was generated using voice recognition software. It may contain grammatical, syntax or spelling errors. Electronically signed by: Jeremiah Hanson M.D. 05/29/2021 8:54 AM Code Status & VTE Plan VTE Prophylaxis Plan VTE Prophylaxis will be ordered: Yes
[2021-05-29] MEDS ORDERED: PROPOFOL IV EMULSION 10 MG/ML 20 ML VIAL IV ONE (12:55)
[2021-05-29] MEDS ORDERED: LIDOCAINE 2% 2 ML VIAL/AMP(20MG/ML) INFIL ONE (12:55)
[2021-05-29] MEDS ORDERED: ePHEDrine sulfate 50 MG/ML SYR ONE (13:05)
--- NOTE | 2021-05-29 13:24 | Post Operative Brief Note ---
Immediate Post Op Note v1 Date of Surgery May 29, 2021 Pre & Post Diagnosis Operation Date: 05/29/21 08:10 Pre-Op Diagnosis: Colon distension with colitis and bloody diarrhea I identified the patient and participated in the time-out.: Yes Procedure Operation Date: 05/29/21 08:10 Colonoscopy with colon decompression and insertion of a decompression catheter Surgeon Jean-Pierre Mojica MD Button Sewer Hand none Estimated Blood Loss 0 Findings Consistent with Post-Op Diagnosis Dilated proximal colon with retained formed and unformed stool and diffuse colitis. Edema and mild erythema of the mucosa in the distal colon. Colon decompressed with suction and a decompression catheter was inserted over a guide wire Anesthesia Type MAC Complications No immediate complications noted
--- NOTE | 2021-05-29 13:37 | Anesthesiology Progress Note ---
Date of Service May 29, 2021 Anesthesia Post Procedure Vital Signs Vital Signs: Temp Pulse Pulse Pulse Resp BP BP 05/29/21 13:25 79 16 05/29/21 13:17 36.2 C L 74 16 05/29/21 11:57 36.8 C 75 18 05/29/21 10:02 72 21 84/72 L 05/29/21 10:00 70 18 05/29/21 09:30 71 18 05/29/21 09:01 78 19 153/80 H 05/29/21 09:00 78 18 05/29/21 08:30 73 16 05/29/21 08:00 78 18 116/77 05/29/21 07:30 75 19 05/29/21 07:02 82 20 112/85 05/29/21 07:00 82 19 05/29/21 04:09 37 C 78 18 05/28/21 23:59 80 05/28/21 23:03 36.9 C 80 18 05/28/21 20:18 113/74 05/28/21 19:42 36.4 C L 79 18 108/66 05/28/21 15:54 36.9 C 84 18 88/60 L 05/28/21 14:00 BP Pulse Ox Pulse Ox 05/29/21 13:25 97/52 L 98 05/29/21 13:17 88/54 L 96 05/29/21 11:57 127/68 95 05/29/21 10:02 98 05/29/21 10:00 96 05/29/21 09:30 97 05/29/21 09:01 93 05/29/21 09:00 96 05/29/21 08:30 96 05/29/21 08:00 97 05/29/21 07:30 95 05/29/21 07:02 95 05/29/21 07:00 05/29/21 04:09 116/70 93 05/28/21 23:59 05/28/21 23:03 108/75 94 05/28/21 20:18 05/28/21 19:42 94 05/28/21 15:54 95 05/28/21 14:00 95 Transfer of Care Handoff Completed per policy Notes Mental Status: alert / awake / arousable Patient Amnestic to Procedure: Yes Nausea / Vomiting: adequately controlled Pain: adequately controlled Airway Patency, RR, SpO2: stable & adequate BP & HR: stable & adequate Hydration State: stable & adequate Anesthetic Complications: no major complications apparent
[2021-05-29] MEDS ORDERED: PIPERACILL/TAZOBAC CONSULT ACTIVE PRN (14:05)
[2021-05-29] MEDS ORDERED: traMADol HCL 50 MG TABLET PO PRN (14:06)
[2021-05-29] MEDS ORDERED: LORazepam 0.5 MG TAB PO PRN (14:06)
[2021-05-29] MEDS ORDERED: ALBUTEROL HFA 8 GM INHALER INH PRN (14:06)
--- NOTE | 2021-05-29 14:08 | XRay Report ---
KUB HISTORY: Status post placement of a rectal tube Colon tube placement and measure distension COMPARISON: KUB of same day at 7:10 AM, CT abdomen and pelvis 05/27/2021 FINDINGS: Status post placement of a colonic catheter with distal tip projected over the midabdomen. There is decreased gaseous distention of the large bowel. Air-filled loops of small bowel within the left mid abdomen measure up to 3.4 cm transversely which appears similar to prior.. No renal calculi . No ureteral calculi. No pneumoperitoneum or pneumatosis. Lumbar levoscoliosis. Right hip total join t arthroplasty. ORIF changes of the left hip. Descending thoracic aortic endograft. No fracture. IMPRESSION: Persistent ileus pattern with decreased gaseous distention of the large bowel status post placement o f a colonic catheter. ACT 112: Negative or not required by law. The above report was generated using voice recognition software. It may contain grammatical, syntax o r spelling errors. Electronically signed by: Jeremiah Hanson M.D. 05/29/2021 2:07 PM
[2021-05-29] MEDS ORDERED: METOPROLOL TARTRATE 1 MG/ML VIAL IV PRN (14:11)
[2021-05-29] MEDS ORDERED: PIPERACILLIN/TAZOBACTAM 3.375 GM in DEXTROSE 5% 100 ML IV ONE (14:30)
--- NOTE | 2021-05-29 14:41 | Discharge Summary ---
Date of Service May 29, 2021 Admission HPI Per Admitting Provider Patient with recent history of Covid-19 pneumonia and respiratory failure, readmitted with severe abdominal distension and pain, with bloody diarrhea. Imaging reveals appearance of colon pseudo obstruction vs. toxic megacolon, with cecal distension 11-12 cm. C diff toxin assay and stool for enteric pathogens negative. Principal Diagnosis Stercolitis Colonic distension Discharge Exam Constitutional WD/WN, vitals as above + acute distress Eyes EOM intact bilaterally; no conjunctival abnormality ENMT external ear and nose normal, oropharynx normal Neck trachea midline, no thyromegaly normal visual inspection Respiratory normal respiratory effort, lungs clear to auscultation no respiratory distress Cardiovascular RRR, no murmur, no edema Gastrointestinal (Abdomen) Inspection/Auscultation: + abdomen distended and + hypoactive bowel sounds; + abdomen abnormal to inspection Percussion/Palpation: + abdomen tender (No rebound tenderness) and abdomen soft; no guarding and abdomen not rigid Musculoskeletal no cyanosis or clubbing, extremities motor strength 5/5 Skin no rashes, warm and dry Neurologic moves all extremities and awake Psychiatric Orientation: alert, oriented to person and cooperative Discharge Data Allergies Allergy/AdvReac Type Severity Reaction Status Date / Time No Known Allergies Allergy Unknown Verified 05/26/21 19:37 Consultations 05/26/21 21:32 ED Decision to Admit Stat 05/27/21 14:42 Consult General Surgery Routine 05/27/21 15:39 Consult Gastroenterology Routine 05/29/21 09:18 Consult Data Power Consultant Routine Procedures Performed Operation Date: 05/29/21 08:10 Actual Procedures p Colonoscopy with Decompression Tube Plac - Jean-Pierre Mojica MD Ordered Studies 05/26/21 18:52 CT abd pelvis wo con Stat CT head/brain wo con Stat 05/27/21 14:29 CT abd pelvis wo con Stat Hospital Course (1) Stercoral colitis: KUB on 05/28 showed colonic distension to 11.0 cm. - Seen by GI - No stool for manual disimpaction but with copious liquid output, rectal tube placed. Colonoscopy on 05/29 with colonic washout & decompression. - Docusate BID, senna, & Miralax BID -> Daughter requested home with hospice on 05/29. Equipment delivered. Ready for discharge home. (2) Hyperchloremic acidosis: Due to aggressive fluid resuscitation for hypotension as previously noted. Fluid switched to Normosol to minimize chloride - Improved by dishcarge. (3) Anemia: Hemoglobin dropped from 8.5 to 6.9 following fluids. - S/p 2 units of PRBCs on 05/27 - Hgb overall stable ~ 10 since then, though dropped to 9.3 on 05/29. (4) TOBY (acute kidney injury): Creatinine elevated from normal baseline (~1.0) to 2.12 on admission. Creatinine downtrending: Cr 1.1 on 05/29 Avoid nephrotoxins Continue to trend BMP (5) Atrial fibrillation with RVR: Rate 88 on bedside assessment, adequately controlled Continue amiodarone Continue metoprolol tartrate, dose reduced/hold for hypotension Apixaban held in the setting of GI bleeding and anemia requiring transfusion (6) Hypotension: Patient with recurrent hypotension, fluid responsive. Received 4.5 L of crystalloid and 2 units of blood with patient normotensive and maintained normotensive BP without tachycardia overnight. Monitor BP (7) Elevated troponin: Elevated troponin in the setting of volume depletion, TOBY, hypertension, and stercoral colitis. EKG without acute acute ST changes. - Demand ischemia, Type II MT. Troponin peaked at 0.09. (8) COPD (chronic obstructive pulmonary disease): No wheezing on exam. DuoNeb as needed (9) GERD without esophagitis: - Protonix daily (10) Hyperlipidemia: - Continue simvastatin (11) HTN (hypertension): BP today was stable. Beta-harsh as above DVT prophylaxis: SCDs, oral anticoagulation held as above Total Time Total Time Spent Total Time Spent (In Minutes): 35 Discharge Plan Discharge Items Patient Disposition: Hospice - Home Reason For Visit: INCREASED TROPONIN, TOBY, STERCORAL COLITIS, HX COV Discharge Diagnosis: Irritation of colon due to stool burden Activity: Resume your previous activity Non-emergency contact: Primary Care Provider Call non-emergency contact if: your symptoms worsen Follow-up/Referrals: Grace Price MD [Primary Care Provider] - Diet: Regular Addtl Attending Provider Instructions: Ms. Fish was admitted to the hospital with abdominal distension from the stool burden in her bowel which was also causing bowel irritation. She underwent a colonoscopy that was aimed to help relieve some of this burden. She will be discharged home on hospice to be with family. Pending Studies at Discharge: No Stand-Alone Forms: My [facility] Medications and DC Order Prescriptions: Continued albuterol sulfate 90 mcg/actuation HFA aerosol inhaler 2 puff INH Q6H PRN (Reason: shortness of breath or wheezing) Qty: 18 RF: 5 tramadol 50 mg tablet 50 mg PO TID PRN (Reason: pain) Qty: 90 RF: 2 amiodarone 200 mg Tablet 200 mg PO BIDM 30 Days Qty: 60 RF: 1 bupropion HCl 75 mg Tablet 75 mg PO BID 30 Days Qty: 60 RF: 1 melatonin 3 mg Tablet 6 mg PO HS PRN (Reason: sleep) 30 Days Qty: 30 RF: 0 acetaminophen [Tylenol] 325 mg Tablet 650 mg PO Q4H PRN (Reason: Pain) RF: 0 lorazepam 0.5 mg Tablet 0.5 mg PO HS PRN (Reason: Anxiety) RF: 0 Discontinued simvastatin 40 mg tablet 40 mg PO HS Qty: 90 RF: 3 apixaban 5 mg tablet 5 mg PO BID Qty: 180 RF: 3 metoprolol tartrate 25 mg tablet 25 mg PO BID Qty: 180 RF: 3 sennosides [Senokot] 8.6 mg Tablet 17.2 mg PO QAM 30 Days Qty: 60 RF: 0 pantoprazole 20 mg Tablet,Delayed Release (Dr/Ec) 20 mg PO DAILYBB RF: 0 docusate sodium 100 mg Capsule 100 mg PO BID RF: 0 guaifenesin [Mucinex] 600 mg Tablet Extended Release 12hr 600 mg PO Q12H RF: 0 Discharge Orders: Discharge Order (Routine); Ordered 05/29/21 Ordered By: Clayton June Admission Data Admit Date/Time: 05/26/21 22:55 Attending Provider: Clayton June Admit Provider: Jaren Cortés Primary Care Provider: Grace Price Other Providers: Cristian Marino ; Mily Jacobson ; Clayton June ; Sher Llanos ; 365,Hospice Coding Level of Care Code D/C DAY MANAGEMENT >30 MINS Diagnoses Stercoral colitis K52.89 Hyperchloremic acidosis E87.2 Anemia D64.9 Anemia type: unspecified type TOBY (acute kidney injury) N17.9 Atrial fibrillation with RVR I48.91 Hypotension I95.9 Elevated troponin R77.8 COPD (chronic obstructive pulmonary disease) J44.1 COPD type: COPD with acute exacerbation GERD without esophagitis K21.9 Hyperlipidemia E78.5 HTN (hypertension) I10
[2021-05-29 14:47] LABS: Magnesium 2.3 mg/dl (1.8-2.4); Phosphorus 3.6 mg/dl (2.5-4.9)
[2021-05-29] MEDS ORDERED: PIPERACILLIN/TAZOBACTAM 3.375 GM in DEXTROSE 5% 100 ML IV SCH (20:00)
[2021-05-29] MEDS ORDERED: guaiFENesin 600 MG TABCR PO SCH (21:00)
[2021-05-30] MEDS ORDERED: PANTOprazole 40 MG TAB PO SCH (06:30)
== END 2021-05-29 17:25 | disposition hospice, home (50) | DRG 391 ==
LOC: ED 18:43 → SUATTDRO 22:55 → EDINP 22:55 → 2S 05-27 21:07 → 1E 05-29 06:55